=== PATIENT | female | born 1945 | race Caucasian/White ===

== ENCOUNTER → 2017-08-31 14:27 | Outpatient (CLI) | payer MEDICARE, SELFPAY | PROVIDERS: PCP Internal Medicine; Visit Provider Student in an Organized Health Care Education/Training Program | DX: L93.2 Other local lupus erythematosus (principal); N30.00 Acute cystitis without hematuria | CPT/HCPCS: 36415; 86335 ==

== ENCOUNTER → 2017-09-20 11:05 | Outpatient (CLI) | payer MEDICARE, SELFPAY ==
[2017-09-20 12:15] LABS: Hematocrit 34.8 % (36-46); Hemoglobin 11.9 g/dL (12.0-16.0)
[2017-09-20 13:49] LABS: Calcium 9.4 mg/dL (8.4-10.2); Estimated Glomerular Filt Rate 49.1 mL/min (>60); Glucose 222 mg/dL (80-110); HEMOLYSIS < 15 (0-50); Iron 69 ug/dL (37-170); Phosphorous 4.4 mg/dL (2.8-4.1); Potassium 4.6 mmol/L (3.4-5.1); Sodium 139 mmol/L (137-145)
[2017-09-20 14:02] LABS: Percent Iron Saturation 19 % (15-50); Total Iron Binding Capacity 363 ug/mL (265-497); Transferrin 297 mg/dL (206-381)
[2017-09-20 14:17] LABS: Ferritin 44.6 ng/mL (11.1-264)
[2017-09-20 18:15] LABS: Creatinine Urine Random 69.6 mg/dL
[2017-09-20 18:23] LABS: Protein (Total) Urine Random 437 mg/dL (0-12); Protein Creatinine Ratio Urine 6.27 GRAM/24H
[2017-09-22 13:43] LABS: Parathyroid Hormone Int 51 pg/mL (14-64)
== END ==
PROVIDERS: PCP Internal Medicine; Visit Provider Student in an Organized Health Care Education/Training Program
DX: N05.9 Unspecified nephritic syndrome with unspecified morphologic changes (principal); D50.0 Iron deficiency anemia secondary to blood loss (chronic); D64.9 Anemia, unspecified; E83.30 Disorder of phosphorus metabolism, unspecified; N25.81 Secondary hyperparathyroidism of renal origin; R80.9 Proteinuria, unspecified
CPT/HCPCS: 36415; 80048; 82570; 82728; 83540; 83550; 83970; 84100; 84156; 85014; 85018

== ENCOUNTER → 2017-10-26 13:46 | Outpatient (CLI) | payer MEDICARE, SELFPAY ==
[2017-10-26 14:16] LABS: Add Manual Diff / Slide Review NO; Eosinophils Percent Auto 1.1 % (2-4); Hematocrit 33.4 % (36-46); Hemoglobin 11.1 g/dL (12.0-16.0); Lymphocytes Percent Auto 16.8 % (25-40); Mean Corpuscular HGB Conc 33.2 % (30-36); Mean Corpuscular Hemoglobin 29.7 PG (26-34); Mean Corpuscular Volume 89.4 fL (80-100); Neutrophils Absolute Auto 5100 /uL (3000-5900); Neutrophils Percent Auto 76.1 % (50-75); Platelet Count 225 X10^3/uL (150-400); Red Blood Cell Count 3.74 X10^6/uL (4.0-5.2); Red Cell Distribution Width 13.5 % (11.6-14.8); White Blood Cell Count 6.7 X10^3/uL (4.5-11.0)
[2017-10-26 14:28] LABS: Alanine Aminotransferase 43 IU/L (9-52); Albumin 3.8 g/dL (3.5-5.0); Albumin Globulin Ratio 1.4 (1.0-2.8); Alkaline Phosphatase 57 U/L (38-126); Aspartate Aminotransferase 20 IU/L (14-36); BUN Creatinine Ratio 24.6 (6-22); Bilirubin Total 0.4 mg/dL (0.2-1.3); Blood Urea Nitrogen 32 mg/dL (7-17); Calcium 9.1 mg/dL (8.4-10.2); Carbon Dioxide 22 mmol/L (22-32); Chloride 104 mmol/L (98-107); Estimated Glomerular Filt Rate 40.5 mL/min (>60); Globulin 2.7 g/dL (1.7-4.1); Glucose 334 mg/dL (80-110); HEMOLYSIS < 15 (0-50); Potassium 4.9 mmol/L (3.4-5.1); Sodium 137 mmol/L (137-145); Total Protein 6.5 g/dL (6.3-8.2)
[2017-10-28 15:45] LABS: Cancer Antigen 27.29 22 U/mL (< 38)
== END ==
PROVIDERS: Family Provider Internal Medicine; PCP Internal Medicine; Visit Provider Nurse Practitioner Gerontology
DX: C50.912 Malignant neoplasm of unspecified site of left female breast (principal)
CPT/HCPCS: 36415; 80053; 85025; 86300

== ENCOUNTER → 2017-11-10 09:32 | Outpatient (CLI) | payer MEDICARE, SELFPAY ==
[2017-11-10 11:32] LABS: BUN Creatinine Ratio 28.5 (6-22); Blood Urea Nitrogen 37 mg/dL (7-17); Calcium 9.2 mg/dL (8.4-10.2); Carbon Dioxide 21 mmol/L (22-32); Chloride 104 mmol/L (98-107); Estimated Glomerular Filt Rate 40.5 mL/min (>60); Glucose 193 mg/dL (80-110); HEMOLYSIS < 15 (0-50); Potassium 4.2 mmol/L (3.4-5.1); Sodium 136 mmol/L (137-145)
[2017-11-10 12:32] LABS: Appearance Urine UA SL CLOUDY; Bilirubin Urine UA NEGATIVE (NEGATIVE); Color Urine UA YELLOW; Glucose Urine UA TRACE g/dL (Normal); Ketones Urine UA NEGATIVE (NEGATIVE); Leukocyte Esterase Urine UA 2+ (NEGATIVE); Nitrite Urine UA POSITIVE (Negative); Occult Blood Urine UA TRACE-LYSED (Negative); Protein Urine UA 3+ (Negative); Urobilinogen Urine UA 0.2 E.U./dL (0.2)
[2017-11-10 12:42] LABS: Bacteria Urine Many (>30); Culture Indicated Urine Specimen Cultured; RBC Urine 0-1/HPF (0-5/HPF); Squamous Epithelial Cell Urine 1-5 /HPF; WBC Urine >100/HPF (0-5/HPF)
[2017-11-10 20:51] LABS: Protein (Total) Urine Random 824 mg/dL (0-12)
[2017-11-10 20:52] LABS: Protein Creatinine Ratio Urine 6.53 GRAM/24H
== END ==
PROVIDERS: Family Provider Internal Medicine; PCP Internal Medicine; Visit Provider Student in an Organized Health Care Education/Training Program
DX: N00.9 Acute nephritic syndrome with unspecified morphologic changes (principal); N30.00 Acute cystitis without hematuria; R80.9 Proteinuria, unspecified
CPT/HCPCS: 36415; 80048; 81001; 82570; 84156; 87077; 87086; 87186

== ENCOUNTER → 2017-12-23 10:35 | Outpatient (CLI) | payer MEDICARE, SELFPAY ==
[2017-12-23 11:04] LABS: Hematocrit 32.7 % (36-46); Hemoglobin 11.1 g/dL (12.0-16.0); Mean Corpuscular HGB Conc 33.9 % (30-36); Mean Corpuscular Hemoglobin 29.9 PG (26-34); Mean Corpuscular Volume 88.2 fL (80-100); Platelet Count 230 X10^3/uL (150-400); White Blood Cell Count 6.2 X10^3/uL (4.5-11.0)
[2017-12-23 11:25] LABS: BUN Creatinine Ratio 26.7 (6-22); Blood Urea Nitrogen 32 mg/dL (7-17); Calcium 9.4 mg/dL (8.4-10.2); Carbon Dioxide 23 mmol/L (22-32); Chloride 105 mmol/L (98-107); Estimated Glomerular Filt Rate 44.4 mL/min (>60); Glucose 173 mg/dL (80-110); HEMOLYSIS < 15 (0-50); Sodium 140 mmol/L (137-145)
[2017-12-23 11:29] LABS: Creatinine Urine Random 46.5 mg/dL
[2017-12-23 11:34] LABS: Protein (Total) Urine Random 349 mg/dL (0-12)
== END ==
PROVIDERS: Family Provider Internal Medicine; PCP Internal Medicine; Visit Provider Student in an Organized Health Care Education/Training Program
DX: N05.9 Unspecified nephritic syndrome with unspecified morphologic changes (principal); D70.9 Neutropenia, unspecified; D63.1 Anemia in chronic kidney disease; R80.9 Proteinuria, unspecified
CPT/HCPCS: 36415; 80048; 82570; 84156; 85027

== ENCOUNTER → 2018-02-18 10:44 | Outpatient (CLI) | payer MEDICARE, SELFPAY ==
[2018-02-18 11:50] LABS: BUN Creatinine Ratio 30.8 (6-22); Blood Urea Nitrogen 40 mg/dL (7-17); Calcium 9.8 mg/dL (8.4-10.2); Carbon Dioxide 22 mmol/L (22-32); Chloride 106 mmol/L (98-107); Estimated Glomerular Filt Rate 40.5 mL/min (>60); Glucose 146 mg/dL (80-110); HEMOLYSIS < 15 (0-50); Potassium 4.8 mmol/L (3.4-5.1); Sodium 139 mmol/L (137-145)
[2018-02-18 15:27] LABS: Creatinine Urine Random 45.4 mg/dL
[2018-02-18 15:35] LABS: Protein (Total) Urine Random 365 mg/dL (0-12); Protein Creatinine Ratio Urine 8.03 GRAM/24H
[2018-02-22 15:02] LABS: Parathyroid Hormone Int 35 pg/mL (14-64)
== END ==
PROVIDERS: Family Provider Internal Medicine; PCP Internal Medicine; Visit Provider Student in an Organized Health Care Education/Training Program
DX: N05.9 Unspecified nephritic syndrome with unspecified morphologic changes (principal); N25.81 Secondary hyperparathyroidism of renal origin; R80.9 Proteinuria, unspecified
CPT/HCPCS: 36415; 80048; 82570; 83970; 84156

== ENCOUNTER → 2018-04-13 09:57 | Outpatient (CLI) | payer MEDICARE, SELFPAY ==
[2018-04-13 10:41] LABS: Hematocrit 34.4 % (36-46); Hemoglobin 11.5 g/dL (12.0-16.0)
[2018-04-13 10:51] LABS: HEMOLYSIS < 15 (0-50); Iron 66 ug/dL (37-170)
[2018-04-13 10:52] LABS: BUN Creatinine Ratio 35.8 (6-22); Blood Urea Nitrogen 43 mg/dL (7-17); Calcium 9.6 mg/dL (8.4-10.2); Carbon Dioxide 19 mmol/L (22-32); Chloride 110 mmol/L (98-107); Estimated Glomerular Filt Rate 44.4 mL/min (>60); Glucose 151 mg/dL (80-110); HEMOLYSIS < 15 (0-50); Potassium 4.6 mmol/L (3.4-5.1); Sodium 141 mmol/L (137-145)
[2018-04-13 11:02] LABS: Percent Iron Saturation 19 % (15-50); Total Iron Binding Capacity 350 ug/dL (265-497); Transferrin 302 mg/dL (206-381)
[2018-04-13 11:28] LABS: Ferritin 44.6 ng/mL (11.1-264)
[2018-04-13 15:59] LABS: Creatinine Urine Random 76.9 mg/dL
[2018-04-13 16:16] LABS: Protein (Total) Urine Random 451 mg/dL (0-12); Protein Creatinine Ratio Urine 5.86 GRAM/24H
== END ==
PROVIDERS: Family Provider Internal Medicine; PCP Internal Medicine; Visit Provider Student in an Organized Health Care Education/Training Program
DX: N05.9 Unspecified nephritic syndrome with unspecified morphologic changes (principal); D50.0 Iron deficiency anemia secondary to blood loss (chronic); D64.9 Anemia, unspecified; R80.9 Proteinuria, unspecified
CPT/HCPCS: 36415; 80048; 82570; 82728; 83540; 83550; 84156; 85014; 85018

== ENCOUNTER → 2018-04-30 11:31 | Outpatient (CLI) | payer MEDICARE, SELFPAY ==
--- NOTE | 2018-04-30 | DI.MG.S_ITS ---
BILATERAL DIGITAL SCREENING MAMMOGRAM 3D/2D WITH CAD POST LUMPECTOMY: 04/30/2018 CLINICAL: Routine screening. Personal history of left breast cancer. Family history of breast cancer. Comparison is made to exams dated: 04/27/2017 mammogram, 04/22/2016 mammogram, and 01/04/2015 mammogram - [facility]. There are scattered fibroglandular elements in both breasts. Current study was also evaluated with a Computer Aided Detection (CAD) system. There are benign post operative findings in the left breast. There also are benign calcifications in both breasts. No significant masses, calcifications, or other findings are seen in either breast. There has been no significant interval change. IMPRESSION: There is no mammographic evidence of malignancy. A 1 year screening mammogram is recommended. This exam was interpreted at Station ID: [id number]. NOTE: For mammograms, a report in lay terms will be sent to the patient. Approximately 15% of breast malignancies will not be visualized mammographically. In the management of a palpable breast mass, a negative mammogram must not discourage biopsy of a clinically suspicious lesion. Electronically Signed By: Marco sawyer/gigi:05/02/2018 11:27:22 copy to: CHANTE ASHLEY letter sent: Normal Exam ACR BI-RADS Category 2: Benign Finding(s) 3342F
== END ==
PROVIDERS: Family Provider Internal Medicine; PCP Internal Medicine; Visit Provider Internal Medicine
DX: Z12.31 Encounter for screening mammogram for malignant neoplasm of breast (principal); Z85.3 Personal history of malignant neoplasm of breast; Z80.3 Family history of malignant neoplasm of breast
CPT/HCPCS: 77063; 77067

== ENCOUNTER → 2018-05-05 14:26 | Outpatient (CLI) | payer OTHER, SELFPAY ==
[2018-05-06 14:32] LABS: Add Manual Diff / Slide Review NO; Eosinophils Percent Auto 2.6 % (2-4); Hematocrit 34.7 % (36-46); Hemoglobin 11.5 g/dL (12.0-16.0); Lymphocytes Percent Auto 18.5 % (25-40); Mean Corpuscular HGB Conc 33.2 % (30-36); Mean Corpuscular Hemoglobin 29.9 PG (26-34); Mean Corpuscular Volume 90.2 fL (80-100); Monocytes Percent Auto 8.1 % (3-14); Neutrophils Absolute Auto 4100 /uL (1500-7000); Neutrophils Percent Auto 69.8 % (50-75); Platelet Count 241 X10^3/uL (150-400); Red Blood Cell Count 3.85 X10^6/uL (4.0-5.2); White Blood Cell Count 5.8 X10^3/uL (4.5-11.0)
[2018-05-06 15:09] LABS: Alanine Aminotransferase 21 IU/L (9-52); Albumin 3.8 g/dL (3.5-5.0); Albumin Globulin Ratio 1.2 (1.0-2.8); Alkaline Phosphatase 88 U/L (38-126); Aspartate Aminotransferase 21 IU/L (14-36); Bilirubin Total 0.3 mg/dL (0.2-1.3); Blood Urea Nitrogen 42 mg/dL (7-17); Calcium 9.3 mg/dL (8.4-10.2); Carbon Dioxide 22 mmol/L (22-32); Chloride 102 mmol/L (98-107); Estimated Glomerular Filt Rate 37.2 mL/min (>60); Globulin 3.1 g/dL (1.7-4.1); Glucose 252 mg/dL (80-110); HEMOLYSIS < 15 (0-50); Potassium 4.6 mmol/L (3.4-5.1); Sodium 135 mmol/L (137-145); Total Protein 6.9 g/dL (6.3-8.2)
[2018-05-10 10:46] LABS: Cancer Antigen 27.29 28 U/mL (< 38)
== END ==
PROVIDERS: Family Provider Internal Medicine; PCP Internal Medicine; Visit Provider Nurse Practitioner Gerontology
DX: C50.912 Malignant neoplasm of unspecified site of left female breast (principal)
CPT/HCPCS: 36415; 80053; 85025; 86300

== ENCOUNTER → 2018-05-27 15:04 | Outpatient (CLI) | payer OTHER, SELFPAY ==
[2018-05-27 16:19] LABS: Hemoglobin A1C% w Est Avg Glu 9.5 % (4.0-6.0)
[2018-05-27 16:45] LABS: Add Manual Diff / Slide Review NO; Basophils Absolute Auto 100 /uL (0-100); Basophils Percent Auto 1.1 % (0-2); Eosinophils Absolute Auto 200 /uL (0-450); Eosinophils Percent Auto 2.9 % (2-4); Hematocrit 36.9 % (36-46); Hemoglobin 12.3 g/dL (12.0-16.0); Lymphocytes Absolute Auto 1900 /uL (1100-4500); Lymphocytes Percent Auto 22.2 % (25-40); Mean Corpuscular HGB Conc 33.4 % (30-36); Mean Corpuscular Hemoglobin 29.9 PG (26-34); Mean Corpuscular Volume 89.6 fL (80-100); Monocytes Absolute Auto 500 /uL (0-900); Monocytes Percent Auto 5.7 % (3-14); Neutrophils Absolute Auto 5800 /uL (1500-7000); Neutrophils Percent Auto 68.1 % (50-75); Platelet Count 228 X10^3/uL (150-400); Red Blood Cell Count 4.12 X10^6/uL (4.0-5.2); Red Cell Distribution Width 13.6 % (11.6-14.8); White Blood Cell Count 8.6 X10^3/uL (4.5-11.0)
[2018-05-27 17:00] LABS: Thyroid Stimulating Hormone 1.08 uIU/mL (0.47-4.68)
[2018-05-27 22:25] LABS: Alanine Aminotransferase 28 IU/L (9-52); Albumin Globulin Ratio 1.5 (1.0-2.8); Alkaline Phosphatase 88 U/L (38-126); Aspartate Aminotransferase 24 IU/L (14-36); BUN Creatinine Ratio 28.6 (6-22); Bilirubin Total 0.5 mg/dL (0.2-1.3); Blood Urea Nitrogen 40 mg/dL (7-17); Calcium 9.7 mg/dL (8.4-10.2); Carbon Dioxide 22 mmol/L (22-32); Chloride 103 mmol/L (98-107); Estimated Glomerular Filt Rate 37.2 mL/min (>60); Globulin 2.6 g/dL (1.7-4.1); Glucose 286 mg/dL (80-110); HEMOLYSIS < 15 (0-50); Potassium 5.3 mmol/L (3.4-5.1); Sodium 137 mmol/L (137-145); Total Protein 6.6 g/dL (6.3-8.2)
== END ==
PROVIDERS: Family Provider Internal Medicine; PCP Internal Medicine; Visit Provider Student in an Organized Health Care Education/Training Program
DX: E78.5 Hyperlipidemia, unspecified (principal); I10 Essential (primary) hypertension; N18.3 Chronic kidney disease, stage 3 (moderate); E11.29 Type 2 diabetes mellitus with other diabetic kidney complication; E03.9 Hypothyroidism, unspecified
CPT/HCPCS: 36415; 80053; 83036; 84443; 85025

== ENCOUNTER → 2018-07-08 11:34 | Outpatient (CLI) | payer OTHER, SELFPAY ==
[2018-07-08 12:36] LABS: Hematocrit 35.7 % (36-46); Hemoglobin 11.7 g/dL (12.0-16.0)
[2018-07-08 12:52] LABS: BUN Creatinine Ratio 30.7 (6-22); Blood Urea Nitrogen 46 mg/dL (7-17); Calcium 9.4 mg/dL (8.4-10.2); Carbon Dioxide 24 mmol/L (22-32); Chloride 102 mmol/L (98-107); Estimated Glomerular Filt Rate 34.3 mL/min (>60); Glucose 160 mg/dL (80-110); HEMOLYSIS < 15 (0-50); Potassium 4.5 mmol/L (3.4-5.1); Sodium 137 mmol/L (137-145)
[2018-07-08 15:51] LABS: Creatinine Urine Random 68.2 mg/dL
[2018-07-08 16:15] LABS: Protein (Total) Urine Random 445 mg/dL (0-12); Protein Creatinine Ratio Urine 6.52 GRAM/24H
[2018-07-12 13:54] LABS: Parathyroid Hormone Int 76 pg/mL (14-64)
== END ==
PROVIDERS: Family Provider Internal Medicine; PCP Internal Medicine; Visit Provider Student in an Organized Health Care Education/Training Program
DX: N05.9 Unspecified nephritic syndrome with unspecified morphologic changes (principal); D64.9 Anemia, unspecified; R80.9 Proteinuria, unspecified
CPT/HCPCS: 36415; 80048; 82570; 83970; 84156; 85014; 85018

== ENCOUNTER 2018-08-13 14:32 | Emergency (ER) | payer OTHER, SELFPAY ==
--- NOTE | 2018-08-13 14:31 | DI.CT.S_ITS ---
PROCEDURE: CT HEAD/BRAIN WO CON INDICATIONS: head injury TECHNIQUE: Noncontrast 4.5 mm thick angled axial sections acquired from the foramen magnum to the vertex, with coronal and sagittal reformats. For radiation dose reduction, the following was used: automated exposure control, adjustment of mA and/or kV according to patient size. COMPARISON: [facility], RG, MRI HEAD W/WO CONTRAST, 09/23/2004, 13:20. [facility], CT, CT ORBIT LT WO CON, 08/13/2018, 14:35. FINDINGS: Image quality: Excellent. CSF spaces: Basal cisterns are patent. No extra-axial fluid collections. The ventricles are symmetric in size and shape. Brain: No intracranial bleeds or masses. There is cerebral volume loss for age, with resultant ventricular and sulcal prominence. There are periventricular and deep white matter chronic small vessel ischemic changes. There is intracranial internal carotid artery atherosclerosis. Bilateral areas of basal ganglia old lacunar ischemia are noted. Skull and face: Calvarium and visualized facial bones appear intact, without suspicious lesions. Prominent left periorbital soft tissue hematoma. Sinuses: Visualized sinuses and mastoids are clear. IMPRESSION: 1. No acute intracranial process. 2. Moderate atrophy and chronic microvascular ischemic changes. 3. Left periorbital soft tissue hematoma. Dictated by: Diane Candelario M.D. on 08/13/2018 at 15:29 Approved by: Diane Candelario M.D. on 08/13/2018 at 15:32
--- NOTE | 2018-08-13 14:32 | DI.CT.S_ITS ---
PROCEDURE: CT ORBIT LT WO CON INDICATIONS: fall, head injury, swelling above orbit TECHNIQUE: Noncontrast 2.5 mm axial images acquired through the orbits, with coronal and sagittal reformats. For radiation dose reduction, the following was used: automated exposure control, adjustment of mA and/or kV according to patient size. COMPARISON: [facility], CT, CT HEAD/BRAIN WO CON, 08/13/2018, 14:35. FINDINGS: Image quality: Excellent. Orbits: Globes are symmetrical. No metallic foreign bodies. The optic nerves are normal in size. No retrobulbar masses or fat abnormalities. The extra-ocular muscles are normal and symmetrical in appearance. Lacrimal glands are normal in size. Optic chiasm is normal. There is a left periorbital soft tissue hematoma. Intracranial: Visualized portions of the cerebral hemispheres, brainstem, and spinal cord are normal. Bones and sinuses: Visualized calvarium and facial bones appear intact. Visualized sinuses and mastoids are clear. IMPRESSION: 1. Left periorbital soft tissue hematoma without underlying fracture. Dictated by: Diane Candelario M.D. on 08/13/2018 at 15:27 Approved by: Diane Candelario M.D. on 08/13/2018 at 15:29
[2018-08-13 14:38] VITALS: BP 210/73; PULSE 81; RESP 12; TEMP 36.3; O2SAT 100
--- NOTE | 2018-08-13 14:40 | DI.RAD.S_ITS ---
PROCEDURE: XR WRIST LT MIN 3V INDICATIONS: injury, pain TECHNIQUE: 4 views of the wrist were acquired. COMPARISON: None. FINDINGS: Bones: No fractures or dislocations. No suspicious bony lesions. Scaphoid view: No visualized fracture. Soft tissues: No suspicious soft tissue calcifications. IMPRESSION: No visualized acute fracture or dislocation. However, if clinical concern and/or pain persist, short interval imaging followup in 7-10 days is recommended, as occult injury cannot be definitively excluded. Dictated by: Diane Candelario M.D. on 08/13/2018 at 14:52 Approved by: Diane Candelario M.D. on 08/13/2018 at 14:52
--- NOTE | 2018-08-13 15:03 | ED_ITS ---
HPI - Head Injury General Chief complaint: Head Injury Stated complaint: fall, head trauma, no thinners Time Seen by Provider: 08/13/18 14:35 Source: patient and family Mode of arrival: ambulatory Limitations: no limitations History of Present Illness HPI Narrative: 73F with history of HTN and DM presents by EMS for evaluation of a trip and fall with head injury. She was walking and had a brief dizzy spell and tripped and fell forward, striking her head on the ground. She denies any ongoing symptoms. She takes no blood thinners. She denies loss of consciousness. She has had no nausea, vomiting or focal neurologic findings such as numbness, weakness or tingling. She has no laceration. She does have hematoma over her left eye but no change in her vision. MD Complaint: head injury Onset (ago): minute(s) Mechanism of Injury: fall Place: outdoors Loss of Consciousness: no Location of injury: frontal Severity: mild Quality: aching Radiation: none Other Injuries: none Context: on aspirin Related Data Home Medications Medication Instructions Recorded Confirmed CHOLECALCIFEROL (VITAMIN D3) 2,000 iu Q DAY #0 04/15/10 05/10/18 (Vitamin D3) [OMEGA 3 FATTY ACIDS] 2,000 mg PO BID #0 04/15/10 05/10/18 levothyroxine [Synthroid] 75 mcg PO QAM #0 tab 01/08/16 05/10/18 amlodipine 5 mg PO DAILY 11/05/17 05/10/18 aspirin 81 mg PO DAILY 11/05/17 05/10/18 atorvastatin 10 mg PO DAILY 11/05/17 05/10/18 atorvastatin 40 mg PO DAILY 11/05/17 05/10/18 ferrous sulfate 325 mg PO DAILY 11/05/17 05/10/18 folic acid 0.8 mg PO DAILY 11/05/17 05/10/18 glipizide 10 mg PO DAILY 11/05/17 05/10/18 metformin 1,000 mg PO BID 11/05/17 05/10/18 sertraline 50 mg PO DAILY 11/05/17 05/10/18 spironolactone 25 mg PO DAILY 11/05/17 05/10/18 Allergies Allergy/AdvReac Type Severity Reaction Status Date / Time adhesive tape [ADHESIVE TAPE] Allergy Severe RASH Verified 11/05/17 11:39 PAPER/SILK TAPE milk [MILK] Allergy Severe DIARRHEA Verified 11/05/17 11:39 Penicillins [PENICILLINS] Allergy Mild UNSURE, Verified 11/05/17 11:39 SHAKINESS, FEEL WEIRD EGGS AdvReac Severe DIARRHEA Uncoded 11/05/17 11:40 Review of Systems Constitutional Denies chills, Denies fever(s), Denies lethargy and Denies weakness Eyes Denies change in vision, Denies eye discharge, Denies irritation and Denies loss of vision ENT Ears, Nose, Mouth, and Throat: Denies change in voice, Denies neck pain and Denies sore throat Cardiovascular Denies chest pain, Denies irregular heart rhythm, Denies lightheadedness, Denies palpitations, Denies dyspnea, Denies dyspnea on exertion and Denies orthopnea Respiratory Denies cough, Denies dyspnea, Denies dyspnea on exertion and Denies wheezing Gastrointestinal Gastrointestinal: Denies abdominal pain, Denies change in bowel habits, Denies diarrhea, Denies nausea and Denies vomiting Genitourinary Denies hematuria, Denies flank pain, Denies urinary incontinence and Denies urinary urgency Musculoskeletal Denies neck pain Integumentary/Breasts Denies pruritus, Denies erythema, Denies rash, Reports skin swelling, Reports unusual bruising and Denies wounds Neurologic Denies confusion, Denies loss of vision and Denies weakness Psychiatric Denies anxiety, Denies confusion, Denies depression, Denies homicidal ideation and Denies suicidal ideation Endocrine Denies palpitations Hematologic/Lymphatic Denies easy bruising Allergic/Immunologic Denies wheezing PFSH Social History Smoking Status: Never smoker Social History Smoking Status: Never smoker Exam Narrative Exam Narrative: GENERAL: 73F appears stated age, very pleasant, alert and oriented. GCS 15 HEAD: Tender hematoma over L eye. No other obvious swelling. EYES: Pupils equal round and reactive. Extraocular motions intact. No scleral icterus. No injection or drainage. ENT: Nose without bleeding, purulent drainage or septal hematoma. Throat without erythema, tonsillar hypertrophy or exudate. Uvula midline. Airway patent. NECK: Trachea midline. No JVD or lymphadenopathy. Supple, nontender, no meningeal signs. CARDIOVASCULAR: Regular rate and rhythm without murmurs, gallops, or rubs. RESPIRATORY: Clear to auscultation. Breath sounds equal bilaterally. No wheezes, rales, or rhonchi. GASTROINTESTINAL: Abdomen soft, non-tender, nondistended. No hepato- splenomegaly, or palpable masses. No guarding. EXTREMITIES: No clubbing, cyanosis, or edema. No joint tenderness, effusion, or edema noted. BACK: Nontender without deformity or crepitance. No flank tenderness. NEURO: AOx3. SKIN: No rash or erythema. Initial Vital Signs Initial Vital Signs: Vital Signs Temperature 97.4 F L 08/13/18 14:38 Pulse Rate 81 08/13/18 14:38 Respiratory Rate 12 08/13/18 14:38 Blood Pressure 210/73 H 08/13/18 14:38 Pulse Oximetry 100 08/13/18 14:38 Course Orders Ordered: ED Orders 08/13/18 14:31 CT head/brain wo con Stat 08/13/18 14:32 CT orbit LT wo con Stat EKG-12 Lead Stat 08/13/18 14:40 XR wrist LT min 3V Stat 08/13/18 15:20 Basic Metabolic Panel Stat Complete Blood Count AUTO DIFF Stat Troponin I Stat Vital Signs - 8 hr 08/13/18 14:38 08/13/18 15:20 08/13/18 16:17 Temperature 97.4 F L Pulse Rate 81 76 Pulse Rate [Orthostatic Lying] 85 Pulse Rate [Orthostatic Sitting] 76 Pulse Rate [Orthostatic Standing] 84 Respiratory Rate 12 24 Blood Pressure 210/73 H Blood Pressure [Orthostatic Lying] 202/74 H Blood Pressure [Orthostatic Sitting] 188/78 H Blood Pressure [Orthostatic Standing] 186/67 H Blood Pressure [Right Arm] 159/104 H Pulse Oximetry 100 08/13/18 16:22 Temperature Pulse Rate 78 Pulse Rate [Orthostatic Lying] Pulse Rate [Orthostatic Sitting] Pulse Rate [Orthostatic Standing] Respiratory Rate 17 Blood Pressure 202/74 H Blood Pressure [Orthostatic Lying] Blood Pressure [Orthostatic Sitting] Blood Pressure [Orthostatic Standing] Blood Pressure [Right Arm] Pulse Oximetry 96 MDM - Head Injury Lab Data Result diagrams: 08/13/18 15:20 08/13/18 15:20 Lab Results 08/13/18 08/13/18 Range/Units 15:20 15:20 WBC 7.8 (4.5-11.0) X10^3/uL RBC 3.85 L (4.0-5.2) X10^6/uL Hgb 11.5 L (12.0-16.0) g/dL Hct 34.1 L (36-46) % MCV 88.7 (80-100) fL MCH 29.9 (26-34) PG MCHC 33.7 (30-36) % RDW 13.7 (11.6-14.8) % Plt Count 239 (150-400) X10^3/uL Neut % (Auto) 81.8 H (50-75) % Lymph % (Auto) 11.6 L (25-40) % [place] % (Auto) 4.2 (3-14) % Eos % (Auto) 1.4 L (2-4) % Baso % (Auto) 1.0 (0-2) % Neut # (Auto) 6400 (6340-0006) /uL Lymph # (Auto) 900 L (2049-9581) /uL [place] # (Auto) 300 (0-900) /uL Eos # (Auto) 100 (0-450) /uL Baso # (Auto) 100 (0-100) /uL Sodium 136 L (137-145) mmol/L Potassium 4.2 (3.4-5.1) mmol/L Chloride 105 (98-107) mmol/L Carbon Dioxide 19 L (22-32) mmol/L BUN 42 H (7-17) mg/dL Creatinine 1.40 H (0.52-1.04) mg/dL Estimated GFR 37.1 L (>60) mL/min BUN/Creatinine Ratio 30.0 H (6-22) Glucose 191 H (80-110) mg/dL Calcium 9.3 (8.4-10.2) mg/dL Troponin I < 0.012 (0.01-0.034) ng/mL Imaging Data CT scan - head: Radiologist's impression: [address] [address] [address] Scan Report Signed Patient: Heather Ribera LMR#: [id number] : 8Acct:[id number] Age/Sex: 73 / FDate of Service: 08/13/18 Loc: ED Accession Number: [id number] Procedure: CT head/brain wo con Ordering Provider: Josue Montemayor D.O. PROCEDURE: CT HEAD/BRAIN WO CON INDICATIONS: head injury TECHNIQUE: Noncontrast 4.5 mm thick angled axial sections acquired from the foramen magnum to the vertex, with coronal and sagittal reformats. For radiation dose reduction, the following was used: automated exposure control, adjustment of mA and/or kV according to patient size. COMPARISON: [facility], RG, MRI HEAD W/WO CONTRAST, 09/23/2004, 13:20. [facility], CT, CT ORBIT LT WO CON, 08/13/2018, 14:35. FINDINGS: Image quality: Excellent. CSF spaces: Basal cisterns are patent. No extra-axial fluid collections. The ventricles are symmetric in size and shape. Brain: No intracranial bleeds or masses. There is cerebral volume loss for age, with resultant ventricular and sulcal prominence. There are periventricular and deep white matter chronic small vessel ischemic changes. There is intracranial internal carotid artery atherosclerosis. Bilateral areas of basal ganglia old lacunar ischemia are noted. Skull and face: Calvarium and visualized facial bones appear intact, without suspicious lesions. Prominent left periorbital soft tissue hematoma. Sinuses: Visualized sinuses and mastoids are clear. IMPRESSION: 1. No acute intracranial process. 2. Moderate atrophy and chronic microvascular ischemic changes. 3. Left periorbital soft tissue hematoma. Dictated by: Diane Candelario M.D. on 08/13/2018 at 15:29 Approved by: Diane Candelario M.D. on 08/13/2018 at 15:32 Orbits : Radiologist's impression: [place] [address] CT Scan Report Signed Patient: Heather Ribera LMR#: [id number] : 8Acct:[id number] Age/Sex: 73 / FDate of Service: 08/13/18 Loc: ED Accession Number: [id number] Procedure: CT orbit LT wo con Ordering Provider: Josue Montemayor D.O. PROCEDURE: CT ORBIT LT WO CON INDICATIONS: fall, head injury, swelling above orbit TECHNIQUE: Noncontrast 2.5 mm axial images acquired through the orbits, with coronal and sagittal reformats. For radiation dose reduction, the following was used: automated exposure control, adjustment of mA and/or kV according to patient size. COMPARISON: [facility], CT, CT HEAD/BRAIN WO CON, 08/13/2018, 14:35. FINDINGS: Image quality: Excellent. Orbits: Globes are symmetrical. No metallic foreign bodies. The optic nerves are normal in size. No retrobulbar masses or fat abnormalities. The extra-ocular muscles are normal and symmetrical in appearance. Lacrimal glands are normal in size. Optic chiasm is normal. There is a left periorbital soft tissue hematoma. Intracranial: Visualized portions of the cerebral hemispheres, brainstem, and spinal cord are normal. Bones and sinuses: Visualized calvarium and facial bones appear intact. Visualized sinuses and mastoids are clear. IMPRESSION: 1. Left periorbital soft tissue hematoma without underlying fracture. Dictated by: Diane Candelario M.D. on 08/13/2018 at 15:27 Approved by: Diane Candelario M.D. on 08/13/2018 at 15:29 Wrist Xray: Radiologist's impression: [place] [address] XRay Report Signed Patient: Heather Ribera LMR#: [id number] : 8Acct:[id number] Age/Sex: 73 / FDate of Service: 08/13/18 Loc: ED Accession Number: [id number] Procedure: XR wrist LT min 3V Ordering Provider: Josue Montemayor D.O. PROCEDURE: XR WRIST LT MIN 3V INDICATIONS: injury, pain TECHNIQUE: 4 views of the wrist were acquired. COMPARISON: None. FINDINGS: Bones: No fractures or dislocations. No suspicious bony lesions. Scaphoid view: No visualized fracture. Soft tissues: No suspicious soft tissue calcifications. IMPRESSION: No visualized acute fracture or dislocation. However, if clinical concern and/or pain persist, short interval imaging followup in 7-10 days is recommended, as occult injury cannot be definitively excluded. Dictated by: Diane Candelario M.D. on 08/13/2018 at 14:52 Approved by: Diane Candelario M.D. on 08/13/2018 at 14:52 Discharge Plan Departure Patient Disposition: Home Clinical Impression: Contusion of face Qualifiers: Encounter type: initial encounter Qualified Code(s): S00.83XA - Contusion of other part of head, initial encounter Head injury Qualifiers: Encounter type: initial encounter Qualified Code(s): S09.90XA - Unspecified injury of head, initial encounter Discharge Date/Time: 08/13/18 16:38 Interventions: ED Discharge Assessment Last Done: 08/13/18 16:22 Instructions: DI for Closed Head Injury Activity Restrictions/Additional Instructions: *You have been diagnosed with [ fall with hematoma and head injury ] *What to do: *Take medications as directed *Follow up with your primary care provider in 2-3 days, call for an appointment. Let them know you were seen in the Emergency Department and that we ask that you be seen in follow up *Return to ER if you should have any new, worsening or concerning symptoms Prescriptions: No Action CHOLECALCIFEROL (VITAMIN D3) (Vitamin D3) 2,000 iu Q DAY Qty: 0 RF: 0 [OMEGA 3 FATTY ACIDS] tablet 2,000 mg PO BID Qty: 0 RF: 0 levothyroxine [Synthroid] 75 MCG tablet 75 mcg PO QAM Qty: 0 RF: 0 atorvastatin 40 mg Tablet 40 mg PO DAILY RF: 0 atorvastatin 10 mg Tablet 10 mg PO DAILY RF: 0 glipizide 10 mg Tablet Extended Release 24hr 10 mg PO DAILY RF: 0 spironolactone 25 mg Tablet 25 mg PO DAILY RF: 0 amlodipine 10 mg Tablet 5 mg PO DAILY RF: 0 metformin 1,000 mg Tablet 1,000 mg PO BID RF: 0 sertraline 25 mg Tablet 50 mg PO DAILY RF: 0 aspirin 81 mg Tablet,Delayed Release (Dr/Ec) 81 mg PO DAILY RF: 0 ferrous sulfate 325 mg (65 mg iron) Tablet 325 mg PO DAILY RF: 0 folic acid 800 mcg Tablet 0.8 mg PO DAILY RF: 0 Referrals: Zee Lobato ARNP [Primary Care Provider] -
[2018-08-13 15:20] VITALS: BP 159/104; PULSE 76; RESP 24
[2018-08-13 15:28] LABS: Add Manual Diff / Slide Review NO; Basophils Absolute Auto 100 /uL (0-100); Eosinophils Absolute Auto 100 /uL (0-450); Eosinophils Percent Auto 1.4 % (2-4); Hematocrit 34.1 % (36-46); Hemoglobin 11.5 g/dL (12.0-16.0); Lymphocytes Absolute Auto 900 /uL (1100-4500); Lymphocytes Percent Auto 11.6 % (25-40); Mean Corpuscular HGB Conc 33.7 % (30-36); Mean Corpuscular Hemoglobin 29.9 PG (26-34); Mean Corpuscular Volume 88.7 fL (80-100); Monocytes Absolute Auto 300 /uL (0-900); Monocytes Percent Auto 4.2 % (3-14); Neutrophils Absolute Auto 6400 /uL (1500-7000); Neutrophils Percent Auto 81.8 % (50-75); Platelet Count 239 X10^3/uL (150-400); Red Blood Cell Count 3.85 X10^6/uL (4.0-5.2); Red Cell Distribution Width 13.7 % (11.6-14.8); White Blood Cell Count 7.8 X10^3/uL (4.5-11.0)
[2018-08-13 15:42] LABS: Blood Urea Nitrogen 42 mg/dL (7-17); Calcium 9.3 mg/dL (8.4-10.2); Carbon Dioxide 19 mmol/L (22-32); Chloride 105 mmol/L (98-107); Estimated Glomerular Filt Rate 37.1 mL/min (>60); Glucose 191 mg/dL (80-110); HEMOLYSIS < 15 (0-50); Potassium 4.2 mmol/L (3.4-5.1); Sodium 136 mmol/L (137-145)
[2018-08-13 15:52] LABS: Troponin I < 0.012 ng/mL (0.01-0.034)
[2018-08-13 16:17] VITALS: BP 186/67; BP 188/78; BP 202/74; PULSE 76; PULSE 84; PULSE 85
[2018-08-13 16:22] VITALS: BP 202/74; PULSE 78; RESP 17; O2SAT 96
== END 2018-08-13 16:38 | disposition home or self-care (01) ==
PROVIDERS: Emergency Provider Emergency Medicine; PCP Nurse Practitioner Family
DX: S00.83XA Contusion of other part of head, initial encounter (principal); S09.90XA Unspecified injury of head, initial encounter; R42 Dizziness and giddiness; W19.XXXA Unspecified fall, initial encounter
CPT/HCPCS: 36591; 70450; 70480; 73110; 80048; 84484; 85025; 93005; 93010; 99283; 99285

== ENCOUNTER → 2018-08-31 12:50 | Outpatient (CLI) | payer OTHER, SELFPAY ==
[2018-08-31 13:42] LABS: BUN Creatinine Ratio 21.4 (6-22); Blood Urea Nitrogen 30 mg/dL (7-17); Calcium 9.3 mg/dL (8.4-10.2); Carbon Dioxide 25 mmol/L (22-32); Chloride 101 mmol/L (98-107); Estimated Glomerular Filt Rate 37.1 mL/min (>60); Glucose 168 mg/dL (80-110); HEMOLYSIS < 15 (0-50); Potassium 4.3 mmol/L (3.4-5.1); Sodium 138 mmol/L (137-145)
== END ==
PROVIDERS: PCP Nurse Practitioner Family; Visit Provider Student in an Organized Health Care Education/Training Program
DX: N05.9 Unspecified nephritic syndrome with unspecified morphologic changes (principal); R80.9 Proteinuria, unspecified
CPT/HCPCS: 36415; 80048

== ENCOUNTER → 2018-09-01 09:57 | Outpatient (CLI) | payer OTHER, SELFPAY ==
[2018-09-01 11:07] LABS: Creatinine Urine Random 31.1 mg/dL
[2018-09-01 11:16] LABS: Protein (Total) Urine Random 265 mg/dL (0-12); Protein Creatinine Ratio Urine 8.52 GRAM/24H
== END ==
PROVIDERS: PCP Nurse Practitioner Family; Visit Provider Student in an Organized Health Care Education/Training Program
DX: R80.9 Proteinuria, unspecified (principal); N05.9 Unspecified nephritic syndrome with unspecified morphologic changes
CPT/HCPCS: 82570; 84156

== ENCOUNTER → 2018-09-08 13:54 | Outpatient (CLI) | payer OTHER, SELFPAY ==
[2018-09-08 14:47] LABS: Alanine Aminotransferase 25 IU/L (9-52); Albumin 3.9 g/dL (3.5-5.0); Albumin Globulin Ratio 1.3 (1.0-2.8); Alkaline Phosphatase 68 U/L (38-126); Aspartate Aminotransferase 19 IU/L (14-36); BUN Creatinine Ratio 22.3 (6-22); Bilirubin Total 0.3 mg/dL (0.2-1.3); Blood Urea Nitrogen 29 mg/dL (7-17); Calcium 9.3 mg/dL (8.4-10.2); Carbon Dioxide 23 mmol/L (22-32); Chloride 105 mmol/L (98-107); Cholesterol 305 mg/dL (140-199); Estimated Glomerular Filt Rate 40.4 mL/min (>60); Glucose 171 mg/dL (80-110); HDL Cholesterol 50 mg/dL (40-60); HEMOLYSIS < 15 (0-50); LDL Cholesterol Calculated 198 mg/dL (<100); Potassium 4.4 mmol/L (3.4-5.1); Sodium 138 mmol/L (137-145); Total Protein 6.9 g/dL (6.3-8.2); Triglycerides 285 mg/dL (35-150)
[2018-09-08 14:48] LABS: Hemoglobin A1C% w Est Avg Glu 6.9 % (4.0-6.0)
== END ==
PROVIDERS: PCP Nurse Practitioner Family; Visit Provider Nurse Practitioner Family
DX: E11.29 Type 2 diabetes mellitus with other diabetic kidney complication (principal); I10 Essential (primary) hypertension; E78.5 Hyperlipidemia, unspecified; E03.9 Hypothyroidism, unspecified
CPT/HCPCS: 36415; 80053; 80061; 83036; 84443

== ENCOUNTER → 2018-09-30 11:16 | Outpatient (CLI) | payer OTHER, SELFPAY ==
[2018-09-30 13:13] LABS: BUN Creatinine Ratio 28.6 (6-22); Blood Urea Nitrogen 40 mg/dL (7-17); Calcium 9.2 mg/dL (8.4-10.2); Carbon Dioxide 24 mmol/L (22-32); Chloride 104 mmol/L (98-107); Estimated Glomerular Filt Rate 37.1 mL/min (>60); Glucose 292 mg/dL (80-110); HEMOLYSIS < 15 (0-50); Sodium 136 mmol/L (137-145)
[2018-09-30 17:23] LABS: Creatinine Urine Random 60.4 mg/dL
[2018-09-30 18:15] LABS: Protein Creatinine Ratio Urine 11.97 GRAM/24H
[2018-09-30 18:16] LABS: Protein (Total) Urine Random 723 mg/dL (0-12)
== END ==
PROVIDERS: PCP Nurse Practitioner Family; Visit Provider Student in an Organized Health Care Education/Training Program
DX: R80.9 Proteinuria, unspecified (principal); N18.3 Chronic kidney disease, stage 3 (moderate)
CPT/HCPCS: 36415; 80048; 82570; 84156

== ENCOUNTER → 2018-11-02 09:52 | Outpatient (CLI) | payer OTHER, SELFPAY ==
[2018-11-02 10:32] LABS: Hemoglobin A1C% w Est Avg Glu 7.9 % (4.0-6.0)
[2018-11-02 11:08] LABS: Cholesterol 166 mg/dL (140-199); HDL Cholesterol 45 mg/dL (40-60); LDL Cholesterol Calculated 89 mg/dL (<100); Triglycerides 160 mg/dL (35-150)
[2018-11-02 17:53] LABS: Alanine Aminotransferase 44 IU/L (9-52); Albumin 3.6 g/dL (3.5-5.0); Albumin Globulin Ratio 1.4 (1.0-2.8); Alkaline Phosphatase 66 U/L (38-126); Aspartate Aminotransferase 36 IU/L (14-36); BUN Creatinine Ratio 36.3 (6-22); Bilirubin Total 0.3 mg/dL (0.2-1.3); Blood Urea Nitrogen 58 mg/dL (7-17); Calcium 8.9 mg/dL (8.4-10.2); Carbon Dioxide 20 mmol/L (22-32); Chloride 109 mmol/L (98-107); Estimated Glomerular Filt Rate 31.8 mL/min (>60); Globulin 2.5 g/dL (1.7-4.1); Glucose 236 mg/dL (80-110); HEMOLYSIS < 15 (0-50); Potassium 4.5 mmol/L (3.4-5.1); Sodium 139 mmol/L (137-145); Total Protein 6.1 g/dL (6.3-8.2)
[2018-11-09 11:57] LABS: Magnesium, RBC 5.4 mg/dL (4.0-6.4)
== END ==
PROVIDERS: PCP Nurse Practitioner Family; Visit Provider Nurse Practitioner Family
DX: E11.29 Type 2 diabetes mellitus with other diabetic kidney complication (principal); E78.5 Hyperlipidemia, unspecified
CPT/HCPCS: 36415; 80053; 80061; 83036; 83735

== ENCOUNTER → 2018-12-22 09:53 | Outpatient (CLI) | payer OTHER, SELFPAY ==
[2018-12-22 11:12] LABS: Add Manual Diff / Slide Review NO; Basophils Absolute Auto 0 /uL (0-100); Basophils Percent Auto 0.8 % (0-2); Eosinophils Absolute Auto 200 /uL (0-450); Eosinophils Percent Auto 3.3 % (2-4); Hemoglobin 10.9 g/dL (12.0-16.0); Lymphocytes Absolute Auto 1500 /uL (1100-4500); Lymphocytes Percent Auto 27.4 % (25-40); Mean Corpuscular HGB Conc 34.1 % (30-36); Mean Corpuscular Hemoglobin 30.3 PG (26-34); Mean Corpuscular Volume 88.8 fL (80-100); Monocytes Absolute Auto 400 /uL (0-900); Monocytes Percent Auto 6.7 % (3-14); Neutrophils Absolute Auto 3300 /uL (1500-7000); Neutrophils Percent Auto 61.8 % (50-75); Platelet Count 224 X10^3/uL (150-400); Red Blood Cell Count 3.61 X10^6/uL (4.0-5.2); Red Cell Distribution Width 13.4 % (11.6-14.8); White Blood Cell Count 5.3 X10^3/uL (4.5-11.0)
[2018-12-22 11:35] LABS: Alanine Aminotransferase 46 IU/L (9-52); Albumin 3.9 g/dL (3.5-5.0); Albumin Globulin Ratio 1.3 (1.0-2.8); Alkaline Phosphatase 62 U/L (38-126); Aspartate Aminotransferase 43 IU/L (14-36); Bilirubin Total 0.3 mg/dL (0.2-1.3); Blood Urea Nitrogen 57 mg/dL (7-17); Carbon Dioxide 22 mmol/L (22-32); Chloride 103 mmol/L (98-107); Estimated Glomerular Filt Rate 34.2 mL/min (>60); Glucose 141 mg/dL (80-110); HEMOLYSIS < 15 (0-50); Potassium 4.1 mmol/L (3.4-5.1); Sodium 138 mmol/L (137-145); Total Protein 6.9 g/dL (6.3-8.2)
[2018-12-22 16:08] LABS: Creatinine Urine Random 60.4 mg/dL
[2018-12-22 16:16] LABS: Protein (Total) Urine Random 311 mg/dL (0-12); Protein Creatinine Ratio Urine 5.14 GRAM/24H
== END ==
PROVIDERS: Family Provider Nurse Practitioner Family; PCP Nurse Practitioner Family; Visit Provider Student in an Organized Health Care Education/Training Program
DX: N05.9 Unspecified nephritic syndrome with unspecified morphologic changes (principal); D64.9 Anemia, unspecified; N25.81 Secondary hyperparathyroidism of renal origin; R80.1 Persistent proteinuria, unspecified; C50.912 Malignant neoplasm of unspecified site of left female breast
CPT/HCPCS: 36415; 80053; 82570; 83970; 84156; 85025

== ENCOUNTER → 2019-02-17 11:11 | Outpatient (CLI) | payer OTHER, SELFPAY ==
[2019-02-17 12:27] LABS: BUN Creatinine Ratio 31.3 (6-22); Blood Urea Nitrogen 50 mg/dL (7-17); Calcium 9.3 mg/dL (8.4-10.2); Carbon Dioxide 18 mmol/L (22-32); Chloride 109 mmol/L (98-107); Estimated Glomerular Filt Rate 31.8 mL/min (>60); Glucose 131 mg/dL (80-110); HEMOLYSIS < 15 (0-50); Potassium 4.2 mmol/L (3.4-5.1); Sodium 139 mmol/L (137-145)
[2019-02-17 12:30] LABS: Hematocrit 33.5 % (36-46); Hemoglobin 11.3 g/dL (12.0-16.0)
[2019-02-17 12:39] LABS: HEMOLYSIS < 15 (0-50); Iron 64 ug/dL (37-170)
[2019-02-17 12:50] LABS: Percent Iron Saturation 18 % (15-50); Total Iron Binding Capacity 350 ug/dL (265-497); Transferrin 293 mg/dL (206-381)
[2019-02-17 13:03] LABS: Ferritin 78.2 ng/mL (11.1-264)
[2019-02-17 15:14] LABS: Creatinine Urine Random 66.4 mg/dL
[2019-02-17 15:20] LABS: Protein (Total) Urine Random 410 mg/dL (0-12); Protein Creatinine Ratio Urine 6.17 GRAM/24H
[2019-02-25 12:51] LABS: Parathyroid Hormone Int 79 pg/mL (14-64)
== END ==
PROVIDERS: Family Provider Nurse Practitioner Family; PCP Nurse Practitioner Family; Visit Provider Student in an Organized Health Care Education/Training Program
DX: N05.9 Unspecified nephritic syndrome with unspecified morphologic changes (principal); D50.0 Iron deficiency anemia secondary to blood loss (chronic); D64.9 Anemia, unspecified; N25.81 Secondary hyperparathyroidism of renal origin; R80.9 Proteinuria, unspecified
CPT/HCPCS: 36415; 80048; 82570; 82728; 83540; 83550; 83970; 84156; 85014; 85018

== ENCOUNTER → 2019-05-01 12:21 | Outpatient (CLI) | payer OTHER, SELFPAY ==
--- NOTE | 2019-05-01 | DI.MG.S_ITS ---
BILATERAL DIGITAL SCREENING MAMMOGRAM 3D/2D WITH CAD POST LUMPECTOMY: 05/01/2019 CLINICAL: Routine screening. Personal history of left breast cancer. Family history of breast cancer. Comparison is made to exams dated: 04/30/2018 mammogram, 04/27/2017 mammogram, and 04/22/2016 mammogram - [facility]. There are scattered fibroglandular elements in both breasts. Current study was also evaluated with a Computer Aided Detection (CAD) system. There are benign calcifications in both breasts. There also are benign post operative findings in the left breast. No significant masses, calcifications, or other findings are seen in either breast. There has been no significant interval change. IMPRESSION: There is no mammographic evidence of malignancy. A 1 year screening mammogram is recommended. This exam was interpreted at Station ID: [id number]. NOTE: For mammograms, a report in lay terms will be sent to the patient. Approximately 15% of breast malignancies will not be visualized mammographically. In the management of a palpable breast mass, a negative mammogram must not discourage biopsy of a clinically suspicious lesion. Electronically Signed By: Mathieu [email or web address]/[email or web address]:05/01/2019 18:15:00 copy to: CHANTE ASHLEY letter sent: Normal Exam ACR BI-RADS Category 2: Benign Finding(s) 3342F
== END ==
PROVIDERS: Family Provider Nurse Practitioner Family; PCP Nurse Practitioner Family; Visit Provider Family Medicine
DX: Z12.31 Encounter for screening mammogram for malignant neoplasm of breast (principal); Z85.3 Personal history of malignant neoplasm of breast; Z80.3 Family history of malignant neoplasm of breast
CPT/HCPCS: 77063; 77067

== ENCOUNTER → 2019-05-09 13:20 | Oncology outpatient (ONC) | payer MEDICARE, OTHER, SELFPAY ==
[2017-11-05 11:32] VITALS: BP 139/59; PULSE 70; RESP 17; TEMP 37.1; O2SAT 98
--- NOTE | 2017-11-05 12:11 | ONC.APRN.PN ---
Assessment and Plan (1) Breast cancer, left Current visit: No Status: Acute 11/05/17 12:17 Heather is a 72-year-old female with a diagnosis of stage II T2 N0 poorly differentiated triple negative breast cancer, left breast. Reassuringly on exam today she has no clinical signs or symptoms of disease recurrence. Additionally, CA 27-29 continues to trend down. CBC and CMP are largely unremarkable, patient was recently diagnosed with kidney disease %period% creatinine 1.30 GFR 40 BUN 32. She has seen Dr. Tejada will be seeing him again next week for kidney biopsy. Return to clinic in 6 months for provider visit CBC CMP CA 27-29. - Time Spent with Patient 35 minutes PN -Subjective Interval history: Heather is a 72-year-old female who is being seen in the clinic November 05, 2017. She carries a diagnosis of stage II T2 N0 poorly differentiated triple negative breast cancer, left breast. She underwent left partial mastectomy March 2015. One sentinel node was identified which was negative for disease. Patient also had radiation treatment. Patient presents today for routine 6 month clinical evaluation. The pt reports she saw Dr Tejada earlier this week and he informed her she had kidney disease This was a shock to the PATIENT. sHE HAS diabetes also anemia. She is going back to see Dr Tejada for a kidney biopsy. Otherwise no complaints. Patient denies any recent illnesses or infections. She does self breast exams she has not noticed any changes, no new lumps or bumps. Activity tolerance is unchanged patient admits ?I do not do much ice it in my house all day and read?. Appetite is stable, weight is unchanged. No new headaches. No new musculoskeletal pain. Past Medical History The patient's past medical history is significant for: 1. Left-sided stage II T2 N0 poorly differentiated triple-negative breast cancer originally identified from a core needle biopsy dated February 01, 2015. Ki-67 was noted to be 30 to 40%. The patient is status post partial mastectomy with sentinel node procedure in March of 2015, primary measuring 21 x 17 x 16 mm. [place] histological score of 3 with a mitotic index of 2. One sentinel lymph node identified and negative for disease. The patient's margins were clear on a re-excision dated April 10, 2015. TREATMENT PLAN: Adjuvant chemotherapy followed by definitive radiation therapy. No indication for adjuvant hormone therapy. The patient received adjuvant chemotherapy on 07/04/2015 through 10/31/2015.. Regimen specifically of cyclophosphamide 600 mg/m2 given on week 1, 4, 7, and 10 with concurrent paclitaxel at 80 mg/m2 weekly times 12. Treatment goals are curative. Patient's had one-week treatment delay secondary to cytopenia but no dose reductions. 2. Diabetes, non-insulin dependent. Baseline hemoglobin A1c on June 20, 2015, at 7.6 with a microalbumin, urine, from a 24-hour collection at 9.6 mg/dL. 3. Hypertension. 4. Hypercholesterolemia. 5. Anemia, multifactorial including anemia of chronic disease, and iron deficiency anemia. The latter identified suggested from blood work dated 07/16/2015. Percent saturation at 12,ferritin at 27. TSH normal at 4.05 B12 folic acid normal at 360 and 6.5 respectively. Colonoscopy evaluation ordered on 07/30/2015 6. Lichen planus. Predominant vaginal management clobetasol. Home Medications and Allergies Home Medications Medication Instructions Recorded Confirmed Type CHOLECALCIFEROL (VITAMIN D3) 2,000 iu Q DAY #0 04/15/10 11/05/17 History (Vitamin D3) [OMEGA 3 FATTY ACIDS] 2,000 mg PO BID #0 04/15/10 11/05/17 History levothyroxine [Synthroid] 75 mcg PO QAM #0 tab 01/08/16 11/05/17 History amlodipine 10 mg PO DAILY 11/05/17 11/05/17 History atorvastatin 10 mg PO DAILY 11/05/17 11/05/17 History atorvastatin 40 mg PO DAILY 11/05/17 11/05/17 History glipizide 10 mg PO DAILY 11/05/17 11/05/17 History metformin 1,000 mg PO BID 11/05/17 11/05/17 History sertraline 50 mg PO DAILY 11/05/17 11/05/17 History spironolactone 25 mg PO DAILY 11/05/17 11/05/17 History valsartan 40 mg PO QAM 11/05/17 11/05/17 History Allergies Allergy/AdvReac Type Severity Reaction Status Date / Time adhesive tape [ADHESIVE TAPE] Allergy Severe RASH Verified 11/05/17 11:39 PAPER/SILK TAPE milk [MILK] Allergy Severe DIARRHEA Verified 11/05/17 11:39 Penicillins [PENICILLINS] Allergy Mild UNSURE, Verified 11/05/17 11:39 SHAKINESS, FEEL WEIRD EGGS AdvReac Severe DIARRHEA Uncoded 11/05/17 11:40 Exam Vital signs: Last Vital Signs Temp 98.8 F 11/05/17 11:32 Pulse 70 11/05/17 11:32 Resp 17 11/05/17 11:32 BP 139/59 H 11/05/17 11:32 Pulse Ox 98 11/05/17 11:32 Narrative: well appearing - Constitutional positive no acute distress, positive average body habitus - Routine HEENT Exam Head: Present: normocephalic Eye: Present: conjunctivae pink. Absent: conjunctival icterus, scleral injection ENT: Present: mucous membranes moist, oropharynx clear - Routine Neck Exam Present: supple. Absent: lymphadenopathy - Routine Chest/Breast/Axilla Exam Chest wall exam standard: Absent: tenderness, mass Breast: Absent: tenderness, induration, mass Axillae: Absent: lymphadenopathy, mass, tenderness - Routine Respiratory Exam Present: Clear to auscultation bilaterally - Routine Cardiovascular Exam Present: RRR, S1, S2. Absent: JVD - Routine Abdominal Exam Present: normoactive bowel sounds. Absent: tenderness, distended, organomegaly - Routine Extremities Exam Absent: edema, calf tenderness - Routine Skin Exam Present: normal turgor. Absent: petechiae, rash - Routine Neurological Exam Present: alert, oriented X3
[2018-05-10 14:20] VITALS: BP 166/80; PULSE 68; RESP 18; TEMP 36.8; O2SAT 96
--- NOTE | 2018-05-10 15:45 | ONC.APRN.PN ---
PN -Subjective Interval history: Heather is a 72-year-old female who is being seen in the clinic May 10 2018. She carries a diagnosis of stage II T2 N0 poorly differentiated triple negative breast cancer, left breast. She underwent left partial mastectomy March 2015. One sentinel node was identified which was negative for disease. Patient also had radiation treatment. Patient presents today for routine scheduled 6 month clinical evaluation. During the interval she underwent routine annual screening bilat mammogram 04/29/2018 which was without evidence of malignancy. recommendation is to cont w annual screening. The pt reports she saw Dr Tejada earlier this week and he informed her that her kidney disease has worsened. She recently had a kidney biopsy, she is under the care of Dr Tejada. I asked the pt what Dr Tejada reviewed with her, what he said about the biopsy and did he say anything about her current medications? Pt reported I dont remember, my memory is so bad I dont remember much anymore. Otherwise no complaints. Patient denies any recent illnesses or infections. She does self breast exams she has not noticed any changes, no new lumps or bumps. Activity tolerance is unchanged patient admits ?I do not do much I sit in my house all day and read?. She does walk 2 blocks almost everyday to [employer] for a meal, the pt states she does not cook at all and she rarely keeps food in her home. Dhe denies shortness of breath, chest pain. No issues with bladder or bowels. Appetite is stable, weight is unchanged. No new headaches. No new musculoskeletal pain. Past Medical History The patient's past medical history is significant for: 1. Left-sided stage II T2 N0 poorly differentiated triple-negative breast cancer originally identified from a core needle biopsy dated February 01, 2015. Ki-67 was noted to be 30 to 40%. The patient is status post partial mastectomy with sentinel node procedure in March of 2015, primary measuring 21 x 17 x 16 mm. [place] histological score of 3 with a mitotic index of 2. One sentinel lymph node identified and negative for disease. The patient's margins were clear on a re-excision dated April 10, 2015. TREATMENT PLAN: Adjuvant chemotherapy followed by definitive radiation therapy. No indication for adjuvant hormone therapy. The patient received adjuvant chemotherapy on 07/04/2015 through 10/31/2015.. Regimen specifically of cyclophosphamide 600 mg/m2 given on week 1, 4, 7, and 10 with concurrent paclitaxel at 80 mg/m2 weekly times 12. Treatment goals are curative. Patient's had one-week treatment delay secondary to cytopenia but no dose reductions. 2. Diabetes, non-insulin dependent. Baseline hemoglobin A1c on June 20, 2015, at 7.6 with a microalbumin, urine, from a 24-hour collection at 9.6 mg/dL. 3. Hypertension. 4. Hypercholesterolemia. 5. Anemia, multifactorial including anemia of chronic disease, and iron deficiency anemia. The latter identified suggested from blood work dated 07/16/2015. Percent saturation at 12,ferritin at 27. TSH normal at 4.05 B12 folic acid normal at 360 and 6.5 respectively. Colonoscopy evaluation ordered on 07/30/2015 6. Lichen planus. Predominant vaginal management clobetasol. Home Medications and Allergies Home Medications Medication Instructions Recorded Confirmed Type CHOLECALCIFEROL (VITAMIN D3) 2,000 iu Q DAY #0 04/15/10 05/10/18 History (Vitamin D3) [OMEGA 3 FATTY ACIDS] 2,000 mg PO BID #0 04/15/10 05/10/18 History levothyroxine [Synthroid] 75 mcg PO QAM #0 tab 01/08/16 05/10/18 History amlodipine 5 mg PO DAILY 11/05/17 05/10/18 History aspirin 81 mg PO DAILY 11/05/17 05/10/18 History atorvastatin 10 mg PO DAILY 11/05/17 05/10/18 History atorvastatin 40 mg PO DAILY 11/05/17 05/10/18 History ferrous sulfate 325 mg PO DAILY 11/05/17 05/10/18 History folic acid 0.8 mg PO DAILY 11/05/17 05/10/18 History glipizide 10 mg PO DAILY 11/05/17 05/10/18 History metformin 1,000 mg PO BID 11/05/17 05/10/18 History sertraline 50 mg PO DAILY 11/05/17 05/10/18 History spironolactone 25 mg PO DAILY 11/05/17 05/10/18 History Allergies Allergy/AdvReac Type Severity Reaction Status Date / Time adhesive tape [ADHESIVE TAPE] Allergy Severe RASH Verified 11/05/17 11:39 PAPER/SILK TAPE milk [MILK] Allergy Severe DIARRHEA Verified 11/05/17 11:39 Penicillins [PENICILLINS] Allergy Mild UNSURE, Verified 11/05/17 11:39 SHAKINESS, FEEL WEIRD EGGS AdvReac Severe DIARRHEA Uncoded 11/05/17 11:40 Exam - Constitutional positive no acute distress - Routine HEENT Exam Eye: Present: conjunctivae pink. Absent: conjunctival icterus, scleral injection ENT: Present: mucous membranes moist, oropharynx clear - Routine Neck Exam Present: supple. Absent: lymphadenopathy - Routine Chest/Breast/Axilla Exam Chest wall exam standard: Absent: tenderness, mass Breast: Absent: tenderness, induration, mass, swelling Axillae: Absent: lymphadenopathy, mass, tenderness - Routine Respiratory Exam Present: Clear to auscultation bilaterally, decreased breath sounds. Absent: rales, rhonchi, wheezes - Routine Cardiovascular Exam Present: RRR, S1, S2. Absent: murmur, gallop, rubs, JVD - Routine Abdominal Exam Present: soft, normoactive bowel sounds. Absent: tenderness, distended, organomegaly - Routine Extremities Exam Absent: edema, calf tenderness - Routine Skin Exam Present: intact, normal turgor - Routine Neurological Exam Present: alert, hearing grossly intact, normal speech - Routine Psychiatric Exam Present: normal affect, cooperative Assessment and Plan (1) Breast cancer, left Current visit: No Status: Acute The patient is a 72-year-old female who carries a diagnosis of stage II poorly differentiated triple negative left breast cancer. Reassuringly on exam today she has no clinical signs or symptoms of disease recurrence. Additionally CBC CMP are largely unremarkable patient has known chronic kidney disease for which she is followed by pocket builder Dr Tejada. She also had recent renal biopsy. Annual bilateral screening mammogram April 30, 2018 was without evidence of malignancy. Recommendation is to continue with annual screenings. Return to clinic in 6 months time for provider visit CBC CMP CA 27-29. Continue with nephrology as per Dr. Tejada. I reviewed the patient's current medication list I do see she is still taking metformin also Advil was on her medication list. I asked patient if she was still in fact taking these she states she is not certain there have been so many changes lately. She admits to being confused she is seeing multiple providers at present also ?someone for my diabetes?. She does have financial limitations as well she states some prescriptions have been written she has not been able to fill. I have notified our REMOTE OPERATIONS PRODUCER who will reach out to geriatric social work professor/navigator at Dr Peng office to be sure pt understands instructions at time of office visits. (2) Chronic kidney disease (CKD), stage III (moderate) Current visit: Yes Status: Acute Under the care of nephrology Dr Tejada. Creat 1.3 GFR 43 today. Stable. (3) Diabetes mellitus Current visit: Yes Status: Acute Type II DM pt reports I see a diabetes minnie. States she has appt with him in [facility] tomorrow. Also states he has made some med changes she has not been able to afford the new prescriptions. I encouraged the pt to discuss this with the provider tomorrow. Noting her declining renal function it is very important she manage her blood sugars. - Time Spent with Patient 20 mins (3) Diabetes mellitus Qualifiers: Diabetes mellitus type: type 2 Diabetes mellitus complication status: with circulatory complication Diabetes mellitus complication detail: with peripheral angiopathy without gangrene
[2018-11-02 10:22] LABS: Add Manual Diff / Slide Review NO; Basophils Absolute Auto 100 /uL (0-100); Basophils Percent Auto 1.1 % (0-2); Eosinophils Absolute Auto 200 /uL (0-450); Eosinophils Percent Auto 3.6 % (2-4); Hemoglobin 10.4 g/dL (12.0-16.0); Lymphocytes Absolute Auto 1400 /uL (1100-4500); Lymphocytes Percent Auto 22.7 % (25-40); Mean Corpuscular HGB Conc 33.5 % (30-36); Mean Corpuscular Hemoglobin 30.1 PG (26-34); Mean Corpuscular Volume 89.9 fL (80-100); Monocytes Absolute Auto 400 /uL (0-900); Monocytes Percent Auto 6.7 % (3-14); Neutrophils Absolute Auto 4000 /uL (1500-7000); Neutrophils Percent Auto 65.9 % (50-75); Platelet Count 222 X10^3/uL (150-400); Red Blood Cell Count 3.45 X10^6/uL (4.0-5.2); Red Cell Distribution Width 13.8 % (11.6-14.8); White Blood Cell Count 6.1 X10^3/uL (4.5-11.0)
[2018-11-02 11:02] LABS: Alanine Aminotransferase 39 IU/L (9-52); Albumin 3.8 g/dL (3.5-5.0); Albumin Globulin Ratio 1.4 (1.0-2.8); Alkaline Phosphatase 64 U/L (38-126); Aspartate Aminotransferase 35 IU/L (14-36); BUN Creatinine Ratio 36.3 (6-22); Bilirubin Total 0.1 mg/dL (0.2-1.3); Blood Urea Nitrogen 58 mg/dL (7-17); Carbon Dioxide 22 mmol/L (22-32); Chloride 107 mmol/L (98-107); Estimated Glomerular Filt Rate 31.8 mL/min (>60); Globulin 2.8 g/dL (1.7-4.1); Glucose 240 mg/dL (80-110); HEMOLYSIS < 15 (0-50); Potassium 4.4 mmol/L (3.4-5.1); Sodium 139 mmol/L (137-145); Total Protein 6.6 g/dL (6.3-8.2)
[2018-11-08 11:30] VITALS: BP 157/64; PULSE 69; RESP 16; TEMP 36.7; O2SAT 98
--- NOTE | 2018-11-08 11:42 | ONC.PN ---
PN -Subjective Interval history: Diagnosis: Left-sided breast cancer, T2 N0, triple negative Previous treatment: 1. Lumpectomy and sentinel node biopsy followed by repeat excision in April 2015 2. Adjuvant chemotherapy with Adriamycin Cytoxan followed by Taxol weekly 3. Adjuvant radiation. Interval history: The patient is a 73-year-old woman who returns today for follow-up. She has a history of stage II triple negative breast cancer. She is nearly 3 years out from the end of her therapy. Today, she is feeling generally well. She has noted some fatigue. She has not been sleeping well due to concern about her granddaughter. She denies any new aches or pains though. She has not noticed any changes in the breast. No shortness of breath or cough. No GI complaints. Strength and energy level have been fair. She is otherwise without complaint today. She did have an episode in October where she collapsed. She was hospitalized in [place]. She is found to have a blood sugar that was out of control. She has not had any further episodes. Past Medical History The patient's past medical history is significant for: 1. Left-sided stage II T2 N0 poorly differentiated triple-negative breast cancer originally identified from a core needle biopsy dated February 01, 2015. 2. Diabetes, non-insulin dependent. Baseline hemoglobin A1c on June 20, 2015, at 7.6 with a microalbumin, urine, from a 24-hour collection at 9.6 mg/dL. 3. Hypertension. 4. Hypercholesterolemia. 5. Anemia, multifactorial including anemia of chronic disease, and iron deficiency anemia. The latter identified suggested from blood work dated 07/16/2015. Percent saturation at 12,ferritin at 27. TSH normal at 4.05 B12 folic acid normal at 360 and 6.5 respectively. Colonoscopy evaluation ordered on 07/30/2015 6. Lichen planus. Predominant vaginal management clobetasol. She also has chronic renal insufficiency. - Patient Self-Reported Symptoms SR eye issues: Vision changes Home Medications and Allergies Home Medications Medication Instructions Recorded Confirmed Type CHOLECALCIFEROL (VITAMIN D3) 50 mcg BID #0 04/15/10 11/08/18 History (Vitamin D3) [OMEGA 3 FATTY ACIDS] 2,000 mg PO BID #0 04/15/10 05/10/18 History levothyroxine [Synthroid] 75 mcg PO QAM #0 tab 01/08/16 05/10/18 History amlodipine 5 mg PO DAILY 11/05/17 05/10/18 History aspirin 81 mg PO DAILY 11/05/17 05/10/18 History sertraline 50 mg PO DAILY 11/05/17 05/10/18 History enalapril maleate 20 mg PO DAILY 11/08/18 11/08/18 History folic acid 0.4 mg PO DAILY 11/08/18 11/08/18 History furosemide 20 mg PO DAILY 11/08/18 11/08/18 History repaglinide 1 mg PO TID 11/08/18 11/08/18 History rosuvastatin 40 mg PO DAILY 11/08/18 11/08/18 History Allergies Allergy/AdvReac Type Severity Reaction Status Date / Time adhesive tape [ADHESIVE TAPE] Allergy Severe RASH Verified 11/05/17 11:39 PAPER/SILK TAPE milk [MILK] Allergy Severe DIARRHEA Verified 11/05/17 11:39 Penicillins [PENICILLINS] Allergy Mild UNSURE, Verified 11/05/17 11:39 SHAKINESS, FEEL WEIRD EGGS AdvReac Severe DIARRHEA Uncoded 11/05/17 11:40 Exam Vital signs: Vital Signs Temp Pulse Resp BP Pulse Ox 11/08/18 11:30 98.0 F 69 16 157/64 H 98 Intake and Output 11/07/18 11/08/18 11/08/18 23:59 07:59 15:59 Other: Weight 73.9 kg Patient Weight 11/08/18 23:59 Weight 73.9 kg - Constitutional positive no acute distress, positive average body habitus - Routine HEENT Exam Head: Present: normocephalic, atraumatic Eye: Present: EOMI, PERRL. Absent: conjunctival icterus, scleral injection ENT: Present: mucous membranes moist, oropharynx clear - Routine Neck Exam Present: supple. Absent: lymphadenopathy, thyromegaly - Routine Chest/Breast/Axilla Exam Comments: Breast exam shows a well-healed incision on the upper left breast. There is no nodularity or masses. No masses in the right breast. No axillary adenopathy on either side. - Routine Respiratory Exam Present: Clear to auscultation bilaterally. Absent: rales, wheezes - Routine Cardiovascular Exam Present: RRR, S1, S2. Absent: murmur - Routine Abdominal Exam Present: soft, normoactive bowel sounds. Absent: tenderness, organomegaly, mass - Routine Extremities Exam Absent: cyanosis, clubbing, edema - Routine Back/Spine Exam Back/Spine: Absent: vertebral tenderness - Routine Skin Exam Present: intact. Absent: petechiae, rash - Routine Neurological Exam Present: alert, oriented X3 - Routine Psychiatric Exam Present: normal affect, normal thought process Results - Labs Laboratory Last Values WBC 6.1 X10^3/uL (4.5-11.0) 11/02/18 09:57 RBC 3.45 X10^6/uL (4.0-5.2) L 11/02/18 09:57 Hgb 10.4 g/dL (12.0-16.0) L 11/02/18 09:57 Hct 31.0 % (36-46) L 11/02/18 09:57 MCV 89.9 fL (80-100) 11/02/18 09:57 MCH 30.1 PG (26-34) 11/02/18 09:57 MCHC 33.5 % (30-36) 11/02/18 09:57 RDW 13.8 % (11.6-14.8) 11/02/18 09:57 Plt Count 222 X10^3/uL (150-400) 11/02/18 09:57 Neut % (Auto) 65.9 % (50-75) 11/02/18 09:57 Lymph % (Auto) 22.7 % (25-40) L 11/02/18 09:57 [place] % (Auto) 6.7 % (3-14) 11/02/18 09:57 Eos % (Auto) 3.6 % (2-4) 11/02/18 09:57 Baso % (Auto) 1.1 % (0-2) 11/02/18 09:57 Neut # (Auto) 4000 /uL (9096-1345) 11/02/18 09:57 Lymph # (Auto) 1400 /uL (5559-9184) 11/02/18 09:57 [place] # (Auto) 400 /uL (0-900) 11/02/18 09:57 Eos # (Auto) 200 /uL (0-450) 11/02/18 09:57 Baso # (Auto) 100 /uL (0-100) 11/02/18 09:57 Sodium 139 mmol/L (137-145) 11/02/18 09:57 Potassium 4.4 mmol/L (3.4-5.1) 11/02/18 09:57 Chloride 107 mmol/L (98-107) 11/02/18 09:57 Carbon Dioxide 22 mmol/L (22-32) 11/02/18 09:57 BUN 58 mg/dL (7-17) H 11/02/18 09:57 Creatinine 1.60 mg/dL (0.52-1.04) H 11/02/18 09:57 Estimated GFR 31.8 mL/min (>60) L 11/02/18 09:57 BUN/Creatinine Ratio 36.3 (6-22) H 11/02/18 09:57 Glucose 240 mg/dL (80-110) H 11/02/18 09:57 Calcium 9.0 mg/dL (8.4-10.2) 11/02/18 09:57 Total Bilirubin 0.1 mg/dL (0.2-1.3) L 11/02/18 09:57 AST 35 IU/L (14-36) 11/02/18 09:57 ALT 39 IU/L (9-52) 11/02/18 09:57 Alkaline Phosphatase 64 U/L (38-126) 11/02/18 09:57 Total Protein 6.6 g/dL (6.3-8.2) 11/02/18 09:57 Albumin 3.8 g/dL (3.5-5.0) 11/02/18 09:57 Globulin 2.8 g/dL (1.7-4.1) 11/02/18 09:57 Albumin/Globulin Ratio 1.4 (1.0-2.8) 11/02/18 09:57 Assessment and Plan (1) Breast cancer, left Current visit: No Status: Acute 73-year-old woman with a history of triple negative breast cancer. She is nearly 3 years out from the end of her treatment. She has no evidence of recurrence and is doing well. She return to clinic in 6 months for follow-up. She will be due for a mammogram next August.
[2019-05-09 13:00] LABS: Add Manual Diff / Slide Review NO; Basophils Absolute Auto 100 /uL (0-100); Basophils Percent Auto 0.6 % (0-2); Eosinophils Absolute Auto 200 /uL (0-450); Eosinophils Percent Auto 2.3 % (2-4); Hematocrit 31.3 % (36-46); Hemoglobin 10.7 g/dL (12.0-16.0); Lymphocytes Absolute Auto 1100 /uL (1100-4500); Lymphocytes Percent Auto 13.2 % (25-40); Mean Corpuscular HGB Conc 34.2 % (30-36); Mean Corpuscular Hemoglobin 30.6 PG (26-34); Mean Corpuscular Volume 89.6 fL (80-100); Monocytes Absolute Auto 400 /uL (0-900); Neutrophils Absolute Auto 6800 /uL (1500-7000); Neutrophils Percent Auto 78.9 % (50-75); Platelet Count 206 X10^3/uL (150-400); Red Cell Distribution Width 13.6 % (11.6-14.8); White Blood Cell Count 8.7 X10^3/uL (4.5-11.0)
[2019-05-09 13:11] LABS: Alanine Aminotransferase 23 IU/L (<35); Albumin 4.3 g/dL (3.5-5.0); Albumin Globulin Ratio 1.6 (1.0-2.8); Alkaline Phosphatase 60 U/L (38-126); Aspartate Aminotransferase 24 IU/L (14-36); BUN Creatinine Ratio 32.3 (6-22); Bilirubin Total 0.3 mg/dL (0.2-1.3); Blood Urea Nitrogen 71 mg/dL (7-17); Calcium 9.7 mg/dL (8.4-10.2); Carbon Dioxide 19 mmol/L (22-32); Chloride 102 mmol/L (98-107); Globulin 2.7 g/dL (1.7-4.1); Glucose 250 mg/dL (80-110); HEMOLYSIS < 15 (0-50); Potassium 4.4 mmol/L (3.4-5.1); Sodium 136 mmol/L (137-145)
--- NOTE | 2019-05-09 13:29 | P.PNONC_ITS ---
PN -Subjective Interval history: ID/CC: 73 year old with left-sided breast cancer, T2 N0, triple negative Oncology History: 1. Lumpectomy and sentinel node biopsy followed by repeat excision in April 2015 2. Adjuvant chemotherapy with Adriamycin Cytoxan followed by Taxol weekly 3. Adjuvant radiation. Interval history: She underwent mammogram in April 2019. The screening mammogram showed no evidence of malignancy. A 1 year follow-up is recommended. Clinically, patient said that her energy level is on and off. She said she naps a lot in the afternoon. She reports good appetite. She has gained about 5 lb since her previous visit. She said she never has had any pain problems. She denies shortness of breath or chest pain. She denies nausea or vomiting. She denies any abdominal pain diarrhea or constipation. She denies any hematochezia. She has other medical problems most notably diabetes and chronic kidney disease. She has been followed by her primary care provider and program writer. - Patient Self-Reported Symptoms SR eye issues: Vision changes - Additional ROS All systems PM: reviewed and no additional remarkable complaints except as stated Home Medications and Allergies Home Medications Medication Instructions Recorded Confirmed Type CHOLECALCIFEROL (VITAMIN D3) 50 mcg BID #0 04/15/10 11/08/18 History (Vitamin D3) [OMEGA 3 FATTY ACIDS] 2,000 mg PO BID #0 04/15/10 05/10/18 History levothyroxine [Synthroid] 75 mcg PO QAM #0 tab 01/08/16 05/10/18 History amlodipine 10 mg PO DAILY 11/05/17 05/09/19 History aspirin 81 mg PO DAILY 11/05/17 05/10/18 History sertraline 50 mg PO DAILY 11/05/17 05/10/18 History enalapril maleate 20 mg PO BID 11/08/18 05/09/19 History folic acid 0.4 mg PO DAILY 11/08/18 11/08/18 History furosemide 20 mg PO DAILY 11/08/18 11/08/18 History rosuvastatin 40 mg PO DAILY 11/08/18 11/08/18 History calcitriol 0.25 mcg PO DAILY 05/09/19 05/09/19 History ferrous sulfate 65 mg PO DAILY 05/09/19 05/09/19 History Allergies Allergy/AdvReac Type Severity Reaction Status Date / Time adhesive tape [ADHESIVE TAPE] Allergy Severe RASH Verified 11/05/17 11:39 PAPER/SILK TAPE milk [MILK] Allergy Severe DIARRHEA Verified 11/05/17 11:39 Penicillins [PENICILLINS] Allergy Mild UNSURE, Verified 11/05/17 11:39 SHAKINESS, FEEL WEIRD EGGS AdvReac Severe DIARRHEA Uncoded 11/05/17 11:40 Exam Vital signs: Last Vital Signs Temp 97.1 F L 05/09/19 13:37 Pulse 67 05/09/19 13:37 Resp 16 05/09/19 13:37 BP 135/59 L 05/09/19 13:37 Pulse Ox 94 05/09/19 13:37 ECOG 1 Narrative: Gen: WDWN, NAD, obese, pleasant and cooperative. HEENT: NCAT, EOMI, PERRLA, anicteric sclera. Neck: Supple, No palpable thyromegaly or lymphadenopathy. Respiratory: CTAB, no wheezes audible. No JVD Cardiovascular: RRR, S1 and S2 normal, no M/G/R. Abdomen: Soft, NTND, BS normal, no palpable organomegaly Extremities: No LE pitting edema. Lymphatic: no palpable lymph nodes in the neck, axillae, or groins. Neurological: AOx3, CN II-XII grossly intact. No focal motor or sensory deficit. Psychiatric: Normal affect, normal insight, no depression, no anxiety. Breast Exams: Right breast: No nipple retraction, no skin changes, no palpable lumps, no palpable lymph nodes in the right axilla; left breast: No nipple retraction, skin surgical incision noted and they are well-healed. A scar was palpable underneath the surgical wound which patient claimed has not changed. No palpable lumps, no palpable lymph nodes in the left axilla. All physical examinations were chaperoned Results - Labs Laboratory Last Values WBC 8.7 X10^3/uL (4.5-11.0) 05/09/19 12:52 RBC 3.50 X10^6/uL (4.0-5.2) L 05/09/19 12:52 Hgb 10.7 g/dL (12.0-16.0) L 05/09/19 12:52 Hct 31.3 % (36-46) L 05/09/19 12:52 MCV 89.6 fL (80-100) 05/09/19 12:52 MCH 30.6 PG (26-34) 05/09/19 12:52 MCHC 34.2 % (30-36) 05/09/19 12:52 RDW 13.6 % (11.6-14.8) 05/09/19 12:52 Plt Count 206 X10^3/uL (150-400) 05/09/19 12:52 Neut % (Auto) 78.9 % (50-75) H 05/09/19 12:52 Lymph % (Auto) 13.2 % (25-40) L 05/09/19 12:52 [place] % (Auto) 5.0 % (3-14) 05/09/19 12:52 Eos % (Auto) 2.3 % (2-4) 05/09/19 12:52 Baso % (Auto) 0.6 % (0-2) 05/09/19 12:52 Neut # (Auto) 6800 /uL (8945-2685) 05/09/19 12:52 Lymph # (Auto) 1100 /uL (0904-1871) 05/09/19 12:52 [place] # (Auto) 400 /uL (0-900) 05/09/19 12:52 Eos # (Auto) 200 /uL (0-450) 05/09/19 12:52 Baso # (Auto) 100 /uL (0-100) 05/09/19 12:52 Sodium 136 mmol/L (137-145) L 05/09/19 12:52 Potassium 4.4 mmol/L (3.4-5.1) 05/09/19 12:52 Chloride 102 mmol/L (98-107) 05/09/19 12:52 Carbon Dioxide 19 mmol/L (22-32) L 05/09/19 12:52 BUN 71 mg/dL (7-17) H 05/09/19 12:52 Creatinine 2.20 mg/dL (0.52-1.04) H 05/09/19 12:52 Estimated GFR 22.0 mL/min (>60) L 05/09/19 12:52 BUN/Creatinine Ratio 32.3 (6-22) H 05/09/19 12:52 Glucose 250 mg/dL (80-110) H 05/09/19 12:52 Calcium 9.7 mg/dL (8.4-10.2) 05/09/19 12:52 Total Bilirubin 0.3 mg/dL (0.2-1.3) 05/09/19 12:52 AST 24 IU/L (14-36) 05/09/19 12:52 ALT 23 IU/L (<35) 05/09/19 12:52 Alkaline Phosphatase 60 U/L (38-126) 05/09/19 12:52 Total Protein 7.0 g/dL (6.3-8.2) 05/09/19 12:52 Albumin 4.3 g/dL (3.5-5.0) 05/09/19 12:52 Globulin 2.7 g/dL (1.7-4.1) 05/09/19 12:52 Albumin/Globulin Ratio 1.6 (1.0-2.8) 05/09/19 12:52 Assessment and Plan (1) Breast cancer, left Overview: 1. Left-sided breast cancer, T2 N0, triple negative status post lumpectomy and sentinel node biopsy followed by repeat excision in 04/2015 2. Adjuvant chemotherapy with Adriamycin Cytoxan followed by Taxol weekly 3. Adjuvant radiation. Assessment: I reviewed the mammogram results with the patient. No evidence of disease recurrence or metastasis. Clinically I don't think there's any worrisome signs or symptoms. I talked with her that as far as breast cancer is concerned, I will continue annual screening mammogram and clinic follow-up. Plan: RTC in one year, CBC, CMP, screening mammogram b/l.
[2019-05-09 13:37] VITALS: BP 135/59; PULSE 67; RESP 16; TEMP 36.2; O2SAT 94
--- NOTE | 2019-05-10 10:12 | ONC.SCHED ---
Left msg for patient to schedule
== END ==
PROVIDERS: Family Provider Nurse Practitioner Family; PCP Nurse Practitioner Family; Referring Provider Internal Medicine
DX: Z08 Encounter for follow-up examination after completed treatment for malignant neoplasm (principal); Z85.3 Personal history of malignant neoplasm of breast
CPT/HCPCS: 36415; 80053; 85025; 99214

== ENCOUNTER 2019-05-11 05:07 | Emergency (ER) | payer OTHER, SELFPAY ==
[2019-05-11 05:14] VITALS: BP 187/60; PULSE 82; RESP 20; TEMP 36.4; O2SAT 100
[2019-05-11 05:35] LABS: Add Manual Diff / Slide Review NO; Basophils Absolute Auto 100 /uL (0-100); Basophils Percent Auto 1.1 % (0-2); Eosinophils Absolute Auto 400 /uL (0-450); Eosinophils Percent Auto 3.9 % (2-4); Hematocrit 31.8 % (36-46); Hemoglobin 10.7 g/dL (12.0-16.0); Lymphocytes Absolute Auto 2900 /uL (1100-4500); Lymphocytes Percent Auto 31.5 % (25-40); Mean Corpuscular HGB Conc 33.6 % (30-36); Mean Corpuscular Hemoglobin 30.2 PG (26-34); Mean Corpuscular Volume 89.8 fL (80-100); Monocytes Absolute Auto 700 /uL (0-900); Monocytes Percent Auto 7.3 % (3-14); Neutrophils Absolute Auto 5200 /uL (1500-7000); Neutrophils Percent Auto 56.2 % (50-75); Platelet Count 235 X10^3/uL (150-400); Red Blood Cell Count 3.54 X10^6/uL (4.0-5.2); Red Cell Distribution Width 13.5 % (11.6-14.8); White Blood Cell Count 9.2 X10^3/uL (4.5-11.0)
[2019-05-11 05:41] LABS: Alanine Aminotransferase 24 IU/L (<35); Albumin 4.4 g/dL (3.5-5.0); Albumin Globulin Ratio 1.5 (1.0-2.8); Alkaline Phosphatase 64 U/L (38-126); Aspartate Aminotransferase 23 IU/L (14-36); Bilirubin Total 0.2 mg/dL (0.2-1.3); Blood Urea Nitrogen 76 mg/dL (7-17); Calcium 9.9 mg/dL (8.4-10.2); Carbon Dioxide 20 mmol/L (22-32); Chloride 101 mmol/L (98-107); Estimated Glomerular Filt Rate 24.6 mL/min (>60); Glucose 94 mg/dL (80-110); HEMOLYSIS < 15 (0-50); Lipase 449 U/L (23-300); Potassium 4.2 mmol/L (3.4-5.1); Sodium 134 mmol/L (137-145); Total Protein 7.4 g/dL (6.3-8.2)
--- NOTE | 2019-05-11 05:42 | ED.EXTPRO ---
HPI - Extremity Problem General Chief complaint: Extremity Problem,Nontraumatic Stated complaint: left arm numb for ten days/hand aches Time Seen by Provider: 05/11/19 05:10 Source: patient Mode of arrival: Ambulatory Limitations: no limitations History of Present Illness HPI Narrative: Patient is a 73-year-old female who's had approximately 10 days of left sided numbness and tingling. States that she woke up with the symptoms 10 days ago. She has periods during the day when the symptoms are worse than others. It includes the left side of her face which she states that her left arm and her left leg. No problems walking. No headache. No vision changes. Is an insulin-dependent diabetic. She does feel that her blood sugars have been more elevated than normal. Also has a history of hypertension. Also has a history of chronic kidney disease not on dialysis. Also has a history of breast cancer. Is in remission. Is not currently undergoing any chemotherapy. Came in this morning because she states that her left hand is hurting worse than what it has been. No history of atrial fibrillation. Not on anticoagulation. Related Data Home Medications Medication Instructions Recorded Confirmed CHOLECALCIFEROL (VITAMIN D3) 50 mcg BID #0 04/15/10 11/08/18 (Vitamin D3) [OMEGA 3 FATTY ACIDS] 2,000 mg PO BID #0 04/15/10 05/10/18 levothyroxine [Synthroid] 75 mcg PO QAM #0 tab 01/08/16 05/10/18 amlodipine 10 mg PO DAILY 11/05/17 05/09/19 aspirin 81 mg PO DAILY 11/05/17 05/10/18 sertraline 50 mg PO DAILY 11/05/17 05/10/18 enalapril maleate 20 mg PO BID 11/08/18 05/09/19 folic acid 0.4 mg PO DAILY 11/08/18 11/08/18 furosemide 20 mg PO DAILY 11/08/18 11/08/18 rosuvastatin 40 mg PO DAILY 11/08/18 11/08/18 calcitriol 0.25 mcg PO DAILY 05/09/19 05/09/19 ferrous sulfate 65 mg PO DAILY 05/09/19 05/09/19 Previous Rx's Medication Instructions Recorded hydrocodone-acetaminophen [[place]] 1 tab PO Q6H PRN #7 tab 05/11/19 prednisone 20 mg PO DAILY #3 tab 05/11/19 Allergies Allergy/AdvReac Type Severity Reaction Status Date / Time adhesive tape [ADHESIVE TAPE] Allergy Severe RASH Verified 11/05/17 11:39 PAPER/SILK TAPE milk [MILK] Allergy Severe DIARRHEA Verified 11/05/17 11:39 Penicillins [PENICILLINS] Allergy Mild UNSURE, Verified 11/05/17 11:39 SHAKINESS, FEEL WEIRD EGGS AdvReac Severe DIARRHEA Uncoded 11/05/17 11:40 Review of Systems Constitutional Constitutional: Denies fever(s), Denies frequent falls, Denies headache(s) and Denies weakness Eyes Eyes: Denies blurry vision, Denies change in vision and Denies diplopia ENT Ears, Nose, Mouth, and Throat: Denies vertigo, Denies dizziness, Denies headache(s) and Denies disequilibrium Cardiovascular Cardiovascular: Denies chest pain, Denies syncope, Denies rapid heart rate, Denies palpitations and Denies dyspnea Respiratory Respiratory: Denies cough and Denies dyspnea Gastrointestinal Gastrointestinal: Denies abdominal pain, Denies nausea and Denies vomiting Genitourinary Genitourinary: Denies dysuria Musculoskeletal Musculoskeletal: Denies abnormal gait, Denies myalgias, Denies arthralgias, Reports numbness and Reports tingling Integumentary/Breasts Skin/Breast: Denies lesions and Denies rash Neurologic Neurologic: Denies abnormal movements, Denies abnormal speech, Denies abnormal gait, Denies behavioral changes, Reports burning sensations, Denies confusion, Denies vertigo, Denies dizziness, Denies syncope, Denies frequent falls, Denies headache(s), Denies lack of coordination, Denies focal weakness, Reports numbness, Denies radicular pain, Denies restless legs, Reports tingling, Reports paresthesias, Denies disequilibrium and Denies weakness Psychiatric Psychiatric: Denies behavioral changes and Denies confusion Endocrine Endocrine: Denies palpitations Hematologic/Lymphatic Hematologic/Lymphatic: Denies easy bleeding and Denies easy bruising Allergic/Immunologic Allergic/Immunologic: Denies urticaria Patient History Medical History Breast cancer, left (Inactive) Chronic kidney disease (CKD), stage III (moderate) (Inactive) Diabetes mellitus (Inactive) Social History Smoking Status: Never smoker Smoking Status: Never smoker alcohol intake frequency: 0-2 drinks per day Substance Use Type: does not use Exam Initial Vital Signs Initial Vital Signs: Vital Signs Temperature 97.6 F 05/11/19 05:14 Pulse Rate 82 05/11/19 05:14 Respiratory Rate 20 05/11/19 05:14 Blood Pressure 187/60 H 05/11/19 05:14 Pulse Oximetry 100 05/11/19 05:14 Const General: cooperative, comfortable, well developed, well groomed and No acute distress Limitations: mental status not altered HENMT Head: normal to inspection and normocephalic Eyes Pupils: PERRL EOM: EOM intact bilaterally Resp Effort & Inspection: normal respiratory effort Auscultation: clear to auscultation bilaterally Cardio Rate: regular rate Rhythm: regular rhythm GI Inspection: non-distended Palpation: soft Skin Lesions: no lesions Rashes: no rashes Neuro General: alert, awake and oriented x3 Cognition: normal cognition Speech: speech normal Gait: normal gait Motor: muscle tone normal throughout Coordination: [id number] test normal Other: 5/5 strength bilateral upper lower extremities. Cranial nerve exam unremarkable except for subjective tingling to palpation the left side of her face. No tenderness to palpation of the TMJ or temporal artery. Patient also with subjective tingling to the left upper extremity from the mid upper forearm circumferentially to the hand. No upper arm deficits to light tenderness compared to the right side. Patient also with subjective tingling to the left lower extremity. Difficult to follow any specific nerve root distributions. Extrem General: normal to inspection, capillary refill normal and No edema Psych Appearance: grossly normal and well kempt Mental Status: mental status grossly normal Thought Process: normal Scores GCS Susy coma scale eye opening: Spontaneous Susy coma scale verbal response: Orientated [place] coma scale motor response: Obey commands [place] coma scale total score: 15 NIH Stroke Scale Level of Conciousness: Alert, keenly responsive Ask month/age: Answers both questions correctly. Open/close eyes, close hand: Performs both tasks correctly Best gaze horizontal: Normal Visual conroy: No visual loss Facial palsy: Normal symetrical movement Left arm drift: No drift for full 10 sec Right arm drift: No drift for full 10 sec Left leg drift: No drift for full 10 sec Right leg drift: No drift for full 10 sec Limb ataxia: Absent Sensory on face/arms/legs: Mild to moderate sensory loss, can tell touch Best language: No aphasia, normal Dysarthria: Normal Extinction or inattention: No abnormality Total NIH Stroke scale score: 1 Course Orders Ordered: ED Orders 05/11/19 05:13 EKG-12 Lead Stat 05/11/19 05:20 Complete Blood Count AUTO DIFF Stat Comprehensive Metabolic Panel Stat Lipase Stat 05/11/19 06:28 CT head/brain wo con Stat Discontinued Medications Tramadol HCl (Ultram) 50 mg PO NOW ONE Stop: 05/11/19 05:47 Last Admin: 05/11/19 05:50 Dose: 50 mg Documented by: PAULINE Vital Signs Vital signs: Vital Signs - 8 hr 05/11/19 05:14 05/11/19 06:00 Temperature 97.6 F Pulse Rate 82 72 Respiratory Rate 20 16 Blood Pressure 187/60 H Blood Pressure [Right Arm] 160/58 H Pulse Oximetry 100 98 MDM - Extremity (Nontraumatic) Lab Data Result diagrams: 05/11/19 05:20 05/11/19 05:20 Labs: Lab Results 05/11/19 05/11/19 Range/Units 05:20 05:20 WBC 9.2 (4.5-11.0) X10^3/uL RBC 3.54 L (4.0-5.2) X10^6/uL Hgb 10.7 L (12.0-16.0) g/dL Hct 31.8 L (36-46) % MCV 89.8 (80-100) fL MCH 30.2 (26-34) PG MCHC 33.6 (30-36) % RDW 13.5 (11.6-14.8) % Plt Count 235 (150-400) X10^3/uL Neut % (Auto) 56.2 D (50-75) % Lymph % (Auto) 31.5 (25-40) % [place] % (Auto) 7.3 (3-14) % Eos % (Auto) 3.9 (2-4) % Baso % (Auto) 1.1 (0-2) % Neut # (Auto) 5200 (1144-1914) /uL Lymph # (Auto) 2900 (0498-7124) /uL [place] # (Auto) 700 (0-900) /uL Eos # (Auto) 400 (0-450) /uL Baso # (Auto) 100 (0-100) /uL Sodium 134 L (137-145) mmol/L Potassium 4.2 (3.4-5.1) mmol/L Chloride 101 (98-107) mmol/L Carbon Dioxide 20 L (22-32) mmol/L BUN 76 H (7-17) mg/dL Creatinine 2.00 H (0.52-1.04) mg/dL Estimated GFR 24.6 L (>60) mL/min BUN/Creatinine Ratio 38.0 H (6-22) Glucose 94 D (80-110) mg/dL Calcium 9.9 (8.4-10.2) mg/dL Total Bilirubin 0.2 (0.2-1.3) mg/dL AST 23 (14-36) IU/L ALT 24 (<35) IU/L Alkaline Phosphatase 64 (38-126) U/L Total Protein 7.4 (6.3-8.2) g/dL Albumin 4.4 (3.5-5.0) g/dL Globulin 3.0 (1.7-4.1) g/dL Albumin/Globulin Ratio 1.5 (1.0-2.8) Lipase 449 H (23-300) U/L Imaging Data CT scan - head: Radiologist's Impression: No acute intracranial pathology ECG Data Attestation EKG: I personally reviewed and interpreted this ECG as follows: Prior ECG tracings: not available for review Interpretation: Sinus rhythm Ventricular rate is 71 Normal axis Normal QRS Normal QTC No ST T wave changes MDM Narrative Medical decision making narrative: Patient has had symptoms for [address] is unremarkable. EKG is unremarkable. Creatinine is at baseline. Symptoms not consistent with CVA. Not consistent with TIA. I do suspect that this is radiculopathy probably from her diabetes. Unfortunately she is unable to take anti-inflammatories given her kidney status. We did discuss use of Tylenol. Was sent home with a very short course of steroids. She was instructed that she needed to check her blood sugars at home because this could increase her blood sugars. Patient was given return precautions and follow-up instructions. She expressed understanding and agreement. Discharge Plan Departure Patient Disposition: Home Clinical Impression: Arm paresthesia, left Discharge Date/Time: 05/11/19 07:02 Instructions: DI for Peripheral Neuropathy Activity Restrictions/Additional Instructions: I recommend that today you contact your primary doctor for a follow-up. Take the medications as directed. Be sure to monitor your blood sugars at home and use the sliding scale as needed. The prednisone can cause your blood sugars to be more elevated than normal. Return to the emergency department for any new or worsening symptoms Prescriptions: New prednisone 20 mg tablet 20 mg PO DAILY Qty: 3 RF: 0 hydrocodone-acetaminophen [[place]] 5-325 mg tablet 1 tab PO Q6H PRN (Reason: pain) Qty: 7 RF: 0 No Action CHOLECALCIFEROL (VITAMIN D3) (Vitamin D3) 50 mcg BID Qty: 0 RF: 0 [OMEGA 3 FATTY ACIDS] tablet 2,000 mg PO BID Qty: 0 RF: 0 levothyroxine [Synthroid] 75 MCG tablet 75 mcg PO QAM Qty: 0 RF: 0 amlodipine 10 mg Tablet 10 mg PO DAILY RF: 0 sertraline 25 mg Tablet 50 mg PO DAILY RF: 0 aspirin 81 mg Tablet,Delayed Release (Dr/Ec) 81 mg PO DAILY RF: 0 enalapril maleate 20 mg Tablet 20 mg PO BID RF: 0 folic acid 400 mcg Tablet 0.4 mg PO DAILY RF: 0 furosemide 20 mg Tablet 20 mg PO DAILY RF: 0 rosuvastatin 40 mg Tablet 40 mg PO DAILY RF: 0 calcitriol 0.25 mcg Capsule 0.25 mcg PO DAILY RF: 0 ferrous sulfate 27 mg iron Tablet 65 mg PO DAILY RF: 0 Referrals: Viktoria Moore ARNP [Primary Care Provider] -
[2019-05-11] MEDS: TRAMADOL 50 MG TABLET PO (05:50)
[2019-05-11 06:00] VITALS: BP 160/58; PULSE 72; RESP 16; O2SAT 98
--- NOTE | 2019-05-11 06:21 | PC.NURSE ---
PT states left sided numbness and tingling for past 10 days and increasing left hand pain that developed today. States that she woke up with the symptoms 10 days ago. Pt denies RODRIGUEZ, vision or balance changes. Pt alert speaking in clear full sentences in room. Hx of DM, and Left breast CA.
--- NOTE | 2019-05-11 06:28 | DI.CT.S_ITS ---
PROCEDURE: CT HEAD/BRAIN WO CON INDICATIONS: Left-sided numbness TECHNIQUE: Noncontrast 4.5 mm thick angled axial sections acquired from the foramen magnum to the vertex, with coronal and sagittal reformats. For radiation dose reduction, the following was used: automated exposure control, adjustment of mA and/or kV according to patient size. COMPARISON: [facility], CT, CT HEAD WITHOUT CONTRAST, 10/06/2018, 16:43. [facility], CT, CT HEAD/BRAIN WO CON, 08/13/2018, 14:35. FINDINGS: Image quality: Excellent. CSF spaces: Basal cisterns are patent. No extra-axial fluid collections. The ventricles are symmetric in size and shape. Brain: No intracranial bleeds or masses. There is cerebral volume loss for age, with resultant ventricular and sulcal prominence. There are periventricular and deep white matter chronic small vessel ischemic changes. There is intracranial internal carotid artery atherosclerosis. Skull and face: Calvarium and visualized facial bones appear intact, without suspicious lesions. Sinuses: Visualized sinuses and mastoids are clear. IMPRESSION: 1. No acute intracranial abnormalities. 2. Cerebral volume loss and chronic microvascular ischemic changes. No significant discrepancy with the ship construction teacher radiology preliminary report. Dictated by: Loi Peters M.D. on 05/11/2019 at 7:17 Approved by: Loi Peters M.D. on 05/11/2019 at 7:22
== END 2019-05-11 07:02 | disposition home or self-care (01) ==
PROVIDERS: Emergency Provider Emergency Medicine; PCP Internal Medicine
DX: R20.2 Paresthesia of skin (principal); R10.9 Unspecified abdominal pain
CPT/HCPCS: 36415; 70450; 80053; 83690; 85025; 93005; 99284; 99285

== ENCOUNTER → 2019-05-22 14:46 | Outpatient (CLI) | payer OTHER, SELFPAY ==
--- NOTE | 2019-05-22 | DI.RAD.S_ITS ---
PROCEDURE: XR CERVICAL SPINE 2V OR 3V INDICATIONS: neuropathy of left arm, and left face and left leg TECHNIQUE: 3 view(s) of the cervical spine were acquired. COMPARISON: None. FINDINGS: Bones: No fractures or dislocations to the T1 level. The lateral masses of C1 appear intact on the odontoid view. No suspicious bony lesions. Soft tissues: No prevertebral soft tissue swelling. IMPRESSION: Mild degenerative disc disease along the cervical spine until the C5-6 level is reached where moderate such degeneration can be seen in that C6-C7 there is moderately severe degenerative disc disease. No definite spinal or foraminal stenosis, however. Dictated by: Kushal Brooks M.D. on 05/22/2019 at 16:12 Approved by: Kushal Brooks M.D. on 05/22/2019 at 16:13
== END ==
PROVIDERS: PCP Internal Medicine; Visit Provider Internal Medicine
DX: G56.92 Unspecified mononeuropathy of left upper limb (principal); G57.92 Unspecified mononeuropathy of left lower limb; G51.9 Disorder of facial nerve, unspecified; M50.322 Other cervical disc degeneration at C5-C6 level
CPT/HCPCS: 72040

== ENCOUNTER 2019-06-22 13:40 | Emergency (ER) | payer OTHER, SELFPAY ==
[2019-06-22 13:45] VITALS: BP 187/75; PULSE 61; RESP 15; TEMP 36.6; O2SAT 100; BMI 30.9
--- NOTE | 2019-06-22 16:24 | DI.CT.S_ITS ---
PROCEDURE: CT FACIAL BONES WO CON INDICATIONS: fall, facial injury TECHNIQUE: Noncontrast 2.5 mm thick axial images acquired from the mandible through the frontal sinuses, with coronal and sagittal reformatting. For radiation dose reduction, the following was used: automated exposure control, adjustment of mA and/or kV according to patient size. COMPARISON: [facility], CT, CT ORBIT LT WO CON, 08/13/2018, 14:35. [facility], CT, CT HEAD/BRAIN WO CON, 05/11/2019, 6:08. [facility], CT, CT HEAD/BRAIN WO CON, 08/13/2018, 14:35. FINDINGS: Image quality: Excellent. Bones and teeth: Orbital aguirre are intact. Sinus aguirre show no fracture or deformity. Nasal bones and septum are intact. Visualized portions of the mandible demonstrate no fractures or subluxation. Zygomatic arches are intact. Pterygoid plates are intact. Visualized portions of the skull base and auditory canals are intact. Sinuses: Paranasal sinuses are aerated, without fluid levels, mucosal thickening, or mucoceles. Mastoid air cells are aerated. Prominent bilateral kristin bullosa can be seen. There is minimal leftward nasal septal deviation. Soft tissues: There is a mild left forehead hematoma seen inferiorly in medially. No underlying fracture can be seen. No radiopaque foreign bodies are seen. Vascular: Visualized vascular structures appear normal in the absence of contrast. Bony vascular foramina and canals are intact. IMPRESSION: Left forehead hematoma seen inferiorly and medially. No associated fractures are seen. Prominent bilateral kristin bullosa and minimal leftward nasal septal deviation incidentally noted. Dictated by: Amadou Lowe M.D. on 06/22/2019 at 16:02 Approved by: Amadou Lowe M.D. on 06/22/2019 at 16:05
[2019-06-22 17:30] VITALS: BP 191/77; PULSE 71; RESP 18; O2SAT 99
[2019-06-22 17:44] VITALS: BP 201/81; PULSE 69; O2SAT 100
--- NOTE | 2019-06-22 18:14 | ED.HEATRA ---
HPI - Head Injury <Herminia Hobson, METALLURGICAL ENGINEERING TECHNICIAN-BC - Last Filed: 06/22/19 18:18> General Chief complaint: Head Injury Stated complaint: fall several days ago, hit face, black eyes Time Seen by Provider: 06/22/19 16:04 Source: patient Mode of arrival: Ambulatory Limitations: no limitations History of Present Illness HPI Narrative: The patient is a 73-year-old female nonsmoker not on blood thinners who presents with a chief complaint of a fall on Wednesday. She states she had her foot up on the toilet and slipped, landing with her face against the tub. She does not believe she lost consciousness, denies any neck or back pain. She only comes today because she went to get her labs drawn and the filling station laborer referred her to the emergency department given the bruising on her face. She denies any visual deficit, states throughout her vision is within normal limits. Denies any blurry vision double vision etcetera. Denies any lightheadedness, dizziness. Denies any nausea or vomiting. She states that she does not need a head CT. Related Data Home Medications Medication Instructions Recorded Confirmed CHOLECALCIFEROL (VITAMIN D3) 50 mcg BID #0 04/15/10 11/08/18 (Vitamin D3) [OMEGA 3 FATTY ACIDS] 2,000 mg PO BID #0 04/15/10 05/10/18 levothyroxine [Synthroid] 75 mcg PO QAM #0 tab 01/08/16 06/22/19 amlodipine 10 mg PO DAILY 11/05/17 06/22/19 aspirin 81 mg PO DAILY 11/05/17 05/10/18 sertraline 25 mg PO DAILY 11/05/17 06/22/19 enalapril maleate 20 mg PO BID 11/08/18 06/22/19 folic acid 0.4 mg PO DAILY 11/08/18 11/08/18 furosemide 20 mg PO BID 11/08/18 11/08/18 rosuvastatin 40 mg PO DAILY 11/08/18 06/22/19 calcitriol 0.25 mcg PO DAILY 05/09/19 06/22/19 ferrous sulfate 65 mg PO DAILY 05/09/19 05/09/19 insulin aspart U-100 [Novolog unit SUBCUT TID 06/22/19 Flexpen U-100 Insulin] insulin glargine [Lantus Solostar See Rx Instructions .ROUTE .COMPLEX 06/22/19 06/22/19 U-100 Insulin] metoprolol succinate 25 mg PO DAILY 06/22/19 06/22/19 Previous Rx's Medication Instructions Recorded hydrocodone-acetaminophen [Kinder] 1 tab PO Q6H PRN #7 tab 05/11/19 Allergies Allergy/AdvReac Type Severity Reaction Status Date / Time adhesive tape [ADHESIVE TAPE] Allergy Severe RASH Verified 06/22/19 13:45 PAPER/SILK TAPE milk [MILK] Allergy Severe DIARRHEA Verified 06/22/19 13:45 Penicillins [PENICILLINS] Allergy Mild UNSURE, Verified 06/22/19 13:45 SHAKINESS, FEEL WEIRD EGGS AdvReac Severe DIARRHEA Uncoded 11/05/17 11:40 Review of Systems <JUDI Perea - Last Filed: 06/22/19 18:18> Review of Systems Narrative: GENERAL: Denies chills, fatigue, malaise, fever, sweats. HEENT: See HPI RESPIRATORY: Denies dyspnea, cough, wheezing, hemoptysis, sputum. CARDIOVASCULAR: Denies chest pain, palpitations, orthopnea, edema, GASTROINTESTINAL: Denies nausea, vomiting, abdominal pain, diarrhea, constipation, melena. : Denies dysuria, frequency, incontinence, hematuria, urinary retention. MUSCULOSKELETAL: denies weakness, joint pain, or bony pain SKIN: See HPI NEUROLOGIC: Denies weakness, headache, numbness, change in speech, confusion, seizures, incoordination. PSYCHIATRIC: No concerning psychosocial issues. 12 point review of systems is negative except for those stated above Patient History <JUDI Perea - Last Filed: 06/22/19 18:18> Medical History Breast cancer, left (Inactive) Chronic kidney disease (CKD), stage III (moderate) (Inactive) Diabetes mellitus (Inactive) Social History Smoking Status: Never smoker Smoking Status: Never smoker alcohol intake frequency: holidays/special occasions only Substance Use Type: does not use Exam <JUDI Perea - Last Filed: 06/22/19 18:18> Narrative Exam Narrative: GENERAL: This is a well-nourished, well-developed patient, in no acute distress HEAD: Atraumatic. Normocephalic. No temporal or scalp tenderness. EYES: Pupils equal round and reactive. Extraocular motions intact. No scleral icterus. No injection or drainage. ENT: Nose without bleeding, purulent drainage or septal hematoma. Throat without erythema, tonsillar hypertrophy or exudate. Uvula midline. Airway patent. NECK: Trachea midline. No JVD or lymphadenopathy. Supple, nontender, no meningeal signs. CARDIOVASCULAR: Regular rate and rhythm without murmurs, gallops, or rubs. RESPIRATORY: Clear to auscultation. Breath sounds equal bilaterally. No wheezes, rales, or rhonchi. No cough. No increased respiratory effort. No accessory muscle use. GASTROINTESTINAL: Abdomen soft, non-tender, nondistended. No hepato-splenomegaly, or palpable masses. No guarding. EXTREMITIES: No clubbing, cyanosis, or edema. No joint tenderness, effusion, or edema noted. BACK: Nontender without deformity or crepitance. No flank tenderness. NEURO: AOx3. No pain to CT or L-spine palpation. SKIN: No rash or erythema. Bilateral periorbital ecchymosis. Initial Vital Signs Initial Vital Signs: Vital Signs Temperature 97.8 F 06/22/19 13:45 Pulse Rate 61 06/22/19 13:45 Respiratory Rate 15 06/22/19 13:45 Blood Pressure 187/75 H 06/22/19 13:45 Pulse Oximetry 100 06/22/19 13:45 <Josue Montemayor DO - Last Filed: 06/22/19 19:37> Initial Vital Signs Initial Vital Signs: Vital Signs Temperature 97.8 F 06/22/19 13:45 Pulse Rate 61 06/22/19 13:45 Respiratory Rate 15 06/22/19 13:45 Blood Pressure 187/75 H 06/22/19 13:45 Pulse Oximetry 100 06/22/19 13:45 Scores <CM PereaBC - Last Filed: 06/22/19 18:18> GCS Addis coma scale eye opening: Spontaneous Addis coma scale verbal response: Orientated Addis coma scale motor response: Obey commands Addis coma scale total score: 15 Nexus Score for C-Spine Focal Neurologic deficit present: No Midline spinal tenderness present: No Altered level of conciousness present: No Intoxication present: No Distracting Injury Present: No Nexus Criteria for C-spine: 0 Course <JUDI Perea - Last Filed: 06/22/19 18:18> Orders Ordered: ED Orders 06/22/19 16:24 CT facial bones wo con Stat Vital Signs Vital signs: Vital Signs - 8 hr 06/22/19 13:45 06/22/19 17:30 06/22/19 17:44 Temperature 97.8 F Pulse Rate 61 71 69 Respiratory Rate 15 18 Blood Pressure 187/75 H 201/81 H Blood Pressure [Right Arm] 191/77 H Pulse Oximetry 100 99 100 <Josue Montemayor DO - Last Filed: 06/22/19 19:37> Orders Ordered: ED Orders 06/22/19 16:24 CT facial bones wo con Stat Vital Signs Vital signs: Vital Signs - 8 hr 06/22/19 13:45 06/22/19 17:30 06/22/19 17:44 Temperature 97.8 F Pulse Rate 61 71 69 Respiratory Rate 15 18 Blood Pressure 187/75 H 201/81 H Blood Pressure [Right Arm] 191/77 H Pulse Oximetry 100 99 100 MDM - Head Injury <JUDI Perea - Last Filed: 06/22/19 18:18> Imaging Data Face CT: Radiologist's Impression: [address] [place] [address] CT Scan Report Signed Patient: Heather Ribera LMR#: [id number] : 8Acct:[id number] Age/Sex: 73 / FDate of Service: 06/22/19 Loc: ED Accession Number: [id number] Procedure: CT facial bones wo con Ordering Provider: Herminia Hobson PROCEDURE: CT FACIAL BONES WO CON INDICATIONS: fall, facial injury TECHNIQUE: Noncontrast 2.5 mm thick axial images acquired from the mandible through the frontal sinuses, with coronal and sagittal reformatting. For radiation dose reduction, the following was used: automated exposure control, adjustment of mA and/or kV according to patient size. COMPARISON: [facility], CT, CT ORBIT LT WO CON, 08/13/2018, 14:35. [facility], CT, CT HEAD/BRAIN WO CON, 05/11/2019, 6:08. [facility], CT, CT HEAD/BRAIN WO CON, 08/13/2018, 14:35. FINDINGS: Image quality: Excellent. Bones and teeth: Orbital aguirre are intact. Sinus aguirre show no fracture or deformity. Nasal bones and septum are intact. Visualized portions of the mandible demonstrate no fractures or subluxation. Zygomatic arches are intact. Pterygoid plates are intact. Visualized portions of the skull base and auditory canals are intact. Sinuses: Paranasal sinuses are aerated, without fluid levels, mucosal thickening, or mucoceles. Mastoid air cells are aerated. Prominent bilateral kristin bullosa can be seen. There is minimal leftward nasal septal deviation. Soft tissues: There is a mild left forehead hematoma seen inferiorly in medially. No underlying fracture can be seen. No radiopaque foreign bodies are seen. Vascular: Visualized vascular structures appear normal in the absence of contrast. Bony vascular foramina and canals are intact. IMPRESSION: Left forehead hematoma seen inferiorly and medially. No associated fractures are seen. Prominent bilateral kristin bullosa and minimal leftward nasal septal deviation incidentally noted. Dictated by: Amadou Lowe M.D. on 06/22/2019 at 16:02 Approved by: Amadou Lowe M.D. on 06/22/2019 at 16:05 [facility] Narrative Medical decision making narrative: The patient is a 73-year-old female who presents with a chief complaint of ground level falls 2 days ago in resulting bruising to her face. CT of the shows no acute findings. The patient does not need a neck imaging by nexus criteria. She declines a head CT. She is GCS 15, alert oriented and appropriate to make her own decisions. Discussed CT findings at length patient, encouraged [id number] conservative measures. Encouraged follow-up with primary care provider. Patient has no questions or concerns upon discharge and states understanding of return precautions as well as follow-up care. Discharge Plan Departure Patient Disposition: Home Clinical Impression: Periorbital ecchymosis Qualifiers: Encounter type: initial encounter Laterality: unspecified laterality Qualified Code(s): S00.10XA - Contusion of unspecified eyelid and periocular area, initial encounter Discharge Date/Time: 06/22/19 17:45 Instructions: DI for Eye Contusion Activity Restrictions/Additional Instructions: Your facial CT came back with no acute fractures Please use [id number] pain medications as needed and able. Please follow-up with primary care provider in the next few days. Please come back to emergency department for any acute concerns. Prescriptions: No Action CHOLECALCIFEROL (VITAMIN D3) (Vitamin D3) 50 mcg BID Qty: 0 RF: 0 [OMEGA 3 FATTY ACIDS] tablet 2,000 mg PO BID Qty: 0 RF: 0 levothyroxine [Synthroid] 75 MCG tablet 75 mcg PO QAM Qty: 0 RF: 0 amlodipine 10 mg Tablet 10 mg PO DAILY RF: 0 sertraline 25 mg Tablet 25 mg PO DAILY RF: 0 aspirin 81 mg Tablet,Delayed Release (Dr/Ec) 81 mg PO DAILY RF: 0 enalapril maleate 20 mg Tablet 20 mg PO BID RF: 0 folic acid 400 mcg Tablet 0.4 mg PO DAILY RF: 0 furosemide 20 mg Tablet 20 mg PO BID RF: 0 rosuvastatin 40 mg Tablet 40 mg PO DAILY RF: 0 calcitriol 0.25 mcg Capsule 0.25 mcg PO DAILY RF: 0 ferrous sulfate 27 mg iron Tablet 65 mg PO DAILY RF: 0 hydrocodone-acetaminophen [Kinder] 5-325 mg tablet 1 tab PO Q6H PRN (Reason: pain) Qty: 7 RF: 0 Lantus Solostar U-100 Insulin 100 unit/mL (3 mL) insulin pen See Rx Instructions .ROUTE .COMPLEX RF: 0 metoprolol succinate 25 mg tablet extended release 24 hr 25 mg PO DAILY RF: 0 insulin aspart U-100 [Novolog Flexpen U-100 Insulin] 100 unit/mL (3 mL) insulin pen SUBCUT TID RF: 0 Referrals: Vkitoria Moore ARNP [Primary Care Provider] -
== END 2019-06-22 17:45 | disposition home or self-care (01) ==
PROVIDERS: Emergency Provider Nurse Practitioner Family; PCP Internal Medicine
DX: S00.10XA Contusion of unspecified eyelid and periocular area, initial encounter (principal); W19.XXXA Unspecified fall, initial encounter
CPT/HCPCS: 36415; 70486; 80048; 99283; 99284

== ENCOUNTER → 2019-06-23 10:40 | Outpatient (CLI) | payer OTHER, SELFPAY ==
[2019-06-23 11:53] LABS: Creatinine Urine Random 48.8 mg/dL; Protein (Total) Urine Random 98 mg/dL (0-12)
[2019-06-23 12:12] LABS: Hematocrit 31.2 % (36-46); Hemoglobin 10.6 g/dL (12.0-16.0)
[2019-06-27 13:52] LABS: Parathyroid Hormone Int 78 pg/mL (14-64)
== END ==
PROVIDERS: PCP Internal Medicine; Referring Provider Student in an Organized Health Care Education/Training Program; Visit Provider Student in an Organized Health Care Education/Training Program
DX: R80.9 Proteinuria, unspecified (principal); N05.9 Unspecified nephritic syndrome with unspecified morphologic changes; D64.9 Anemia, unspecified; N25.81 Secondary hyperparathyroidism of renal origin
CPT/HCPCS: 36415; 82570; 83970; 84156; 85014; 85018

== ENCOUNTER → 2019-08-24 13:08 | Outpatient (CLI) | payer OTHER, SELFPAY ==
--- NOTE | 2019-08-24 | DI.MRI.S_ITS ---
PROCEDURE: MR CERVICAL SPINE WO CON INDICATIONS: neuropathy TECHNIQUE: Noncontrast sagittal T1 spin echo and T2 fast spin echo, sagittal STIR, foraminal oblique sagittal T2 fast spin echo, and axial gradient echo or T2 fast spin echo through the cervical spine. COMPARISON: [facility], CT, CT CERVICAL SPINE WITHOUT CONTRAST, 10/06/2018, 16:43. [facility], CR, XR CERVICAL SPINE 2V OR 3V, 05/22/2019, 14:59. FINDINGS: Image quality: Excellent. Alignment and Curvature: There is normal bony alignment. Bone Marrow: Marrow demonstrates normal overall signal. Spinal Cord: Visualized spinal cord has normal size and signal. No cerebellar tonsillar herniation. Paraspinous Soft Tissues: No paravertebral masses. Prevertebral soft tissues are normal in thickness. C2-C3: Preserved disc height. Mild disc desiccation. There is mild posterior disc bulge and uncovertebral hypertrophy. The central canal is patent. No foraminal stenosis. C3-C4: Preserved disc height. Mild disc desiccation. There is diffuse posterior disc bulge and uncovertebral hypertrophy. The central canal is mildly narrowed. No foraminal stenosis. C4-C5: Mild loss of disc height and disc desiccation. There is diffuse posterior disc bulge and uncovertebral hypertrophy. Mild bilateral facet arthropathy. The central canal is mildly narrowed. Moderate right and mild left foraminal stenosis. C5-C6: Mild loss of disc height and disc desiccation. There is diffuse posterior disc bulge and disc osteophyte complex. There is uncovertebral hypertrophy. Mild bilateral facet arthropathy. The central canal is mildly narrowed. Moderate right and mild left foraminal stenosis. C6-C7: Moderate loss of disc height and disc desiccation. There is diffuse posterior disc bulge and disc osteophyte complex. There is uncovertebral hypertrophy. Mild bilateral facet arthropathy. The central canal is mildly narrowed. Severe bilateral foraminal stenosis. C7-T1: Normal appearance. IMPRESSION: 1. Multilevel degenerative disc disease and facet arthropathy as described. 2. Mild central canal stenosis at C3-C4, C4-C5, C5-C6 and C6-C7. 3. Multilevel foraminal stenosis, severe at C6-C7 bilaterally, moderate to mild at other levels. Dictated by: Loi Peters M.D. on 08/24/2019 at 15:11 Approved by: Loi Peters M.D. on 08/24/2019 at 15:31
== END ==
PROVIDERS: PCP Internal Medicine; Referring Provider Internal Medicine; Visit Provider Internal Medicine
DX: G62.9 Polyneuropathy, unspecified (principal); M50.31 Other cervical disc degeneration, high cervical region; M47.812 Spondylosis without myelopathy or radiculopathy, cervical region; M48.02 Spinal stenosis, cervical region
CPT/HCPCS: 72141

== ENCOUNTER → 2019-10-18 10:24 | Outpatient (CLI) | payer OTHER, SELFPAY ==
[2019-10-18 12:12] LABS: Alanine Aminotransferase 17 IU/L (<35); Albumin 3.6 g/dL (3.5-5.0); Albumin Globulin Ratio 1.3 (1.0-2.8); Alkaline Phosphatase 63 U/L (38-126); Aspartate Aminotransferase 20 IU/L (14-36); BUN Creatinine Ratio 18.9 (6-22); Bilirubin Total 0.3 mg/dL (0.2-1.3); Blood Urea Nitrogen 30 mg/dL (7-17); Calcium 9.4 mg/dL (8.4-10.2); Carbon Dioxide 21 mmol/L (22-32); Chloride 112 mmol/L (98-107); Cholesterol 275 mg/dL (140-199); Estimated Glomerular Filt Rate 31.9 mL/min (>60); Globulin 2.8 g/dL (1.7-4.1); Glucose 106 mg/dL (80-110); HDL Cholesterol 40 mg/dL (40-60); HEMOLYSIS < 15 (0-50); LDL Cholesterol Calculated 181 mg/dL (<100); Potassium 4.1 mmol/L (3.4-5.1); Sodium 140 mmol/L (137-145); Total Protein 6.4 g/dL (6.3-8.2); Triglycerides 270 mg/dL (35-150); VLDL Cholesterol Calculated 54 mg/dL (2-30)
[2019-10-18 12:17] LABS: Hemoglobin A1C% w Est Avg Glu 7.5 % (4.0-6.0)
[2019-10-18 12:39] LABS: Thyroid Stimulating Hormone 0.29 uIU/mL (0.47-4.68)
[2019-10-18 12:55] LABS: Creatinine Urine Random 89.7 mg/dL
[2019-10-18 13:05] LABS: Protein (Total) Urine Random 476 mg/dL (0-12)
== END ==
PROVIDERS: PCP Internal Medicine; Referring Provider Internal Medicine; Visit Provider Internal Medicine
DX: I10 Essential (primary) hypertension (principal); E78.49 Other hyperlipidemia; E11.9 Type 2 diabetes mellitus without complications; E03.9 Hypothyroidism, unspecified
CPT/HCPCS: 36415; 80053; 80061; 82570; 83036; 84156; 84443

== ENCOUNTER → 2019-10-24 09:21 | Outpatient (CLI) | payer OTHER, SELFPAY ==
--- NOTE | 2019-10-24 | DI.RAD.S_ITS ---
PROCEDURE: XR SHOULDER LT MIN 2V INDICATIONS: Left shoulder pain, fall in 06/2019 TECHNIQUE: 3 views of the shoulder were acquired. COMPARISON: None. FINDINGS: Bones: No fractures or dislocations. No suspicious bony lesions. Visualized ribs appear intact. Severe AC joint degeneration. Glenohumeral spurring and sclerosis also are noted. Soft tissues: No suspicious soft tissue calcifications. IMPRESSION: Degenerative changes as above. No fracture identified. If the patient's pain or other symptoms persist, consider further evaluation with MRI Dictated by: Patrick Larose M.D. on 10/24/2019 at 10:36 Approved by: Patrick Larose M.D. on 10/24/2019 at 10:37
== END ==
PROVIDERS: PCP Internal Medicine; Referring Provider Internal Medicine; Visit Provider Internal Medicine
DX: M25.512 Pain in left shoulder (principal); M19.012 Primary osteoarthritis, left shoulder
CPT/HCPCS: 73030

== ENCOUNTER → 2019-10-25 12:54 | Outpatient (CLI) | payer OTHER, SELFPAY ==
[2019-10-25 14:52] LABS: Hematocrit 30.5 % (36-46); Hemoglobin 10.5 g/dL (12.0-16.0)
[2019-10-25 15:39] LABS: Blood Urea Nitrogen 44 mg/dL (7-17); Calcium 9.1 mg/dL (8.4-10.2); Carbon Dioxide 18 mmol/L (22-32); Chloride 110 mmol/L (98-107); Estimated Glomerular Filt Rate 27.1 mL/min (>60); Glucose 155 mg/dL (80-110); HEMOLYSIS < 15 (0-50); Potassium 4.6 mmol/L (3.4-5.1); Sodium 137 mmol/L (137-145)
[2019-10-25 15:56] LABS: Creatinine Urine Random 79.2 mg/dL
[2019-10-25 16:04] LABS: Protein (Total) Urine Random 393 mg/dL (0-12); Protein Creatinine Ratio Urine 4.96 GRAM/24H
[2019-10-26 07:14] LABS: Parathyroid Hormone Int 46 pg/mL (15-65)
== END ==
PROVIDERS: PCP Internal Medicine; Referring Provider Student in an Organized Health Care Education/Training Program; Visit Provider Student in an Organized Health Care Education/Training Program
DX: R80.9 Proteinuria, unspecified (principal); N05.9 Unspecified nephritic syndrome with unspecified morphologic changes; D64.9 Anemia, unspecified; N25.81 Secondary hyperparathyroidism of renal origin
CPT/HCPCS: 36415; 80048; 82570; 83970; 84156; 85014; 85018

== ENCOUNTER → 2019-11-13 13:18 | Outpatient (CLI) | payer OTHER, SELFPAY ==
--- NOTE | 2019-11-13 | DI.MRI.S_ITS ---
PROCEDURE: MR HEAD/BRAIN WO CON INDICATIONS: Polyneuropathy, unspecified TECHNIQUE: Non-contrast axial T1 spin echo, axial T2 fast spin echo, sagittal and axial FLAIR, coronal T2 fast spin echo, axial gradient echo, axial diffusion and ADC through the brain. COMPARISON: [facility], , MRI HEAD W/WO CONTRAST, 09/23/2004, 13:20. FINDINGS: Image quality: Excellent. CSF spaces: Ventricles appear symmetric in size and shape. Basal cisterns are patent. No extra-axial fluid collections. Brain: No intracranial bleeds or mass effects. There is cerebral volume loss for age. There are periventricular and deep white matter chronic small vessel ischemic changes. Brainstem appears normal. Diffusion-weighted images show no acute ischemic insults. There is moderate microvascular atherosclerotic change in the deep white matter in each hemisphere, best seen on FLAIR imaging technique, and there are small foci of presumed old lacunar infarctions measuring less than 1 cm within the deep white matter, versus prominent perivascular spaces. No chronic ischemic insults. Normal intravascular flow voids are present. Skull and face: Calvarial bone marrow is normal in signal. Orbits are normal. Sinuses: Sinuses and mastoids are clear. IMPRESSION: The appearance is equivalent to that expected from CT scanning 05/11/19 and chronic microvascular atherosclerotic change has appreciably increased from the comparison MRI from August of 2004. Dictated by: Kushal Brooks M.D. on 11/13/2019 at 15:52 Approved by: Kushal Brooks M.D. on 11/13/2019 at 15:56
== END ==
PROVIDERS: PCP Internal Medicine; Referring Provider Internal Medicine; Visit Provider Internal Medicine
DX: G62.9 Polyneuropathy, unspecified (principal)
CPT/HCPCS: 70551

== ENCOUNTER → 2020-02-23 10:07 | Outpatient (CLI) | payer OTHER, SELFPAY ==
[2020-02-23 22:32] LABS: COVID19 Sendout Not Detected (Not Detect)
== END ==
PROVIDERS: PCP Internal Medicine; Visit Provider Physician Assistant
DX: Z11.59 Encounter for screening for other viral diseases (principal)
CPT/HCPCS: 87635

== ENCOUNTER 2020-02-26 10:37 | Inpatient (IN) | payer OTHER, SELFPAY ==
[2020-02-19 12:59] VITALS: BMI 31.8
[2020-02-26] VITALS (27 sets, daily range): BP systolic 174–242; BP diastolic 62–107; PULSE 77–106; RESP 14–25; TEMP 35.4–36.4; O2SAT 93–99; BMI 31.8
--- NOTE | 2020-02-26 | DI.RAD.S_ITS ---
PROCEDURE: XR CERVICAL SPINE 2V OR 3V INDICATIONS: ACDF C4-5, C5-6, C6-7 TECHNIQUE: 3 view(s) of the cervical spine were acquired. COMPARISON: [facility], , XR CERVICAL SPINE 2V OR 3V, 05/22/2019, 14:59. FINDINGS: Intraoperative fluoroscopic images of cervical spine shows anterior fusion at C4 through C7 levels with anterior fusion hardware and intervertebral spacer placement. Straightening of normal cervical lordosis is seen. IMPRESSION: Fluoro guidance was provided intraoperatively for anterior fusion of cervical spine at C4 through C7 levels. Dictated by: Vlad Avalos M.D. on 02/26/2020 at 15:54 Approved by: Vlad Avalos M.D. on 02/26/2020 at 16:03
[2020-02-26 11:24] LABS: Hematocrit 35.6 % (36-46); Hemoglobin 11.6 g/dL (12.0-16.0)
[2020-02-26] MEDS: LACTATED RINGERS 1,000 ML 42 ML IV ×2 (11:24→15:32)
[2020-02-26] MEDS: ACETAMINOPHEN 325 MG TABLET 975 MG PO (11:25)
[2020-02-26 11:40] LABS: BUN Creatinine Ratio 22.8 (6-22); Blood Urea Nitrogen 45 mg/dL (7-17); Estimated Glomerular Filt Rate 24.9 mL/min (>60)
--- NOTE | 2020-02-26 12:22 | PM.PREOP ---
Pre-operative Note COVID-19 COVID-19 status: Negative Result date/Date tested (Pos, Neg/Pending): 02/24/20 Interval Note History & Physical reviewed/Exam performed by Physician: Yes Changes to H&P: No
--- NOTE | 2020-02-26 13:05 | SUR.PREOP ---
Ambulated to BR, steady when up.
[2020-02-26] MEDS: CLINDAMYCIN 600 MG/50 ML PIGGYBACK 50 MG IV (13:06)
--- NOTE | 2020-02-26 13:50 | SUR.OPER ---
Supine, head on gel donut. Arms padded with gel pads, tucked at sides, towel roll under shoulders. Safety belt at thigh. Legs uncrossed.
--- NOTE | 2020-02-26 15:53 | P.OP_ITS ---
Operative Date/Time/Diagnoses Date of procedure: 02/26/20 Time of procedure: 12:53 Pre-op diagnosis: 1. C4-5, C5-6, C6-7 spinal stenosis 2. C4-5, C5-6, C6-7 spondylosis with radiculopathy Post-op diagnosis: same Procedure & Clinicians Procedure: 1. C4-5 C5-6 C6-7 anterior cervical diskectomy and fusion 2. C4-5 C5-6 C6-7 anterior interbody cage placement 3. C4-5 C5-6 C6-7 anterior instrumentation with plate and screw placement in C4-C5-C6 and C7 vertebrae 4. Utilization of microsurgical technique and operating microscope Same procedure as scheduled: Yes Indications: Patient has been having chronic neck pain and worsening cervical radiculopathy. Patient failed multiple conservative management with worsening pain weakness and numbness in her upper extremity. Patient has been having difficulty performing activity of daily living. After discussing risks benefits of treatment options, patient elected proceed with surgery. Surgeon: Abhishek Ngo Recorder Helper Gravity Prospecting: Chio Hernandez'Brien Click Yes if Unassisted: No Anesthesia Type: General Operative Notes Closure Type: primary Specimen(s): none sent Prosthetic devices, grafts, tissues, transplants, or devices: Globus extend Plate, PEEK cages Applied: catheter Estimated Blood Loss (mL): 50 Blood products transfused: none Procedure in detail: Patient was seen in the preoperative area. Risks and benefits of the surgery was discussed with the patient. Operative consent was obtained and placed in the chart. Patient was then taken to the operative room. Prophylactic antibiotic was given less than 0.5 hr prior to skin incision. General anesthesia was administered. Patient was placed into a supine position on her radiolucent table. Bilateral shoulders were taped down to allow proper C- arm imaging. Anterior cervical area was prepped and draped in a sterile fashion. Time-out was performed at this time. Using lateral C-arm imaging, the level between C4 and C7 was identified and marked on patient's neck. A oblique incision from midline towards medial border of sternocleidomastoid muscle was made. The platysma muscle was incised in line with skin incision. Metzenbaum scissor was used to develop the plane between the medial border of sternocleidomastoid d and the strap muscles medially. The carotid sheath and its contents were identified and protected behind the hand- held retractor during the entire case. The plane between the carotid sheath and strap muscles was developed with Metzenbaum scissors. Dissection was made down to the level of the anterior cervical fascia. Longus colli muscle was incised on the anterior aspect of vertebral bodies bilaterally from C4-C7. Spinal needle was placed into the C4-5 disc space and confirmed with lateral C-arm imaging. Using microsurgical technique and operative microscope, anterior cervical di skectomy was performed at C4-5 C5-6 and C6-7 level. This was done by removing the disc material, removing the anterior and posterior osteophytes posterior longitudinal ligaments along with performing bilateral foraminotomies at all 3 levels. Patient was found to have severe central and foraminal stenosis at all 3 levels. Patient's stenosis was fully decompressed after decompression was completed. After the diskectomy was completed, 3 anterior interbody cages were obtained. The cages were packed with globus via cell bone grafting material. One cage each along with the bone grafting material was then packed into the interbody spaces from C4-C7 with one cage into each interbody level. After the cages were placed, the anterior cervical plate was stabilized to the C4-C7 vertebrae using 2 screws at each each level. Total 8 screws were placed. After confirming placement of the hardware with AP and lateral C-arm imaging, the screws were locked into the plate using the locking mechanism and torque limiting screwdriver. After the hardware was placed and confirmed with AP and lateral C-arm imaging, the wound was irrigated with sterile normal saline. The platysma muscle and the subcutaneous tissue was closed with 2-0 Vicryl. The skin was closed with 4-0 Monocryl and Steri-Strips. Patient tolerated the procedure well. Patient was transferred recovery room in stable condition. There were no complications. Complications: none Post-operative Condition: stable Disposition: PACU Plan for aftercare: Admit to inpatient hospital
--- NOTE | 2020-02-26 16:10 | P.EN_ITS ---
Event Note Event Note: I was called by anesthesia for consultation of this patient for hypertension. She follows with [facility] in [place] whom typically follow their own patients in the hospital. I contacted the clinic whom stated they would happily consult for hypertension.
[2020-02-26] MEDS: fentaNYL 100 MCG/2 ML INJ IV ×3 (16:43→16:54)
[2020-02-26] MEDS: OXYCODONE IR 5 MG TABLET PO ×2 (16:55→19:19)
[2020-02-26] MEDS: METOPROLOL TARTRATE 5 MG/5 ML INJ IV ×3 (17:13→17:23)
[2020-02-26] MEDS: HYDRALAZINE 20 MG/ML VIAL 5 MG IV (17:29)
--- NOTE | 2020-02-26 17:32 | PM.PN.1 ---
Subjective Subjective Date Patient Seen: 02/26/20 Time Patient Seen: 17:33 Exam Vital Signs (past 8 hours): - 02/26/20 11:31 02/26/20 12:01 02/26/20 16:09 Temperature 97.2 F L Pulse Rate 90 80 77 Respiratory Rate 17 16 18 Blood Pressure 210/88 H 220/93 H 174/64 H Pulse Oximetry 99 98 98 02/26/20 16:13 02/26/20 16:18 02/26/20 16:20 Temperature 97.5 F L Pulse Rate 78 79 79 Respiratory Rate 14 22 20 Blood Pressure 198/62 H 198/63 H 202/65 H Pulse Oximetry 97 98 97 02/26/20 16:22 02/26/20 16:26 02/26/20 16:31 Temperature Pulse Rate 80 83 87 Respiratory Rate 17 15 18 Blood Pressure 208/63 H 206/68 H 202/66 H Pulse Oximetry 97 97 97 02/26/20 16:37 02/26/20 16:44 02/26/20 16:46 Temperature Pulse Rate 87 88 89 Respiratory Rate 18 15 22 Blood Pressure 204/68 H 205/69 H 213/73 H Pulse Oximetry 97 97 97 02/26/20 16:51 02/26/20 17:05 02/26/20 17:06 Temperature Pulse Rate 90 92 H 91 H Respiratory Rate 25 H 22 24 Blood Pressure 219/78 H 236/87 H 218/79 H Pulse Oximetry 98 96 96 02/26/20 17:23 02/26/20 17:29 Temperature Pulse Rate 84 80 Respiratory Rate 24 Blood Pressure 213/77 H 226/71 H Pulse Oximetry 98 Oxygen Delivery Method Nasal Cannula Oxygen Flow Rate 3 Objective Labs Result Diagrams: 02/26/20 11:12 02/26/20 11:12 Labs: Laboratory Results - last 24 hr 02/26/20 02/26/20 02/26/20 11:12 11:12 11:12 Hgb 11.6 L Hct 35.6 L BUN 45 H Creatinine 1.97 H Estimated GFR 24.9 L BUN/Creatinine Ratio 22.8 H Blood Type AB Positive Antibody Screen Negative Assessment & Plan Assessment & Plan narrative: Patient with history of elevated bp. has stopped meds which have been effective in past. will restart and see in am.
--- NOTE | 2020-02-26 17:37 | SUR.PHASEI ---
Hospitalist aware of BP, consulting now, pt to go up fro further BP management on the floor
--- NOTE | 2020-02-26 17:59 | SUR.PHASEI ---
Pt to room with RN, bedside report to Floor RN
[2020-02-26] MEDS: ENALAPRIL 20 MG TABLET PO (18:26)
[2020-02-26] MEDS: SODIUM CHLORIDE 0.9% 1,000 ML 100 ML IV (18:27)
[2020-02-26] MEDS: INSULIN ASPART 100 UNIT/ML INSULN PEN SUBCUT ×2 (19:17→22:39)
[2020-02-26] MEDS: hydrOXYzine pamoate 25 MG CAPSULE PO (19:18)
--- NOTE | 2020-02-26 20:03 | PC.NURSE ---
Admit note: Heather brought from PACU to room 218 via hospital bed. Patient is awake, dozing at times, oriented x 3 and to situation, appears very grawgy. Whispers answers, c/o sore throat. When ice chip given, she did cough when swallowing. When I asked if she is having difficulty swallowing, she said no, that mouth was dry. 2nd ice chip given with same result. I then gave Enalapril now dose with small bite of applesauce & she did not cough or show difficulty swallowing. I explained teaching about post-op cervical surgeries, patient aware she can have cepacol lozenge prn. After 2 hours in room, now more awake, able to swallow ice chips with no cough. Ate few bites of pudding and applesauce. Neck with surgical gauze drsg covered by tegaderm, both CDI. Wearing soft collar for neck support. Reports pain across back of neck & shoulders 10/10, medicated with oxycodone & vistaril. Wearing bilateral foot SCD's, pulses present. UE's cool, warm blankets given, ice pack placed at back of neck/shoulders. Fall precautions in place. Reports fell in May and hit head, reports left arm pain and left hand numbness since her fall. Dr Moore here earlier to consult patient's hypertension, gave order to start BP med now and continue daily. Enalapril given. BP 196/85. I called him back to clarify whether or not he wanted to start the Amlodipine now or in AM, as the order shows in [facility] to start in AM. He said to start med now.
[2020-02-26] MEDS: AMLODIPINE 5 MG TABLET 10 MG PO (20:59)
[2020-02-26] MEDS: CLINDAMYCIN 900 MG/50 ML PIGGYBACK 50 MG IV (21:00)
[2020-02-26] MEDS: DOCUSATE 100 MG CAPSULE PO (21:00)
[2020-02-26] MEDS: HYDROMORPHONE 0.5 MG INJ 0.2 MG IV (21:20)
[2020-02-26] MEDS: INSULIN ASPART 100 UNIT/ML INSULN PEN 6 UNIT SUBCUT (22:40)
[2020-02-27] VITALS (16 sets, daily range): BP systolic 136–209; BP diastolic 61–97; PULSE 61–112; RESP 16–18; TEMP 36.4–37; O2SAT 93–97
[2020-02-27] MEDS: METOPROLOL IR 50 MG TABLET PO ×3 (02:41→23:47)
[2020-02-27] MEDS: hydrOXYzine pamoate 25 MG CAPSULE PO (02:41)
[2020-02-27] MEDS: OXYCODONE IR 5 MG TABLET PO ×3 (02:48→23:47)
[2020-02-27] MEDS: CLINDAMYCIN 900 MG/50 ML PIGGYBACK 50 MG IV (05:17)
[2020-02-27] MEDS: SODIUM CHLORIDE 0.9% 1,000 ML 100 ML IV (05:19)
[2020-02-27] MEDS: LEVOTHYROXINE 50 MCG TABLET PO (05:26)
--- NOTE | 2020-02-27 05:53 | PC.NURSE ---
Pt is A and O x 4. BP slightly improved with 50 mg lospressor po 196/94, HRR at 101. Pt is asymptomatic, resting in upright position, wearing cervical collar and c/o chronic L arm pain 6-11/09. Swallowing is painful and she does better with applesauce versus thin liquids. SCDs on, voiding qs clear, yellow. Denies RODRIGUEZ and palpitations. BPs on R UE 2/2 L sides mastectomy. Afebrile. Dressing c/d/i.
--- NOTE | 2020-02-27 07:08 | PC.NURSE ---
Dr. Landers aware of patient's BP's throughout noc shift.
--- NOTE | 2020-02-27 07:35 | PM.PN.1 ---
Subjective Subjective Date Patient Seen: 02/27/20 Time Patient Seen: 07:35 Interval history: Patient had a night significant for uncontrolled hypertension. Prior to her surgery, she was not taking her blood pressure medications and was uncontrolled at time of presentation. She is normally on amlodipine 10 mg and enalapril 20 mg daily. Overnight she had additional metoprolol 50 mg p.o. x1 for systolic pressure greater than 200. This morning, she is still 205/92 with heart rate of 101. Pain is 6/10. She is status post spinal fusion surgery, postoperative day 2. Otherwise, she is tolerating diet with no nausea or vomiting. Working with PT/OT. Exam Vital Signs (past 8 hours): - 02/26/20 23:50 02/27/20 00:46 02/27/20 03:56 Temperature 97.5 F L 97.6 F Pulse Rate 106 H 112 H 101 H Respiratory Rate 18 18 Blood Pressure 218/107 H 196/94 H 205/92 H Pulse Oximetry 96 96 Oxygen Delivery Method Room Air Oxygen Flow Rate 0 Narrative Exam Narrative: GENERAL: Alert and oriented, appearing stated age and in no acute distress. HEENT: Head normocephalic/atraumatic, neck collar in place. Pupils equal, round, and reactive to light and accomodation. Extraocular muscles intact. Tympanic membranes clear. Nasal mucosa moist, septum midline. Oral mucosa moist, no lesions. Neck soft and supple, no lymphadenopathy. LUNGS: Clear to ausculation bilaterally, no wheezes, rhonchi or rales. CV: Normal S1 and S2 with regular rate and rhythm, no audible murmurs, rubs or gallops. ABD: Non tender, non-distended, no organomegaly. Positive bowel sounds. EXTREMITIES: No clubbing, cyanosis, or edema. NEURO: Cranial nerves II through XII grossly intact, no focal deficits. PSYCH: Alert and oriented x 3. SKIN: No concerning lesions. Objective Labs Result Diagrams: 02/26/20 11:12 02/26/20 11:12 Labs: Laboratory Results - last 24 hr 02/26/20 02/26/20 02/26/20 11:12 11:12 11:12 Hgb 11.6 L Hct 35.6 L BUN 45 H Creatinine 1.97 H Estimated GFR 24.9 L BUN/Creatinine Ratio 22.8 H Blood Type AB Positive Antibody Screen Negative Assessment & Plan Assessment & Plan narrative: 1. Hypertension, uncontrolled Plan: Will continue amlodipine 10 mg PO qd (max) and increase enalapril to 20 mg PO BID. Will also start HCTZ 50 mg PO qd and monitor closely. 2. Spinal stenosis, statust post C4-7 ACDF, POD #2. Plan: Per Dr. Nog 3. DM II, chronic Plan: Continue home insulin. 4. Hypothyroidism Plan; Continue home levothyroxine. 4. Hyperlipidemia Plan: Will restart rosuvastatin upon discharge home. 5. Depression Plan: Will restart sertraline 25 mg daily. 6. Obesity, BMI 31.9 -Risk for adverse outcomes including poor healing, uncontrolled diabetes, longer hospital stay, etc. Plan: Nutriton counseling. DVT prophylaxis: SCDs Code: Full COVID: Negative Quality VTE Deep Vein Thrombosis/Pulmonary Embolism Present on Admission: No
--- NOTE | 2020-02-27 07:44 | PM.PN.1 ---
Subjective Subjective Date Patient Seen: 02/27/20 Time Patient Seen: 07:44 Interval history: Patient is POD#1 s/p C4-5, C5-6, C6-[address] Ngo. Some swallowing difficulty due to sore throat overnight, but is tolerating apple sauce. No shortness of breath or difficulty breathing. Some issues with pain control overnight that has been improving. BP has been elevated overnight, patient's PCP was consulted and is managing this. She has not mobilized out of bed yet. Dutta catheter in place. No complaints. Exam Vital Signs (past 8 hours): - 02/26/20 23:50 02/27/20 00:46 02/27/20 03:56 Temperature 97.5 F L 97.6 F Pulse Rate 106 H 112 H 101 H Respiratory Rate 18 18 Blood Pressure 218/107 H 196/94 H 205/92 H Pulse Oximetry 96 96 Oxygen Delivery Method Room Air Oxygen Flow Rate 0 Narrative Exam Narrative: 74 year old female resting in bed. Alert and oriented in no acute distress. Patient wearing soft collar. Dressing is CDI. 4/5 B/L UE. Calves soft, nontender. Objective Labs Result Diagrams: 02/26/20 11:12 02/26/20 11:12 Labs: Laboratory Results - last 24 hr 02/26/20 02/26/20 02/26/20 11:12 11:12 11:12 Hgb 11.6 L Hct 35.6 L BUN 45 H Creatinine 1.97 H Estimated GFR 24.9 L BUN/Creatinine Ratio 22.8 H Blood Type AB Positive Antibody Screen Negative Assessment & Plan Assessment & Plan narrative: POD#1 s/p ACDF. Will continue present pain control, Cepacol lozenges added for sore throat. Encouraged patient to continue soft foods. Mobilize today with PT. SCDs for DVT prophylaxis. Dutta catheter to remain in place today. BP elevated overnight and into the AM, Dr. Landers from her PCP office aware, we appreciate there management of this. Quality VTE Deep Vein Thrombosis/Pulmonary Embolism Present on Admission: No
[2020-02-27] MEDS: DOCUSATE 100 MG CAPSULE PO ×2 (08:03→20:43)
[2020-02-27] MEDS: BENZOCAINE/MENTHOL 1 LOZ PKT 1 EACH PO ×2 (08:04→17:46)
[2020-02-27] MEDS: AMLODIPINE 5 MG TABLET 10 MG PO (08:04)
[2020-02-27] MEDS: INSULIN ASPART 100 UNIT/ML INSULN PEN SUBCUT ×4 (08:32→22:04)
[2020-02-27] MEDS: hydroCHLOROthiazide 25 MG TABLET 50 MG PO (08:43)
[2020-02-27] MEDS: ENALAPRIL 20 MG TABLET PO ×2 (09:10→20:43)
--- NOTE | 2020-02-27 09:19 | PC.NURSE ---
Addendum entered by Michelle Loco R.N. 02/27/20 16:08: Fax sent to Ortho regarding request of involvement due to persistent HTN as requested by Dr. Saldivar. Addendum entered by Michelle Loco R.N. 02/27/20 15:56: 1545: Updated Dr. Shyla saldivar regarding BP post Metoprolol. BP at 1545 203/78 Dr. Saldivar aware. New order obtained, Hytrin 2 mg PO x 1 dose. Additionally notified regarding unchanged clinical status, fatigued, slowed movements and speech, pallor to face and mucous membranes. Patient currently sitting in chair, verbalizes needs, answers questions. Flat affect noted. Poor PO intake, declined lunch. Taking sips of water and small spoonfuls of applesauce and soft foods. Holding Lantus until improved PO intake. Addendum entered by Michelle Loco R.N. 02/27/20 09:57: BP 163/86, HR 81 Original Note: day shift note: Patient awake, alert, and pleasantly cooperative. Received on RA, sats 96-98%. C/O discomfort to throat, described as mild soreness. Soft collar in place, dressing to anterior neck , CDI. Prefers to take pills whole with apple sauce, states it is easier to swallow. MC Gandhi at bedside this am, new order obtained for Cephacol Lozenge. Continue hypertensive, updated Dr. Day regarding BP 102/89, no C/O chest pain, SOB, headache, visual disturbance, or dizziness. New orders obtained. Skin pale, warm, and dry. BUE weakness and numbness, 3+ hand instrument processing tech to LUE and numbness extending from upper arm into fingers. 3+ hand instrument processing tech to RUE, numbness extending from forearm to hand. Dutta Cath in place, draining clear yellow urine. Encouraging fluid intake, IS use, SCDs continuously in place. Calls appropriately for staff assist.
--- NOTE | 2020-02-27 10:31 | PT.IPTN ---
Current Diagnoses Other spondylosis with radiculopathy, cervical region (02/26/20) Spinal stenosis, cervical region (02/26/20) Surgery Performed Operation Date: 02/26/20 12:15 Actual Procedures p C4-5,C5-6,C6-7 ACDF w/anterior instrumentation - Abhishek Ngo MD Physical Therapy Treatment Note M3 PT-IP Subjective Start: 02/27/20 12:38 Freq: NEEDED Status: Active Protocol: Document 02/27/20 10:31 AB (Rec: 02/27/20 12:42 AB [id number]) Subjective Physical Therapy Visit Type Notes attempted PT eval. obtained PLOF and home set up. BP checked prior to mobility and taken twice: first reading 201 /83 and 2nd reading 201/82. informed nurse and stated that Dr. Juarez will be seeing the pt to manage her BP. PT on hold at this time.
--- NOTE | 2020-02-27 11:27 | OT.IPNOTE ---
Per nursing still having high BP, therefore hold from OT eval this morning and check on the pt later in PM.
--- NOTE | 2020-02-27 13:42 | OT.IPNOTE ---
BP still high at 200/84. Able to get pt's prior history, set-up and with nursing aid able to assist to help scoot up in bed higher for proper positioning for eating. No charge.
--- NOTE | 2020-02-27 13:58 | PT.IIE ---
Current Diagnoses Other spondylosis with radiculopathy, cervical region (02/26/20) Spinal stenosis, cervical region (02/26/20) Surgery Performed Operation Date: 02/26/20 12:15 Actual Procedures p C4-5,C5-6,C6-7 ACDF w/anterior instrumentation - Abhishek Ngo MD Surgical History (Last Updated 02/19/20 @ 13:20 by Livier So RN) History of hysterectomy (Acute) History of partial mastectomy of left breast (Acute) Hx of cholecystectomy (Acute) Hx of eye surgery (Acute) Hx of lumbosacral spine surgery (Acute) Medical History (Last Reviewed 06/22/19 @ 18:16 by Herminia Hobson [facility]) Breast cancer, left (Inactive) Chronic kidney disease (CKD), stage III (moderate) (Inactive) Diabetes mellitus (Inactive) Physical Therapy Inpatient Evaluation/Re-Eval M1 PT/OT-IP Prior Functional Status Start: 02/27/20 12:38 Freq: NEEDED Status: Active Protocol: Document 02/27/20 13:58 AB (Rec: 02/27/20 15:24 AB [email or web address]) Medical Review Prior Functional Status Medical History Reviewed Yes Communication able to make needs known Mobility and Gait pt stated that she is independent with all mobilities and ambulation without AD Social History Household Members none Living Arrangements Apartment/Condo Number of Floors (Floors) One Floor Number of Stairs To Enter/Railing? no steps to enter Home Environment Standard Height Toilet,Tub/ Shower Home Equipment Straight Cane,Shower Seat with Backrest,Grab Bars Near Toilet,Grab Bars In Shower Additional Social History Comment pt stated that her sister maybe able to assist her but not stay with her pt stated that she has an adjustable bed M2 PT-IP Current Condition Start: 02/27/20 12:38 Freq: NEEDED Status: Active Protocol: Document 02/27/20 13:58 AB (Rec: 02/27/20 15:24 AB [email or web address]) Physical Therapy Current Condition Current Condition Evaluation Date 02/27/20 Treatment Diagnosis s/p C4-5,5-6, 6-7 ACDF; difficulty in walking Onset Date 02/26/20 Precautions Cervical Spine Precautions Soft Collar for Comfort,No Heavy Lifting,Log Roll M3 PT-IP Subjective Start: 02/27/20 12:38 Freq: NEEDED Status: Active Protocol: Document 02/27/20 13:58 AB (Rec: 02/27/20 15:24 AB [email or web address]) Subjective Physical Therapy Visit Type Type Initial Evaluation Visit Start Time 13:58 Visit Stop Time 14:45 Total Visit Minutes 47 Number of SUPERVISOR [employer]ANT Visits 0 Physical Therapy Visit Comments Patient Comments pt is agreeable to do PT; stated that she feels like she is falling apart Therapy Pain Assessment Pain When Pain Assessed At Rest Pain Present Pain Present Pain Reported Location Neck Intensity 3 Scale Used Numeric (0 - 10) Pain Management Techniques Modification of Treatment,Re- positioning,Timing of Activity with Medications M4 PT-IP Mobility and Gait Start: 02/27/20 12:38 Freq: NEEDED Status: Active Protocol: Document 02/27/20 13:58 AB (Rec: 02/27/20 15:24 AB [email or web address]) PT-Bed Mobility Assessment Rolling Type of Rolling Log Rolling Level of Assist Maximal Assistance,2 Person Assistance Supine to Sit Supine to Sit Maximum Assistance,2 Person Assistance,Head of Bed Elevated,Bedrails Scooting Scooting to Edge of Bed Maximum Assistance PT-Transfer Assessment Sit to and From Stand Sit to and from Stand Maximum Assistance,2 Person Assistance,Use of Upper Extremities Equipment Transfer Assistive Device Gait Belt,Front Wheeled Walker Orthotic/Prosthetic Devices or Brace: No Transfers Transfer Destination Chair Transfer Technique Stand Step Pivot Transfer Ability Level of Assist Maximum Assistance,2 Person Assistance,Use of Upper Extremities Comments Mobility Comments pt had high BP this morning. Nurse stated that pt had a new med for BP and was given a few minutes ago. BP monitored . BP supine in bed with HOB elevated 188/79. educated pt on cervical precautions and log roll bed mobility. completed supine to sit with HOB elevated and pt used bed rail to assist. pt required max A x 2 and max cues. pt was able to sit on EOB min A. pt requires increase time to respond to questions and seems spacey. BP sitting on EOB: 189/83. pt completed sit to stand max A x 2 and max cues and completed step transfer to chair using FWW max A x 2 and max cues. positioned pt on chair. call light and table placed within reach. BP after transfers: 181/77. informed nurse. Gait Assessment Comments Gait Comments able to take steps during transfers. PT-Balance Assessment Sitting Balance and Reactions Static Sitting Balance Ability Good Dynamic Sitting Balance Ability Good Standing Balance and Reactions Static Standing Balance Ability Poor Dynamic Standing Balance Ability Poor Device Used FWW M5 PT-IP Objective Assessments Start: 02/27/20 12:38 Freq: NEEDED Status: Active Protocol: Document 02/27/20 13:58 AB (Rec: 02/27/20 15:24 AB [email or web address]) Orientation Orientation/Cognition Level of Alertness Alert Orientation Name,Situation Safety Awareness Decreased Safety Awareness Gross Range of Motion Lower Extremity ROM Assessment Within Functional Limits Strength Lower Extremity Strength Assessment Bilaterally Impaired Comments Strength Comments RLE 3-/5 LLE 3+/5 Sensation Assessment Sensation Gross Sensation Right UE Impaired,Left UE Impaired Sensation Description Numbness,Tingling Comments Sensation Comments stated numbness and tingling is worse on LUE Muscle Tone Muscle Tone WNL Yes M6 PT-IP Treatment Start: 02/27/20 12:38 Freq: NEEDED Status: Active Protocol: Document 02/27/20 13:58 AB (Rec: 02/27/20 15:24 AB [email or web address]) Physical Therapy Treatment Education Education Provided Precautions,Weight Bearing Status,Post-Op Packet,Safety M7 PT-IP Assessment and Plan Start: 02/27/20 12:38 Freq: NEEDED Status: Active Protocol: Document 02/27/20 13:58 AB (Rec: 02/27/20 15:24 AB [email or web address]) PT Summary Assessment and Plan Potential Rehabilitation Potential Fair Status of Condition at Evaluation Evolving Summary Impairments Pain,ROM,Strength,Balance, Coordination,Sensation,Tone, Cognition,Bed Mobility, Transfers,Gait,Activity Tolerance Assessment Summary pt requiring max A x 2 with all mobilities and has decrease activity tolerance. BP continues to be elevated but better than this morning. pt lives alone and at this time will require 24/7 assist. Pt will need SNF rehab to improve strength and mobility independence. Goals Bed Mobility Goal Minimal Assistance Transfer Goal Minimal Assistance,Front Wheeled Walker Gait Goal Minimal Assistance,Front Wheel Walker Gait Distance 50 Other Goals improve bed mobility, transfers to SBA improve ambulation using FWW CGA Days to Meet Goals 10 Frequency of Treatment Frequency Of Treatment Twice a Day Treatment Plan Physical Therapy Treatment Plan Bed Mobility Training,Transfer Training,Gait Training, Therapeutic Exercise,Balance Retraining,Post Op Education, Discharge Planning,Hot or Cold Pack,Neuromuscular Re-ed, Coordination Retraining,Manual Therapy Recommendations To Nursing Amount of Assist Needed 2 Person Assist Discharge Recommendations PT Discharge Recommendations SNF Rehab Equipment Needed for Home Before FWW Discharge Transportation Needs at Discharge Wheelchair/Cabulance
--- NOTE | 2020-02-27 14:16 | CM.DANOTE ---
Addendum entered by Nicole Poe LPN 02/27/20 14:34: Met with pt as she was completing PT for the first time with assist of PT Shea and FARM MANAGEMENT SUPERVISOR. Introduced self and role. Also discussed case with MILTON Martinez who has been caring for pt today. Pt confirms that her plan after d/c had been for her sister Pippa to help her out but not to stay with her. PT Shea is telling pt today that she may need a snf level stay if she stays at the level of care that she is at this moment. (2 person assist) Pt said she very much hoped that this would not be needed. Dr. Saldivar has been here today and adusting pt's blood pressure medication. This has now normalized to point where pt can work with therapy. Expect OT will try again tomorrow. Payer: [employer] Medicare [employer]age Admission status: INPT: confirmed by UR MILTON Guthrie. Do have a fact finding call out to [facility] (only snf in [place]) to see if they accept [employer] Med Adv and are network with same. ? of duenas placement which resulted in uretheral tear as per information provided by RN Coordinator during Team Rounds. Duenas remains in place. MILTON Martinez reports that this event occurred during the duenas placement in the OR prior to surgical procedure. Pt herself noted surprise that this was still in place. DCP team to follow closely for appropriate d/c plan. ? home with Pippa's prn assist vs snf...?HH Original Note: Discharge Planning/Care Management DCP: assessment: case received, EMR reviewed. Discussed in Team Rounds. Pt is a 74 year old female who admitted yesterday for a scheduled spinal/cervical: Surgeon: Dr. Ngo. PCP: Shabnam Landers/[facility]. [facility] physicians are now consulting for pt's medical issues, specifically her elevated BP which has prevented pt from working yet with PT/OT. P: check in with pt and for further discussion. CM Discharge Assessment Start: 02/27/20 14:12 Freq: Status: Active Protocol: Document 02/27/20 14:12 ITV (Rec: 02/27/20 14:16 ITV [id number]) Discharge Planning Assessment Advance Directives? Yes Advance Directives on File Yes History Provided By Patient Prior Living Arrangements Apartment/Condo Household Members none Review Status In Process Pre-Anesthesia Assessment Start: 02/19/20 12:59 Freq: Status: Active Protocol: Document 02/19/20 12:59 CAB (Rec: 02/19/20 13:45 CAB [id number]) Pre-Anesthesia Assessment PAC Comment Pt appears to be depressed ( she denies), states only has sister for support. She continues her insulin and levothyroxine but stopped all other medications r/t symptoms of diarrhea. She has not followed up with PCP to discuss or evaluate. Strongly encouraged pt to follow up with PCP Patient Information Reviewed Via Phone Assessment Assessment Completed With Patient Comment Labs/EKG done per pt, not available, COVID screen @ 02/23/20 Primary Care Provider Viktoria Moore Seen Specialist in Last 12 Months Yes Specialist Seen Orthopedist Primary Language Swedish Chain Sales Representative Required No Height 161.29 cm Weight 83.007 kg Body Mass Index (BMI) 31.8 Hearing Ability Normal Visual Assist Glasses Dentition Type Teeth, Natural Present Barriers to Learning Memory,Visual Hx Anesthesia Reactions No Hx Family Anesthesia Reaction No Hx Malignant Hyperthermia No Hx Blood Transfusions Yes: Approx 4-5 years ago r/t anemia Hx Blood Transfusion Reaction No Anesthesia Review Requested No alcohol intake former Alcohol Intake Frequency Other: Quit 40 years ago Smoking Status Never smoker Substance Use Type does not use Pain Present Pain Reported Musculoskeletal Symptoms Limited Range of Motion,Neck Pain,Radiating Pain into Limb History of Falling (Recent or History of Yes ) Patient is completely paralyzed or No completely immobile Mental Status Oriented to own ability Is patient on oxygen? No Does patient have PAYAN/SOB No Hx Sleep Apnea No Currently Taking a Beta Mike No Can You Climb a Flight of Stairs Without Yes SOB Hx Chest Pain No Hx SOB No Hx Syncope or Dizziness No Anti-Coagulant Therapy No Has a Tow Driver No Cardiac Testing No Hx Pacemaker/ICD No Pacemaker Rep Required? No Cardiac Clearance Received Not Applicable Diet Type At Home Regular dysphagia No Urinary Catheter Present No Hx Urinary Self Catheterization No Diabetes Yes: Pt checks blood sugar twice a day HgbA1C 7.5 Date 10/18/19 Patient No Lactating No Hx Drug Resistant Organism No Presence of External or Internal Medical No Devices Have you had any close contact with No someone diagnosed with COVID-19? Marital Status Lives With none Prior Living Arrangements Apartment/Condo Support System Sibling(s) Does the Patient Have Assistance After Yes: Sister will assist w/care Surgery , but will not being spending the night Patient Discharge Plan Description Return Home Comment Pt advised 1-2 day length of stay per surgeon Feels Safe in Current Environment Yes Been Physically Hurt or Threatened By a No Person in Current Environment Do you have thoughts of harming yourself None or others? Are you currently considering suicide? No Do you have a plan to hurt yourself or No Plan others? Do You Have Any Spiritual Beliefs That No May Affect Your HC Choices? Do You Have Any Cultural Practices That No May Affect Your HC Choices? Who Can We Speak to About Patient's Care Family, friends Identifying Code for Release of Patient Declines to issue Information Health Care Proxy/Next of Kin Pippa () Health Care Proxy Emergency Contact Name Pippa () Emergency Contact Advance Directives? Yes Advance Directives on File Yes Power of Development Lead No PAC Instructions Diabetes instructions,Durable medical equipment,Medications to take/avoid,Nasal antibiotic ,No ETOH/petroleum product on skin DOS,NPO,Pre-surgical wash ,Sturdy shoes/comfortable clothes,Do not bring valuables and remove jewelry
[2020-02-27] MEDS: TERAZOSIN 1 MG CAPSULE 2 MG PO (16:06)
[2020-02-27] MEDS: SERTRALINE 50 MG TABLET 25 MG PO (20:42)
[2020-02-27] MEDS: SENNOSIDES 8.6 MG TABLET 17.2 MG PO (20:44)
[2020-02-27] MEDS: HYDROMORPHONE 0.5 MG INJ 0.2 MG IV (21:09)
[2020-02-27] MEDS: TERAZOSIN 1 MG CAPSULE 3 MG PO (22:05)
[2020-02-28] VITALS (8 sets, daily range): BP systolic 130–177; BP diastolic 53–88; PULSE 61–110; RESP 13–18; TEMP 36.1–37.3; O2SAT 91–95
--- NOTE | 2020-02-28 05:32 | P.PN_ITS ---
Subjective Subjective Date Patient Seen: 02/28/20 Time Patient Seen: 05:33 Interval history: Uneventful night. Blood pressures are now in better control after adding 3 mg of Hytrin prior to bed. Continues to report that pain is in control with medications, /. Was able to sleep last night. Appetite is okay but she is having trouble swallowing secondary to pain. Denies nausea or vomiting. Unable to participate in physical therapy yesterday secondary to her blood pressure, hopeful for that interaction today. Nursing concerned that patient is depressed. She does live alone and is socially isolated. Exam Vital Signs (past 8 hours): - 02/27/20 22:15 02/27/20 23:54 02/28/20 05:20 Temperature 98.6 F 97.2 F L Pulse Rate 75 73 65 Respiratory Rate 16 16 Blood Pressure 144/83 H 153/63 H 130/53 L Pulse Oximetry 93 91 Oxygen Delivery Method Room Air Oxygen Flow Rate 0 Narrative Exam Narrative: GENERAL: Alert and oriented, appearing stated age and in no acute distress. HEENT: Head normocephalic/atraumatic, neck collar in place. Pupils equal, round, and reactive to light and accomodation. Extraocular muscles intact. Tympanic membranes clear. Nasal mucosa moist, septum midline. Oral mucosa moist, no lesions. Neck soft and supple, no lymphadenopathy. LUNGS: Clear to ausculation bilaterally, no wheezes, rhonchi or rales. CV: Normal S1 and S2 with regular rate and rhythm, no audible murmurs, rubs or gallops. ABD: Non tender, non-distended, no organomegaly. Positive bowel sounds. EXTREMITIES: No clubbing, cyanosis, or edema. NEURO: Cranial nerves II through XII grossly intact, no focal deficits. PSYCH: Alert and oriented x 3. SKIN: No concerning lesions. Objective Labs Result Diagrams: 02/28/20 05:10 02/28/20 05:10 Assessment & Plan Assessment & Plan narrative: 1. Hypertension, now controlled Plan: Will continue amlodipine 10 mg PO qd, enalapril 20 mg PO BID, HCTZ 50 mg PO qd, and hytrin 3 mg PO qhs. 2. Spinal stenosis, statust post C4-7 ACDF, POD #2. Plan: Per Dr. Ngo. 3. Odynphagia, possibly secondary to intubation, risk for aspiration Plan: Swallow evaluation. 4. DM II, chronic Plan: Continue home insulin. 5. Hypothyroidism Plan; Continue home levothyroxine. 6. Hyperlipidemia Plan: Will restart rosuvastatin upon discharge home. 7. Depression Plan: Will restart sertraline 25 mg daily. [employer] consult. 8. Obesity, BMI 31.9 -Risk for adverse outcomes including poor healing, uncontrolled diabetes, longer hospital stay, etc. Plan: [place] counseling. DVT prophylaxis: SCDs Code: Full COVID: Negative Quality VTE Deep Vein Thrombosis/Pulmonary Embolism Present on Admission: No
[2020-02-28 05:46] LABS: Add Manual Diff / Slide Review NO; Basophils Absolute Auto 100 /uL (0-100); Basophils Percent Auto 0.9 % (0-2); Eosinophils Absolute Auto 0 /uL (0-450); Hematocrit 30.1 % (36-46); Hemoglobin 9.8 g/dL (12.0-16.0); Lymphocytes Absolute Auto 700 /uL (1100-4500); Lymphocytes Percent Auto 7.9 % (25-40); Mean Corpuscular HGB Conc 32.5 % (30-36); Mean Corpuscular Hemoglobin 28.8 PG (26-34); Mean Corpuscular Volume 88.7 fL (80-100); Monocytes Absolute Auto 700 /uL (0-900); Monocytes Percent Auto 6.9 % (3-14); Neutrophils Absolute Auto 7900 /uL (1500-7000); Neutrophils Percent Auto 84.3 % (50-75); Platelet Count 173 X10^3/uL (150-400); Red Blood Cell Count 3.39 X10^6/uL (4.0-5.2); Red Cell Distribution Width 14.9 % (11.6-14.8); White Blood Cell Count 9.4 X10^3/uL (4.5-11.0)
[2020-02-28 05:50] LABS: Alanine Aminotransferase 20 IU/L (<35); Albumin Globulin Ratio 1.1 (1.0-2.8); Alkaline Phosphatase 62 U/L (38-126); Aspartate Aminotransferase 23 IU/L (14-36); BUN Creatinine Ratio 16.7 (6-22); Bilirubin Total 0.4 mg/dL (0.2-1.3); Blood Urea Nitrogen 39 mg/dL (7-17); Carbon Dioxide 21 mmol/L (22-32); Chloride 110 mmol/L (98-107); Estimated Glomerular Filt Rate 20.5 mL/min (>60); Globulin 2.8 g/dL (1.7-4.1); Glucose 217 mg/dL (80-110); HEMOLYSIS < 15 (0-50); Potassium 4.4 mmol/L (3.4-5.1); Sodium 136 mmol/L (137-145); Total Protein 5.8 g/dL (6.3-8.2)
[2020-02-28] MEDS: LEVOTHYROXINE 50 MCG TABLET PO (05:51)
--- NOTE | 2020-02-28 06:14 | PC.NURSE ---
Patient is pale in appearance and flat affect, when asked questions is falling asleep while I am waiting for answers. Patient was not able to verbalize to me how she could take medications and was having a hard time taking sips of water. Patient was unable to take synthroid this am. No pain meds given since 2346. VSS.
--- NOTE | 2020-02-28 07:52 | P.PN_ITS ---
Subjective Subjective Date Patient Seen: 02/28/20 Time Patient Seen: 07:52 Interval history: Patient denies pain. No fever chills. No nausea vomiting. She states she is tired. Otherwise without complaints. Exam Vital Signs (past 8 hours): - 02/27/20 23:54 02/28/20 05:20 02/28/20 07:30 Temperature 98.6 F 97.2 F L 99.2 F Pulse Rate 73 65 65 Respiratory Rate 16 16 13 Blood Pressure 153/63 H 130/53 L 137/54 L Pulse Oximetry 93 91 93 Oxygen Delivery Method Room Air Oxygen Flow Rate 0 Narrative Exam Narrative: 74-year-old female resting comfortably in bed in no apparent distress. Soft collar in place. Dressing is intact, clean and dry. Motor functions intact distal bilateral upper extremities. Sensation grossly intact to light touch bilateral upper extremities Objective Labs Result Diagrams: 02/28/20 05:10 02/28/20 05:10 Labs: Laboratory Results - last 24 hr 02/28/20 02/28/20 05:10 05:10 WBC 9.4 RBC 3.39 L Hgb 9.8 L Hct 30.1 L MCV 88.7 MCH 28.8 MCHC 32.5 RDW 14.9 H Plt Count 173 Neut % (Auto) 84.3 H Lymph % (Auto) 7.9 L [place] % (Auto) 6.9 Eos % (Auto) 0.0 L Baso % (Auto) 0.9 Neut # (Auto) 7900 H Lymph # (Auto) 700 L [place] # (Auto) 700 Eos # (Auto) 0 Baso # (Auto) 100 Sodium 136 L Potassium 4.4 Chloride 110 H Carbon Dioxide 21 L BUN 39 H Creatinine 2.33 H Estimated GFR 20.5 L BUN/Creatinine Ratio 16.7 Glucose 217 H Calcium 8.0 L Total Bilirubin 0.4 AST 23 ALT 20 Alkaline Phosphatase 62 Total Protein 5.8 L Albumin 3.0 L Globulin 2.8 Albumin/Globulin Ratio 1.1 Assessment & Plan Post-op Postoperative Procedures: Procedures Operation Date: 02/26/20 12:15 Actual Procedures Side Surgeon p C4-5,C5-6,C6-7 ACDF w/anterior instrumentation Abhishek Ngo MD postop day 2. Patient progressing as expected after cervical fusion. Patient seen by Medicine blood pressure improved after adding hytrin. Patient does live alone. Currently 2 person assist. Continue rehab with physical therapy. Possible discharge tomorrow with home health services versus [facility] fac ility. Quality VTE Deep Vein Thrombosis/Pulmonary Embolism Present on Admission: No
--- NOTE | 2020-02-28 08:57 | CM.DPC ---
Addendum entered by Chapis Woody R.N. 02/28/20 14:21: Shelley at [facility] called and stated that she received authorization from [employer]. Plan on quill picking machine operator tomorrow between 12:00-1300, but will depend upon how patient is doing with her swallowing issues. Shelley stated that authorization is good for 24-48 hours. Let her know that this telephonic case manager would call her in the am, approximately [phone], to give her updated. PASSR completed, patient does have chronic history of depression, is on Sertraline. Addendum entered by Chapis Woody R.N. 02/28/20 13:14: Patient may be seeing Speech Therapy, she has been having swallowing issues. Shelley at [facility] called back and is requesting more clinical information to send to [employer]. Sent over progress note from today, operative report, P.T. notes, med list, as well as today's nursing note. Shelley will use this information to submit authorization today. Addendum entered by Chapis Woody R.N. 02/28/20 10:46: Shelley at [facility] has confirmed acceptance for patient. She stated, there should be no problem getting insurance authorization by tomorrow. Stated that they would plan on picking up patient at approximately 1400 tomorrow with [employer] transport. Will ensure that orthopedics is aware upon discharge for tomorrow. Original Note: DCP Cont: [facility] does not accept [employer], but [facility] does, and authorization can take betwee 24 to 48 hours. Faxed face sheet, operative report, P.T. notes, as well as H&P to [facility]. Left Shelley in admissions at [facility] a note regarding referral. Moises Otero had seen patient today, and indicated probable discharge tomorrow to either retirement, or home with home health. P: DCP to continue to follow. Will consult with P.T. and will attempt to see patient today regarding discharge planning. Will also follow up with Shelley at [facility]. Chapis Woody RN/Film Inspector
[2020-02-28] MEDS: INSULIN ASPART 100 UNIT/ML INSULN PEN SUBCUT ×3 (09:09→20:38)
[2020-02-28] MEDS: INSULIN ASPART 100 UNIT/ML INSULN PEN 6 UNIT SUBCUT ×2 (09:11→12:53)
[2020-02-28] MEDS: hydroCHLOROthiazide 25 MG TABLET 50 MG PO (09:14)
[2020-02-28] MEDS: AMLODIPINE 5 MG TABLET 10 MG PO (09:14)
[2020-02-28] MEDS: ENALAPRIL 20 MG TABLET PO (09:14)
[2020-02-28] MEDS: DOCUSATE 100 MG CAPSULE PO (09:14)
[2020-02-28] MEDS: SODIUM CHLORIDE 0.9% FLUSH 10 ML IV (09:15)
[2020-02-28] MEDS: INSULIN GLARGINE 100 UNIT/ML 3ML PEN 18 UNIT SUBCUT (09:16)
[2020-02-28] MEDS: METOPROLOL IR 50 MG TABLET PO (09:24)
--- NOTE | 2020-02-28 11:31 | PT.IPTN ---
Current Diagnoses Other spondylosis with radiculopathy, cervical region (02/26/20) Spinal stenosis, cervical region (02/26/20) Surgery Performed Operation Date: 02/26/20 12:15 Actual Procedures p C4-5,C5-6,C6-7 ACDF w/anterior instrumentation - Abhishek Ngo MD Physical Therapy Treatment Note M2 PT-IP Current Condition Start: 02/27/20 12:38 Freq: NEEDED Status: Active Protocol: Document 02/27/20 13:58 AB (Rec: 02/27/20 15:24 AB [email or web address]) Physical Therapy Current Condition Current Condition Evaluation Date 02/27/20 Treatment Diagnosis s/p C4-5,5-6, 6-7 ACDF; difficulty in walking Onset Date 02/26/20 Precautions Cervical Spine Precautions Soft Collar for Comfort,No Heavy Lifting,Log Roll M3 PT-IP Subjective Start: 02/27/20 12:38 Freq: NEEDED Status: Active Protocol: Document 02/28/20 11:01 SP (Rec: 02/28/20 14:32 SP [id number]) Subjective Physical Therapy Visit Type Type Treatment Note Visit Start Time 11:01 Visit Stop Time 11:31 Total Visit Minutes 30 Notes DOOR MACHINE OPERATOR assisted with transfer and bed mobility during tx. Number of COST ESTIMATING CLERK Visits 1 Physical Therapy Visit Comments Patient Comments Pt is agreeable to working with therapy. Therapy Pain Assessment Pain When Pain Assessed During Mobility Pain Present Pain Present Pain Reported Location Neck Scale Used Unable to provide neck pain scale rating Description With Movement Pain Behaviors Facial Grimacing,Guarding, Wincing Pain Management Techniques Modification of Treatment,Re- positioning,Timing of Activity with Medications M4 PT-IP Mobility and Gait Start: 02/27/20 12:38 Freq: NEEDED Status: Active Protocol: Document 02/28/20 11:01 SP (Rec: 02/28/20 14:32 SP [id number]) PT-Bed Mobility Assessment Rolling Type of Rolling Log Rolling,Roll to Right Level of Assist Maximal Assistance,2 Person Assistance Sit to Supine Sit to Supine Maximum Assistance,2 Person Assistance,Bedrails PT-Transfer Assessment Sit to and From Stand Sit to and from Stand Maximum Assistance,2 Person Assistance,Use of Upper Extremities Equipment Transfer Assistive Device Gait Belt,Front Wheeled Walker Orthotic/Prosthetic Devices or Brace: No Transfers Transfer Destination Bed Transfer Technique Stand Step Pivot Transfer Ability Level of Assist Moderate Assistance,2 Person Assistance,Use of Upper Extremities Comments Mobility Comments Pt was sitting up in chair eating breakfast with nursing when arrived to coordinate therapy time this morning, nursing commented patient was having difficulty with swallowing and noted visual difficulty my self. Discussed with Speech therapist and care mgt concerns of nurse and agreed myself during tx of possibly requiring a swallow assessment for safety. Pt was seated up in chair when arrived, responded feeling very lethargic but wanting to lay down. Pt required Min A x1 to scoot to edge of chair, Max A of 2 person Sit<> stand from chair with BUE WB on chair arms durign 2nd attempt, unsuccessful with 1 person. SPT using FWW Mod A of 2 person with occasional support for FWW repositioning and cuign for backing up then reaching back with Mod A x2 for slow descent to sit in EOB . Sit>L sidelying>log roll to supine Max A of 2 person with support required for upper body and LE support. Pt was seated up right in bed, DOOR MACHINE OPERATOR provided her tooth brush/paste to perform then had to step out. COST ESTIMATING CLERK assisted with small amt water to swish requiring hand over hand due to decrease R hand resident in diagnostic radiology strength/ slight shakiness, pt hard cough on water briefly to clear then swished and assisted with peanut basin to spit into and provided tissue to clean off mouth. Pt had call light in L hand, bed armed, slight recline and discussed waiting to take a drink when DOOR MACHINE OPERATOR returns for decreased risk for choking with agreement. Pt has appropriate answers to questions but delayed responses. Will continue to assess progress. Recommending continued actut physicial therapy then SNF to improve strength and functional mobility at this time. Gait Assessment Comments Gait Comments able to take steps during transfer R chair to bed. PT-Balance Assessment Sitting Balance and Reactions Static Sitting Balance Ability Good Dynamic Sitting Balance Ability Fair Standing Balance and Reactions Static Standing Balance Ability Poor Dynamic Standing Balance Ability Poor Device Used fww M5 PT-IP Objective Assessments Start: 02/27/20 12:38 Freq: NEEDED Status: Active Protocol: Document 02/27/20 13:58 AB (Rec: 02/27/20 15:24 AB [email or web address]) Orientation Orientation/Cognition Level of Alertness Alert Orientation Name,Situation Safety Awareness Decreased Safety Awareness Gross Range of Motion Lower Extremity ROM Assessment Within Functional Limits Strength Lower Extremity Strength Assessment Bilaterally Impaired Comments Strength Comments RLE 3-/5 LLE 3+/5 Sensation Assessment Sensation Gross Sensation Right UE Impaired,Left UE Impaired Sensation Description Numbness,Tingling Comments Sensation Comments stated numbness and tingling is worse on LUE Muscle Tone Muscle Tone WNL Yes M6 PT-IP Treatment Start: 02/27/20 12:38 Freq: NEEDED Status: Active Protocol: Document 02/27/20 13:58 AB (Rec: 02/27/20 15:24 AB [email or web address]) Physical Therapy Treatment Education Education Provided Precautions,Weight Bearing Status,Post-Op Packet,Safety M7 PT-IP Assessment and Plan Start: 02/27/20 12:38 Freq: NEEDED Status: Active Protocol: Document 02/28/20 11:01 SP (Rec: 02/28/20 14:32 SP [id number]) PT Summary Assessment and Plan Potential Rehabilitation Potential Fair Status of Condition at Evaluation Evolving Summary Impairments Pain,ROM,Strength,Balance, Coordination,Sensation,Tone, Cognition,Bed Mobility, Transfers,Gait,Activity Tolerance Assessment Summary pt requiring max A x 2 during sit to stand, Mod A x2 SPT using FWW, Max A x2 sitting> supine, decrease activity tolerance. BP is better during tx 111/ 59. pt lives alone and at this time will require 24/7 assist. Pt will need SNF rehab to improve strength and mobility independence. Goals Bed Mobility Goal Minimal Assistance Transfer Goal Minimal Assistance,Front Wheeled Walker Gait Goal Minimal Assistance,Front Wheel Walker Gait Distance 50 Other Goals improve bed mobility, transfers to SBA improve ambulation using FWW CGA Days to Meet Goals 10 Frequency of Treatment Frequency Of Treatment Twice a Day Treatment Plan Physical Therapy Treatment Plan Bed Mobility Training,Transfer Training,Gait Training, Therapeutic Exercise,Balance Retraining,Post Op Education, Discharge Planning,Hot or Cold Pack,Neuromuscular Re-ed, Coordination Retraining,Manual Therapy Recommendations To Nursing Amount of Assist Needed 2 Person Assist Discharge Recommendations PT Discharge Recommendations SNF Rehab Equipment Needed for Home Before FWW Discharge Transportation Needs at Discharge Wheelchair/Cabulance
--- NOTE | 2020-02-28 11:45 | PC.NURSE ---
Addendum entered by Meghan Green R.N. 02/28/20 14:46: Patient is NPO per swallow eval. Patient did not pass. Dr. Saldivar was telephoned at 1430, awaiting a call back from her office. Original Note: Patient has no complaints of pain. Patient is having a hard time swallowing pills and water. Patient is choking on small sips of water and may need a swallow eval. Patient has been very weak and pale and hasn't been eating because she is having a tough time bringing food to her mouth. Patient hypotensive 137/54.
--- NOTE | 2020-02-28 15:53 | DIET.PN ---
Dietary Progress Note Checked c nursing and pt not appropriate for nutrition consult today, will attempt tomorrow.
--- NOTE | 2020-02-28 16:04 | OT.IP.EVAL ---
Current Diagnoses Other spondylosis with radiculopathy, cervical region (02/26/20) Spinal stenosis, cervical region (02/26/20) Surgery Performed Operation Date: 02/26/20 12:15 Actual Procedures p C4-5,C5-6,C6-7 ACDF w/anterior instrumentation - Abhishek Ngo MD Past Medical History (Last Reviewed 06/22/19 @ 18:16 by TYREE PereaP-) Breast cancer, left (Inactive) Chronic kidney disease (CKD), stage III (moderate) (Inactive) Diabetes mellitus (Inactive) Surgical History (Last Updated 02/19/20 @ 13:20 by Livier So RN) History of hysterectomy (Acute) History of partial mastectomy of left breast (Acute) Hx of cholecystectomy (Acute) Hx of eye surgery (Acute) Hx of lumbosacral spine surgery (Acute) Occupational Therapy Inpatient Evaluation/Re-Eval M1 PT/OT-IP Prior Functional Status Start: 02/27/20 12:38 Freq: NEEDED Status: Active Protocol: Document 02/28/20 16:13 CGR (Rec: 02/28/20 16:38 CGR [email or web address]) Medical Review Prior Functional Status Medical History Reviewed Yes Communication able to make needs known Mobility and Gait pt stated that she is independent with all mobilities and ambulation without AD Activities of Daily Living and IADL's Pt states she has difficulty getting in and out of the bathtub and would like a tub transfer bench. Otherwise, pt was performing all ADLs without assist. Social History Household Members none Living Arrangements Apartment/Condo Number of Floors (Floors) One Floor Number of Stairs To Enter/Railing? No steps to enter her ground floor apt. 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 Pt lives in [facility] low income housing in [place]. Pt has an adjustable bed. M2 OT-IP Current Condition Start: 02/28/20 16:12 Freq: Status: Active Protocol: Document 02/28/20 16:13 CGR (Rec: 02/28/20 16:38 CGR [email or web address]) Occupational Therapy Current Condition Current Condition Evaluation Date 02/28/20 Treatment Diagnosis C4-7 ACDF Diagnosis Onset Date 02/26/20 Post Operative Precautions Cervical Spine Precautions Soft Collar for Comfort,Soft Collar at all Times,No Heavy Lifting,Log Roll M3 OT- IP Subjective and Pain Start: 02/28/20 16:12 Freq: Status: Active Protocol: Document 02/28/20 16:13 CGR (Rec: 02/28/20 16:38 CGR [email or web address]) OT- Subjective Occupational Therapy Visit Type Type Initial Evaluation Visit Start Time 15:18 Visit Stop Time 16:04 Total Visit Minutes 46 OT Pain Assessment Pain When Pain Assessed During Mobility Pain Present Pain Present Pain Reported Location Neck Intensity 5 Scale Used Numeric (0 - 10) Management Techniques Modification of Treatment,Re- positioning M4 OT- IP ADL's Start: 02/28/20 16:12 Freq: Status: Active Protocol: Document 02/28/20 16:13 CGR (Rec: 02/28/20 16:38 CGR [email or web address]) OT [id number] Comments OT Self-Feeding Comments Pt is currently NPO OT ADL-Grooming General Evaluation Grooming Ability Standby Assistance Areas Needing Assistance Face Washing OT ADL-Oral Care General Eval Oral Care Ability Minimal Assistance Areas of Assistance Brushing Teeth,Retrieving/Set- Up of Items Comments Oral Care Comments Standing at sink. Pt was able to manage tooth paste and brush with extra time and poor coordination but was unable to get cup to mouth for washing out mouth. OT ADL-Dressing General Eval Upper Body Dressing Ability Total Assistance Lower Body Dressing Ability Total Assistance Areas Needing Assistance Socks OT ADL-Toileting General Evaluation Toileting Ability Total Assistance Comments OT Toileting Comments Pt with henrique OT ADL-Bathing Comments OT Bathing Comments Not peformed in this session. M5 OT- IP IADL's Start: 02/28/20 16:12 Freq: Status: Active Protocol: Document 02/28/20 16:13 CGR (Rec: 02/28/20 16:38 CGR [email or web address]) OT-Instrumental Activities of Daily Living Deficits IADL Deficits Identified Deficits Home Safety Awareness Awareness of Need for Assistance at Home Decreased Awareness Ability to Problem Solve Emergency Unable to Problem Solve Situations Medication Management Medication Management Comments Concerns for medication management at this time Money Management Money Management Comments Concerns for money management at this time. Meal Preparation Meal Preparation Comments Concerns for ability to provide meals. 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 Driving Driving Concerns Identified Regarding Safety M6 OT- IP Functional Cognition Start: 02/28/20 16:12 Freq: Status: Active Protocol: Document 02/28/20 16:13 CGR (Rec: 02/28/20 16:38 CGR [email or web address]) Cognitive Factors Limiting Selfcare Function Cognitive Ability Level of Alertness Alert,Confusional State Patient Orientation Name,Place,Situation Attention Span Ability Capable of Focused Attention, Capable of Sustained Attention Ability to Follow Commands Able to Follow One Step Commands with Increased Time, Able to Follow One Step Commands with Repetition Cognitive Tests SLUMS Pt scored an 11/30 on the SLUMS. Pt missed the day of the week and the year but knew what state we are in. Pt was unable to answer any of the money questions, stated 8 animals in 1 minute, and was unable to recall any of the 5 objects named towards the start of the assessment. Pt had difficulty giving numbers backwards and scored no points for her clock. Pt was able to pravin the triangle and state that the square was the largest. Pt missed only 1 of the 4 listening comprehension questions. A score of 11/30 indicates that she is well within the dementia category for this assessment. Cognitive Comments Cognitive Assessment Comments Pt would benefit from a rescreening in a few days as she appears very fatigued likely from medication. OT- Vision and Hearing OT- Hearing Assessment OT- Hearing Assessment WFL OT- Vision Assessment Visual Acuity Glasses All The Time Visual Attentiveness WFL Occular Pursuits WFL Visual Convergence WFL M7 OT- IP Mobility and Balance Start: 02/28/20 16:12 Freq: Status: Active Protocol: Document 02/28/20 16:13 CGR (Rec: 02/28/20 16:38 CGR [email or web address]) OT- Bed Mobility Assessment Rolling Type of Rolling Log Rolling,Roll to Left Level of Assistance Maximum Assistance Supine to Sit Supine to Sit Assist Moderate Assistance Scooting Scooting to Edge of Bed Contact Guard Assistance OT-Transfer Assessment Sit to and From Stand Sit to and from Stand Moderate Assistance Transfers Transfer Ability Minimal Assistance,Moderate Assistance Technique Transfer Destination Bed,Chair Transfer Technique Stand Step Pivot Devices Transfer Assistive Devices Gait Belt,Front Wheeled Walker Comments Mobility Comments Mobility from the bed to the sink for ADLs and then return to chair at edge of bed. Pt needed VC to maintain an upright posture during ADLs. OT- Gait Assessment Gait Gait Assistance Required: Minimum Assistance,Moderate Assistance Assistive Devices Assistive Device Gait Belt,Front Wheeled Walker OT- Balance Assessment Sitting Balance and Reactions Static Sitting Balance Ability Good Dynamic Sitting Balance Ability Fair M8 OT- IP Objective Assessments Start: 02/28/20 16:12 Freq: Status: Active Protocol: Document 02/28/20 16:13 CGR (Rec: 02/28/20 16:38 CGR [email or web address]) OT Gross Range of Motion Upper Extremity Range of Motion Assessment Within Functional Limits OT Strength Comments Strength Comments not assessed except hands (4/5 ) d/t pain and recent cervical sx. OT- Coordination Assessment Upper Extremity Finger to Nose Test Bilateral UE Impaired Finger Tapping Test Bilateral UE Impaired Comments Coordination Comments Pt with poor coordination throughout session with brushing teeth, writing, and testing. Pt was able to complete clock on SLUMS with shakey but readable numbers. OT-Muscle Tone Assessment Muscle Tone WNL Yes OT Sensation Assessment Edema Edema Absent M9 OT- IP Assessment and Plan Start: 02/28/20 16:12 Freq: Status: Active Protocol: Document 02/28/20 16:13 CGR (Rec: 02/28/20 16:38 CGR [email or web address]) OT Summary Assessment and Plan Potential Rehabilitation Potential Good Analytic Complexity at Evaluation High Summary OT Impairments Pain,Strength,Balance, Coordination,Sensation, Functional Cognition, Functional Mobility,Self- Feeding,Grooming,Dressing, Toileting,Bathing,Toilet Transfers,Shower Transfers, Activity Tolerance Progress Towards Goals Slow Progress due to Activity Tolerance,Slow Progress due to Cognition Assessment Summary Pt presents as a high complexity evaluation with significant impairments preventing her from being safely IND at this time. Pt will benefit from SNF upon discharge and continued OT services while hospitalized given impairments. Goals Grooming Goal Independent Dressing Goal Independent Toileting Goal Independent Bathing Goal Independent Toilet Transfer Goal Independent Shower Transfer Goal Independent Days to Meet Goals 20 Frequency of Treatment Frequency Of Treatment Once a Day Treatment Plan OT Treatment Plan ADL Training,Functional Cognition Training,Functional Mobility,Patient/Family Education,Discharge Planning Other Treatment Recommendations and Next Retest SLUMS in a few days. Treatment Focus ADLs standing and general activity tolerance. Discharge Recommendations OT Discharge Recommendations SNF Rehab Home Equipment Needs tub transfer bench. Transportation Needs at Discharge Wheelchair/Cabulance
--- NOTE | 2020-02-28 16:43 | PT.IPTN ---
Current Diagnoses Other spondylosis with radiculopathy, cervical region (02/26/20) Spinal stenosis, cervical region (02/26/20) Surgery Performed Operation Date: 02/26/20 12:15 Actual Procedures p C4-5,C5-6,C6-7 ACDF w/anterior instrumentation - Abhishek Ngo MD Physical Therapy Treatment Note M2 PT-IP Current Condition Start: 02/27/20 12:38 Freq: NEEDED Status: Active Protocol: Document 02/27/20 13:58 AB (Rec: 02/27/20 15:24 AB [email or web address]) Physical Therapy Current Condition Current Condition Evaluation Date 02/27/20 Treatment Diagnosis s/p C4-5,5-6, 6-7 ACDF; difficulty in walking Onset Date 02/26/20 Precautions Cervical Spine Precautions Soft Collar for Comfort,No Heavy Lifting,Log Roll M3 PT-IP Subjective Start: 02/27/20 12:38 Freq: NEEDED Status: Active Protocol: Document 02/28/20 16:17 SP (Rec: 02/28/20 17:23 SP [email or web address]) Subjective Physical Therapy Visit Type Type Treatment Note Visit Start Time 16:17 Visit Stop Time 16:43 Total Visit Minutes 26 Number of TELECOM MANAGER Visits 2 Physical Therapy Visit Comments Patient Comments Pt agreeable to working with therapy. Therapy Pain Assessment Pain Present Pain Present Denied Pain M4 PT-IP Mobility and Gait Start: 02/27/20 12:38 Freq: NEEDED Status: Active Protocol: Document 02/28/20 16:17 SP (Rec: 02/28/20 17:23 SP [email or web address]) PT-Transfer Assessment Sit to and From Stand Sit to and from Stand Minimal Assistance,1 Person Assistance,Use of Upper Extremities Equipment Transfer Assistive Device Gait Belt,Front Wheeled Walker Orthotic/Prosthetic Devices or Brace: No Transfers Transfer Destination Chair Transfer Technique Pt ambulated using fWW Transfer Ability Level of Assist Contact Guard Assistance, Minimal Assistance,Use of Upper Extremities Comments Mobility Comments Pt was reclined sitting in chair when arrived, soft collar donned as was during am tx for stabilization support. Pt required lowering chair leg rest assist. Scoot to EOchair SBA usign BUE on chair arms self, sit<> stand CG- Min (15 %) A x1 with mod cuing for proper hand placement to push from chair arms then transition to fWW. Pt was able to walk around room approx 30 ft with min cuing for body closer to fWW to allow improved upright posture, required 3 stopped rest brief standing breaks during that 30 ft distance due to decreased strengthe and activity tolerance. Pt returned to chair, Max cuing for body and fWW repositioning while backing up to chair and reaching back, cGA slow descent into chair. Assisted elevating chair leg rests, patient had call light and all needs in reach before left. Pt showed improvement in her speech and only occasional word finding this afternoon. Gait Assessment Gait Gait Assistance Required: Contact Guard Assist,Minimum Assistance,1 Person Assist Distance (Feet) 30 Able to Maintain Weight Bearing Status Yes During Gait Assistive Devices Assistive Device Gait Belt,Front Wheeled Walker Orthotic/Prosthetic Devices or Brace: No Gait Deviations General Gait Pattern Antalgic,Decreased Stride Length,Decreased Feet Clearance,Narrow Based Gait Factors Limiting Gait Function Factors Limiting Gait Function Decreased Activity Tolerance, Decreased Strength,Limited Range of Motion,Pain,Poor Balance,Poor Safety Awareness Comments Gait Comments See mobility comments for details. PT-Balance Assessment Sitting Balance and Reactions Static Sitting Balance Ability Good Dynamic Sitting Balance Ability Fair Standing Balance and Reactions Static Standing Balance Ability Good Dynamic Standing Balance Ability Fair Device Used fww M5 PT-IP Objective Assessments Start: 02/27/20 12:38 Freq: NEEDED Status: Active Protocol: Document 02/27/20 13:58 AB (Rec: 02/27/20 15:24 AB [email or web address]) Orientation Orientation/Cognition Level of Alertness Alert Orientation Name,Situation Safety Awareness Decreased Safety Awareness Gross Range of Motion Lower Extremity ROM Assessment Within Functional Limits Strength Lower Extremity Strength Assessment Bilaterally Impaired Comments Strength Comments RLE 3-/5 LLE 3+/5 Sensation Assessment Sensation Gross Sensation Right UE Impaired,Left UE Impaired Sensation Description Numbness,Tingling Comments Sensation Comments stated numbness and tingling is worse on LUE Muscle Tone Muscle Tone WNL Yes M6 PT-IP Treatment Start: 02/27/20 12:38 Freq: NEEDED Status: Active Protocol: Document 02/28/20 16:17 SP (Rec: 02/28/20 17:23 SP [email or web address]) Physical Therapy Treatment Education Education Provided Precautions,Weight Bearing Status,Safety M7 PT-IP Assessment and Plan Start: 02/27/20 12:38 Freq: NEEDED Status: Active Protocol: Document 02/28/20 16:17 SP (Rec: 02/28/20 17:23 SP [email or web address]) PT Summary Assessment and Plan Potential Rehabilitation Potential Fair Status of Condition at Evaluation Evolving Summary Impairments Pain,ROM,Strength,Balance, Coordination,Sensation,Tone, Cognition,Bed Mobility, Transfers,Gait,Activity Tolerance Assessment Summary Pt improved in functional mobility this afternoon CG- Min A sit <> stand w/cuing hand placement, ambulated around room using FWW CGA cuing for body closer to FWW. Pt lives alone and at this time will require / assist. Pt will need SNF rehab to improve strength and mobility independence. Goals Bed Mobility Goal Minimal Assistance Transfer Goal Minimal Assistance,Front Wheeled Walker Gait Goal Minimal Assistance,Front Wheel Walker Gait Distance 50 Other Goals improve bed mobility, transfers to SBA improve ambulation using FWW CGA Days to Meet Goals 10 Frequency of Treatment Frequency Of Treatment Twice a Day Treatment Plan Physical Therapy Treatment Plan Bed Mobility Training,Transfer Training,Gait Training, Therapeutic Exercise,Balance Retraining,Post Op Education, Discharge Planning,Hot or Cold Pack,Neuromuscular Re-ed, Coordination Retraining,Manual Therapy Recommendations To Nursing Amount of Assist Needed 1 Person Assist Discharge Recommendations PT Discharge Recommendations SNF Rehab Equipment Needed for Home Before Might be able to borrow nephew Discharge 's fWW upon DC. Transportation Needs at Discharge Wheelchair/Cabulance
--- NOTE | 2020-02-28 17:26 | ST.IPIE ---
Visit Care Team Role Provider Type MIESHA Michelle Primary Care Provider Advanced Inspector Soldering Specialty: Family Practice Address: [address] [place] [address], [facility], [place], [address] Email: [email or web address] DO Other Providers Physician Specialty: Internal Medicine Address: [address] [place] [address], [place], [address] Email: [email or web address] Abhishek Ngo MD Admit Provider Physician Attending Provider Referring Provider Specialty: Orthopedic Surgery Address: [address] [place] [address], [id number] Email: [email or web address] Current Diagnoses Other spondylosis with radiculopathy, cervical region (02/26/20) Spinal stenosis, cervical region (02/26/20) Past Medical History (Last Reviewed 06/22/19 @ 18:16 by Herminia Hobson [facility]) Breast cancer, left (Inactive Medical) Chronic kidney disease (CKD), stage III (moderate) (Inactive Medical) Diabetes mellitus (Inactive Medical) ST IP Initial Evaluation Report CONSERVATION EDUCATOR Clinical Swallow Evaluation Start: 02/28/20 17:03 Freq: Status: Active Protocol: Document 02/28/20 17:03 DEREK (Rec: 02/28/20 17:26 DEREK [email or web address]) Clinical Swallow Evaluation Session Time Visit Start Time 12:55 Visit Stop Time 13:25 Total Visit Minutes [address] Teresa Saldivar Reason for Referral Coughing with liquids Setting Assessment Location Acute Care Visit Type Note Type Initial evaluation Next Note Type Next Note Type Treatment Note Patient Information Identification Type Name,ID Card History The pt is a 74-yr-old female, ACDF post-op day 2. Nsg and PT observed the pt with significant difficulty managing water orally and initiating swallow and coughing with swallow. Verbal orders were received by Nsg from Dr. Saldivar for swallow evaluation. Subjective Observations The pt was reclined in bed awake but seemingly somnolent throughout the evaluation. She confirmed it was difficult to swallow and reported associated pain, 2-3 on scale of 10. She did not recall any swallow difficulties prior to surgery and stated, It's better today than it was yesterday. Reported by Patient Pain Intensity 3 Pain Scale Used Numeric (0 - 10) Location Other Other Symptoms Difficulty swallowing liquids, Difficulty swallowing solids, Pain on swallowing Comment Pain in throat with swallow Current Diet Regular,Thin liquids Baseline Feeding Method Independent in self-feeding Objective Assessment Mental Status Alert,Responsive,Cooperative, Lethargic Oral Integrity WFL Dentition Within normal limits Lip Function Mild impairment Observation of Lips at Rest Symmetrical Pucker Reduced range of motion, Reduced strength Lip Retraction Within normal limits Alternating Pucker/Lip Retraction Incoordination Tongue Function Moderate impairment Observations of Tongue at Rest Within normal limits Tongue Protrusion Within normal limits Tongue Lateralization Reduced strength Jaw Function Within normal limits Observations of Jaw at Rest Within normal limits Jaw Opening Within normal limits Jaw Closing Within normal limits Jaw Lateralization Within normal limits Hard/Soft Palate Function Within normal limits Observations of Hard/Soft Palate Within normal limits Nasality Within normal limits Phonation Within normal limits Respiratory Sufficiency Within normal limits Comment The pt had difficulty coordinating alternating smile -pucker, possible difficulty following directions, requiring repetition of instructions with repeated demonstration. The pt appeared to be falling asleep but awakened verbally and was redirected to task. When asked if she was sleepy, she stated , I'm always sleepy. Food and Liquid Trials Position During Assessment Upright (90 degrees) Liquids Trialed Ice chips,[place] Oral Impairment Severely impaired Oral Phase Comments Difficulty initiating swallow volitionally and natural trigger was significantly delayed or absent. The pt held liquid in mouth and exhibited lingual and laryngeal pumping in attempt to initiate swallow, which did eventually occur. Verbal prompt was required x2 for swallow of melted ice chip. Pharyngeal Impairment Severely impaired Pharyngeal Phase Comments Significant effort required for pharyngeal swallow with change of vocal resonance after, indicating presence of residue in throat which lasted >5 minutes and did not clear with subsequent dry swallows. This occurred with both tsp of NTL and single small ice chip . Fatigue/Endurance Moderate fatigue Comment Trials were discontinued for pt safety. Discussed findings with Nsg and the pt and recommend the pt be NPO over night with re-assessment tomorrow. Both Nsg and pt were in agreement with recommendation. Findings Swallowing Function Oropharyngeal phase dysphagia Severity of Swallow Impairment Moderately-severely impaired Contributing Factors to Swallow Reduced alertness or attention Impairment ,Difficulty following directions,Reduced oral strength/coordination/ sensation,Impaired oral- pharyngeal transport,Delayed swallow initiation,Excessive pharyngeal residue Prognosis Fair Based on Duration of symptoms/severity Comment Dysphagia symptoms may be d/t post-op pharyngeal and laryngeal swelling. Will follow pt with reassessment and education. Impact on Safety and Functioning Risk for aspiration Recommendations Instrumental Assessment No Swallowing Treatment Yes Frequency During hospital stay Recommended Solids Nothing by Mouth Recommended Liquids Nothing by Mouth Medication Recommendations Not Recommended by Mouth Discharge Recommendations custodial facility Education Patient/Caregiver Education Described results of evaluation,Patient expressed understanding of evaluation, Patient expressed agreement with goals & treatment plans Goals Short-term Goals 1. The pt will participate in ongoing assessment of swallow function to determine least restrictive diet and guide POC . Long-term Goals 1. The pt will demonstrate swallow safety sufficient to resume oral intake.
[2020-02-28] MEDS: DEXTROSE 5%-0.45NS W/KCL 20MEQ 1,000 ML 100 MEQ IV (18:27)
--- NOTE | 2020-02-28 22:35 | PC.NURSE ---
Addendum entered by Michael Mehta R.N. 02/28/20 22:37: PATIENT IS MUCH MORE AWAKE THIS SHIFT UP TO CHAIR AND BACK TO BED WITH x1 MIN ASSIST AND WALKER, DENIES PAIN, DRSG TO NECK CDI. URINE OUTPUT HAS INCREASED 425MLS FOR THE SHIFT Original Note: LATE NOTE APPROX 1820 DR NERI UPDATED ON PATIENT ,IV FLUIDS ORDERED WILL RE-EVAL IN AM.
[2020-02-29] VITALS (11 sets, daily range): BP systolic 155–178; BP diastolic 59–88; PULSE 72–106; RESP 15–18; TEMP 36.2–37.1; O2SAT 94–97
--- NOTE | 2020-02-29 02:34 | PC.NURSE ---
Addendum entered by Mary Ann Moralez R.N. 02/29/20 05:52: 0545 Catheter d'cd; tolerated well. Instructed in sx/prevention of UTI. Original Note: Patient seen and assessed at 2328. Is alert and oriented. Breath sounds CTA with RA sat of 92%. HRR but tachy at 110 bpm. BP also elevated at 177/88. BT hypoactive and patient denies flatus; no BM recorded since 02/24. Indwelling catheter is patent; urine is pale yellow. Is able to move herself in bed. Gait not assessed at this time but reportedly is able to be up with walker and 1 assist. Dressing to anterior neck is CDI; wearing soft collar for comfort and denies pain. States she has chronic numbness in all extremities and is weak in bilateral UE. Wearing bilateral SCD's. Fall risk score is high and bed alarm is activated. Currently NPO due to swallowing difficulties.
[2020-02-29] MEDS: DEXTROSE 5%-0.45NS W/KCL 20MEQ 1,000 ML 100 MEQ IV ×2 (04:37→16:32)
[2020-02-29] MEDS: INSULIN ASPART 100 UNIT/ML INSULN PEN SUBCUT ×3 (06:11→18:03)
--- NOTE | 2020-02-29 06:26 | PM.PN.1 ---
Subjective Subjective Date Patient Seen: 02/29/20 Time Patient Seen: 06:26 Interval history: Patient is having pain with swallowing. ST consulted yesterday and she failed her swallow evaluation, now NPO. She therefore did not have her evening hytrin so her blood pressure is elevated. Plan is for her to continue working with speech therapy today and hopefully advance her diet. This issue is post-operative. Otherwise, reports that her pain is well controlled. Working with PT/OT, needs SNF upon discharge. Exam Vital Signs (past 8 hours): - 02/28/20 23:15 02/29/20 04:44 Temperature 97.6 F 98.8 F Pulse Rate 110 H 106 H Respiratory Rate 18 18 Blood Pressure 177/88 H 173/64 H Pulse Oximetry 92 94 Oxygen Delivery Method Room Air Oxygen Flow Rate 0 Narrative Exam Narrative: GENERAL: Alert and oriented, appearing stated age and in no acute distress. HEENT: Head normocephalic/atraumatic, neck collar in place. Pupils equal, round, and reactive to light and accomodation. Extraocular muscles intact. Tympanic membranes clear. Nasal mucosa moist, septum midline. Oral mucosa moist, no lesions. Neck soft and supple, no lymphadenopathy. LUNGS: Clear to ausculation bilaterally, no wheezes, rhonchi or rales. CV: Normal S1 and S2 with regular rate and rhythm, no audible murmurs, rubs or gallops. ABD: Non tender, non-distended, no organomegaly. Positive bowel sounds. EXTREMITIES: No clubbing, cyanosis, or edema. NEURO: Cranial nerves II through XII grossly intact, no focal deficits. PSYCH: Alert and oriented x 3. SKIN: No concerning lesions. Objective Labs Result Diagrams: 02/28/20 05:10 02/28/20 05:10 Assessment & Plan Assessment & Plan narrative: 1. Hypertension, controlled yesterday with two elevations early this morning as patient did not receive her pm meds Plan: Will continue amlodipine 10 mg PO qd, enalapril 20 mg PO BID, HCTZ 50 mg PO qd, and hytrin 3 mg PO qhs when patient able to take PO. In the meantime, will treat now with labetalol 20 mg IV x 1 and lasix later today if needed. Follow up with her nephrologitst, Dr. Tejada, as outpatient. 2. Spinal stenosis, statust post C4-7 ACDF, POD #2. Plan: Per Dr. Ngo. 3. Odynphagia, possibly secondary to intubation versus surgical complication, risk for aspiration -Failed 02/29/20 swallow evaluation Plan: NPO, will ADAT per ST. Will await orthopedic's assessment of this post-operative problem in relation to her spinal surgery. 4. DM II, chronic Plan: Continue home insulin. 5. Diabetic Nephropthy, biopsy proven, with acute on chronic stage IV kidney failure -Baseline Cr 1.7, during this admission 1.97 --> 2.33, GFR 20.5 PLAN: Continue IVF, will avoid nephrotoxic agents. 6. Hypothyroidism Plan; Continue home levothyroxine on hold now. 7. Hyperlipidemia Plan: Will restart rosuvastatin upon discharge home. 8. Depression Plan: Sertraline 25 mg daily, on hold now. Software Configuration Engineer consult. 9. Obesity, BMI 31.9 -Risk for adverse outcomes including poor healing, uncontrolled diabetes, longer hospital stay, etc. Plan: [place] counseling. 10. Anemia of chronic disease Plan: Treating underling conditions. DVT prophylaxis: SCDs Code: Full COVID: Negative Disposition: Will need SNF upon discharge. As patient is unable to pass her swallow evaluation, will need additional 1-2 days in the hospital prior to discharge. Quality VTE Deep Vein Thrombosis/Pulmonary Embolism Present on Admission: No
[2020-02-29] MEDS: LABETALOL 20 MG/4 ML SYRINGE IV ×3 (07:28→22:42)
--- NOTE | 2020-02-29 08:12 | PT.IPTN ---
Addendum entered and electronically signed by Shanti Diaz PTA 02/29/20 12:06: Chair alarm armed in sitting before left, Dr Saldivar in room. Original Note: Current Diagnoses Other spondylosis with radiculopathy, cervical region (02/26/20) Spinal stenosis, cervical region (02/26/20) Surgery Performed Operation Date: 02/26/20 12:15 Actual Procedures p C4-5,C5-6,C6-7 ACDF w/anterior instrumentation - Abhishek Ngo MD Physical Therapy Treatment Note M2 PT-IP Current Condition Start: 02/27/20 12:38 Freq: NEEDED Status: Active Protocol: Document 02/27/20 13:58 AB (Rec: 02/27/20 15:24 AB [id number]) Physical Therapy Current Condition Current Condition Evaluation Date 02/27/20 Treatment Diagnosis s/p C4-5,5-6, 6-7 ACDF; difficulty in walking Onset Date 02/26/20 Precautions Cervical Spine Precautions Soft Collar for Comfort,No Heavy Lifting,Log Roll M3 PT-IP Subjective Start: 02/27/20 12:38 Freq: NEEDED Status: Active Protocol: Document 02/29/20 07:34 SP (Rec: 02/29/20 12:05 SP [id number]) Subjective Physical Therapy Visit Type Type Treatment Note Visit Start Time 07:34 Visit Stop Time 08:12 Total Visit Minutes 38 Notes Nursing in room when arrived providing IV meds, Dr Saldivar in room when left. Number of CYBER CRIME INVESTIGATOR Visits 3 Physical Therapy Visit Comments Patient Comments Pt agreeable to working with therapy this early am. Therapy Pain Assessment Pain Present Pain Present Denied Pain M4 PT-IP Mobility and Gait Start: 02/27/20 12:38 Freq: NEEDED Status: Active Protocol: Document 02/29/20 07:34 SP (Rec: 02/29/20 12:05 SP [id number]) PT-Bed Mobility Assessment Rolling Type of Rolling Log Rolling,Roll to Left Level of Assist Minimal Assistance Supine to Sit Supine to Sit Minimal Assistance,1 Person Assistance,Head of Bed Elevated,Bedrails Scooting Scooting to Edge of Bed Contact Guard Assistance PT-Transfer Assessment Sit to and From Stand Sit to and from Stand Contact Guard Assistance,1 Person Assistance,Use of Upper Extremities Equipment Transfer Assistive Device Gait Belt,Front Wheeled Walker Orthotic/Prosthetic Devices or Brace: No Transfers Transfer Destination Chair Transfer Technique Pt ambulated using FWW Transfer Ability Level of Assist Contact Guard Assistance,1 Person Assistance,Use of Upper Extremities Comments Mobility Comments Pt improved in functional mobility this am CG- Min A log roll and L sidelying to sit using bed rail and 20 deg elevation w/cuing hand placement, scoot to EOB CGA with use of hand rail on R and WB UE on bed wt shift LE, sit <> stand CGA, ambulated to the bathroom approx 10 ft using FWW CGA cuing for body closer to FWW and full pivot use of grab bar for slow descent, SBA sitting on toilet , use of music used to assist with difficulty urinating with good results of almost full bladder release, did not align well into hat (notied nursing deposit). Sit >stand from toilet CGA using grab bar and FWW, ambulated to sink approx 15 ft, max cuing for motor planning position of FWW, she demonstrated contact for balance support on sink to wash/ dry hands. Pt walked back to chair, Max cuing for FWW and body positioning during pivot and backing up to chair aligned up then reaching back with at least 1 UE for safe slow descent. Pt was upright pillows posteriorly, call light and all needs in reach. Pt used swab stick sitting in cup of 1 /4 water to moisturize mouth intially tapped off excess water for her performed swab in mouth well, but 2nd performed by patient without tapping off excess water, patient coughed alot to express water. Educated to patient that needs to be sure excess water tapped off before placing in mouth for safety. Kept out of reach for safety and discussed with Dr Baker when entered room of progress and activities performed during tx. Again reported to nurse same information. Speech will follow up again today. Pt is improving with mobilitiy and needing decreased physicial assist but decreased cognitive safety motor planning during tx making unsafe for her to return home alone at this time, high risk for falls. Recommending SNF rehab to improve strength and safe mobility independence. Gait Assessment Gait Gait Assistance Required: Contact Guard Assist,1 Person Assist Distance (Feet) 20 Able to Maintain Weight Bearing Status Yes During Gait Assistive Devices Assistive Device Gait Belt,Front Wheeled Walker Orthotic/Prosthetic Devices or Brace: No Gait Deviations General Gait Pattern Antalgic,Decreased Stride Length,Decreased Feet Clearance,Flexed Trunk,Narrow Based Gait Factors Limiting Gait Function Factors Limiting Gait Function Decreased Activity Tolerance, Decreased Strength,Difficulty Following Directions,Limited Range of Motion,Poor Balance, Poor Safety Awareness Comments Gait Comments See mobility comments PT-Balance Assessment Sitting Balance and Reactions Static Sitting Balance Ability Good Dynamic Sitting Balance Ability Fair Standing Balance and Reactions Static Standing Balance Ability Good Dynamic Standing Balance Ability Fair Device Used fww M5 PT-IP Objective Assessments Start: 02/27/20 12:38 Freq: NEEDED Status: Active Protocol: Document 02/27/20 13:58 AB (Rec: 02/27/20 15:24 AB [email or web address]) Orientation Orientation/Cognition Level of Alertness Alert Orientation Name,Situation Safety Awareness Decreased Safety Awareness Gross Range of Motion Lower Extremity ROM Assessment Within Functional Limits Strength Lower Extremity Strength Assessment Bilaterally Impaired Comments Strength Comments RLE 3-/5 LLE 3+/5 Sensation Assessment Sensation Gross Sensation Right UE Impaired,Left UE Impaired Sensation Description Numbness,Tingling Comments Sensation Comments stated numbness and tingling is worse on LUE Muscle Tone Muscle Tone WNL Yes M6 PT-IP Treatment Start: 02/27/20 12:38 Freq: NEEDED Status: Active Protocol: Document 02/29/20 07:34 SP (Rec: 02/29/20 12:05 SP [id number]) Physical Therapy Treatment Education Education Provided Precautions,Weight Bearing Status,Safety M7 PT-IP Assessment and Plan Start: 02/27/20 12:38 Freq: NEEDED Status: Active Protocol: Document 02/29/20 07:34 SP (Rec: 02/29/20 12:05 SP [id number]) PT Summary Assessment and Plan Potential Rehabilitation Potential Fair Status of Condition at Evaluation Evolving Summary Impairments Pain,ROM,Strength,Balance, Coordination,Sensation,Tone, Cognition,Bed Mobility, Transfers,Gait,Activity Tolerance Assessment Summary Pt requires CG- min bedmob, CGA transfers and gait with Mod- max cuing for safety techniques and motor planning pivots safely before sitting. Unsafe to swab water resting in cup noted during tx, ok if tap off excess water but patient didn't comprehend this and had instance of heavy coughing. Recommending SNF rehab to improve strength and safe mobility independence. Vital taken: /63 HR 84, seated 150/68, 128/58 post activity. CYBER CRIME INVESTIGATOR managed IV pole during tx. Goals Bed Mobility Goal Minimal Assistance Transfer Goal Minimal Assistance,Front Wheeled Walker Gait Goal Minimal Assistance,Front Wheel Walker Gait Distance 50 Other Goals improve bed mobility, transfers to SBA improve ambulation using FWW CGA Days to Meet Goals 10 Frequency of Treatment Frequency Of Treatment Twice a Day Treatment Plan Physical Therapy Treatment Plan Bed Mobility Training,Transfer Training,Gait Training, Therapeutic Exercise,Balance Retraining,Post Op Education, Discharge Planning,Hot or Cold Pack,Neuromuscular Re-ed, Coordination Retraining,Manual Therapy Other Recommendations and Next Treatment transfers, Bed mob, gait Focus Recommendations To Nursing Amount of Assist Needed 1 Person Assist Discharge Recommendations PT Discharge Recommendations SNF Rehab Equipment Needed for Home Before Might be able to borrow nephew Discharge 's fWW upon DC. Transportation Needs at Discharge Wheelchair/Cabulance
--- NOTE | 2020-02-29 09:20 | ST.IPDYTX ---
SUPERVISOR [employer] Dysphagia Treatment [employer]OR [employer] Dysphagia Treatment Start: 02/28/20 17:03 Freq: Status: Active Protocol: Document 02/29/20 10:03 TLC (Rec: 02/29/20 10:28 TLC [id number]) Dysphagia Treatment Session Time Visit Start Time 08:40 Visit Stop Time 09:20 Total Visit Minutes 40 Visit Type Note Type Re-Evaluation Next Note Type Next Note Type Re-Evaluation Patient Information Identification Type Name Subjective Observations Patient sitting upright in chair in room. Agreeable to re -evaluation of swallowing. Reports memory impairments stating she does not recall swallow evaluation yesterday. Treatment Liquids Trialed Ice chips,Thin,[place] Solids Trialed Puree Administration Type Tea Spoon,Cup Single Sip,Self- Feeding Treatment Activities Completed oral motor exam and trials of liquids and solids to assess patient's swallow ability. Provided verbal education to patient regarding treatment options. Assessment Assessment of Improvement Patient continues to present with moderate-severe post- operative dysphagia. In the oral phase, she exhibited delayed swallow initiation with all trials and oral holding of bolus for up to one minute on one occasion eventually spitting it out in a cup. Pharyngeally, patient had immediate cough or throat clear with all trials. Effortful swallow was attempted but patient reported no improvement. Other strategies attempted include reducing bolus size, altering temperature of the bolus and thickening liquids, all of which were unsuccessful at consistently reducing coughing . Patient reported ease of swallowing with thicker liquids; however, symptoms did not improve. Patient was educated on MBS, but declined due to dislike of barium. We discussed risk for aspiration which patient verbalized understanding of. Additionally , patient is at risk for dehydration/malnutrition if dysphagia does not improve . Recommend re-assess this afternoon . Discussed recommendations with MC Dutta who will confer with Dr. Ngo. Diet Recommendations Liquids Order Nothing by Mouth Diet Order NPO Comments Crushed in apple sauce if needed Treatment Plan Placement Recommendation after Discharge [facility] Appropriate for Continued Therapy Yes Therapy Recommendations Re-assess this afternoon
--- NOTE | 2020-02-29 09:38 | DI.CT.S_ITS ---
PROCEDURE: CT CERVICAL SPINE WO CON INDICATIONS: swallowing difficulty post ACDF a few days ago TECHNIQUE: Noncontrast 3 mm thick sections acquired from the skull base to the T4 level. Sagittal and coronal reformats were then constructed. For radiation dose reduction, the following was used: automated exposure control, adjustment of mA and/or kV according to patient size. COMPARISON: [facility], MR, MR CERVICAL SPINE WO CON, 08/24/2019, 13:56. [facility], CR, XR CERVICAL SPINE 2V OR 3V, 02/26/2020, 13:42. FINDINGS: Image quality: Excellent. Bones: No fractures or dislocations. Visualized superior ribs are intact. Anterior fixation hardware is seen C4 through C7. The fusion plate is well seated. The screws are unremarkable. Disc spacers are seen throughout the fused region. Soft tissues: The prevertebral soft tissues demonstrate generalized edema and there are several bubbles of soft tissue gas seen. There is mild thickening of the prevertebral soft tissues, which is regarded to be within normal postoperative limits. IMPRESSION: Postoperative changes are seen, with associated prevertebral soft tissue swelling, with generalized edema and soft tissue gas. No drainable abscess collection can be seen. If the patient's symptoms do not resolve clinically, please consider a short-term follow up study with IV contrast. Dictated by: Amadou Lowe M.D. on 02/29/2020 at 9:28 Approved by: Amadou Lowe M.D. on 02/29/2020 at 9:32
[2020-02-29] MEDS: INSULIN ASPART 100 UNIT/ML INSULN PEN 6 UNIT SUBCUT ×3 (10:04→17:40)
[2020-02-29] MEDS: INSULIN GLARGINE 100 UNIT/ML 3ML PEN 18 UNIT SUBCUT (10:30)
--- NOTE | 2020-02-29 10:31 | OT.IP.TRT ---
Current Diagnoses Other spondylosis with radiculopathy, cervical region (02/26/20) Spinal stenosis, cervical region (02/26/20) Surgery Performed Operation Date: 02/26/20 12:15 Actual Procedures p C4-5,C5-6,C6-7 ACDF w/anterior instrumentation - Abhishek Ngo MD Occupational Therapy Treatment Note M2 OT-IP Current Condition Start: 02/28/20 16:12 Freq: Status: Active Protocol: Document 02/28/20 16:13 CGR (Rec: 02/28/20 16:38 CGR [email or web address]) Occupational Therapy Current Condition Current Condition Evaluation Date 02/28/20 Treatment Diagnosis C4-7 ACDF Diagnosis Onset Date 02/26/20 Post Operative Precautions Cervical Spine Precautions Soft Collar for Comfort,Soft Collar at all Times,No Heavy Lifting,Log Roll M3 OT- IP Subjective and Pain Start: 02/28/20 16:12 Freq: Status: Active Protocol: Document 02/29/20 10:36 CCC (Rec: 02/29/20 10:46 CCC [email or web address]) OT- Subjective Occupational Therapy Visit Type Type Treatment Note Visit Start Time 09:58 Visit Stop Time 10:21 Total Visit Minutes 23 Notes Pt seen for split treatment and had to go down to get a scan. [phone] and [id number]. Occupational Therapy Visit Comments Patient Comments Pt states feels a lot clearer today and wanting to redo the SLUMS. Patient/Caregiver Goals To be able to eat. OT Pain Assessment Pain When Pain Assessed At Rest Pain Present Pain Present Pain Reported Location Neck Intensity 5 Scale Used Numeric (0 - 10) M4 OT- IP ADL's Start: 02/28/20 16:12 Freq: Status: Active Protocol: Document 02/28/20 16:13 CGR (Rec: 02/28/20 16:38 CGR [email or web address]) OT [id number] Comments OT Self-Feeding Comments Pt is currently NPO OT ADL-Grooming General Evaluation Grooming Ability Standby Assistance Areas Needing Assistance Face Washing OT ADL-Oral Care General Eval Oral Care Ability Minimal Assistance Areas of Assistance Brushing Teeth,Retrieving/Set- Up of Items Comments Oral Care Comments Standing at sink. Pt was able to manage tooth paste and brush with extra time and poor coordination but was unable to get cup to mouth for washing out mouth. OT ADL-Dressing General Eval Upper Body Dressing Ability Total Assistance Lower Body Dressing Ability Total Assistance Areas Needing Assistance Socks OT ADL-Toileting General Evaluation Toileting Ability Total Assistance Comments OT Toileting Comments Pt with duenas OT ADL-Bathing Comments OT Bathing Comments Not performed in this session felt too tired to try. M5 OT- IP IADL's Start: 02/28/20 16:12 Freq: Status: Active Protocol: Document 02/28/20 16:13 CGR (Rec: 02/28/20 16:38 CGR [email or web address]) OT-Instrumental Activities of Daily Living Deficits IADL Deficits Identified Deficits Home Safety Awareness Awareness of Need for Assistance at Home Decreased Awareness Ability to Problem Solve Emergency Unable to Problem Solve Situations Medication Management Medication Management Comments Concerns for medication management at this time Money Management Money Management Comments Concerns for money management at this time. Meal Preparation Meal Preparation Comments Concerns for ability to provide meals. Healthcare Translator Healthcare Translator Comments Pt would be unable to perform basic gas desulfurizer at this time. Driving Driving Concerns Identified Regarding Safety M6 OT- IP Functional Cognition Start: 02/28/20 16:12 Freq: Status: Active Protocol: Document 02/29/20 10:36 [facility] (Rec: 02/29/20 10:46 [facility] [id number]) Cognitive Factors Limiting Selfcare Function Cognitive Ability Level of Alertness Alert Patient Orientation Name,Date,Year,Day of Week, Place,Situation Attention Span Ability Capable of Focused Attention, Capable of Sustained Attention Ability to Follow Commands Able to Follow One Step Commands Memory Description Short Term Impaired Cognitive Tests SLUMS Pt re-tested and pt scored 20/ 30 much improved from yesterday, pt still having deficits with her short term memory. NO able to recall any of the 5 words after passed. NOt able to draw the hours hands correctly after time given, able to name 13 animals in 1 minute, and able to answer 3/4 questions right after paragraph read. Cognitive Comments Cognitive Assessment Comments Pt admits at times at home has decreased STM, but still does not feel that she is at baseline. M7 OT- IP Mobility and Balance Start: 02/28/20 16:12 Freq: Status: Active Protocol: Document 02/29/20 10:36 CCC (Rec: 02/29/20 10:46 [facility] [email or web address]) OT-Transfer Assessment Sit to and From Stand Sit to and from Stand Contact Guard Assistance Transfers Transfer Ability Contact Guard Assistance Technique Transfer Destination Chair,Wheelchair Transfer Technique Stand Step Pivot Devices Transfer Assistive Devices Gait Belt,Front Wheeled Walker Comments Mobility Comments Much improved from sit to stand CGA from hi recliner, will needing more assist from lower surfaces. CGA with FWW and vc for safety as pt tends to lean to the right while use of FWW. OT- Balance Assessment Sitting Balance and Reactions Static Sitting Balance Ability Good Dynamic Sitting Balance Ability Fair Standing Balance and Reactions Static Standing Balance Ability Fair M8 OT- IP Objective Assessments Start: 02/28/20 16:12 Freq: Status: Active Protocol: M9 OT- IP Assessment and Plan Start: 02/28/20 16:12 Freq: Status: Active Protocol: Document 02/29/20 10:36 [facility] (Rec: 02/29/20 10:46 [facility] [id number]) OT Summary Assessment and Plan Potential Rehabilitation Potential Good Analytic Complexity at Evaluation High Summary OT Impairments Pain,Strength,Balance, Coordination,Sensation, Functional Cognition, Functional Mobility,Self- Feeding,Grooming,Dressing, Toileting,Bathing,Toilet Transfers,Shower Transfers, Activity Tolerance Progress Towards Goals Slow Progress due to Medical Issues,Slow Progress due to Activity Tolerance,Slow Progress due to Cognition Assessment Summary Pt still having difficulty with swallowing needs but improving with overall mobility needs. Pt too tired to try to shower at this time, therefore to attempt tomorrow. Goals Days to Meet Goals 15 Frequency of Treatment Frequency Of Treatment Once a Day Treatment Plan OT Treatment Plan ADL Training,Functional Cognition Training,Functional Mobility,Patient/Family Education,Discharge Planning Other Treatment Recommendations and Next SHower Treatment Focus Discharge Recommendations OT Discharge Recommendations SNF Rehab Home Equipment Needs tub transfer bench. Transportation Needs at Discharge Wheelchair/Cabulance
[2020-02-29] MEDS: DEXAMETHASONE 10 MG/ML VIAL IV ×2 (10:33→20:54)
--- NOTE | 2020-02-29 10:55 | PM.PN.1 ---
Subjective Subjective Date Patient Seen: 02/29/20 Interval history: Patient is POD# 3 s/p C4-C7 ACDF with Dr. Ngo. She has been experiencing swallowing difficulty over the last 2 days. Initially postoperatively she was tolerating thick liquids and clears but this worsened yesterday. Swallow eval was ordered and patient was made NPO. Second eval pending for today. She notes some pain with swallowing but has difficulty initiating and has been choking. No notable vocal changes or difficulty breathing/shortness of breath. Otherwise pain has been well controlled. Her PCP has been following as well and BP has improved with addition of terazosin 3mg QHS. No complaints. Exam Vital Signs (past 8 hours): - 02/29/20 04:44 02/29/20 07:28 02/29/20 07:59 Temperature 98.8 F 97.3 F L Pulse Rate 106 H 83 83 Respiratory Rate 18 15 Blood Pressure 173/64 H 178/87 H 178/87 H Pulse Oximetry 94 94 02/29/20 10:02 02/29/20 10:09 Temperature Pulse Rate 75 75 Respiratory Rate Blood Pressure 171/64 H 174/64 H Pulse Oximetry Oxygen Delivery Method Room Air Oxygen Flow Rate 0 Narrative Exam Narrative: 74 year old female resting in bed. Alert and oriented. Patient able to answer questions. No vocal changes. Dressing in place is CDI. No noticeable swelling or palpable fluid collection. 5/5 BL UE. Sensation intact. Objective Labs Result Diagrams: 02/28/20 05:10 02/28/20 05:10 Assessment & Plan Assessment & Plan narrative: Patient continues to have swallowing difficulty. Discussed with Dr. Ngo who is recommending 2 doses of IV steroid to minimize swelling as well as cervical spine CT w/o contrast to further evaluate. Appreciate PCP following as well for BP management. Patient has poor family support and plan is for her to discharge to [facility] once she is medically stable and tolerating a diet. Quality VTE Deep Vein Thrombosis/Pulmonary Embolism Present on Admission: No
--- NOTE | 2020-02-29 11:12 | PC.NURSE ---
Addendum entered by Meghan Green R.N. 02/29/20 14:26: Patient re-evaluated by [facility]UMMER this afternoon, patient did not pass swallow eval. Patient is still NPO Addendum entered by Meghan Green R.N. 02/29/20 11:53: Dr. Saldivar telephoned back and gave an order for 40mg IV lasix now. I let Dr. Saldivar know that patient had been feeling whoosy today. Original Note: Patient BP still continues to be elevated. Telephoned Dr. Saldivar and waiting for call back. Labetolol given at 0730, patient contiunes to have BP 170's. Patient was up w/ pt, and has been up in the chair today. Patient has more color in her cheeks today and is more responsive and alert. Patient continues to have weakness in her left hand. Patient continues to be NPO based on swallow evaluation.
--- NOTE | 2020-02-29 12:39 | CM.DPC ---
DCP Cont: Met with patient today. She is alert today. Discussed group home, and she knows that it is necessary to go for a while, since she does not have anyone at home to assist her. She indicated her sister will be in [place], and has a cousin in the area that she does not want to deal with. She is aware that [employer] [employer] is the plan. P: DCP to continue to follow. Patient may be able to go to [facility] tomorrow if she is stable. Will need to update Shelley at [facility] tomorrow. Will send her more clinicals from today. Chapis Woody RN/[employer]
[2020-02-29] MEDS: FUROSEMIDE 40 MG/4 ML VIAL IV (12:42)
--- NOTE | 2020-02-29 14:00 | PT.IPTN ---
Current Diagnoses Other spondylosis with radiculopathy, cervical region (02/26/20) Spinal stenosis, cervical region (02/26/20) Surgery Performed Operation Date: 02/26/20 12:15 Actual Procedures p C4-5,C5-6,C6-7 ACDF w/anterior instrumentation - Abhishek Ngo MD Physical Therapy Treatment Note M2 PT-IP Current Condition Start: 02/27/20 12:38 Freq: NEEDED Status: Active Protocol: Document 02/27/20 13:58 AB (Rec: 02/27/20 15:24 AB [id number]) Physical Therapy Current Condition Current Condition Evaluation Date 02/27/20 Treatment Diagnosis s/p C4-5,5-6, 6-7 ACDF; difficulty in walking Onset Date 02/26/20 Precautions Cervical Spine Precautions Soft Collar for Comfort,No Heavy Lifting,Log Roll M3 PT-IP Subjective Start: 02/27/20 12:38 Freq: NEEDED Status: Active Protocol: Document 02/29/20 13:39 KS (Rec: 02/29/20 14:41 KS [id number]) Subjective Physical Therapy Visit Type Type Treatment Note Visit Start Time 13:39 Visit Stop Time 14:00 Total Visit Minutes 21 Physical Therapy Visit Comments Patient Comments Pt agreeable to work w/ therapy. M4 PT-IP Mobility and Gait Start: 02/27/20 12:38 Freq: NEEDED Status: Active Protocol: Document 02/29/20 13:39 KS (Rec: 02/29/20 14:41 KS [id number]) PT-Bed Mobility Assessment Scooting Scooting to Edge of Bed Contact Guard Assistance PT-Transfer Assessment Sit to and From Stand Sit to and from Stand Contact Guard Assistance,1 Person Assistance,Use of Upper Extremities Equipment Transfer Assistive Device Gait Belt,Front Wheeled Walker Orthotic/Prosthetic Devices or Brace: No Transfers Transfer Destination Chair,Bedside Commode Transfer Technique Pt ambulated using FWW Transfer Ability Level of Assist Contact Guard Assistance,1 Person Assistance,Use of Upper Extremities Comments Mobility Comments Pt in chair upon arrival from therapy and needed cues to recall precautions. CGA for scooting to EOC qand CGA for sit<>stand w/ cues for hand placement. Pt then ambulated ~ 15 feet in room around bed w/ FWW and CGA and then to requested to use toilet. CGA and grab bars for sit<>Stand from toilet. Pt then ambulated to chair, CGA and cues for hand placement and slow descent for stand<>sit. Pt reported fatigue after ambulating. Pt left in chair w/ all needs in reach. Gait Assessment Gait Gait Assistance Required: Contact Guard Assist,1 Person Assist Distance (Feet) 25 Able to Maintain Weight Bearing Status Yes During Gait Assistive Devices Assistive Device Gait Belt,Front Wheeled Walker Orthotic/Prosthetic Devices or Brace: No Gait Deviations General Gait Pattern Antalgic,Decreased Stride Length,Decreased Feet Clearance,Flexed Trunk,Narrow Based Gait Factors Limiting Gait Function Factors Limiting Gait Function Decreased Activity Tolerance, Decreased Strength,Difficulty Following Directions,Limited Range of Motion,Poor Balance, Poor Safety Awareness Comments Gait Comments See mobility comments PT-Balance Assessment Sitting Balance and Reactions Static Sitting Balance Ability Good Dynamic Sitting Balance Ability Fair Standing Balance and Reactions Static Standing Balance Ability Good Dynamic Standing Balance Ability Fair Device Used fww M5 PT-IP Objective Assessments Start: 02/27/20 12:38 Freq: NEEDED Status: Active Protocol: Document 02/27/20 13:58 AB (Rec: 02/27/20 15:24 AB [id number]) Orientation Orientation/Cognition Level of Alertness Alert Orientation Name,Situation Safety Awareness Decreased Safety Awareness Gross Range of Motion Lower Extremity ROM Assessment Within Functional Limits Strength Lower Extremity Strength Assessment Bilaterally Impaired Comments Strength Comments RLE 3-/5 LLE 3+/5 Sensation Assessment Sensation Gross Sensation Right UE Impaired,Left UE Impaired Sensation Description Numbness,Tingling Comments Sensation Comments stated numbness and tingling is worse on LUE Muscle Tone Muscle Tone WNL Yes M6 PT-IP Treatment Start: 02/27/20 12:38 Freq: NEEDED Status: Active Protocol: Document 02/29/20 13:39 KS (Rec: 02/29/20 14:41 KS [id number]) Physical Therapy Treatment Education Education Provided Precautions,Weight Bearing Status,Safety M7 PT-IP Assessment and Plan Start: 02/27/20 12:38 Freq: NEEDED Status: Active Protocol: Document 02/29/20 13:39 KS (Rec: 02/29/20 14:41 KS [id number]) PT Summary Assessment and Plan Potential Rehabilitation Potential Fair Status of Condition at Evaluation Evolving Summary Impairments Pain,ROM,Strength,Balance, Coordination,Sensation,Tone, Cognition,Bed Mobility, Transfers,Gait,Activity Tolerance Assessment Summary Pt CGA for scooting, CGA and cues for sit<>stand and ambulation w/ FWW. Pt has poor safety awareness and needs cues for FWW management, sequencing, and hand placement . Pt tolerated ~25 ft ambulation w/ FWW around room CGA, but was limited in distance by reported fatigue. Pt will benefit from SNF to improve tolerance for activity and functional independence. Goals Bed Mobility Goal Minimal Assistance Transfer Goal Minimal Assistance,Front Wheeled Walker Gait Goal Minimal Assistance,Front Wheel Walker Gait Distance 50 Other Goals improve bed mobility, transfers to SBA improve ambulation using FWW CGA Days to Meet Goals 10 Frequency of Treatment Frequency Of Treatment Twice a Day Treatment Plan Physical Therapy Treatment Plan Bed Mobility Training,Transfer Training,Gait Training, Therapeutic Exercise,Balance Retraining,Post Op Education, Discharge Planning,Hot or Cold Pack,Neuromuscular Re-ed, Coordination Retraining,Manual Therapy Other Recommendations and Next Treatment transfers, Bed mob, gait Focus Recommendations To Nursing Amount of Assist Needed 1 Person Assist Discharge Recommendations PT Discharge Recommendations SNF Rehab Equipment Needed for Home Before Might be able to borrow nephew Discharge 's fWW upon DC. Transportation Needs at Discharge Wheelchair/Cabulance
--- NOTE | 2020-02-29 14:29 | ST.IPDYTX ---
CYBER OPS PLANNER Dysphagia Treatment CYBER OPS PLANNER Dysphagia Treatment Start: 02/28/20 17:03 Freq: Status: Active Protocol: Document 02/29/20 14:22 TLC (Rec: 02/29/20 14:29 TLC [id number]) Dysphagia Treatment Session Time Visit Start Time 14:00 Visit Stop Time 14:20 Total Visit Minutes 20 Visit Type Note Type Re-Evaluation Next Note Type Next Note Type Re-Evaluation Patient Information Subjective Observations Patient sitting upright in chair in room. Agreeable to re -evaluation of swallowing. Per nursing, patient is being administered IV steroids to reduce inflammation. Treatment Liquids Trialed Ice chips,Thin Solids Trialed Puree Administration Type Tea Spoon,Cup Single Sip,Self- Feeding Treatment Activities Administered food/liquid trials for re-evaluation of swallowing. Provided verbal education to patient regarding swelling and its effect on swallowing. Assessment Assessment of Improvement No observable improvement in patient's post-operative dysphagia. Signs of aspiration (immediate cough or throat clear) with most trials of liquids and purees. Occasional expectoration of trials. Patient reports food/liquid is not going down. No advanced textures administered for patient safety. Recommend continue NPO. If needed, PO meds can be administered crushed in apple sauce (small bites, double swallow) Discussed results of evaluation with MILTON Christianson who will update Dr. Saldivar. Diet Recommendations Liquids Order Nothing by Mouth Diet Order NPO Comments Crushed in apple sauce if needed Treatment Plan Placement Recommendation after Discharge [facility] Facility Appropriate for Continued Therapy Yes Therapy Recommendations Re-assess tomorrow
--- NOTE | 2020-02-29 15:39 | PC.NURSE ---
NEW ORDER FOR 20MG IV LABETALOL BID FROM
--- NOTE | 2020-02-29 16:45 | DIET.PN ---
Dietary Progress Note Assessment: 74y F inpatient 3 days post spinal stenosis and spondylosis with radiculopathy. Post surgery, pt has had trouble swallowing and is NPO. PMHx of T2DM with insulin and high blood pressure. Referred to RD for obesity and T2DM. Pt reports that no matter what she eats she stays the same weight and has been around 180# for a very long time. Says the weight she prefers is 130-140#. Pt reports her usual A1c is around 7. Pt is aware of her kidney function and it is being monitored by her electromechanisms design drafter. Pts insurance covers CKD education, encouraged pt to request referral for outpatient with RD. Pt says she likes to eat soups and stews. Typically likes beans but says she was not eating them as much recently. Pt says she might have had some slight irritation with her throat before the surgery and was avoiding some foods that aggravated it. HT: 161.29cm WT:83kg UBW: 83kg BMI: 31.9 Labs: eGFR on admit: 24.9L A1c: 7.5 T H TC: 275 H MNA:14 Holger: 20 Nutrition Diagnosis: Insufficient fiber intake r/t poor food choices and food and nutrition related knowledge deficit aeb high TC, BMI 31.9, and pt reports liking beans and not eating them. Interventions: 1. Increase soluble fiber in diet in order to support wt loss. Incorporate 1/2 cup beans and berries more frequently as good high fiber choices. Pt reports liking beans. Reinforced education with handout showing recommended amount of fiber in a day and high fiber choices. Diet Order: NPO
--- NOTE | 2020-02-29 21:18 | PC.NURSE ---
NEW PIV STARTED IN L FA, NO OTHER OPTIONS AT THIS TIME, RIGHT HAD IV INFILTRATED, REMOVED RIGHT ARM ELEVATED ON PILLOWS WITH WARM BLANKET AROUND. PATIENT SHERYL.VERY WELL
[2020-02-29] MEDS: HYDRALAZINE 20 MG/ML VIAL IV (23:15)
[2020-03-01] VITALS (9 sets, daily range): BP systolic 127–198; BP diastolic 54–80; PULSE 69–99; RESP 15–18; TEMP 35.9–36.4; O2SAT 96–98
[2020-03-01] MEDS: INSULIN ASPART 100 UNIT/ML INSULN PEN SUBCUT ×4 (00:54→20:49)
[2020-03-01] MEDS: HYDROMORPHONE 0.5 MG INJ 0.2 MG IV (00:58)
--- NOTE | 2020-03-01 05:55 | PM.PN.1 ---
Subjective Subjective Date Patient Seen: 03/01/20 Time Patient Seen: 05:55 Interval history: Uneventful night. Patient continues to report that her pain is well controlled. Failed her 2nd swallow evaluation yesterday but passed it today. Orthopedics administered steroids to hopefully reduce swelling and ordered CT spine. Continues to work with PT/OT. She remains very weak. Denies chest pain or shortness of breath. No nausea or vomiting. Exam Vital Signs (past 8 hours): - 02/29/20 23:35 02/29/20 23:45 03/01/20 01:09 Temperature 97.1 F L Pulse Rate 90 90 90 Respiratory Rate 18 Blood Pressure 155/78 H 155/78 H 155/78 H Pulse Oximetry 97 03/01/20 04:21 Temperature 97.6 F Pulse Rate 99 H Respiratory Rate 18 Blood Pressure 192/77 H Pulse Oximetry 96 Oxygen Delivery Method Room Air Oxygen Flow Rate 0 Narrative Exam Narrative: GENERAL: Alert and oriented, appearing stated age and in no acute distress. HEENT: Head normocephalic/atraumatic, neck collar now removed, dressing c/d/i/. Pupils equal, round, and reactive to light and accomodation. Extraocular muscles intact. Tympanic membranes clear. Nasal mucosa moist, septum midline. Oral mucosa moist, no lesions. Neck soft and supple, no lymphadenopathy. LUNGS: Clear to ausculation bilaterally, no wheezes, rhonchi or rales. CV: Normal S1 and S2 with regular rate and rhythm, no audible murmurs, rubs or gallops. ABD: Non tender, non-distended, no organomegaly. Positive bowel sounds. EXTREMITIES: No clubbing, cyanosis, or edema. NEURO: Cranial nerves II through XII grossly intact, no focal deficits. PSYCH: Alert and oriented x 3. SKIN: No concerning lesions. Objective Labs Result Diagrams: 03/01/20 05:35 03/01/20 05:35 Assessment & Plan Assessment & Plan narrative: 1. Hypertension, uncontrolled yesterday as patient made switch from PO to IV due to failed swallow evaluation x 2 with NPO status. Plan: Will transition back to her oral medications: amlodipine 10 mg PO qd, enalapril 20 mg PO BID, HCTZ 50 mg PO qd, and hytrin 3 mg PO qhs. 2. Spinal stenosis, statust post C4-7 ACDF, POD #4. Plan: Per Dr. Ngo. 3. Odynphagia and dysphagia, possibly secondary to intubation versus surgical complication, risk for aspiration -Failed 02/29/20 and 03/01/20 swallow evaluations, passed swallow evaluation this morning. -Dr. Ngo has started steroids to reduce swelling and ordered spinal CT: IMPRESSION: Postoperative changes are seen, with associated prevertebral soft tissue swelling, with generalized edema and soft tissue gas. No drainable abscess collection can be seen. If the patient's symptoms do not resolve clinically, please consider a short-term follow up study with IV contrast. Plan: ADAT per ST. Dr. Ngo managing exploration of post-surgical complications that could be contributing to patient's odynophagia and dysphagia. 4. DM II, chronic Plan: Continue home insulin per sliding scale. Nutrition to consult. 5. 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 6. Hypothyroidism -TSH 0.173 today Plan: Have decreased home levothyroxine to 25 mcg PO qam. 7. Hyperlipidemia Plan: Will restart rosuvastatin upon discharge home. 8. Depression Plan: Sertraline 25 mg daily. Business Intelligence Analyst consult. 9. Obesity, BMI 31.9 -Risk for adverse outcomes including poor healing, uncontrolled diabetes, longer hospital stay, etc. Plan: Nutriton counseling. 10. Anemia of chronic disease Plan: Treating underling conditions. DVT prophylaxis: SCDs Code: Full COVID: Negative Disposition: Will need SNF upon discharge. Quality VTE Deep Vein Thrombosis/Pulmonary Embolism Present on Admission: No
[2020-03-01 05:59] LABS: Add Manual Diff / Slide Review NO; Basophils Absolute Auto 0 /uL (0-100); Basophils Percent Auto 0.5 % (0-2); Eosinophils Absolute Auto 0 /uL (0-450); Hematocrit 30.3 % (36-46); Hemoglobin 9.8 g/dL (12.0-16.0); Lymphocytes Absolute Auto 500 /uL (1100-4500); Lymphocytes Percent Auto 9.2 % (25-40); Mean Corpuscular HGB Conc 32.4 % (30-36); Mean Corpuscular Hemoglobin 28.9 PG (26-34); Mean Corpuscular Volume 88.9 fL (80-100); Monocytes Absolute Auto 100 /uL (0-900); Monocytes Percent Auto 1.9 % (3-14); Neutrophils Absolute Auto 4800 /uL (1500-7000); Neutrophils Percent Auto 88.4 % (50-75); Platelet Count 189 X10^3/uL (150-400); Red Cell Distribution Width 14.6 % (11.6-14.8); White Blood Cell Count 5.5 X10^3/uL (4.5-11.0)
[2020-03-01 06:08] LABS: BUN Creatinine Ratio 26.1 (6-22); Blood Urea Nitrogen 53 mg/dL (7-17); Calcium 8.4 mg/dL (8.4-10.2); Carbon Dioxide 21 mmol/L (22-32); Chloride 107 mmol/L (98-107); Estimated Glomerular Filt Rate 24.1 mL/min (>60); Glucose 371 mg/dL (80-110); HEMOLYSIS < 15 (0-50); Potassium 4.6 mmol/L (3.4-5.1); Sodium 135 mmol/L (137-145)
[2020-03-01 06:15] LABS: NT-proBNP (BNP-Adult 18+) 1680 pg/mL (<125)
[2020-03-01] MEDS: DEXTROSE 5%-0.45NS W/KCL 20MEQ 1,000 ML 100 MEQ IV ×2 (06:29→19:15)
[2020-03-01 06:37] LABS: Thyroid Stimulating Hormone 0.173 uIU/mL (0.47-4.68)
[2020-03-01] MEDS: LABETALOL 20 MG/4 ML SYRINGE 40 MG IV ×2 (07:01→10:29)
[2020-03-01] MEDS: INSULIN ASPART 100 UNIT/ML INSULN PEN 6 UNIT SUBCUT ×3 (08:49→16:49)
[2020-03-01] MEDS: hydroCHLOROthiazide 25 MG TABLET 50 MG PO (08:49)
[2020-03-01] MEDS: DOCUSATE 100 MG CAPSULE PO ×2 (08:49→20:49)
[2020-03-01] MEDS: METOPROLOL IR 50 MG TABLET PO ×2 (08:49→20:49)
[2020-03-01] MEDS: AMLODIPINE 5 MG TABLET 10 MG PO (08:50)
[2020-03-01] MEDS: ENALAPRIL 20 MG TABLET PO ×2 (08:51→20:53)
[2020-03-01] MEDS: INSULIN GLARGINE 100 UNIT/ML 3ML PEN 18 UNIT SUBCUT (08:52)
--- NOTE | 2020-03-01 09:50 | P.PN_ITS ---
Subjective Subjective Date Patient Seen: 03/01/20 Time Patient Seen: 09:50 Interval history: Patient is POD#4 s/p ACDF. She reports she is feeling better today. Pain has been well controlled. She passed swallow study today and diet was advanced. No complaints. Exam Vital Signs (past 8 hours): - 03/01/20 04:21 03/01/20 07:01 03/01/20 08:30 Temperature 97.6 F 97.6 F Pulse Rate 99 H 90 90 Respiratory Rate 18 15 Blood Pressure 192/77 H 173/74 H 173/74 H Pulse Oximetry 96 98 Oxygen Delivery Method Room Air Oxygen Flow Rate 0 Narrative Exam Narrative: 74 year old female resting in chair. Alert and oriented in no acute distress. Dressing in place is CDI. 5/5 BL UE. Calves soft, nontender. Objective Labs Result Diagrams: 03/01/20 11:50 03/01/20 11:50 Labs: Laboratory Results - last 24 hr 03/01/20 03/01/20 03/01/20 05:35 05:35 05:35 WBC 5.5 RBC 3.40 L Hgb 9.8 L Hct 30.3 L MCV 88.9 MCH 28.9 MCHC 32.4 RDW 14.6 Plt Count 189 Neut % (Auto) 88.4 H Lymph % (Auto) 9.2 L Seneca % (Auto) 1.9 L Eos % (Auto) 0.0 L Baso % (Auto) 0.5 Neut # (Auto) 4800 Lymph # (Auto) 500 L Seneca # (Auto) 100 Eos # (Auto) 0 Baso # (Auto) 0 Sodium 135 L Potassium 4.6 Chloride 107 Carbon Dioxide 21 L BUN 53 H Creatinine 2.03 H Estimated GFR 24.1 L BUN/Creatinine Ratio 26.1 H Glucose 371 H D Calcium 8.4 NT-Pro-B Natriuret Pep 1680 H TSH 0.173 L Assessment & Plan Assessment & Plan narrative: Patient is POD#4 s/p C4-[address] cspine yesterday showed generalized edema without any fluid collection as well as stable hardware. No indication for return to the OR at this time. She received 20mg Decadron yesterday. Discussed with Dr. Ngo who was recommending Medrol dose pack once she is tolerating oral intake/upon discharge. Will transition to Prednisone 40mg BID in anticipation of this. BP and blood glucose have been elevated, likely due to combination of steroid and disruption in PO medications due to patient being NPO. Appreciate her PCP team's management of this. Diet was advanced today, patient has tolerated applesauce and ground pills. Patient is being transitioned to a midline today. Plan is for discharge to SNF once deemed medically stable, appreciate medicine teams input for this. Patient has been accepted at [facility] hopeful for discharge tomorrow. Quality VTE Deep Vein Thrombosis/Pulmonary Embolism Present on Admission: No
[2020-03-01] MEDS: HYDRALAZINE 20 MG/ML VIAL IV (10:30)
--- NOTE | 2020-03-01 11:37 | PT-IP ANOTE ---
Per RN, hold PT this AM d/t pt fainted this AM. Will check in PM.
--- NOTE | 2020-03-01 11:59 | PC.NURSE ---
Assess- Patient is Alert but forgetful at times. BP this am 198/100s. Oral medication given after Speech therapist Mellissa into evaluate patients swallow. She is able to now swallow apple sauce and peaches. Althea, DI up to put in a midline to patients l.upper arm and flushing hard, positional. Patient given her lebatolol iv and iv hydralizine as bp not down much, this was 169/90s. Patient tolerated iv blood pressures medications. She was doing her bills sitting up in chair and then said she had to use the bathroom. This RN said that she would be in right away, and she got up by herself and pulled out her iv. This RN went to check on patient and she was slumped back on the toilet, barely awake. It is possible that she had a vagal response on the toilet from trying to have a bowel movement. She did have a small hard stool in the toilet that was the size of a marble. Patient was alert, pale in the face, and blood pressure 127/54,69 after this incident. Her pulse before did go down into the 40s. EKG obtained, this was NSR per RT. Called and she ordered cbc, cmp, mag, and phos.. Midline being placed now and the blood will be drawn. Patient wanted to get up to try and use the bathroom again, and this RN told her no at this time, if she needs to use the bed del cid then we can try that.
[2020-03-01 12:25] LABS: Add Manual Diff / Slide Review NO; Basophils Absolute Auto 200 /uL (0-100); Basophils Percent Auto 1.8 % (0-2); Eosinophils Absolute Auto 0 /uL (0-450); Hemoglobin 10.4 g/dL (12.0-16.0); Lymphocytes Absolute Auto 700 /uL (1100-4500); Lymphocytes Percent Auto 8.5 % (25-40); Mean Corpuscular HGB Conc 32.3 % (30-36); Mean Corpuscular Hemoglobin 28.7 PG (26-34); Mean Corpuscular Volume 88.6 fL (80-100); Monocytes Absolute Auto 500 /uL (0-900); Monocytes Percent Auto 5.7 % (3-14); Neutrophils Absolute Auto 7000 /uL (1500-7000); Platelet Count 243 X10^3/uL (150-400); Red Blood Cell Count 3.62 X10^6/uL (4.0-5.2); Red Cell Distribution Width 14.6 % (11.6-14.8); White Blood Cell Count 8.3 X10^3/uL (4.5-11.0)
[2020-03-01 12:44] LABS: Alanine Aminotransferase 24 IU/L (<35); Albumin 3.4 g/dL (3.5-5.0); Albumin Globulin Ratio 1.1 (1.0-2.8); Alkaline Phosphatase 73 U/L (38-126); Aspartate Aminotransferase 29 IU/L (14-36); BUN Creatinine Ratio 27.1 (6-22); Bilirubin Total 0.4 mg/dL (0.2-1.3); Blood Urea Nitrogen 57 mg/dL (7-17); Calcium 8.8 mg/dL (8.4-10.2); Carbon Dioxide 20 mmol/L (22-32); Chloride 108 mmol/L (98-107); Estimated Glomerular Filt Rate 23.2 mL/min (>60); Globulin 3.2 g/dL (1.7-4.1); Glucose 208 mg/dL (80-110); HEMOLYSIS < 15 (0-50); Magnesium 2.2 mg/dL (1.6-2.3); Phosphorous 4.4 mg/dL (2.8-4.1); Potassium 4.7 mmol/L (3.4-5.1); Sodium 135 mmol/L (137-145); Total Protein 6.6 g/dL (6.3-8.2)
--- NOTE | 2020-03-01 13:26 | ST.IPCSEOM ---
Visit Care Team Role Provider Type MIESHA Michelle Primary Care Provider Advanced Laboratory Geneticist Specialty: Family Practice Address: [address] [place] [address], [facility], [place], [address] Email: [email or web address] Bridger Ledesma DO Other Providers Physician Specialty: Internal Medicine Address: [address] [place] [address], [id number] Email: [email or web address] Ngo MD Admit Provider Physician Attending Provider Referring Provider Specialty: Orthopedic Surgery Address: [address] [place] [address], [id number] Email: [email or web address] Current Diagnoses Other spondylosis with radiculopathy, cervical region (02/26/20) Spinal stenosis, cervical region (02/26/20) Past Medical History (Last Reviewed 06/22/19 @ 18:16 by Herminia Hobson [facility]) Breast cancer, left (Inactive Medical) Chronic kidney disease (CKD), stage III (moderate) (Inactive Medical) Diabetes mellitus (Inactive Medical) Speech-Language Pathology Swallow Evaluation SIMULATION ANALYST Clinical Swallow Evaluation Start: 02/28/20 17:03 Freq: Status: Active Protocol: Document 03/01/20 13:01 LNK (Rec: 03/01/20 13:26 LNK [id number]) Clinical Swallow Evaluation Session Time Visit Start Time 08:45 Visit Stop Time 09:30 Total Visit Minutes [address] Teresa Saldivar Reason for Referral Coughing with liquids Setting Assessment Location Acute Care Visit Type Note Type Re-evaluation Next Note Type Next Note Type Treatment Note Patient Information Identification Type Name,ID Card History The pt is a 74-yr-old female, ACDF post-op day 4. Nsg and PT observed the pt with significant difficulty managing water orally and initiating swallow and coughing with swallow. Pt has been NPO x 2 days due to pain and difficulty swallowing. Re -assessment o determine safe PO tolerance. Subjective Observations Patient sitting upright in chair in room. Agreeable to re -evaluation of swallowing. Per nursing, patient is being administered steroids to reduce inflammation. Reported by Patient Pain Intensity 1 Pain Scale Used Numeric (0 - 10) Location Other Other Symptoms Difficulty swallowing liquids, Difficulty swallowing solids, Pain on swallowing Comment Pain in throat with swallow Current Diet Nothing by mouth Baseline Feeding Method Independent in self-feeding Objective Assessment Mental Status Alert,Responsive,Cooperative Oral Integrity WFL Dentition Within normal limits Lip Function Within normal limits Observation of Lips at Rest Symmetrical Pucker Within normal limits Lip Retraction Within normal limits Tongue Function Within normal limits Observations of Tongue at Rest Within normal limits Tongue Protrusion Within normal limits Tongue Lateralization Within normal limits Jaw Function Within normal limits Observations of Jaw at Rest Within normal limits Jaw Opening Within normal limits Jaw Closing Within normal limits Jaw Lateralization Within normal limits Hard/Soft Palate Function Within normal limits Observations of Hard/Soft Palate Within normal limits Nasality Within normal limits Phonation Within normal limits Respiratory Sufficiency Within normal limits Food and Liquid Trials Position During Assessment Upright (90 degrees) Liquids Trialed Ice chips,Thin Solids Trialed Puree,Dysphagia Mechanical Oral Impairment Within functional limits Oral Phase Comments Able to initiate swallow volitionally and natural trigger was improved to WFL; Pharyngeal Impairment Mildly impaired Pharyngeal Phase Comments Pt was able to swallow Fatigue/Endurance Moderate fatigue Strategies Attempted Supraglottic swallow Response/Comments Pt was able to swallow and tolerate ice chips. Thin liquids elicited an audible swallow indicating poor airway seal. Altura thick liquids were tolerated with pt stating that NTL were better. Pt safely tolerated applesauce and diced peaches without difficulty. No further trials were attempted. Findings Swallowing Function Pharyngeal phase dysphgia Severity of Swallow Impairment Mildly-moderately impaired Contributing Factors to Swallow Impaired velopharyngeal Impairment closure/coordination,Excessive pharyngeal residue Comments Pt's pharyngeal cavity may continue to be swollen Prognosis Good Based on Duration of symptoms/severity Comment Dysphagia symptoms may be d/t post-op pharyngeal and laryngeal swelling. Pt was provided with education re: supraglotic swallow and how swelling impacts swallowing. Impact on Safety and Functioning Risk for aspiration Recommendations Instrumental Assessment No Swallowing Treatment Yes Frequency 1-2x/day during hospital stay Recommended Solids Dysphagia Mechanical Recommended Liquids Altura Other Recommendations medications in a carrier Medication Recommendations Whole in Carrier,Crushed in Carrier Discharge Recommendations care home facility Education Patient/Caregiver Education Described results of evaluation,Patient expressed understanding of evaluation, Patient expressed agreement with goals & treatment plans Goals Short-term Goals 1. The pt will participate in ongoing assessment of swallow function to determine least restrictive diet and guide POC . Long-term Goals 1. The pt will demonstrate swallow safety sufficient to resume oral intake.
[2020-03-01] MEDS: predniSONE 20 MG TABLET 40 MG PO ×2 (13:35→20:49)
--- NOTE | 2020-03-01 13:39 | ST.IPDYTX ---
Visit Care Team Role Provider Type MIESHA Michelle Primary Care Provider Advanced Neurodiagnostic Technologist Specialty: Family Practice Address: [address] [place] [address], [facility] [place], [address] Email: [email or web address] Ledesma DO Other Providers Physician Specialty: Internal Medicine Address: [address] [place] [address], [address] Email: [email or web address] Teresa Saldivar MD Other Providers Physician Specialty: Family Practice Address: [address] [place] [address], [place], [address] Email: [email or web address] Abhishek Ngo MD Admit Provider Physician Attending Provider Referring Provider Specialty: Orthopedic Surgery Address: [address] [place] [address], [address] Email: [email or web address] INDUSTRIAL Dysphagia Treatment BACTERIOLOGIST INDUSTRIAL Dysphagia Treatment Start: 02/28/20 17:03 Freq: Status: Active Protocol: Document 03/01/20 13:30 LNK (Rec: 03/01/20 13:38 LNK [email or web address]) Dysphagia Treatment Session Time Visit Start Time 11:30 Visit Stop Time 12:15 Total Visit Minutes 45 Visit Type Note Type Treatment Note Next Note Type Next Note Type Re-Evaluation Patient Information Subjective Observations Patient sitting upright in bed in room. Agreeable to re- evaluation of swallowing. Per nursing, patient is being administered steroids to reduce inflammation. Treatment Treatment Activities Pt was tired, so no PO trials. Provided education for Supraglottic swallow for pt to use when eating. also described the anatomy and physiology of the pharynx. Earlier she had remarked that she thought she felt the bolus hit a bump when swallowing. Explained that may be the swelling and/or her epiglottis . Discussed aspiration precautions and posted them above bed. Placed Supraglottic swallow instructions on pt's TV. Assessment Assessment of Improvement Improvement in pt's vocal quality and her ability to swallow. Diet Recommendations Recommendations Upgrade Diet Order Liquids Order Nelson Diet Order Dysphagia Mechanical Comments Crushed in apple sauce if needed Aspiration Precautions Recommended Precautions Upright at 90 Degrees, Alternate Liquids/Solids, Frequent Rest Periods,Small Bites/Sips,Supraglottic Swallow,Liquids from Cup Treatment Plan Placement Recommendation after Discharge Intermediate Facility,Home with Home Health Appropriate for Continued Therapy Yes Therapy Recommendations Re-assess tomorrow
--- NOTE | 2020-03-01 13:41 | PM.PN.1 ---
Exam Vital Signs (past 8 hours): - 03/01/20 07:01 03/01/20 08:30 03/01/20 10:00 Temperature 97.6 F Pulse Rate 90 95 H 73 Respiratory Rate 15 Blood Pressure 173/74 H 198/80 H 168/72 H Pulse Oximetry 98 03/01/20 11:50 03/01/20 11:51 Temperature Pulse Rate 69 69 Respiratory Rate Blood Pressure 127/54 L 127/54 L Pulse Oximetry Oxygen Delivery Method Room Air Oxygen Flow Rate 0 Objective Labs Result Diagrams: 03/01/20 11:50 03/01/20 11:50 Labs: Laboratory Results - last 24 hr 03/01/20 03/01/20 03/01/20 05:35 05:35 05:35 WBC 5.5 RBC 3.40 L Hgb 9.8 L Hct 30.3 L MCV 88.9 MCH 28.9 MCHC 32.4 RDW 14.6 Plt Count 189 Neut % (Auto) 88.4 H Lymph % (Auto) 9.2 L [place] % (Auto) 1.9 L Eos % (Auto) 0.0 L Baso % (Auto) 0.5 Neut # (Auto) 4800 Lymph # (Auto) 500 L [place] # (Auto) 100 Eos # (Auto) 0 Baso # (Auto) 0 Sodium 135 L Potassium 4.6 Chloride 107 Carbon Dioxide 21 L BUN 53 H Creatinine 2.03 H Estimated GFR 24.1 L BUN/Creatinine Ratio 26.1 H Glucose 371 H D Calcium 8.4 Phosphorus Magnesium Total Bilirubin AST ALT Alkaline Phosphatase NT-Pro-B Natriuret Pep 1680 H Total Protein Albumin Globulin Albumin/Globulin Ratio TSH 0.173 L 03/01/20 03/01/20 03/01/20 11:50 11:50 11:50 WBC 8.3 D RBC 3.62 L Hgb 10.4 L Hct 32.0 L MCV 88.6 MCH 28.7 MCHC 32.3 RDW 14.6 Plt Count 243 Neut % (Auto) 84.0 H Lymph % (Auto) 8.5 L [place] % (Auto) 5.7 Eos % (Auto) 0.0 L Baso % (Auto) 1.8 Neut # (Auto) 7000 Lymph # (Auto) 700 L [place] # (Auto) 500 Eos # (Auto) 0 Baso # (Auto) 200 H Sodium 135 L Potassium 4.7 Chloride 108 H Carbon Dioxide 20 L BUN 57 H Creatinine 2.10 H Estimated GFR 23.2 L BUN/Creatinine Ratio 27.1 H Glucose 208 H D Calcium 8.8 Phosphorus 4.4 H Magnesium 2.2 Total Bilirubin 0.4 AST 29 ALT 24 Alkaline Phosphatase 73 NT-Pro-B Natriuret Pep Total Protein 6.6 Albumin 3.4 L Globulin 3.2 Albumin/Globulin Ratio 1.1 TSH Assessment & Plan Assessment & Plan narrative: Patient is POD#4 s/p C4-7 ACDF. Patient developed dysphagia post surgery. Today patient is able to eat without choking and tolerated fruit cup and other foods well. IV steroids was given for the last two days and patient responded well. On exam, her incision/dressing is clean and dry w/o discharge on dressing. Her neck is supple w/o significant swelling or signs of hematoma. Her CT c-spine showed normal post op findings w/o hematoma in the surgical area or any hardware complications. Patient can be transferred to SNF once okayed by medicine team. Patient is okay to be discharged to SNF from orthopedic standpoint. Quality VTE Deep Vein Thrombosis/Pulmonary Embolism Present on Admission: No
--- NOTE | 2020-03-01 14:21 | PT.IPTN ---
Current Diagnoses Other spondylosis with radiculopathy, cervical region (02/26/20) Spinal stenosis, cervical region (02/26/20) Surgery Performed Operation Date: 02/26/20 12:15 Actual Procedures p C4-5,C5-6,C6-7 ACDF w/anterior instrumentation - Abhishek Ngo MD Physical Therapy Treatment Note M2 PT-IP Current Condition Start: 02/27/20 12:38 Freq: NEEDED Status: Active Protocol: Document 02/27/20 13:58 AB (Rec: 02/27/20 15:24 AB [email or web address]) Physical Therapy Current Condition Current Condition Evaluation Date 02/27/20 Treatment Diagnosis s/p C4-5,5-6, 6-7 ACDF; difficulty in walking Onset Date 02/26/20 Precautions Cervical Spine Precautions Soft Collar for Comfort,No Heavy Lifting,Log Roll M3 PT-IP Subjective Start: 02/27/20 12:38 Freq: NEEDED Status: Active Protocol: Document 03/01/20 13:58 KS (Rec: 03/01/20 14:37 KS [id number]) Subjective Physical Therapy Visit Type Type Treatment Note Visit Start Time 13:58 Visit Stop Time 14:21 Total Visit Minutes 23 Notes HOME SALES SERVICE PROFESSIONAL present during treatment. Number of HELMET HAT BRIM CUTTER Visits 5 Physical Therapy Visit Comments Patient Comments Pt agreeable to work w/ therapy. M4 PT-IP Mobility and Gait Start: 02/27/20 12:38 Freq: NEEDED Status: Active Protocol: Document 03/01/20 13:58 KS (Rec: 03/01/20 14:37 KS [id number]) PT-Bed Mobility Assessment Rolling Type of Rolling Log Rolling,Roll to Left Level of Assist Contact Guard Assistance Supine to Sit Supine to Sit Minimal Assistance,1 Person Assistance,Head of Bed Elevated,Bedrails Scooting Scooting to Edge of Bed Contact Guard Assistance PT-Transfer Assessment Sit to and From Stand Sit to and from Stand Contact Guard Assistance, Minimal Assistance,1 Person Assistance,Use of Upper Extremities Equipment Transfer Assistive Device Gait Belt,Front Wheeled Walker Orthotic/Prosthetic Devices or Brace: No Transfers Transfer Destination Chair,Bedside Commode Transfer Technique Stand Step Pivot Transfer Ability Level of Assist Contact Guard Assistance, Minimal Assistance,1 Person Assistance,Use of Upper Extremities Comments Mobility Comments Pt in chair upon arrival from therapy and requesting to use BSC. Pt CGA for logroll to L w / HOB elevated and scooting to EOB. CGA to Min A and cues for sit<>Stand w/ FWW and for stand step pivot to BSC. Pt became shaky while sitting on BSC, BP:171/91. Pt CGA to Min A and cues for hand placement for stand step pivot back to bed. Pt expressed fatigue after transfers. Min A for sit <>Sidelying and logroll back into bed. Instructed pt and pt performed 1x10 bilateral ankle pumps, quad sets, and glute sets to promote blood flow and BLE strengthening. Pt left in bed w/ all needs in reach. Gait Assessment Gait Gait Assistance Required: Contact Guard Assist Distance (Feet) 2 Able to Maintain Weight Bearing Status Yes During Gait Assistive Devices Assistive Device Gait Belt,Front Wheeled Walker Orthotic/Prosthetic Devices or Brace: No Gait Deviations General Gait Pattern Antalgic,Decreased Stride Length,Decreased Feet Clearance,Flexed Trunk,Narrow Based Gait Factors Limiting Gait Function Factors Limiting Gait Function Decreased Activity Tolerance, Decreased Strength,Difficulty Following Directions,Limited Range of Motion,Poor Balance, Poor Safety Awareness Comments Gait Comments See mobility comments. Stand step pivot only. PT-Balance Assessment Sitting Balance and Reactions Static Sitting Balance Ability Good Dynamic Sitting Balance Ability Fair Standing Balance and Reactions Static Standing Balance Ability Fair Dynamic Standing Balance Ability Fair Device Used fww M5 PT-IP Objective Assessments Start: 02/27/20 12:38 Freq: NEEDED Status: Active Protocol: Document 02/27/20 13:58 AB (Rec: 02/27/20 15:24 AB [email or web address]) Orientation Orientation/Cognition Level of Alertness Alert Orientation Name,Situation Safety Awareness Decreased Safety Awareness Gross Range of Motion Lower Extremity ROM Assessment Within Functional Limits Strength Lower Extremity Strength Assessment Bilaterally Impaired Comments Strength Comments RLE 3-/5 LLE 3+/5 Sensation Assessment Sensation Gross Sensation Right UE Impaired,Left UE Impaired Sensation Description Numbness,Tingling Comments Sensation Comments stated numbness and tingling is worse on LUE Muscle Tone Muscle Tone WNL Yes M6 PT-IP Treatment Start: 02/27/20 12:38 Freq: NEEDED Status: Active Protocol: Document 03/01/20 13:58 KS (Rec: 03/01/20 14:37 KS [id number]) Physical Therapy Treatment Exercises Exercises Ankle Pumps,Gluteal Sets,Quad Sets Education Education Provided Precautions,Weight Bearing Status,Safety M7 PT-IP Assessment and Plan Start: 02/27/20 12:38 Freq: NEEDED Status: Active Protocol: Document 03/01/20 13:58 KS (Rec: 03/01/20 14:37 KS [id number]) PT Summary Assessment and Plan Potential Rehabilitation Potential Fair Status of Condition at Evaluation Evolving Summary Impairments Pain,ROM,Strength,Balance, Coordination,Sensation,Tone, Cognition,Bed Mobility, Transfers,Gait,Activity Tolerance Assessment Summary Pt has low tolerance for activity today following possible vagal response this AM. Pt only able to tolerate transfer to and from bed to BSC. Pt expressed shakiness and weakness while sitting on BSC, BP:171/91. Pt expressed fatigue following transfers ( CGA to Min A) but was able to tolerate LE strengthening exercises. PT will require SNF to improve strength, tolerance for activity, and functional mobility. Goals Bed Mobility Goal Minimal Assistance Transfer Goal Minimal Assistance,Front Wheeled Walker Gait Goal Minimal Assistance,Front Wheel Walker Gait Distance 50 Other Goals improve bed mobility, transfers to SBA improve ambulation using FWW CGA Days to Meet Goals 10 Frequency of Treatment Frequency Of Treatment Twice a Day Treatment Plan Physical Therapy Treatment Plan Bed Mobility Training,Transfer Training,Gait Training, Therapeutic Exercise,Balance Retraining,Post Op Education, Discharge Planning,Hot or Cold Pack,Neuromuscular Re-ed, Coordination Retraining,Manual Therapy Other Recommendations and Next Treatment transfers, Bed mob, gait Focus Recommendations To Nursing Amount of Assist Needed 1 Person Assist Discharge Recommendations Equipment Needed for Home Before Might be able to borrow nephew Discharge 's fWW upon DC. Transportation Needs at Discharge Wheelchair/Cabulance
--- NOTE | 2020-03-01 15:00 | CM.DPC ---
DCP: continued: case received and EMR for last few days reviewed. Pt has continued to have difficulties in her recovery from spinal cervical surgery. OT and PT were able to work with pt. She has been followed very closely by FILM OR VIDEOTAPE EDITOR for the swallow concerns. Plan has been identified as Phyllis KAUR under [employer] Adv authorization when pt is stable for same. PASRR was completed by Valentina Nation/will be reviewed prior to d/c as per protocol. Phyllis Leigh/Shelley called today for an update: She is aware that this afternoon Dr. Ngo did say pt is now stable for d/c from orthopedic standpoint and defers now to PCP to make decision as to when d/c to snf if appropriate. PCP: Dr. Saldivar was here and is continuing to follow pt medically. MILTON Marie reports pt has a Rapid Response event this afternoon while attempting to have bowel movement on toilet. Shelley/[facility] confirms that [facility] has given initial authorization and she will check to see it this will be in place for the weekend. She requests clinical documentation be faxed and this is done now. Shelley remains contact for this weekend. P: will be following as POC unfolds. Hope to talk with Dr. Saldivar or rounding partner tomorrow as well as rounding orthopedic team. An updated COVID-19 negative test will be needed before pt discharges.
--- NOTE | 2020-03-01 15:14 | DIET.PN ---
Dietary Progress Note Consult for tube feeding recs no longer needed. Pt diet advance to Dysphagia.
--- NOTE | 2020-03-01 16:09 | OT.IP.TRT ---
Current Diagnoses Other spondylosis with radiculopathy, cervical region (02/26/20) Spinal stenosis, cervical region (02/26/20) Surgery Performed Operation Date: 02/26/20 12:15 Actual Procedures p C4-5,C5-6,C6-7 ACDF w/anterior instrumentation - Abhishek Ngo MD Occupational Therapy Treatment Note M2 OT-IP Current Condition Start: 02/28/20 16:12 Freq: Status: Active Protocol: Document 02/28/20 16:13 CGR (Rec: 02/28/20 16:38 CGR [email or web address]) Occupational Therapy Current Condition Current Condition Evaluation Date 02/28/20 Treatment Diagnosis C4-7 ACDF Diagnosis Onset Date 02/26/20 Post Operative Precautions Cervical Spine Precautions Soft Collar for Comfort,Soft Collar at all Times,No Heavy Lifting,Log Roll M3 OT- IP Subjective and Pain Start: 02/28/20 16:12 Freq: Status: Active Protocol: Document 03/01/20 16:08 CGR (Rec: 03/01/20 16:09 CGR [email or web address]) OT- Subjective Occupational Therapy Visit Type Type Administrative Note Notes Attempted to see pt for OT services. Per nursing, pt had a syncope episode today with nursing and requesting that OT hold at this time. Will hold and continue to follow.
[2020-03-01] MEDS: SERTRALINE 50 MG TABLET 25 MG PO (20:49)
[2020-03-01] MEDS: SENNOSIDES 8.6 MG TABLET 17.2 MG PO (20:49)
[2020-03-01] MEDS: TERAZOSIN 1 MG CAPSULE 3 MG PO (20:52)
[2020-03-02] VITALS (8 sets, daily range): BP systolic 131–160; BP diastolic 45–81; PULSE 54–68; RESP 16–20; TEMP 35.9–36.9; O2SAT 95–100
[2020-03-02] MEDS: INSULIN ASPART 100 UNIT/ML 10ML VIAL 10 UNIT SUBCUT (01:48)
--- NOTE | 2020-03-02 01:51 | PC.NURSE ---
0000 BG = 373. Call to answering service, return call from Dr. Alice Moore who ordered, w/read back, 10 units Insulin Aspart and to change pt to [facility] BG checks. Will continue to monitor.
[2020-03-02] MEDS: DEXTROSE 5%-0.45NS W/KCL 20MEQ 1,000 ML 100 MEQ IV (05:01)
[2020-03-02] MEDS: LEVOTHYROXINE 50 MCG TABLET 25 MCG PO (05:04)
[2020-03-02 05:19] LABS: Add Manual Diff / Slide Review NO; Basophils Absolute Auto 0 /uL (0-100); Basophils Percent Auto 0.3 % (0-2); Eosinophils Absolute Auto 0 /uL (0-450); Hematocrit 28.4 % (36-46); Hemoglobin 9.1 g/dL (12.0-16.0); Lymphocytes Absolute Auto 700 /uL (1100-4500); Lymphocytes Percent Auto 10.1 % (25-40); Mean Corpuscular HGB Conc 32.2 % (30-36); Mean Corpuscular Hemoglobin 28.9 PG (26-34); Mean Corpuscular Volume 89.6 fL (80-100); Monocytes Absolute Auto 200 /uL (0-900); Monocytes Percent Auto 3.5 % (3-14); Neutrophils Absolute Auto 5900 /uL (1500-7000); Neutrophils Percent Auto 86.1 % (50-75); Platelet Count 191 X10^3/uL (150-400); Red Blood Cell Count 3.16 X10^6/uL (4.0-5.2); Red Cell Distribution Width 14.2 % (11.6-14.8); White Blood Cell Count 6.9 X10^3/uL (4.5-11.0)
[2020-03-02 05:29] LABS: BUN Creatinine Ratio 29.9 (6-22); Blood Urea Nitrogen 69 mg/dL (7-17); Calcium 8.1 mg/dL (8.4-10.2); Carbon Dioxide 18 mmol/L (22-32); Chloride 109 mmol/L (98-107); Estimated Glomerular Filt Rate 20.7 mL/min (>60); Glucose 325 mg/dL (80-110); HEMOLYSIS < 15 (0-50); Potassium 4.9 mmol/L (3.4-5.1); Sodium 133 mmol/L (137-145)
[2020-03-02 05:36] LABS: NT-proBNP (BNP-Adult 18+) 4650 pg/mL (<125)
--- NOTE | 2020-03-02 09:03 | PM.PN.1 ---
Subjective Subjective Date Patient Seen: 03/02/20 Time Patient Seen: 09:03 Interval history: Patient seen and evaluated this morning. She says she is doing okay but she has a mass. Still having hard time swallowing blood sugars are out of alignment. Reviewed laboratory testing. Hemoglobin hematocrit lower BNP is elevated blood sugars are quite high. Blood pressure is well controlled. She is not having significant amount of pain. She is up walking to the bathroom. Speech is working with her on her swallow evaluation. Reviewed recent laboratory test notes and progress notes from her surgical procedure. Exam Vital Signs (past 8 hours): - 03/02/20 04:55 Temperature 97.3 F L Pulse Rate 66 Respiratory Rate 20 Blood Pressure 131/61 Pulse Oximetry 95 Oxygen Delivery Method Room Air Oxygen Flow Rate 0 Narrative Exam Narrative: Gen.: Alert good historian HEENT: Pupils equal round reactive or mucosa is moist high Cardio: S1-S2 regular rate and rhythm no murmurs appreciated. Respiratory: Lungs are clear to auscultation no wheezes or crackles normal respiratory effort. Abdomen: Soft nontender no rebound or guarding no liver spleen enlargement no appreciable hernias Extremities: Full range of motion no appreciable weakness no cyanosis patient has some lower extremity edema. Neurologic: Grossly intact. Objective Labs Result Diagrams: 03/02/20 04:55 03/02/20 04:55 Labs: Laboratory Results - last 24 hr 03/01/20 03/01/20 03/01/20 11:50 11:50 11:50 WBC 8.3 D RBC 3.62 L Hgb 10.4 L Hct 32.0 L MCV 88.6 MCH 28.7 MCHC 32.3 RDW 14.6 Plt Count 243 Neut % (Auto) 84.0 H Lymph % (Auto) 8.5 L [place] % (Auto) 5.7 Eos % (Auto) 0.0 L Baso % (Auto) 1.8 Neut # (Auto) 7000 Lymph # (Auto) 700 L [place] # (Auto) 500 Eos # (Auto) 0 Baso # (Auto) 200 H Sodium 135 L Potassium 4.7 Chloride 108 H Carbon Dioxide 20 L BUN 57 H Creatinine 2.10 H Estimated GFR 23.2 L BUN/Creatinine Ratio 27.1 H Glucose 208 H D Calcium 8.8 Phosphorus 4.4 H Magnesium 2.2 Total Bilirubin 0.4 AST 29 ALT 24 Alkaline Phosphatase 73 NT-Pro-B Natriuret Pep Total Protein 6.6 Albumin 3.4 L Globulin 3.2 Albumin/Globulin Ratio 1.1 03/02/20 03/02/20 04:55 04:55 WBC 6.9 RBC 3.16 L Hgb 9.1 L Hct 28.4 L MCV 89.6 MCH 28.9 MCHC 32.2 RDW 14.2 Plt Count 191 Neut % (Auto) 86.1 H Lymph % (Auto) 10.1 L [place] % (Auto) 3.5 Eos % (Auto) 0.0 L Baso % (Auto) 0.3 Neut # (Auto) 5900 Lymph # (Auto) 700 L [place] # (Auto) 200 Eos # (Auto) 0 Baso # (Auto) 0 Sodium 133 L Potassium 4.9 Chloride 109 H Carbon Dioxide 18 L BUN 69 H Creatinine 2.31 H Estimated GFR 20.7 L BUN/Creatinine Ratio 29.9 H Glucose 325 H D Calcium 8.1 L Phosphorus Magnesium Total Bilirubin AST ALT Alkaline Phosphatase NT-Pro-B Natriuret Pep 4650 H Total Protein Albumin Globulin Albumin/Globulin Ratio Assessment & Plan Assessment & Plan narrative: Fluid overload. Patient has signs and symptoms consistent with extra fluid. Her BUN and creatinine have been up. Hemoglobin hematocrit down weight is up. Fluid status is also up. Patient's blood pressure is now well controlled. Were going to go ahead and stop her IV fluids at this point as she seems to be eating a little bit better. I am going to put her on IV Lasix 3 doses today. With some potassium which I think will help. I am hoping this will help improve her kidney function. Will monitor closely her electrolytes and provide potassium replacement her BNP is also elevated over the last few days that also may be due to her ongoing kidney injury., Acute kidney injury on top of chronic renal failure. Patient's BUN and creatinine has continued to climb. I think most likely it is due to patient's being fluid overloaded. I think will proceed with some diuresis and hopefully this will help improve with her kidney function stop her IV fluids. And monitor closely her electrolytes. Patient's needs stabilized from a medical standpoint before transfer to halfway facility. Hypertension. Patient's blood pressure is better controlled. Will stop a couple of her blood pressure medication as we are introducing Lasix due to her fluid overload. Spinal stenosis status post spinal surgery. Complicated by dysphagia and odynophagia. Patient was given steroids and working with speech and swallow. This is improved. Were going to go ahead and stop her steroids today as it is totally caused significant elevation of her blood sugars I think they have also impacted her focus concentration memory as well. This can be a day or 2 before she is stable to be able to be transferred. Hypothyroidism. Continue with current thyroid medication Depression continue with sertraline 25 mg a day Quality VTE Deep Vein Thrombosis/Pulmonary Embolism Present on Admission: No
[2020-03-02] MEDS: INSULIN ASPART 100 UNIT/ML INSULN PEN 6 UNIT SUBCUT ×2 (09:24→12:43)
[2020-03-02] MEDS: INSULIN ASPART 100 UNIT/ML INSULN PEN SUBCUT ×4 (09:25→20:56)
[2020-03-02] MEDS: METOPROLOL IR 50 MG TABLET PO (09:29)
[2020-03-02] MEDS: ACETAMINOPHEN 325 MG TABLET 650 MG PO (09:29)
[2020-03-02] MEDS: AMLODIPINE 5 MG TABLET 10 MG PO (09:29)
[2020-03-02] MEDS: hydroCHLOROthiazide 25 MG TABLET 50 MG PO (09:29)
[2020-03-02] MEDS: DOCUSATE 100 MG CAPSULE PO ×2 (09:29→20:58)
[2020-03-02] MEDS: INSULIN GLARGINE 100 UNIT/ML 3ML PEN 18 UNIT SUBCUT (09:30)
[2020-03-02] MEDS: FUROSEMIDE 40 MG/4 ML VIAL IV ×2 (09:30→17:31)
[2020-03-02] MEDS: ENALAPRIL 20 MG TABLET PO ×2 (09:31→20:55)
[2020-03-02] MEDS: SODIUM CHLORIDE 0.9% FLUSH 10 ML IV ×2 (09:31→20:56)
--- NOTE | 2020-03-02 10:06 | ST.IPDYTX ---
Visit Care Team Role Provider Type MIESHA Michelle Primary Care Provider Advanced Employment Law Attorney Specialty: Family Practice Address: [address] [place] [address], [place], [address] Email: [email or web address] Ledesma DO Other Providers Physician Specialty: Internal Medicine Address: [address] [place] [address], [address] Email: [email or web address] Teresa Saldivar MD Other Providers Physician Specialty: Family Practice Address: [address] [place] [address], [place], [address] Email: [email or web address] Ngo MD Admit Provider Physician Attending Provider Referring Provider Specialty: Orthopedic Surgery Address: [address] [place] [address], [address] Email: [email or web address] CUPROUS CHLORIDE HELPER Dysphagia Treatment CUPROUS CHLORIDE HELPER Dysphagia Treatment Start: 02/28/20 17:03 Freq: Status: Active Protocol: Document 03/02/20 09:54 MG (Rec: 03/02/20 10:05 MG [email or web address]) Dysphagia Treatment Session Time Visit Start Time 09:00 Visit Stop Time 09:45 Total Visit Minutes 1 Setting Assessment Location Acute Care Visit Type Note Type Treatment Note Next Note Type Next Note Type Treatment Note Patient Information Identification Type Name,ID Wristband Subjective Observations Pt was sitting upright in bed. Pt had not had breakfast yet. Pt requested to use the restroom prior to eating breakfast. Pt reported she was feeling cranky and grumpy this morning. Treatment Liquids Trialed Pegram Solids Trialed Puree,Dysphagia Mechanical Administration Type Controlled Cup Sip Oral Strategies Upright at 90 degrees, Controlled Bite/Sip Size, Alternate Liquids/Solids Pharyngeal Strategies Sitting Upright (90 deg), Supraglottic Swallow,Small Bites and Sips Treatment Activities Pt was irritable and appeared a bit confused when speaking ( e.g., repeating past conversations already discussed). Pt required multiple prompts to try and eat breakfast. When eating dysphagia mechanical and puree foods, pt showed no overt s/ sx of aspiration. When drinking nectar thick liquids, pt showed no overt s/sx of aspiration. Voiced appeared strong, but had some moments of weakness and reduced volume , most likely due to overuse. Per nurse, pt could not tolerate whole pills in carrier. When observed crushed in carrier, she tolerated well and could manage taking pills. Assessment Patient Response to Treatment Fair Rehab Potential Fair Assessment of Improvement Improvement in pt's vocal quality and her ability to swallow. Diet Recommendations Recommendations Continue Current Diet Liquids Order Pegram Diet Order Dysphagia Mechanical Medication Recommendations Crushed in Carrier Additional Dietary Needs Single Sips,No Straws, Encourage to Self-Feed Aspiration Precautions Recommended Precautions Upright at 90 Degrees, Alternate Liquids/Solids,Small Bites/Sips,Supraglottic Swallow,Liquids from Cup Treatment Plan Placement Recommendation after Discharge [facility] Facility Appropriate for Continued Therapy Yes Therapy Recommendations Continue to re-assess tolerance of diet.
--- NOTE | 2020-03-02 10:42 | PM.PN.1 ---
Subjective Subjective Date Patient Seen: 03/02/20 Time Patient Seen: 10:42 Interval history: Patient is POD#5 s/p C4-[address] Ngo. Pain continues to be well controlled. Swallowing continuing to improve. Patient is frustrated due to the length of her hospitalization and is feeling irritable. Exam Vital Signs (past 8 hours): - 03/02/20 04:55 03/02/20 08:54 03/02/20 10:28 Temperature 97.3 F L 98.2 F Pulse Rate 66 61 68 Respiratory Rate 20 16 18 Blood Pressure 131/61 141/45 H Pulse Oximetry 95 97 98 Oxygen Delivery Method Room Air Oxygen Flow Rate 0 Narrative Exam Narrative: 74 year old female resting in bed, alert and oriented in no acute distress. Dressing in place is CDI. Neurovascularly intact in BL UE. Cartography Supervisor strength is equal. Objective Labs Result Diagrams: 03/02/20 04:55 03/02/20 04:55 Labs: Laboratory Results - last 24 hr 03/01/20 03/01/20 03/01/20 11:50 11:50 11:50 WBC 8.3 D RBC 3.62 L Hgb 10.4 L Hct 32.0 L MCV 88.6 MCH 28.7 MCHC 32.3 RDW 14.6 Plt Count 243 Neut % (Auto) 84.0 H Lymph % (Auto) 8.5 L [place] % (Auto) 5.7 Eos % (Auto) 0.0 L Baso % (Auto) 1.8 Neut # (Auto) 7000 Lymph # (Auto) 700 L [place] # (Auto) 500 Eos # (Auto) 0 Baso # (Auto) 200 H Sodium 135 L Potassium 4.7 Chloride 108 H Carbon Dioxide 20 L BUN 57 H Creatinine 2.10 H Estimated GFR 23.2 L BUN/Creatinine Ratio 27.1 H Glucose 208 H D Calcium 8.8 Phosphorus 4.4 H Magnesium 2.2 Total Bilirubin 0.4 AST 29 ALT 24 Alkaline Phosphatase 73 NT-Pro-B Natriuret Pep Total Protein 6.6 Albumin 3.4 L Globulin 3.2 Albumin/Globulin Ratio 1.1 03/02/20 03/02/20 04:55 04:55 WBC 6.9 RBC 3.16 L Hgb 9.1 L Hct 28.4 L MCV 89.6 MCH 28.9 MCHC 32.2 RDW 14.2 Plt Count 191 Neut % (Auto) 86.1 H Lymph % (Auto) 10.1 L [place] % (Auto) 3.5 Eos % (Auto) 0.0 L Baso % (Auto) 0.3 Neut # (Auto) 5900 Lymph # (Auto) 700 L [place] # (Auto) 200 Eos # (Auto) 0 Baso # (Auto) 0 Sodium 133 L Potassium 4.9 Chloride 109 H Carbon Dioxide 18 L BUN 69 H Creatinine 2.31 H Estimated GFR 20.7 L BUN/Creatinine Ratio 29.9 H Glucose 325 H D Calcium 8.1 L Phosphorus Magnesium Total Bilirubin AST ALT Alkaline Phosphatase NT-Pro-B Natriuret Pep 4650 H Total Protein Albumin Globulin Albumin/Globulin Ratio Assessment & Plan Assessment & Plan narrative: Patient with postoperative dysphagia that improved after administration of steroids x2 days. Steroids discontinued by medicine due to continued disruption in her blood glucose. ROBBIE with history of renal failure, being managed by medicine team. They anticipate 1-2 additional days inpatient. Discharge to SNF once medically stable. Quality VTE Deep Vein Thrombosis/Pulmonary Embolism Present on Admission: No
--- NOTE | 2020-03-02 11:00 | OT.IP.TRT ---
Current Diagnoses Other spondylosis with radiculopathy, cervical region (02/26/20) Spinal stenosis, cervical region (02/26/20) Surgery Performed Operation Date: 02/26/20 12:15 Actual Procedures p C4-5,C5-6,C6-7 ACDF w/anterior instrumentation - Abhishek Ngo MD Occupational Therapy Treatment Note M2 OT-IP Current Condition Start: 02/28/20 16:12 Freq: Status: Active Protocol: Document 02/28/20 16:13 CGR (Rec: 02/28/20 16:38 CGR [email or web address]) Occupational Therapy Current Condition Current Condition Evaluation Date 02/28/20 Treatment Diagnosis C4-7 ACDF Diagnosis Onset Date 02/26/20 Post Operative Precautions Cervical Spine Precautions Soft Collar for Comfort,Soft Collar at all Times,No Heavy Lifting,Log Roll M3 OT- IP Subjective and Pain Start: 02/28/20 16:12 Freq: Status: Active Protocol: Document 03/02/20 13:25 CGR (Rec: 03/02/20 13:37 CGR [email or web address]) OT- Subjective Occupational Therapy Visit Type Type Progress Note Visit Start Time 10:37 Visit Stop Time 11:00 Total Visit Minutes 23 Notes co-treat with P.T. Occupational Therapy Visit Comments Patient Comments I am glad I am able to do more today. OT Pain Assessment Pain When Pain Assessed During Mobility Pain Present Pain Present Pain Reported Location Neck Scale Used did not rate Management Techniques Distraction,Modification of Treatment,Re-positioning M4 OT- IP ADL's Start: 02/28/20 16:12 Freq: Status: Active Protocol: Document 03/02/20 13:25 CGR (Rec: 03/02/20 13:37 CGR [email or web address]) OT [id number] Comments OT Self-Feeding Comments Not meal time OT ADL-Grooming General Evaluation Grooming Ability Standby Assistance Areas Needing Assistance Combing/Brushing Hair Comments OT Grooming Comments standing at sink OT ADL-Oral Care Comments Oral Care Comments not performed OT ADL-Dressing General Eval Upper Body Dressing Ability Standby Assistance Lower Body Dressing Ability Moderate Assistance Areas Needing Assistance Retrieving/Set-up of Clothing, Socks Comments OT Dressing Comments hospital gown and socks. Pt was able to dry LLE and don sock to LLE but needed assist for drying and doffing sock to RLE. OT ADL-Toileting Comments OT Toileting Comments not performed OT ADL-Bathing Bathing Type Bathing Type Shower General Evaluation Bathing Ability Standby Assistance Areas Needing Assistance Retrieving/Setting Up Items, Wash/Dry Lower Extremities Comments OT Bathing Comments Pt found standing in shower when OT/PT entered the room. Pt needed assist with drying off RLE and set up of items. M5 OT- IP IADL's Start: 02/28/20 16:12 Freq: Status: Active Protocol: Document 02/28/20 16:13 CGR (Rec: 02/28/20 16:38 CGR [email or web address]) OT-Instrumental Activities of Daily Living Deficits IADL Deficits Identified Deficits Home Safety Awareness Awareness of Need for Assistance at Home Decreased Awareness Ability to Problem Solve Emergency Unable to Problem Solve Situations Medication Management Medication Management Comments Concerns for medication management at this time Money Management Money Management Comments Concerns for money management at this time. Meal Preparation Meal Preparation Comments Concerns for ability to provide meals. 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 Driving Driving Concerns Identified Regarding Safety M6 OT- IP Functional Cognition Start: 02/28/20 16:12 Freq: Status: Active Protocol: Document 02/29/20 10:36 CCC (Rec: 02/29/20 10:46 CCC [email or web address]) Cognitive Factors Limiting Selfcare Function Cognitive Ability Level of Alertness Alert Patient Orientation Name,Date,Year,Day of Week, Place,Situation Attention Span Ability Capable of Focused Attention, Capable of Sustained Attention Ability to Follow Commands Able to Follow One Step Commands Memory Description Short Term Impaired Cognitive Tests SLUMS Pt re-tested and pt scored 20/ 30 much improved from yesterday, pt still having deficits with her short term memory. NO able to recall any of the 5 words after passed. NOt able to draw the hours hands correctly after time given, able to name 13 animals in 1 minute, and able to answer 3/4 questions right after paragraph read. Cognitive Comments Cognitive Assessment Comments Pt admits at times at home has decreased STM, but stil does not feel that she is at baseline. M7 OT- IP Mobility and Balance Start: 02/28/20 16:12 Freq: Status: Active Protocol: Document 03/02/20 13:25 CGR (Rec: 03/02/20 13:37 CGR [email or web address]) OT- Bed Mobility Assessment Sit to Supine Sit to Supine Assist Contact Guard Assistance Scooting Scooting to Edge of Bed Contact Guard Assistance OT-Transfer Assessment Sit to and From Stand Sit to and from Stand Contact Guard Assistance Transfers Transfer Ability Contact Guard Assistance Technique Transfer Destination Bed,Chair,Shower Stall Transfer Technique Stand Step Pivot Devices Transfer Assistive Devices Gait Belt,Front Wheeled Walker Comments Mobility Comments Pt found in shower stall showering when OT entered. Pt then ambulated into room and stood at sink for brushing hair before ambulating out into castro. See P.T. note for distance. Pt needed to sit in chair and was rolled back to her room d/t feeling woozy. BP 133/60 upon supine in bed at end of session. OT- Gait Assessment Comments Gait Ability Comments See P.T. note OT- Balance Assessment Sitting Balance and Reactions Static Sitting Balance Ability Good Dynamic Sitting Balance Ability Fair M8 OT- IP Objective Assessments Start: 02/28/20 16:12 Freq: Status: Active Protocol: Document 02/28/20 16:13 CGR (Rec: 02/28/20 16:38 CGR [email or web address]) OT Gross Range of Motion Upper Extremity Range of Motion Assessment Within Functional Limits OT Strength Comments Strength Comments not assessed except hands (4/5 ) d/t pain and recent cervical sx. OT- Coordination Assessment Upper Extremity Finger to Nose Test Bilateral UE Impaired Finger Tapping Test Bilateral UE Impaired Comments Coordination Comments Pt with poor coordination throughout session with brushing teeth, writing, and testing. Pt was able to complete clock on SLUMS with shakey but readable numbers. OT-Muscle Tone Assessment Muscle Tone WNL Yes OT Sensation Assessment Edema Edema Absent M9 OT- IP Assessment and Plan Start: 02/28/20 16:12 Freq: Status: Active Protocol: Document 03/02/20 13:25 CGR (Rec: 03/02/20 13:37 CGR [email or web address]) OT Summary Assessment and Plan Potential Rehabilitation Potential Good Analytic Complexity at Evaluation High Summary OT Impairments Pain,Strength,Balance, Coordination,Sensation, Functional Cognition, Functional Mobility,Self- Feeding,Grooming,Dressing, Toileting,Bathing,Toilet Transfers,Shower Transfers, Activity Tolerance Progress Towards Goals Slow Progress due to Medical Issues,Slow Progress due to Activity Tolerance,Slow Progress due to Cognition Assessment Summary Pt tolerated session well but with poor endurance. Pt states wooziness with ambulating in the castro. Pt returned to bed at end of session. Noted, pt can don sock to LLE but needs help with RLE Goals Self-Feeding Goal Independent Grooming Goal Independent Dressing Goal Independent Toileting Goal Independent Bathing Goal Independent Toilet Transfer Goal Independent Shower Transfer Goal Independent Days to Meet Goals 15 Frequency of Treatment Frequency Of Treatment Once a Day Treatment Plan OT Treatment Plan ADL Training,Functional Cognition Training,Functional Mobility,Patient/Family Education,Discharge Planning Other Treatment Recommendations and Next SHower Treatment Focus Discharge Recommendations OT Discharge Recommendations SNF Rehab Home Equipment Needs tub transfer bench. Transportation Needs at Discharge Wheelchair/Cabulance
--- NOTE | 2020-03-02 11:01 | PT.IPTN ---
Current Diagnoses Other spondylosis with radiculopathy, cervical region (02/26/20) Spinal stenosis, cervical region (02/26/20) Surgery Performed Operation Date: 02/26/20 12:15 Actual Procedures p C4-5,C5-6,C6-7 ACDF w/anterior instrumentation - Abhishek Ngo MD Physical Therapy Treatment Note M2 PT-IP Current Condition Start: 02/27/20 12:38 Freq: NEEDED Status: Active Protocol: Document 02/27/20 13:58 AB (Rec: 02/27/20 15:24 AB [email or web address]) Physical Therapy Current Condition Current Condition Evaluation Date 02/27/20 Treatment Diagnosis s/p C4-5,5-6, 6-7 ACDF; difficulty in walking Onset Date 02/26/20 Precautions Cervical Spine Precautions Soft Collar for Comfort,No Heavy Lifting,Log Roll M3 PT-IP Subjective Start: 02/27/20 12:38 Freq: NEEDED Status: Active Protocol: Document 03/02/20 10:38 KS (Rec: 03/02/20 12:56 KS [id number]) Subjective Physical Therapy Visit Type Type Treatment Note Visit Start Time 10:38 Visit Stop Time 11:01 Total Visit Minutes 23 Notes Co-treat w/ OT Number of RELIABILITY TECHNOLOGIST Visits 6 Physical Therapy Visit Comments Patient Comments Pt agreeable to work w/ therapy. M4 PT-IP Mobility and Gait Start: 02/27/20 12:38 Freq: NEEDED Status: Active Protocol: Document 03/02/20 10:38 KS (Rec: 03/02/20 12:56 KS [id number]) PT-Bed Mobility Assessment Rolling Type of Rolling Log Rolling Level of Assist Contact Guard Assistance Sit to Supine Sit to Supine Contact Guard Assistance,1 Person Assistance,Bedrails Scooting Scooting to Edge of Bed Contact Guard Assistance PT-Transfer Assessment Sit to and From Stand Sit to and from Stand Contact Guard Assistance,1 Person Assistance,Use of Upper Extremities Equipment Transfer Assistive Device Gait Belt,Front Wheeled Walker Orthotic/Prosthetic Devices or Brace: No Transfers Transfer Destination Bed,Chair,Bedside Commode Transfer Technique pt ambulated w/ FWW Transfer Ability Level of Assist Contact Guard Assistance,1 Person Assistance,Use of Upper Extremities Comments Mobility Comments Pt in shower upon arrival from PT and OT. Pt stand<>sit on shower chair CGA for drying off. Pt then sit<>stand w/ FWW and ambulated to sink to brush hair and was able to maintain standing balance for 3 min. She then ambulated ~60 [address] in hallway w/ FWW CGA w/ chair follow. Pt requested to sit after ~60 ft ambulation and was rolled back to room d/ t fatigue. Pt sit<>stand and stand step pivot to bed from chair CGA. Pt then sit<> sideyling and logroll CGA into bed and left in bed w/ all needs in reach. Gait Assessment Gait Gait Assistance Required: Contact Guard Assist,1 Person Assist Distance (Feet) 60 Able to Maintain Weight Bearing Status Yes During Gait Assistive Devices Assistive Device Gait Belt,Front Wheeled Walker Orthotic/Prosthetic Devices or Brace: No Gait Deviations General Gait Pattern Antalgic,Decreased Stride Length,Decreased Feet Clearance,Flexed Trunk,Narrow Based Gait Factors Limiting Gait Function Factors Limiting Gait Function Decreased Activity Tolerance, Decreased Strength,Difficulty Following Directions,Limited Range of Motion,Poor Balance, Poor Safety Awareness Comments Gait Comments Pt ambulated ~60 ft w/ FWW CGA . Pt reported fatigue after 60 ft ambulation and was transported back to room in chair. PT-Balance Assessment Sitting Balance and Reactions Static Sitting Balance Ability Good Dynamic Sitting Balance Ability Fair Standing Balance and Reactions Static Standing Balance Ability Fair Dynamic Standing Balance Ability Fair Device Used fww M5 PT-IP Objective Assessments Start: 02/27/20 12:38 Freq: NEEDED Status: Active Protocol: Document 02/27/20 13:58 AB (Rec: 02/27/20 15:24 AB [email or web address]) Orientation Orientation/Cognition Level of Alertness Alert Orientation Name,Situation Safety Awareness Decreased Safety Awareness Gross Range of Motion Lower Extremity ROM Assessment Within Functional Limits Strength Lower Extremity Strength Assessment Bilaterally Impaired Comments Strength Comments RLE 3-/5 LLE 3+/5 Sensation Assessment Sensation Gross Sensation Right UE Impaired,Left UE Impaired Sensation Description Numbness,Tingling Comments Sensation Comments stated numbness and tingling is worse on LUE Muscle Tone Muscle Tone WNL Yes M6 PT-IP Treatment Start: 02/27/20 12:38 Freq: NEEDED Status: Active Protocol: Document 03/02/20 10:38 KS (Rec: 03/02/20 12:56 KS [id number]) Physical Therapy Treatment Education Education Provided Precautions,Weight Bearing Status,Safety M7 PT-IP Assessment and Plan Start: 02/27/20 12:38 Freq: NEEDED Status: Active Protocol: Document 03/02/20 10:38 KS (Rec: 03/02/20 12:56 KS [id number]) PT Summary Assessment and Plan Potential Rehabilitation Potential Fair Status of Condition at Evaluation Evolving Summary Impairments Pain,ROM,Strength,Balance, Coordination,Sensation,Tone, Cognition,Bed Mobility, Transfers,Gait,Activity Tolerance Assessment Summary Pt showed improvement w/ mobility this treatment, CGA for transfers, logroll, and ambulation. Pt ambulated ~60 ft w/ FWW in hallway CGA but became very fatigued and needed chair transport back to chair. Pt remains limited by weakness and low tolerance for activity and will benefit from SNF to improve strength and functional mobility. Goals Bed Mobility Goal Minimal Assistance Transfer Goal Minimal Assistance,Front Wheeled Walker Gait Goal Minimal Assistance,Front Wheel Walker Gait Distance 50 Other Goals improve bed mobility, transfers to SBA improve ambulation using FWW CGA Days to Meet Goals 10 Frequency of Treatment Frequency Of Treatment Twice a Day Treatment Plan Physical Therapy Treatment Plan Bed Mobility Training,Transfer Training,Gait Training, Therapeutic Exercise,Balance Retraining,Post Op Education, Discharge Planning,Hot or Cold Pack,Neuromuscular Re-ed, Coordination Retraining,Manual Therapy Other Recommendations and Next Treatment transfers, Bed mob, gait Focus Recommendations To Nursing Amount of Assist Needed 1 Person Assist Discharge Recommendations PT Discharge Recommendations SNF Rehab Equipment Needed for Home Before Might be able to borrow nephew Discharge 's fWW upon DC. Transportation Needs at Discharge Wheelchair/Cabulance
--- NOTE | 2020-03-02 11:15 | PC.NURSE ---
Addendum entered by Cynthia Parnell R.N. 03/02/20 15:16: Per trust advisor patients heart rate has dipped down into the 40s and has been in the 50s-60s. Phoned and he states that if her heart rate sustains in the 40s then call him and she can be put in the icu. She is stable at this point, was up with pt. BP 150s/55, and she had a bowel movement. Her metoprolol has been d/cd. Original Note: Patient telling everybody that she is agitated and she was rude to my PACKAGING LINE OPERATOR. She tapped PACKAGING LINE OPERATOR on the hand when she was appropriately trying to help her walk. Set boundary's with patient and explained to her that just because she is agitated, it is not appropriate to take her aggression out on staff. She was easily encouraged with this and has been nice to staff since. Patient does have a lot going on with her today. Her BNP is in the 4000s, and her blood sugar this am 301. aware of this and has d/c her iv fluids, and d/cd her oral prednisone. He thinks that she is agitated from being on steroids for the last few days and that this is also increasing to her blood sugars. Patient is a diabetic, She had her lantus and a total of 15u of novolog insulin. Patient allowed game farm supervisor to give her a shower, and patient was much more pleasant. She then ambulated in the halls with PT and did become light headed. She sat back down in the chair and they put her back to bed. Her blood pressure was wnl. Patient is doing better with swallowing, her po medications need to be crushed in pudding or apple sauce. She states that they taste terrible, but is able to get them down this way. She denies pain or discomfort, numbess or tingling down her extremities. Dressing to anterior neck is cdi. also states that patient is in fluid overload, her lung sounds are clear, she does have 2+edema to her legs and feet. 40mg of iv lasix given to patient.
--- NOTE | 2020-03-02 12:12 | CM.DPC ---
DCP: continued: Met with pt after EMR review. Dr. Tavarez is following for medicine service this weekend and did see pt this morning. He anticipates pt will need a day or 2 more in the hospital before being stable for d/c to [facility]. [facility] was here, confirms pt is stable from ortho standpoint and that they are deferring to medical service to say when pt is ready to leave hospital. Pt reports that she has been feeling wild and out of control and that this is not who I am. She reports she did get some rest and I am finally starting to feel calmer. Discussed steroid use and how this can affect mood and behavior. Pt does report she had a very successful treatment with PT today, walking out in the halls and I feel exhausted now but much better. Pt expresses her distress that she is eating so differently than her usual and there is little in the nectar thick foods that she likes. Diesel Inspector has been following. Have left a message with attorney law clerk team now to see if anyone available this weekend to work more with pt on her dietary concerns. CEREAL MAKER is continuing to work with pt. These notes plus the updated notes from Dr. Tavarez and [facility] are faxedf now to [facility] as they will need to keep the snf authorization process going with [employer]. Vm is left for [facility] admissions liaison re no d/c for today. Likely tomorrow or Wednesday. Will need COVID test prior to d/c. Pt states again todaay that she remains agreeable to the d/c to [facility] plan when stable for same.
--- NOTE | 2020-03-02 15:09 | PT.IPTN ---
Current Diagnoses Other spondylosis with radiculopathy, cervical region (02/26/20) Spinal stenosis, cervical region (02/26/20) Surgery Performed Operation Date: 02/26/20 12:15 Actual Procedures p C4-5,C5-6,C6-7 ACDF w/anterior instrumentation - Abhishek Ngo MD Physical Therapy Treatment Note M2 PT-IP Current Condition Start: 02/27/20 12:38 Freq: NEEDED Status: Active Protocol: Document 02/27/20 13:58 AB (Rec: 02/27/20 15:24 AB [id number]) Physical Therapy Current Condition Current Condition Evaluation Date 02/27/20 Treatment Diagnosis s/p C4-5,5-6, 6-7 ACDF; difficulty in walking Onset Date 02/26/20 Precautions Cervical Spine Precautions Soft Collar for Comfort,No Heavy Lifting,Log Roll M3 PT-IP Subjective Start: 02/27/20 12:38 Freq: NEEDED Status: Active Protocol: Document 03/02/20 14:39 KS (Rec: 03/02/20 15:51 KS [id number]) Subjective Physical Therapy Visit Type Type Treatment Note Visit Start Time 14:39 Visit Stop Time 15:09 Total Visit Minutes 30 Number of WELDING FOREMAN Visits 7 Physical Therapy Visit Comments Patient Comments Pt agreeable to work w/ therapy. M4 PT-IP Mobility and Gait Start: 02/27/20 12:38 Freq: NEEDED Status: Active Protocol: Document 03/02/20 14:39 KS (Rec: 03/02/20 15:51 KS [id number]) PT-Bed Mobility Assessment Rolling Type of Rolling Log Rolling Level of Assist Contact Guard Assistance Supine to Sit Supine to Sit Minimal Assistance,1 Person Assistance,Head of Bed Elevated,Bedrails Sit to Supine Sit to Supine Contact Guard Assistance,1 Person Assistance,Bedrails Scooting Scooting to Edge of Bed Contact Guard Assistance PT-Transfer Assessment Sit to and From Stand Sit to and from Stand Contact Guard Assistance,1 Person Assistance,Use of Upper Extremities Equipment Transfer Assistive Device Gait Belt,Front Wheeled Walker Orthotic/Prosthetic Devices or Brace: No Transfers Transfer Destination Bed,Toilet Transfer Technique pt ambulated w/ FWW Transfer Ability Level of Assist Contact Guard Assistance,1 Person Assistance,Use of Upper Extremities Comments Mobility Comments Pt in bed upon arrival from therapy. CGA for logroll and sidelying<>sit w/ use of bed rails. CGA for scooting to EOB and sit<>stand w/ FWW. Pt then ambulated to toilet, able to maintain seated balance on toilet while having bowel movement (RN notified). Pt then ambulated addtional 30 ft around room w/ FWW and reported slight fatigue and lightheadedness upon return to bed. Min A for sit<>sidelying for LE guidance into bed. BP: 150/55. Pt left in bed w/ all needs in reach. RN notified of bowel movement, dizziness, and BP. Gait Assessment Gait Gait Assistance Required: Contact Guard Assist,1 Person Assist Distance (Feet) 40 Able to Maintain Weight Bearing Status Yes During Gait Assistive Devices Assistive Device Gait Belt,Front Wheeled Walker Orthotic/Prosthetic Devices or Brace: No Gait Deviations General Gait Pattern Antalgic,Decreased Stride Length,Decreased Feet Clearance,Flexed Trunk,Narrow Based Gait Factors Limiting Gait Function Factors Limiting Gait Function Decreased Activity Tolerance, Decreased Strength,Difficulty Following Directions,Limited Range of Motion,Poor Balance, Poor Safety Awareness Comments Gait Comments Please refer to mobility section for details. PT-Balance Assessment Sitting Balance and Reactions Static Sitting Balance Ability Good Dynamic Sitting Balance Ability Fair Standing Balance and Reactions Static Standing Balance Ability Fair Dynamic Standing Balance Ability Fair Device Used fww M5 PT-IP Objective Assessments Start: 02/27/20 12:38 Freq: NEEDED Status: Active Protocol: Document 02/27/20 13:58 AB (Rec: 02/27/20 15:24 AB [email or web address]) Orientation Orientation/Cognition Level of Alertness Alert Orientation Name,Situation Safety Awareness Decreased Safety Awareness Gross Range of Motion Lower Extremity ROM Assessment Within Functional Limits Strength Lower Extremity Strength Assessment Bilaterally Impaired Comments Strength Comments RLE 3-/5 LLE 3+/5 Sensation Assessment Sensation Gross Sensation Right UE Impaired,Left UE Impaired Sensation Description Numbness,Tingling Comments Sensation Comments stated numbness and tingling is worse on LUE Muscle Tone Muscle Tone WNL Yes M6 PT-IP Treatment Start: 02/27/20 12:38 Freq: NEEDED Status: Active Protocol: Document 03/02/20 14:39 KS (Rec: 03/02/20 15:51 KS [id number]) Physical Therapy Treatment Exercises Exercises Ankle Pumps,Gluteal Sets,Quad Sets Education Education Provided Precautions,Weight Bearing Status,Safety Other Treatments Other Treatment Performed Reveiwed LE strengthening exercises, which pt states she has been completing in bed but is tired afterwards. M7 PT-IP Assessment and Plan Start: 02/27/20 12:38 Freq: NEEDED Status: Active Protocol: Document 03/02/20 14:39 KS (Rec: 03/02/20 15:51 KS [id number]) PT Summary Assessment and Plan Potential Rehabilitation Potential Fair Status of Condition at Evaluation Evolving Summary Impairments Pain,ROM,Strength,Balance, Coordination,Sensation,Tone, Cognition,Bed Mobility, Transfers,Gait,Activity Tolerance Assessment Summary Pt CGA to Min A for bed mobility, CGA for sit<>stand and ambulation. Pt remains limited by low tolerance for activity and weakness only tolerating ~40 ft ambulation w / FWW this afternoon prior to reporting fatigue and slight dizziness. Pt will benefit from SNF to improve tolerance for activity and functional independence. Goals Bed Mobility Goal Minimal Assistance Transfer Goal Minimal Assistance,Front Wheeled Walker Gait Goal Minimal Assistance,Front Wheel Walker Gait Distance 50 Other Goals improve bed mobility, transfers to SBA improve ambulation using FWW CGA Days to Meet Goals 10 Frequency of Treatment Frequency Of Treatment Twice a Day Treatment Plan Physical Therapy Treatment Plan Bed Mobility Training,Transfer Training,Gait Training, Therapeutic Exercise,Balance Retraining,Post Op Education, Discharge Planning,Hot or Cold Pack,Neuromuscular Re-ed, Coordination Retraining,Manual Therapy Other Recommendations and Next Treatment transfers, Bed mob, gait Focus Recommendations To Nursing Amount of Assist Needed 1 Person Assist Discharge Recommendations PT Discharge Recommendations SNF Rehab Equipment Needed for Home Before Might be able to borrow nephew Discharge 's fWW upon DC. Transportation Needs at Discharge Wheelchair/Cabulance
[2020-03-02] MEDS: POTASSIUM CHLORIDE 20 MEQ/15 ML UDC PO (17:31)
[2020-03-02] MEDS: SERTRALINE 50 MG TABLET 25 MG PO (20:56)
[2020-03-02] MEDS: SENNOSIDES 8.6 MG TABLET 17.2 MG PO (20:56)
--- NOTE | 2020-03-02 21:49 | PC.NURSE ---
Patient has made multiple attempts to convince staff to let her have plain water and that it won't kill me. Educated patient on swallow recommendations and the need for nectar thick liquids. She reports that her swallow is better but no one will change it. Patient believes the meals she's being given are bad for her diabetes including the juice used to give her the liquid potassium. Today's blood sugars have been 301, 201, 86, and 213. Patient acknowledge teaching about safe swallowing but is continues to be unhappy about her diet and restrictions.
[2020-03-03] VITALS (7 sets, daily range): BP systolic 118–168; BP diastolic 57–74; PULSE 62–82; RESP 16–20; TEMP 36.1–36.6; O2SAT 98–100
[2020-03-03 05:24] LABS: Add Manual Diff / Slide Review NO; Basophils Absolute Auto 0 /uL (0-100); Basophils Percent Auto 0.4 % (0-2); Eosinophils Absolute Auto 0 /uL (0-450); Hematocrit 30.8 % (36-46); Hemoglobin 10.1 g/dL (12.0-16.0); Lymphocytes Absolute Auto 1200 /uL (1100-4500); Mean Corpuscular HGB Conc 32.7 % (30-36); Mean Corpuscular Hemoglobin 28.8 PG (26-34); Mean Corpuscular Volume 88.3 fL (80-100); Monocytes Absolute Auto 500 /uL (0-900); Monocytes Percent Auto 6.5 % (3-14); Neutrophils Absolute Auto 6000 /uL (1500-7000); Neutrophils Percent Auto 77.1 % (50-75); Platelet Count 243 X10^3/uL (150-400); Red Cell Distribution Width 14.6 % (11.6-14.8); White Blood Cell Count 7.8 X10^3/uL (4.5-11.0)
[2020-03-03 05:32] LABS: BUN Creatinine Ratio 33.2 (6-22); Blood Urea Nitrogen 83 mg/dL (7-17); Carbon Dioxide 19 mmol/L (22-32); Chloride 109 mmol/L (98-107); Estimated Glomerular Filt Rate 18.9 mL/min (>60); Glucose 204 mg/dL (80-110); HEMOLYSIS < 15 (0-50); Potassium 4.6 mmol/L (3.4-5.1); Sodium 134 mmol/L (137-145)
[2020-03-03 05:41] LABS: NT-proBNP (BNP-Adult 18+) 4080 pg/mL (<125)
[2020-03-03] MEDS: LEVOTHYROXINE 50 MCG TABLET 25 MCG PO (06:11)
--- NOTE | 2020-03-03 07:59 | PM.PN.1 ---
Subjective Subjective Date Patient Seen: 03/03/20 Time Patient Seen: 07:59 Interval history: Patient states she is feeling much better today. Not a lot of problems she says has able to walk. Able to have liquids. And her blood sugars are better. She contributes all this to helping her feel better. We also stopped her steroids which I think will causing lots of problems with her mental status. She think she is going to go straight home from here I do not think that is a good idea. Vital signs have been pretty stable. Had a very low heart rate yesterday but that is probably due to her beta-quincy. Blood pressure is a little bit elevated. Kidney function is worsening. Exam Vital Signs (past 8 hours): - 03/03/20 05:18 Temperature 96.9 F L Pulse Rate 82 Respiratory Rate 20 Blood Pressure 159/60 H Pulse Oximetry 100 Oxygen Delivery Method Room Air Oxygen Flow Rate 0 Narrative Exam Narrative: Gen.: Alert less agitated and shaky today. HEENT: Pupils equal round and reactive or mucosa is moist surgical scar on the neck is covered. No drainage or discharge Cardio: S1-S2 regular rate and rhythm no murmurs appreciated. Respiratory: Lungs are clear to auscultation no wheezes or crackles normal respiratory effort. Abdomen: Soft nontender no rebound or guarding no liver spleen enlargement no appreciable hernias Extremities: Some lower extremity edema Neurologic: Grossly intact. Objective Labs Result Diagrams: 03/03/20 04:50 03/03/20 04:50 Labs: Laboratory Results - last 24 hr 03/03/20 03/03/20 03/03/20 04:50 04:50 04:50 WBC 7.8 RBC 3.50 L Hgb 10.1 L Hct 30.8 L MCV 88.3 MCH 28.8 MCHC 32.7 RDW 14.6 Plt Count 243 Neut % (Auto) 77.1 H Lymph % (Auto) 16.0 L [place] % (Auto) 6.5 Eos % (Auto) 0.0 L Baso % (Auto) 0.4 Neut # (Auto) 6000 Lymph # (Auto) 1200 [place] # (Auto) 500 Eos # (Auto) 0 Baso # (Auto) 0 Sodium 134 L Potassium 4.6 Chloride 109 H Carbon Dioxide 19 L BUN 83 H Creatinine 2.50 H Estimated GFR 18.9 L BUN/Creatinine Ratio 33.2 H Glucose 204 H D Calcium 8.0 L NT-Pro-B Natriuret Pep 4080 H Assessment & Plan Assessment & Plan narrative: Spinal stenosis status post C4-C7 ACDF been cleared surgically to go home. Dysphagia odynophagia improving. Discontinue with swallow study evaluation and hopefully we can advance her diet Acute kidney injury with chronic renal failure. Major problem today. Her kidney function is still worsening. Combination of surgery medication and unstable Mcintosh of kidneys. She has a still lots of fluid on her. Weight is up. We decreased her IV fluids. Had 2 doses of Lasix yesterday. BUN and creatinine is still climbing which is concerning. Will continue to monitor kidney function electrolytes avoid nephrotoxic agents. Hopefully the kidney will turn a corner and improve. Fluid overload. Patient with significant weight gain. Lots of IV fluids. In's more significantly than out. Provide another 2 doses of IV Lasix today. Continue with potassium replacement as needed and monitor closely electrolytes. Insulin-dependent diabetes. Patient's blood sugars are much improved down from the 300s now to 200s. She is feeling happy year for about this could continue with the insulin sliding scale coverage as well as her regular insulin. Hopefully within advanced her diet to improve her intake Hypertension. Blood pressures as high. Will continue to monitor blood pressure and make adjustments to her blood pressure medication to help improve her blood pressure control. Hyperlipidemia Depression continue with sertraline Anemia. Improved with diuresis yesterday. Disposition plan continue with blood sugar improvement control advancing diet. Couple more doses of Lasix today monitoring electrolytes ambulate. And closely monitor her kidney function as it still worsening. Quality VTE Deep Vein Thrombosis/Pulmonary Embolism Present on Admission: No
[2020-03-03] MEDS: INSULIN ASPART 100 UNIT/ML INSULN PEN 6 UNIT SUBCUT ×3 (08:32→17:00)
[2020-03-03] MEDS: INSULIN ASPART 100 UNIT/ML INSULN PEN SUBCUT ×4 (08:32→21:06)
[2020-03-03] MEDS: INSULIN GLARGINE 100 UNIT/ML 3ML PEN 18 UNIT SUBCUT (08:32)
[2020-03-03] MEDS: POTASSIUM CHLORIDE 20 MEQ/15 ML UDC PO ×2 (08:35→17:01)
[2020-03-03] MEDS: ENALAPRIL 20 MG TABLET PO (08:36)
[2020-03-03] MEDS: AMLODIPINE 5 MG TABLET 10 MG PO (08:36)
[2020-03-03] MEDS: hydroCHLOROthiazide 25 MG TABLET 50 MG PO (08:36)
[2020-03-03] MEDS: FUROSEMIDE 40 MG/4 ML VIAL IV (08:36)
[2020-03-03] MEDS: SODIUM CHLORIDE 0.9% FLUSH 10 ML IV ×2 (08:37→21:04)
[2020-03-03] MEDS: DOCUSATE 100 MG CAPSULE PO (08:37)
[2020-03-03] MEDS: ACETAMINOPHEN 325 MG TABLET 650 MG PO (08:37)
--- NOTE | 2020-03-03 10:03 | ST.IPDYTX ---
Visit Care Team Role Provider Type MIESHA Michelle Primary Care Provider Advanced Bag Cutter Specialty: Family Practice Address: [address] [place] [address], [place], [address] Email: [email or web address] Bridger Ledesma DO Other Providers Physician Specialty: Internal Medicine Address: [address] [place] [address], [address] Email: [email or web address] Teresa Saldivar MD Other Providers Physician Specialty: Family Practice Address: [address] [place] [address], [place], [address] Email: [email or web address] Abhishek Ngo MD Admit Provider Physician Attending Provider Referring Provider Specialty: Orthopedic Surgery Address: [address] [place] [address], [address] Email: [email or web address] BUYER LIAISON Dysphagia Treatment BUYER LIAISON Dysphagia Treatment Start: 02/28/20 17:03 Freq: Status: Active Protocol: Document 03/03/20 09:51 MG (Rec: 03/03/20 10:03 MG [id number]) Dysphagia Treatment Session Time Visit Start Time 09:00 Visit Stop Time 09:45 Total Visit Minutes 45 Setting Assessment Location Acute Care Visit Type Note Type Treatment Note Next Note Type Next Note Type Treatment Note Patient Information Identification Type Name,ID Wristband Subjective Observations Pt was found sitting upright in chair next to bedside eating breakfast. Pt was agreeable to speech entering the room. Pt's voice appeared stronger today compared to yesterday and she appeared in a better mood. Treatment Liquids Trialed Ice chips,Thin,Elmo Solids Trialed Puree,Dysphagia Mechanical, Dysphagia Advanced,Mechanical Soft Administration Type Tea Spoon,Cup Single Sip, Controlled Cup Sip,Cup Consecutive Sips,Straw,Self- Feeding Oral Strategies Upright at 90 degrees,Double Swallow,Controlled Bite/Sip Size,Alternate Liquids/Solids Pharyngeal Strategies Sitting Upright (90 deg), Double Swallow,Supraglottic Swallow,Small Bites and Sips, Alternate Liquids/Solids Treatment Activities Pt appears very aware of her swallowing and was very mindful with eating and drinking. Pt reported throughout sessoin that she was not experiencing pain in her throat. At times, she reported feeling something there, but when clearing her throat and taking a sip of thin liquid, she reported the feeling resolved. Pt did not demonstrate overt s/sx of aspiration on trials of thin liquid involving teaspoon, small sip, normal sip, and consecutive cup sip. On trial of single sip from straw, pt demonstrated delayed cough and throat clear. On trials of solid food at mechanical soft texture, pt noted some food getting stuck in her cheeks. Pt independently used a lingual sweep and a liquid rinse to clear mouth successfully. Pt intermittently used safe swallow strategies and reported that she had been using them at other meal times . Assessment Patient Response to Treatment Good Rehab Potential Good Diet Recommendations Recommendations Upgrade Diet Order Liquids Order Thin Diet Order Mechanical Soft Medication Recommendations As Tolerated Comments Carrier may still be appropriate to use. Additional Dietary Needs No Straws,Reminders to Use Strategies Aspiration Precautions Recommended Precautions Upright at 90 Degrees, Alternate Liquids/Solids,Small Bites/Sips,Double Swallow, Supraglottic Swallow,Liquids from Cup Treatment Plan Placement Recommendation after Discharge Shelter Facility Appropriate for Continued Therapy Yes Therapy Recommendations ST to follow up new diet tolerance and if further modifications need to be made. Dysphagia Goals Pt will tolerate least restrictive diet without showing overt s/sx of aspiration.
--- NOTE | 2020-03-03 10:09 | PM.PN.1 ---
Exam Vital Signs (past 8 hours): - 03/03/20 05:18 03/03/20 07:40 Temperature 96.9 F L 96.9 F L Pulse Rate 82 68 Respiratory Rate 20 16 Blood Pressure 159/60 H 160/69 H Pulse Oximetry 100 99 Oxygen Delivery Method Room Air Oxygen Flow Rate 0 Objective Labs Result Diagrams: 03/03/20 04:50 03/03/20 04:50 Labs: Laboratory Results - last 24 hr 03/03/20 03/03/20 03/03/20 04:50 04:50 04:50 WBC 7.8 RBC 3.50 L Hgb 10.1 L Hct 30.8 L MCV 88.3 MCH 28.8 MCHC 32.7 RDW 14.6 Plt Count 243 Neut % (Auto) 77.1 H Lymph % (Auto) 16.0 L [place] % (Auto) 6.5 Eos % (Auto) 0.0 L Baso % (Auto) 0.4 Neut # (Auto) 6000 Lymph # (Auto) 1200 [place] # (Auto) 500 Eos # (Auto) 0 Baso # (Auto) 0 Sodium 134 L Potassium 4.6 Chloride 109 H Carbon Dioxide 19 L BUN 83 H Creatinine 2.50 H Estimated GFR 18.9 L BUN/Creatinine Ratio 33.2 H Glucose 204 H D Calcium 8.0 L NT-Pro-B Natriuret Pep 4080 H Assessment & Plan Assessment & Plan narrative: POD#6 s/p ACDF C4-7. Patient has much improved ability to swallow and is being upgraded again today to take in more solid food. Patient has renal issue actively being addressed by medicine team. Patient is recommended to stay here until her lab value improves. Patient has significant medical issue due to poor follow up and some degree of non-compliance. On exam, patient's dressing is clean dry intact. She is neuro intact on exam. She has normal voice and is eating semi-solid food tolerating without issues. If she is cleared by medicine to discharge tomorrow, she can be discharge tomorrow. Quality VTE Deep Vein Thrombosis/Pulmonary Embolism Present on Admission: No
--- NOTE | 2020-03-03 12:04 | PC.NURSE ---
Assess-0900- Patient is in much better spirits this morning. She has been upgraded on her diet and is swallowing her medication whole. Up with 1 person assist and walker. BS 219 and 306. Insulin given x2. She is napping now on her l.side. Dressing to anterior neck is cdi. Patient states that she is agitated, (which she sais every day). She has been totally pleasant and cooperative with all staff. into see patient and has discharged patient from ortho stand point. into see patient and wrote orders for lasix 40mg, which has been given. BNP down some but still in the 4000 range. Patients kidney function is poor at this time. GFR is 18.9, BUN 83 and Creatinine 2.50. Patient has been voiding and has had a medium and small bowel movement both of soft consistency.
--- NOTE | 2020-03-03 12:18 | PT-IP ANOTE ---
Pt refused stating she was too fatigued and stated her blood sugars are very high and feels they need to be under control. Will check back with pt this afternoon.
--- NOTE | 2020-03-03 15:47 | PT.IPTN ---
Current Diagnoses Other spondylosis with radiculopathy, cervical region (02/26/20) Spinal stenosis, cervical region (02/26/20) Surgery Performed Operation Date: 02/26/20 12:15 Actual Procedures p C4-5,C5-6,C6-7 ACDF w/anterior instrumentation - Abhishek Ngo MD Physical Therapy Treatment Note M2 PT-IP Current Condition Start: 02/27/20 12:38 Freq: NEEDED Status: Active Protocol: Document 02/27/20 13:58 AB (Rec: 02/27/20 15:24 AB [id number]) Physical Therapy Current Condition Current Condition Evaluation Date 02/27/20 Treatment Diagnosis s/p C4-5,5-6, 6-7 ACDF; difficulty in walking Onset Date 02/26/20 Precautions Cervical Spine Precautions Soft Collar for Comfort,No Heavy Lifting,Log Roll M3 PT-IP Subjective Start: 02/27/20 12:38 Freq: NEEDED Status: Active Protocol: Document 03/03/20 15:29 CLB (Rec: 03/03/20 17:44 CLB [id number]) Subjective Physical Therapy Visit Type Type Treatment Note Visit Start Time 15:29 Visit Stop Time 15:47 Total Visit Minutes 18 Number of QA AUTOMATION DEVELOPER Visits 8 Physical Therapy Visit Comments Patient Comments Pt agreeable to work w/ therapy. Therapy Pain Assessment Pain When Pain Assessed During Mobility Pain Present Pain Present Denied Pain M4 PT-IP Mobility and Gait Start: 02/27/20 12:38 Freq: NEEDED Status: Active Protocol: Document 03/03/20 15:29 CLB (Rec: 03/03/20 17:44 CLB [id number]) PT-Transfer Assessment Sit to and From Stand Sit to and from Stand Contact Guard Assistance,1 Person Assistance,Use of Upper Extremities Equipment Transfer Assistive Device Gait Belt,Front Wheeled Walker Orthotic/Prosthetic Devices or Brace: No Transfers Transfer Destination Chair Transfer Technique pt ambulated w/ FWW Transfer Ability Level of Assist Standby Assistance,Contact Guard Assistance,1 Person Assistance,Use of Upper Extremities Comments Mobility Comments Pt standing in room with RN upon arrival. Pt stood SBA with nursing. Pt then ambulated to chair and sat down. Pt GB donned and pt stood CGA w/o AD, pt ambulated w/o AD CGA ~40ft. Pt then ambulated in castro ~100ft with SBA. Pt returned to room sitting in chair SBA. Pt left in chair with all needs within reach. Gait Assessment Gait Gait Assistance Required: Standby Assistance,Contact Guard Assist,1 Person Assist Distance (Feet) 140 Able to Maintain Weight Bearing Status Yes During Gait Assistive Devices Assistive Device None,Gait Belt,Front Wheeled Walker Orthotic/Prosthetic Devices or Brace: No Gait Deviations General Gait Pattern Antalgic,Decreased Stride Length,Decreased Feet Clearance,Flexed Trunk,Narrow Based Gait Factors Limiting Gait Function Factors Limiting Gait Function Decreased Activity Tolerance, Decreased Strength,Difficulty Following Directions,Limited Range of Motion,Poor Balance, Poor Safety Awareness Comments Gait Comments Pt ambulated CGA w/o AD ~40ft, pt with unsteady gait reaching out for foot of bed and counter. Pt ambulated ~ 100ft w/FWW/SBA with improved dynamic stability. PT-Balance Assessment Sitting Balance and Reactions Static Sitting Balance Ability Good Dynamic Sitting Balance Ability Fair Standing Balance and Reactions Static Standing Balance Ability Fair Dynamic Standing Balance Ability Fair Device Used fww M5 PT-IP Objective Assessments Start: 02/27/20 12:38 Freq: NEEDED Status: Active Protocol: Document 02/27/20 13:58 AB (Rec: 02/27/20 15:24 AB [email or web address]) Orientation Orientation/Cognition Level of Alertness Alert Orientation Name,Situation Safety Awareness Decreased Safety Awareness Gross Range of Motion Lower Extremity ROM Assessment Within Functional Limits Strength Lower Extremity Strength Assessment Bilaterally Impaired Comments Strength Comments RLE 3-/5 LLE 3+/5 Sensation Assessment Sensation Gross Sensation Right UE Impaired,Left UE Impaired Sensation Description Numbness,Tingling Comments Sensation Comments stated numbness and tingling is worse on LUE Muscle Tone Muscle Tone WNL Yes M6 PT-IP Treatment Start: 02/27/20 12:38 Freq: NEEDED Status: Active Protocol: Document 03/03/20 15:29 CLB (Rec: 03/03/20 17:44 CLB [id number]) Physical Therapy Treatment Education Education Provided Precautions,Weight Bearing Status,Safety Other Treatments Other Treatment Performed Balance: NBS EO, tandem EO, M7 PT-IP Assessment and Plan Start: 02/27/20 12:38 Freq: NEEDED Status: Active Protocol: Document 03/03/20 15:29 CLB (Rec: 03/03/20 17:44 CLB [id number]) PT Summary Assessment and Plan Potential Rehabilitation Potential Fair Status of Condition at Evaluation Evolving Summary Impairments Pain,ROM,Strength,Balance, Coordination,Sensation,Tone, Cognition,Bed Mobility, Transfers,Gait,Activity Tolerance Assessment Summary Pt improving ambulation, Pt is CGA for gait without AD with unsteady gait, pt is SBA for gait with FWW. Pt is SBA-CGA for sit-stand. SNF rehab recommended for continued strengthening for increased activity and functional mobility vs Home with assist. Goals Bed Mobility Goal Minimal Assistance Transfer Goal Minimal Assistance,Front Wheeled Walker Gait Goal Minimal Assistance,Front Wheel Walker Gait Distance 50 Other Goals improve bed mobility, transfers to SBA improve ambulation using FWW CGA Days to Meet Goals 10 Frequency of Treatment Frequency Of Treatment Twice a Day Treatment Plan Physical Therapy Treatment Plan Bed Mobility Training,Transfer Training,Gait Training, Therapeutic Exercise,Balance Retraining,Post Op Education, Discharge Planning,Hot or Cold Pack,Neuromuscular Re-ed, Coordination Retraining,Manual Therapy Other Recommendations and Next Treatment transfers, Bed mob, gait Focus Recommendations To Nursing Amount of Assist Needed 1 Person Assist Discharge Recommendations PT Discharge Recommendations Home with 23/11 Assist,SNF Rehab Equipment Needed for Home Before Might be able to borrow nephew Discharge 's fWW upon DC. Transportation Needs at Discharge Wheelchair/Cabulance
[2020-03-03] MEDS: SERTRALINE 50 MG TABLET 25 MG PO (21:04)
[2020-03-04 03:35] VITALS: BP 128/88; PULSE 75; RESP 18; TEMP 36.5; O2SAT 100
[2020-03-04 05:32] LABS: Add Manual Diff / Slide Review NO; Basophils Absolute Auto 0 /uL (0-100); Basophils Percent Auto 0.3 % (0-2); Eosinophils Absolute Auto 0 /uL (0-450); Eosinophils Percent Auto 0.2 % (2-4); Hematocrit 33.1 % (36-46); Hemoglobin 10.8 g/dL (12.0-16.0); Lymphocytes Absolute Auto 1100 /uL (1100-4500); Lymphocytes Percent Auto 14.6 % (25-40); Mean Corpuscular HGB Conc 32.8 % (30-36); Mean Corpuscular Hemoglobin 28.7 PG (26-34); Mean Corpuscular Volume 87.5 fL (80-100); Monocytes Absolute Auto 500 /uL (0-900); Monocytes Percent Auto 6.8 % (3-14); Neutrophils Absolute Auto 6000 /uL (1500-7000); Neutrophils Percent Auto 78.1 % (50-75); Platelet Count 239 X10^3/uL (150-400); Red Blood Cell Count 3.78 X10^6/uL (4.0-5.2); Red Cell Distribution Width 14.3 % (11.6-14.8); White Blood Cell Count 7.7 X10^3/uL (4.5-11.0)
[2020-03-04 05:43] LABS: BUN Creatinine Ratio 35.2 (6-22); Blood Urea Nitrogen 81 mg/dL (7-17); Carbon Dioxide 21 mmol/L (22-32); Chloride 108 mmol/L (98-107); Estimated Glomerular Filt Rate 20.8 mL/min (>60); Glucose 207 mg/dL (80-110); HEMOLYSIS < 15 (0-50); Sodium 134 mmol/L (137-145)
[2020-03-04] MEDS: LEVOTHYROXINE 50 MCG TABLET 25 MCG PO (05:59)
--- NOTE | 2020-03-04 06:55 | P.PN_ITS ---
Subjective Subjective Date Patient Seen: 03/04/20 Time Patient Seen: 06:55 Interval history: Resuming care from on-call medicine team over the weekend. Patient reports that she was frustrated over the weekend due to her prolonged stay in the hospital. She was noted to be irritable and did not feel like herself. Her steroids were stopped as her blood sugars were uncontrolled and it was thought that they may be contributing to her mood changes. She also underw ent a Lasix diruses due to IVF fluid overload during her NPO status. BNP is still pending this am. Creatinine is still up. This morning, she is feeling better. Swallowing is much improved, on soft solids, choked on sandwich yesterday. Denies nausea vomiting. She is ambulating around the hallways with physical therapy. Exam Vital Signs (past 8 hours): - 03/03/20 23:55 03/04/20 03:35 Temperature 97.4 F L 97.7 F Pulse Rate 69 75 Respiratory Rate 16 18 Blood Pressure 162/64 H 128/88 Pulse Oximetry 98 100 Oxygen Delivery Method Room Air Oxygen Flow Rate 0 Narrative Exam Narrative: GENERAL: Alert and oriented, appearing stated age and in no acute distress. HEENT: Head normocephalic/atraumatic, neck collar removed, dressing c/d/i/. Pupils equal, round, and reactive to light and accomodation. Extraocular muscles intact. Tympanic membranes clear. Nasal mucosa moist, septum midline. Oral mucosa moist, no lesions. Neck soft and supple, no lymphadenopathy. LUNGS: Clear to ausculation bilaterally, no wheezes, rhonchi or rales. CV: Normal S1 and S2 with regular rate and rhythm, no audible murmurs, rubs or gallops. ABD: Non tender, non-distended, no organomegaly. Positive bowel sounds. EXTREMITIES: No clubbing, cyanosis, or edema. NEURO: Cranial nerves II through XII grossly intact, no focal deficits. PSYCH: Alert and oriented x 3. SKIN: No concerning lesions. Objective Labs Result Diagrams: 03/04/20 05:08 03/04/20 05:08 Labs: Laboratory Results - last 24 hr 03/04/20 03/04/20 05:08 05:08 WBC 7.7 RBC 3.78 L Hgb 10.8 L Hct 33.1 L MCV 87.5 MCH 28.7 MCHC 32.8 RDW 14.3 Plt Count 239 Neut % (Auto) 78.1 H Lymph % (Auto) 14.6 L Osborne % (Auto) 6.8 Eos % (Auto) 0.2 L Baso % (Auto) 0.3 Neut # (Auto) 6000 Lymph # (Auto) 1100 Osborne # (Auto) 500 Eos # (Auto) 0 Baso # (Auto) 0 Sodium 134 L Potassium 5.0 Chloride 108 H Carbon Dioxide 21 L BUN 81 H Creatinine 2.30 H Estimated GFR 20.8 L BUN/Creatinine Ratio 35.2 H Glucose 207 H Calcium 8.0 L Assessment & Plan Assessment & Plan narrative: 1. Hypertension, improved control but only on amlodipine 10 mg p.o. q.day and metoprolol ER 25 mg p.o. q.day. currently as she underwent a Lasix diuresis over the weekend. Lasix now discontinued. Patient was formally on enalapril 20 mg p.o. b.i.d., hydrochlorothiazide 50 mg p.o. q.day and Hytrin 3 mg p.o. q.h.s.. Plan: Will watch blood pressures closely today now that patient is off Lasix diuresis. Will update BMP this morning. May need additional agents prior to transfer to SNF. 2. Spinal stenosis, statust post C4-7 ACDF, POD #8 Plan: Patient has been surgically cleared for discharge, awaiting medical clearance. 3. Odynphagia and dysphagia, possibly secondary to intubation versus surgical complication, risk for aspiration -Failed 02/29/20 and 03/01/20 swallow evaluations, passed swallow on 03/01/2028, has been advancing diet since then.. -Dr. Ngo started steroids to reduce swelling and ordered spinal CT: IMPRESSION: Postoperative changes are seen, with associated prevertebral soft t issue swelling, with generalized edema and soft tissue gas. No drainable abscess collection can be seen. If the patient's symptoms do not resolve clinically, please consider a short- term follow up study with IV contrast. -Steroids discontinued over the weekend secondary to spikes in blood sugar. Plan: Continue to ADAT per ST. 4. DM II, chronic, -Blood sugar with improved control status post discontinuation of steroids Plan: Continue home insulin per sliding scale. Nutrition consulting. 5. Diabetic Nephropthy, biopsy proven, with acute on chronic stage IV kidney failure -Baseline Cr 1.7, during this admission 1.97 --> 2.33, GFR 20.5 --> 2.03 --> 2.30, GFR 20.8 -rising creatinine possibly due to fluid overall during NPO status. Patient has undergone diuresis over the weekend. PLAN: Will continue to follow BNP, administer more Lasix as needed, and avoid nephrotoxic agents. 6. Hypothyroidism -TSH 0.173 during admission Plan: Have decreased home levothyroxine to 25 mcg PO qam. 7. Hyperlipidemia Plan: Will restart rosuvastatin upon discharge home. 8. Depression Plan: Sertraline 25 mg daily. 9. Obesity, BMI 31.9 -Risk for adverse outcomes including poor healing, uncontrolled diabetes, longer hospital stay, etc. Plan: [place] counseling. 10. Anemia of chronic disease Plan: Treating underling conditions. DVT prophylaxis: SCDs Code: Full COVID: Negative Disposition: Will need SNF upon discharge, hopeful for discharge tomorrow if St/PT goes well today and blood pressures are controlled. Quality VTE Deep Vein Thrombosis/Pulmonary Embolism Present on Admission: No
[2020-03-04 08:00] VITALS: BP 154/68; PULSE 78; RESP 16; TEMP 36.8; O2SAT 99
[2020-03-04 08:25] LABS: NT-proBNP (BNP-Adult 18+) 1700 pg/mL (<125)
--- NOTE | 2020-03-04 08:30 | CM.DPC ---
Addendum entered by Chapis Woody R.N. 03/04/20 10:37: Spoke to patient today. Have a call out to Dr. Saldivar, regarding update, and possible ordering COVID for her to go to [facility]. Patient stated, I really want to go home versus prison. Asked her if she has support at home. Indicated, she has a sister that can help her. Asked her if this mental health case manager can contact her, patient stated, she doesn't know yet. Also, indicated that she has neighbors. Encouraged her to call sister today before making decision. Keeping referral at [facility]. Shelley called back and stated that she will send [employer] clinicals, and can anticipate taking her tomorrow. Will follow up with patient later today to see if she has contacted sister, and await call back from Dr. Saldivar Original Note: DCP Cont: Noted today's progress note from Dr. Saldivar stating anticipating discharge tomorrow, for her blood pressure is still elevated. Left two messages with Shelley at [facility]. Faxed over today's progress note, P.T. notes from yesterday and 03/02. P: DCP to continue to follow. Plan is for [facility], awaiting call back from Shelley at [facility]. Chapis Woody RN/Master At Arms
[2020-03-04] MEDS: AMLODIPINE 5 MG TABLET 10 MG PO (08:42)
[2020-03-04] MEDS: METOPROLOL ER 25 MG TABLET PO (08:42)
[2020-03-04] MEDS: SODIUM CHLORIDE 0.9% FLUSH 10 ML IV ×2 (08:43→21:18)
[2020-03-04] MEDS: INSULIN GLARGINE 100 UNIT/ML 3ML PEN 18 UNIT SUBCUT (08:43)
[2020-03-04] MEDS: INSULIN ASPART 100 UNIT/ML INSULN PEN 6 UNIT SUBCUT ×2 (08:43→13:34)
[2020-03-04] MEDS: INSULIN ASPART 100 UNIT/ML INSULN PEN SUBCUT ×3 (08:44→18:06)
--- NOTE | 2020-03-04 09:10 | OT.IP.TRT ---
Current Diagnoses Other spondylosis with radiculopathy, cervical region (02/26/20) Spinal stenosis, cervical region (02/26/20) Surgery Performed Operation Date: 02/26/20 12:15 Actual Procedures p C4-5,C5-6,C6-7 ACDF w/anterior instrumentation - Abhishek Ngo MD Occupational Therapy Treatment Note M2 OT-IP Current Condition Start: 02/28/20 16:12 Freq: Status: Active Protocol: Document 02/28/20 16:13 CGR (Rec: 02/28/20 16:38 CGR [id number]) Occupational Therapy Current Condition Current Condition Evaluation Date 02/28/20 Treatment Diagnosis C4-7 ACDF Diagnosis Onset Date 02/26/20 Post Operative Precautions Cervical Spine Precautions Soft Collar for Comfort,Soft Collar at all Times,No Heavy Lifting,Log Roll M3 OT- IP Subjective and Pain Start: 02/28/20 16:12 Freq: Status: Active Protocol: Document 03/04/20 09:23 [facility] (Rec: 03/04/20 09:36 [facility] [id number]) OT- Subjective Occupational Therapy Visit Type Type Treatment Note Visit Start Time 08:27 Visit Stop Time 09:10 Total Visit Minutes 43 Occupational Therapy Visit Comments Patient Comments Pt agreed to get up for OT to use the bathroom. Patient/Caregiver Goals Pt now wanting to go home verus go to skilled rehab. OT Pain Assessment Pain When Pain Assessed At Rest Pain Present Pain Present Denied Pain M4 OT- IP ADL's Start: 02/28/20 16:12 Freq: Status: Active Protocol: Document 03/04/20 09:23 [facility] (Rec: 03/04/20 09:36 [facility] [id number]) OT [id number] Comments OT Self-Feeding Comments Pt able to have her pills in a carrier. OT ADL-Grooming General Evaluation Grooming Ability Standby Assistance Comments OT Grooming Comments standing at sink, vc to keep the FWW in front of her OT ADL-Oral Care General Eval Oral Care Ability Independent OT ADL-Dressing General Eval Lower Body Dressing Ability Standby Assistance,Moderate Assistance Areas Needing Assistance Retrieving/Set-up of Clothing, Socks Comments OT Dressing Comments Educated pt on use of director of midwifery/staff midwife and socks aid to help nilsa and doff her socks and brief. Pt will benefit from LB dressing equipment to use at home as pt has difficulty more with right LE to dress. OT ADL-Toileting General Evaluation Toileting Ability Independent OT ADL-Bathing Comments OT Bathing Comments Not performed. Pt states looking ot get a tub bench for home and to have someone there when showering . M5 OT- IP IADL's Start: 02/28/20 16:12 Freq: Status: Active Protocol: Document 02/28/20 16:13 CGR (Rec: 02/28/20 16:38 CGR [id number]) OT-Instrumental Activities of Daily Living Deficits IADL Deficits Identified Deficits Home Safety Awareness Awareness of Need for Assistance at Home Decreased Awareness Ability to Problem Solve Emergency Unable to Problem Solve Situations Medication Management Medication Management Comments Concerns for medication management at this time Money Management Money Management Comments Concerns for money management at this time. Meal Preparation Meal Preparation Comments Concerns for ability to provide meals. 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 Driving Driving Concerns Identified Regarding Safety M6 OT- IP Functional Cognition Start: 02/28/20 16:12 Freq: Status: Active Protocol: Document 03/04/20 09:23 [facility] (Rec: 03/04/20 09:36 [facility] [id number]) Cognitive Factors Limiting Selfcare Function Cognitive Ability Level of Alertness Alert Patient Orientation Name,Date,Year,Day of Week, Place,Situation Attention Span Ability Capable of Focused Attention, Capable of Sustained Attention Ability to Follow Commands Able to Follow One Step Commands Executive Function Ability Unable to Remember Details Cognitive Comments Cognitive Assessment Comments Pt able to answer all home safety situations with 100% accuracy. Pt states would carry her cell phone in case of emergencies. Pt scored 300 seconds on [place] making Part b which implies severe impairments for speed of processing, task switching, visual attention, mental flexibility, and executive thinking. Pt states her apartment is too small to have someone stay with her but her neighbors next doors would be able to assist as needed. Pt needing vc to keep the FWW in front of her during grooming needs. M7 OT- IP Mobility and Balance Start: 02/28/20 16:12 Freq: Status: Active Protocol: Document 03/04/20 09:23 [facility] (Rec: 03/04/20 09:36 [facility] [id number]) OT-Transfer Assessment Sit to and From Stand Sit to and from Stand Standby Assistance Transfers Transfer Ability Standby Assistance Technique Transfer Destination Bed,Chair,Toilet Devices Transfer Assistive Devices Gait Belt,Front Wheeled Walker Comments Mobility Comments Trial of 4WW and pt is more steady with use of fWW. Emphasized to pt if going home will need assist for IADl needs as would be a fall risk if trying to walk with FWW and carry items at the same time. Strongly suggested home health if going home to help further assessment safety in the environment such as getting her mail or doing her laundry. OT- Gait Assessment Comments Gait Ability Comments SBA with FWW. OT- Balance Assessment Sitting Balance and Reactions Static Sitting Balance Ability Normal Dynamic Sitting Balance Ability Good Standing Balance and Reactions Static Standing Balance Ability Fair Protocol: Document 03/04/20 09:23 [facility] (Rec: 03/04/20 09:36 [facility] [id number]) OT Summary Assessment and Plan Potential Rehabilitation Potential Good Analytic Complexity at Evaluation High Summary OT Impairments Pain,Functional Cognition, Functional Mobility,Dressing, Bathing,Toilet Transfers, Shower Transfers,Activity Tolerance Progress Towards Goals Progressing Toward Goals Assessment Summary Pt much improved with mobility needs and wanting to go home now. Pt have supportive neighbors and sister close by to assist however no one to stay with her as her apartment is too small. Pending medical needs home with assist and home health versus short skilled rehab stay. If going home pt will benefit from tub bench, HHSP, FWW, and LB dressing equipment. Goals Grooming Goal Independent Dressing Goal Independent Toileting Goal Independent Bathing Goal Independent Toilet Transfer Goal Independent Shower Transfer Goal Independent Days to Meet Goals 5 Frequency of Treatment Frequency Of Treatment Once a Day Treatment Plan OT Treatment Plan ADL Training,Functional Cognition Training,Functional Mobility,Patient/Family Education,Discharge Planning Discharge Recommendations OT Discharge Recommendations Home with Assistance,Home Health,SNF Rehab Home Equipment Needs Tub bench, FWW, HHSP, LB dressing equipment Transportation Needs at Discharge Private Vehicle
--- NOTE | 2020-03-04 11:20 | PT.IIE ---
Current Diagnoses Other spondylosis with radiculopathy, cervical region (02/26/20) Spinal stenosis, cervical region (02/26/20) Surgery Performed Operation Date: 02/26/20 12:15 Actual Procedures p C4-5,C5-6,C6-7 ACDF w/anterior instrumentation - Abhishek Ngo MD Surgical History (Last Updated 02/19/20 @ 13:20 by Livier So RN) History of hysterectomy (Acute) History of partial mastectomy of left breast (Acute) Hx of cholecystectomy (Acute) Hx of eye surgery (Acute) Hx of lumbosacral spine surgery (Acute) Medical History (Last Reviewed 06/22/19 @ 18:16 by Herminia Hobson [facility]) Breast cancer, left (Inactive) Chronic kidney disease (CKD), stage III (moderate) (Inactive) Diabetes mellitus (Inactive) Physical Therapy Inpatient Re-Evaluation M1 PT/OT-IP Prior Functional Status Start: 02/27/20 12:38 Freq: NEEDED Status: Active Protocol: Document 02/28/20 16:13 CGR (Rec: 02/28/20 16:38 CGR [id number]) Medical Review Prior Functional Status Medical History Reviewed Yes Communication able to make needs known Mobility and Gait pt stated that she is independent with all mobilities and ambulation without AD Activities of Daily Living and IADL's Pt states she has difficulty getting in and out of the bathtub and would like a tub transfer bench. Otherwise, pt was performing all ADLs without assist. Social History Household Members none Living Arrangements Apartment/Condo Number of Floors (Floors) One Floor Number of Stairs To Enter/Railing? No steps to enter her ground floor apt. 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 Pt lives in [facility] low income housing in [place]. Pt has an adjustable bed. M2 PT-IP Current Condition Start: 02/27/20 12:38 Freq: NEEDED Status: Active Protocol: Document 03/04/20 10:27 [place] (Rec: 03/04/20 11:13 [place] [id number]) Physical Therapy Current Condition Current Condition Evaluation Date 03/04/20 Treatment Diagnosis C4-7 ACDF; Difficulty with walking Onset Date 02/26/20 Precautions Cervical Spine Precautions Soft Collar for Comfort,No Heavy Lifting,Log Roll M3 PT-IP Subjective Start: 02/27/20 12:38 Freq: NEEDED Status: Active Protocol: Document 03/04/20 10:27 [place] (Rec: 03/04/20 11:13 DE [id number]) Subjective Physical Therapy Visit Type Type Treatment Note Visit Start Time 09:56 Visit Stop Time 10:20 Total Visit Minutes 24 Notes SPT [place] snow pt under direct supervison of PT Shari. Number of INFANTRY OFFICER Visits 0 Physical Therapy Visit Comments Patient Comments Pt agreeable to work w/ therapy. M4 PT-IP Mobility and Gait Start: 02/27/20 12:38 Freq: NEEDED Status: Active Protocol: Document 03/04/20 10:27 [place] (Rec: 03/04/20 11:13 DE [id number]) PT-Transfer Assessment Sit to and From Stand Sit to and from Stand Standby Assistance,Use of Upper Extremities Equipment Transfer Assistive Device Gait Belt,Front Wheeled Walker Orthotic/Prosthetic Devices or Brace: No Transfers Transfer Destination Chair Transfer Ability Level of Assist Standby Assistance,Contact Guard Assistance,1 Person Assistance,Use of Upper Extremities Comments Mobility Comments Pt was sitting in the chair as PT and SPT arrived. Pt participated in U/LE assessment. Pt then completed sit to stand with SBA, FWW, and use of BUE on armrests. No pain or discomfort noted. Pt then amb ~200 ft total out in the hallway and back to the room. Pt amb ~120 ft with SBA and FWW, demonstrating step- through pattern with flexed trunk and decreased stride length. Pt amb ~80 ft with CGA and without AD. No LOB noted during amb. Pt demonstrated mild labored breathing throughout amb but did not need any rest breaks. Pt also had a tendency to drift to the R when she was walking with FWW but did not drift without FWW. Pt went back to sitting in the chair. Call light placed within reach. Gait Assessment Gait Gait Assistance Required: Standby Assistance,Contact Guard Assist Distance (Feet) 200 Able to Maintain Weight Bearing Status Yes During Gait Assistive Devices Assistive Device None,Gait Belt,Front Wheeled Walker Orthotic/Prosthetic Devices or Brace: No Gait Deviations General Gait Pattern Antalgic,Decreased Stride Length,Decreased Feet Clearance,Flexed Trunk,Narrow Based Gait Factors Limiting Gait Function Factors Limiting Gait Function Decreased Activity Tolerance, Decreased Strength,Difficulty Following Directions,Limited Range of Motion,Poor Balance, Poor Safety Awareness Comments Gait Comments See mobility comments. PT-Balance Assessment Sitting Balance and Reactions Static Sitting Balance Ability Good Dynamic Sitting Balance Ability Fair Standing Balance and Reactions Static Standing Balance Ability Fair Dynamic Standing Balance Ability Fair Device Used fww M5 PT-IP Objective Assessments Start: 02/27/20 12:38 Freq: NEEDED Status: Active Protocol: Document 03/04/20 10:27 [place] (Rec: 03/04/20 11:13 DE [id number]) Orientation Orientation/Cognition Level of Alertness Alert Orientation Name,Age,Birthday,Month,Date, Year,Day of Week,Place, Situation Language Function Ability No Deficits Noted Safety Awareness Understands Safety Issues Memory Description No Deficits Noted Gross Range of Motion Upper Extremity ROM Assessment Within Functional Limits Lower Extremity ROM Assessment Within Functional Limits Strength Upper Extremity Strength Assessment Within Functional Limits Lower Extremity Strength Assessment Bilaterally Impaired Hip 4-/5 Coordination Assessment Gross Coordination Gross Coordination WNL Sensation Assessment Sensation Gross Sensation Left UE Impaired,Left LE Impaired Light Touch Intact Sensation Description Numbness,Tingling M6 PT-IP Treatment Start: 02/27/20 12:38 Freq: NEEDED Status: Active Protocol: Document 03/04/20 10:27 [place] (Rec: 03/04/20 11:13 DE [id number]) Physical Therapy Treatment Education Education Provided Precautions,Weight Bearing Status,Safety M7 PT-IP Assessment and Plan Start: 02/27/20 12:38 Freq: NEEDED Status: Active Protocol: Document 03/04/20 10:27 DE (Rec: 03/04/20 11:13 DE [id number]) PT Summary Assessment and Plan Potential Rehabilitation Potential Fair Status of Condition at Evaluation Evolving Summary Impairments Pain,ROM,Strength,Balance, Coordination,Sensation,Tone, Cognition,Bed Mobility, Transfers,Gait,Activity Tolerance Assessment Summary Re-assessment was warranted since she has surpassed her goals but not at her baseline. Pt continues to improve her amb. Pt amb ~120 ft with FWW and SBA and ~80 ft with CGA and no AD. Pt did not demonstrate any LOB. However, she had mild labored breathing during amb. Depending on level of assist that pt can plan for, PT recommends home with assist and HH vs SNF. Pt will benefit from continued rehab to improve her strength and activity tolerance. Goals Bed Mobility Goal Independent Transfer Goal Independent Gait Goal Independent Gait Distance 100 Days to Meet Goals 5 Frequency of Treatment Frequency Of Treatment Twice a Day Treatment Plan Physical Therapy Treatment Plan Bed Mobility Training,Transfer Training,Gait Training, Therapeutic Exercise,Balance Retraining,Post Op Education, Discharge Planning,Hot or Cold Pack,Neuromuscular Re-ed, Coordination Retraining,Manual Therapy Other Recommendations and Next Treatment transfers, Bed mob, gait Focus Recommendations To Nursing Amount of Assist Needed 1 Person Assist Discharge Recommendations PT Discharge Recommendations Home with Assistance,Home Health Equipment Needed for Home Before Might be able to borrow nephew Discharge 's fWW upon DC. Transportation Needs at Discharge Private Vehicle Treatment was provided by [place] Shaikh, JEWELL and supervised by Shari Crow, WOO. I personally reviewed this note and agree with its contents.
[2020-03-04 11:30] VITALS: BP 140/52; PULSE 76; RESP 15; TEMP 36.6; O2SAT 98
--- NOTE | 2020-03-04 12:01 | CM.DPC ---
DCP Cont: Spoke to Dr. Saldivar, and inquired upon plan of discharge. She indicated that patient is not yet medically ready, secondary to BP issues, and some medication changes that are indicated. BUN increased as well. Dr. Saldivar is in agreement that patient will need senior living, for she is socially isolated at home, and lives alone. She will need prolonged P.T, as well as speech therapy to continue to work with her. P: DCP to continue to follow. Plan is for [facility], possibly tomorrow. Will follow up with Shelley at [facility] tomorrow. Chapis Woody RN/Optician Apprentice Dispensing
--- NOTE | 2020-03-04 13:09 | ST.IPDYTX ---
Visit Care Team Role Provider Type MIESHA Michelle Primary Care Provider Advanced Panelboard Tank Pumper Specialty: Family Practice Address: [address] [place] [address], [facility] [place], [address] Email: [email or web address] Bridger Ledesma DO Other Providers Physician Specialty: Internal Medicine Address: [address] [place] [address], [address] Email: [email or web address] Teresa Saldivar MD Other Providers Physician Specialty: Family Practice Address: [address] [place] [address], [place], [address] Email: [email or web address] Abhishek Ngo MD Admit Provider Physician Attending Provider Referring Provider Specialty: Orthopedic Surgery Address: [address] [place] [address], [address] Email: [email or web address] SOUND ENGINEERING TECHNICIAN Dysphagia Treatment SOUND ENGINEERING TECHNICIAN Dysphagia Treatment Start: 02/28/20 17:03 Freq: Status: Active Protocol: Document 03/04/20 13:03 SYED (Rec: 03/04/20 13:08 SYED [id number]) Dysphagia Treatment Session Time Visit Start Time 11:10 Visit Stop Time 11:30 Total Visit Minutes 20 Setting Assessment Location Acute Care Visit Type Note Type Treatment Note Patient Information Identification Type Name,ID Wristband Subjective Observations Pt was found sitting upright in chair next to bedside eating breakfast. Pt was agreeable to speech entering the room. Pt's voice appeared stronger today compared to yesterday and she appeared in a better modd. Treatment Liquids Trialed Ice chips,Thin Solids Trialed Mechanical Soft Administration Type Tea Spoon,Cup Single Sip, Controlled Cup Sip,Cup Consecutive Sips,Straw,Self- Feeding Oral Strategies Upright at 90 degrees,Double Swallow,Controlled Bite/Sip Size,Alternate Liquids/Solids Pharyngeal Strategies Sitting Upright (90 deg), Double Swallow,Supraglottic Swallow,Small Bites and Sips, Alternate Liquids/Solids Treatment Activities Pt is aware of her swallowing and is very mindful with eating and drinking. Pt reported that she was not experiencing pain in her throat when swallowing. Pt did not demonstrate overt s/sx of aspiration with current diet. Pt independently used a lingual sweep and a liquid rinse to clear mouth. Assessment Patient Response to Treatment Good Rehab Potential Good Assessment of Improvement Improvement in pt's vocal quality and her ability to swallow. Diet Recommendations Recommendations Continue Current Diet Liquids Order Thin Diet Order Mechanical Soft Medication Recommendations As Tolerated Comments Carrier may still be appropriate to use. Additional Dietary Needs No Straws,Reminders to Use Strategies Aspiration Precautions Recommended Precautions Upright at 90 Degrees, Alternate Liquids/Solids,Small Bites/Sips,Double Swallow, Supraglottic Swallow,Liquids from Cup Treatment Plan Placement Recommendation after Discharge Assisted Facility Appropriate for Continued Therapy No Therapy Recommendations Discharge Dysphagia Goals Pt will tolerate least restrictive diet without showing overt s/sx of aspiration.
--- NOTE | 2020-03-04 13:47 | P.PN_ITS ---
Subjective Subjective Date Patient Seen: 03/04/20 Time Patient Seen: 13:47 Interval history: Patient's pain is mild. Denies fever chills. No nausea vomiting. No shortness of breath or chest pain. Patient had rice cereal this morning. Swallowing has certainly improved. Exam Vital Signs (past 8 hours): - 03/04/20 08:00 Temperature 98.3 F Pulse Rate 78 Respiratory Rate 16 Blood Pressure 154/68 H Pulse Oximetry 99 Oxygen Delivery Method Room Air Oxygen Flow Rate 0 Narrative Exam Narrative: 74-year-old female walking from the restroom back to bedside chair. Patient no apparent distress. The neck dressing is clean, dry and intact. Motor functions intact bilateral upper extremities. Sensation grossly intact to light touch bilateral upper extremities. Good capillary refill. Objective Labs Result Diagrams: 03/04/20 05:08 03/04/20 05:08 Labs: Laboratory Results - last 24 hr 03/04/20 03/04/20 03/04/20 05:08 05:08 05:08 WBC 7.7 RBC 3.78 L Hgb 10.8 L Hct 33.1 L MCV 87.5 MCH 28.7 MCHC 32.8 RDW 14.3 Plt Count 239 Neut % (Auto) 78.1 H Lymph % (Auto) 14.6 L [place] % (Auto) 6.8 Eos % (Auto) 0.2 L Baso % (Auto) 0.3 Neut # (Auto) 6000 Lymph # (Auto) 1100 [place] # (Auto) 500 Eos # (Auto) 0 Baso # (Auto) 0 Sodium 134 L Potassium 5.0 Chloride 108 H Carbon Dioxide 21 L BUN 81 H Creatinine 2.30 H Estimated GFR 20.8 L BUN/Creatinine Ratio 35.2 H Glucose 207 H Calcium 8.0 L NT-Pro-B Natriuret Pep 1700 H Assessment & Plan Post-op Postoperative Procedures: Procedures Operation Date: 02/26/20 12:15 Actual Procedures Side Surgeon p C4-5,C5-6,C6-7 ACDF w/anterior instrumentation Abhishek Ngo MD Postop day 7 status post ACDF C4 through C7. Spoke with speech therapy and patient significantly improved. Progressing diet as tolerated. Primary care provider saw patient this morning her note from today is reviewed. Patient's blood pressure is being monitored closely. Discharge home versus residential facility when stable per primary. Quality VTE Deep Vein Thrombosis/Pulmonary Embolism Present on Admission: No
--- NOTE | 2020-03-04 14:02 | PT.IPTN ---
Current Diagnoses Other spondylosis with radiculopathy, cervical region (02/26/20) Spinal stenosis, cervical region (02/26/20) Surgery Performed Operation Date: 02/26/20 12:15 Actual Procedures p C4-5,C5-6,C6-7 ACDF w/anterior instrumentation - Abhishek Ngo MD Physical Therapy Treatment Note M2 PT-IP Current Condition Start: 02/27/20 12:38 Freq: NEEDED Status: Active Protocol: Document 03/04/20 10:27 DE (Rec: 03/04/20 11:13 DE [id number]) Physical Therapy Current Condition Current Condition Evaluation Date 03/04/20 Treatment Diagnosis C4-7 ACDF; Difficulty with walking Onset Date 02/26/20 Precautions Cervical Spine Precautions Soft Collar for Comfort,No Heavy Lifting,Log Roll M3 PT-IP Subjective Start: 02/27/20 12:38 Freq: NEEDED Status: Active Protocol: Document 03/04/20 13:40 SP (Rec: 03/04/20 16:11 SP [id number]) Subjective Physical Therapy Visit Type Type Treatment Note Visit Start Time 13:40 Visit Stop Time 14:02 Total Visit Minutes 22 Notes Moises Otero PA-C was in room when arrived finishing up his assessment with report of patient walking around room when he arrived. Number of SOLID FIBER PASTER OPERATOR Visits 1 Physical Therapy Visit Comments Patient Comments Pt agreeable to workign with therapy. Therapy Pain Assessment Pain Present Pain Present Denied Pain M4 PT-IP Mobility and Gait Start: 02/27/20 12:38 Freq: NEEDED Status: Active Protocol: Document 03/04/20 13:40 SP (Rec: 03/04/20 16:11 SP [id number]) PT-Transfer Assessment Sit to and From Stand Sit to and from Stand Standby Assistance,Use of Upper Extremities Equipment Transfer Assistive Device Gait Belt,Front Wheeled Walker Orthotic/Prosthetic Devices or Brace: No Transfers Transfer Destination Chair Transfer Technique pt ambulated w/ FWW Transfer Ability Level of Assist Standby Assistance,Contact Guard Assistance,1 Person Assistance,Use of Upper Extremities Comments Mobility Comments Pt seated in chair when arrived with MERE, see Notes. SBA sit<> stand from chair, ambulated further distance into hallway 80 ft using FWW, cued upright posture to decreased flex posture. Reassessment of ambulation with no AD, pt tends to lean to R, no LOB, cued for self corrections. Pt required approx 6 brief stop stand rest breaks no AD during distance with little SOB. Pt required use of bathroom when returned, able to compelte all needs self including brief change and hygiene, distant sBA. She ambulated to sink, complete hand washing with occaisonal contact sink with fWW in front as needed for stand endurance . Pt safely walked back to chair with pivot useing FWW and proper hand placement. Pt ambulates with improved posture and decrease neck tension and activity tolernace using FWW at this time. Pt was seated in chair with all needs in reach, placed chair alarm on for safety. DIscussed progress intx with nurse when left room. Gait Assessment Gait Gait Assistance Required: Standby Assistance,Contact Guard Assist Distance (Feet) 200 Able to Maintain Weight Bearing Status Yes During Gait Assistive Devices Assistive Device None,Gait Belt,Front Wheeled Walker Orthotic/Prosthetic Devices or Brace: No Gait Deviations General Gait Pattern Antalgic,Decreased Stride Length,Decreased Feet Clearance,Flexed Trunk,Narrow Based Gait Factors Limiting Gait Function Factors Limiting Gait Function Decreased Activity Tolerance, Decreased Strength,Difficulty Following Directions,Limited Range of Motion,Poor Balance, Poor Safety Awareness Comments Gait Comments see mobililty comments PT-Balance Assessment Sitting Balance and Reactions Static Sitting Balance Ability Good Dynamic Sitting Balance Ability Fair Standing Balance and Reactions Static Standing Balance Ability Fair Dynamic Standing Balance Ability Fair Device Used fww and no AD M5 PT-IP Objective Assessments Start: 02/27/20 12:38 Freq: NEEDED Status: Active Protocol: Document 03/04/20 10:27 DE (Rec: 03/04/20 11:13 DE [id number]) Orientation Orientation/Cognition Level of Alertness Alert Orientation Name,Age,Birthday,Month,Date, Year,Day of Week,Place, Situation Language Function Ability No Deficits Noted Safety Awareness Understands Safety Issues Memory Description No Deficits Noted Gross Range of Motion Upper Extremity ROM Assessment Within Functional Limits Lower Extremity ROM Assessment Within Functional Limits Strength Upper Extremity Strength Assessment Within Functional Limits Lower Extremity Strength Assessment Bilaterally Impaired Hip 4-/5 Coordination Assessment Gross Coordination Gross Coordination WNL Sensation Assessment Sensation Gross Sensation Left UE Impaired,Left LE Impaired Light Touch Intact Sensation Description Numbness,Tingling M6 PT-IP Treatment Start: 02/27/20 12:38 Freq: NEEDED Status: Active Protocol: Document 03/04/20 13:40 SP (Rec: 03/04/20 16:11 SP [id number]) Physical Therapy Treatment Education Education Provided Precautions,Weight Bearing Status,Safety M7 PT-IP Assessment and Plan Start: 02/27/20 12:38 Freq: NEEDED Status: Active Protocol: Document 03/04/20 13:40 SP (Rec: 03/04/20 16:11 SP [id number]) PT Summary Assessment and Plan Potential Rehabilitation Potential Fair Status of Condition at Evaluation Evolving Summary Impairments Pain,ROM,Strength,Balance, Coordination,Sensation,Tone, Cognition,Bed Mobility, Transfers,Gait,Activity Tolerance Assessment Summary Pt requires sBA at this time during all mobiltiy, noted wt shift deviation but no LOB. Pt continues to improve her amb. Pt amb ~80 ft with FWW SBA and CGA and ~120 ft with CGA and no AD, tend to lean to R with decrease R trunk rotation . Pt did not demonstrate any LOB. However, she had mild labored breathing during amb with required approx 6 stand rest breaks. Depending on level of assist that pt can plan for, PT recommends home with assist and HH vs SNF. Pt will benefit from continued rehab to improve her strength and activity tolerance. Goals Bed Mobility Goal Independent Transfer Goal Independent Gait Goal Independent Gait Distance 100 Days to Meet Goals 5 Frequency of Treatment Frequency Of Treatment Twice a Day Treatment Plan Physical Therapy Treatment Plan Bed Mobility Training,Transfer Training,Gait Training, Therapeutic Exercise,Balance Retraining,Post Op Education, Discharge Planning,Hot or Cold Pack,Neuromuscular Re-ed, Coordination Retraining,Manual Therapy Other Recommendations and Next Treatment transfers, Bed mob, gait Focus Recommendations To Nursing Amount of Assist Needed Standby Assistance Discharge Recommendations PT Discharge Recommendations Home with Assistance,Home Health Equipment Needed for Home Before Might be able to borrow nephew Discharge 's fWW upon DC. Transportation Needs at Discharge Private Vehicle
--- NOTE | 2020-03-04 15:37 | PC.NURSE ---
Patient 1p assist to br, voiding and some loose stool. Denies pain all shift. No sob, Ra. ambulates w/ physical therapy, up to recliner for meals. Really hopes to dc home. Uneventful shift.
[2020-03-04 16:00] VITALS: BP 159/75; PULSE 68; RESP 20; TEMP 36.1; O2SAT 99
[2020-03-04] MEDS: INSULIN ASPART 100 UNIT/ML INSULN PEN 8 UNIT SUBCUT (18:06)
[2020-03-04 20:00] VITALS: BP 154/94; PULSE 75; RESP 20; TEMP 35.9; O2SAT 99
[2020-03-04] MEDS: SERTRALINE 50 MG TABLET 25 MG PO (21:18)
[2020-03-04 23:35] VITALS: BP 165/74; PULSE 68; RESP 18; TEMP 36.3; O2SAT 98
[2020-03-05 03:27] VITALS: BP 100/69; PULSE 71; RESP 18; TEMP 36.2; O2SAT 94
[2020-03-05] MEDS: LEVOTHYROXINE 25 MCG TABLET PO (05:32)
[2020-03-05 05:34] LABS: Add Manual Diff / Slide Review NO; Basophils Absolute Auto 0 /uL (0-100); Basophils Percent Auto 0.3 % (0-2); Eosinophils Absolute Auto 100 /uL (0-450); Eosinophils Percent Auto 0.8 % (2-4); Hematocrit 32.4 % (36-46); Hemoglobin 10.7 g/dL (12.0-16.0); Lymphocytes Absolute Auto 1600 /uL (1100-4500); Mean Corpuscular HGB Conc 33.1 % (30-36); Mean Corpuscular Hemoglobin 28.9 PG (26-34); Mean Corpuscular Volume 87.3 fL (80-100); Monocytes Absolute Auto 600 /uL (0-900); Monocytes Percent Auto 6.7 % (3-14); Neutrophils Absolute Auto 7100 /uL (1500-7000); Neutrophils Percent Auto 75.2 % (50-75); Platelet Count 242 X10^3/uL (150-400); Red Blood Cell Count 3.71 X10^6/uL (4.0-5.2); Red Cell Distribution Width 14.3 % (11.6-14.8); White Blood Cell Count 9.5 X10^3/uL (4.5-11.0)
[2020-03-05 05:43] LABS: BUN Creatinine Ratio 35.9 (6-22); Blood Urea Nitrogen 75 mg/dL (7-17); Calcium 7.8 mg/dL (8.4-10.2); Carbon Dioxide 23 mmol/L (22-32); Chloride 106 mmol/L (98-107); Estimated Glomerular Filt Rate 23.3 mL/min (>60); Glucose 131 mg/dL (80-110); HEMOLYSIS < 15 (0-50); Potassium 4.4 mmol/L (3.4-5.1); Sodium 131 mmol/L (137-145)
[2020-03-05 05:51] LABS: NT-proBNP (BNP-Adult 18+) 1010 pg/mL (<125)
--- NOTE | 2020-03-05 08:19 | P.DS_ITS ---
History of Present Illness History of Present Illness Date Patient Seen: 03/05/20 Time Patient Seen: 08:19 Chief complaint: INPT Narrative: Patient has been having chronic neck pain and worsening cervical radiculopathy. Patient failed multiple conservative management with worsening pain weakness and numbness in her upper extremity. Patient has been having difficulty performing activity of daily living. After discussing risks benefits of treatment options, patient elected proceed with surgery. Discharge Providers Provider Date of admission: 02/26/20 10:37 Discharge Date: 03/05/20 Primary care physician: MIESHA Michelle Consults: 02/26/20 15:43 Consult to Internal Medicine Routine Comment: Consulting Provider: Bridger Ledesma Reason for consultation: DM, Hypothyrod, Poorly controlled HTN Has provider been notified: Yes Consult to Respiratory Therapy Evaluate & Treat Comment: Physician Instructions: Evaluate and treat 02/26/20 17:59 Consult to Occupational Therapy Evaluate & Treat Comment: Physician Instructions: Evaluate and treat Consult to Physical Therapy Evaluate & Treat Comment: Physician Instructions: Evaluate and Treat 02/27/20 18:38 Consult to Dietitian, Adult Routine Comment: Reason For Exam: DM II, obesity 02/28/20 12:51 Consult to Pastoral Services Routine Comment: depression, socially isolated 02/28/20 13:34 Consult to Physical Therapy Evaluate & Treat Comment: speach and swallow consult Physician Instructions: Evaluate and Treat 02/28/20 15:37 Consult to Speech Therapy Evaluate & Treat Comment: Physician Instructions: Evaluate and treat 03/01/20 06:12 Consult to Dietitian, Adult Routine Comment: Reason For Exam: NPO x 2 days due to post-op dysphagia, DM II 03/01/20 13:37 Consult to Physician Routine Comment: Consulting Provider: Teresa Saldivar Reason for consultation: MEDICAL CONSULT Has provider been notified: Yes Discharge provider: Chio Zuleta PA-C Summary Hospital Course Discharge Diagnosis: s/p ACDF Thyroid disease Hypertension Hyperlipidemia Gallbladder disease Diabetes mellitus CKD stage 4 Breast cancer Hospital Course: Heather was admitted for C4-[address] Ngo. Hospital course was remarkable for significant difficulty swallowing, and elevated Cr. PCP followed patient closely throughout stay. Her odynphagia and dysphagia, possibly secondary to intubation versus surgical complication, risk for aspiration. She failed swallow evaluation with speech therapy on 02/29/20 and 03/01/20 swallow evaluations, passed swallow on 03/01/2028, has been advancing diet since then. Currently on Mechanical soft diet with thin liquids. No straws. She was started on steroids to reduce swelling and ordered spinal CT which was WNL. Steroids were stopped during the weekend due to elevated BS. The steroids were also making her very irritable and altering her mood. She does not need further steroids at this time. Her Baseline Cr 1.7, during this admission 1.97 --> 2.33, GFR 20.5 --> 2.03 --> 2.30, GFR 20.8 with rising creatinine possibly due to fluids during NPO status. Patient underwent diuresis over the weekend. At time of discharge patient was swallowing well, mobilizing with PT, and medically cleared by PCP. Will need to continue to monitor BP and avoid nephrotoxic agents. Status at Discharge Functional status at discharge: uses cane/walker Exam Vital Signs (past 8 hours): - 03/05/20 03:27 Temperature 97.1 F L Pulse Rate 71 Respiratory Rate 18 Blood Pressure 100/69 Pulse Oximetry 94 Oxygen Delivery Method Room Air Oxygen Flow Rate 0 Narrative Exam Narrative: Patient lying in bed no acute distress. She is alert oriented x3. Calves are soft, compressible, nontender bilaterally. Sensation intact to light touch except for left hand. Coverstitch Elastic Attacher strength less on left. Radial pulses are symmetrical. No complaints of pain today. She has not eaten breakfast yet this morning. No reports of difficulty swallowing. Objective Labs Result Diagrams: 03/05/20 05:10 03/05/20 05:10 Labs: Laboratory Results - last 24 hr 03/04/20 03/05/20 03/05/20 05:08 05:10 05:10 WBC 9.5 RBC 3.71 L Hgb 10.7 L Hct 32.4 L MCV 87.3 MCH 28.9 MCHC 33.1 RDW 14.3 Plt Count 242 Neut % (Auto) 75.2 H Lymph % (Auto) 17.0 L [place] % (Auto) 6.7 Eos % (Auto) 0.8 L Baso % (Auto) 0.3 Neut # (Auto) 7100 H Lymph # (Auto) 1600 [place] # (Auto) 600 Eos # (Auto) 100 Baso # (Auto) 0 Sodium Potassium Chloride Carbon Dioxide BUN Creatinine Estimated GFR BUN/Creatinine Ratio Glucose Calcium NT-Pro-B Natriuret Pep 1700 H 1010 H 03/05/20 05:10 WBC RBC Hgb Hct MCV MCH MCHC RDW Plt Count Neut % (Auto) Lymph % (Auto) [place] % (Auto) Eos % (Auto) Baso % (Auto) Neut # (Auto) Lymph # (Auto) [place] # (Auto) Eos # (Auto) Baso # (Auto) Sodium 131 L Potassium 4.4 Chloride 106 Carbon Dioxide 23 BUN 75 H Creatinine 2.09 H Estimated GFR 23.3 L BUN/Creatinine Ratio 35.9 H Glucose 131 H Calcium 7.8 L NT-Pro-B Natriuret Pep Discharge Plan Discharge Plan Patient Disposition: SNF Transfer to: [facility] Under care of provider: at facility Consult as needed: Dental, Hearing, Mental health, Podiatry and Vision Discharge orders & Medications Prescriptions: New acetaminophen 325 mg Tablet 650 mg PO Q6HR PRN (Reason: Pain, Mild (1-3)) Qty: 60 RF: 0 docusate sodium [DOK] 100 mg Capsule 100 mg PO BID Qty: 40 RF: 0 levothyroxine [Synthroid] 25 mcg Tablet 25 mcg PO 0600 Qty: 20 RF: 0 sertraline [Zoloft] 50 mg Tablet 25 mg PO BEDTIME Qty: 20 RF: 0 amlodipine [Norvasc] 5 mg Tablet 10 mg PO DAILY Qty: 30 RF: 0 metoprolol succinate 25 mg Tablet Extended Release 24 Hr 25 mg PO DAILY Qty: 30 RF: 0 rosuvastatin 10 mg tablet 10 mg PO DAILY Qty: 20 RF: 0 Continued Lantus Solostar U-100 Insulin 100 unit/mL (3 mL) insulin pen See Rx Instructions .ROUTE .COMPLEX RF: 0 insulin aspart U-100 [Novolog Flexpen U-100 Insulin] 100 unit/mL (3 mL) insulin pen 6 - 12 unit SUBCUT BID RF: 0 Discontinued levothyroxine [Synthroid] 75 MCG tablet 50 mcg PO QAM Qty: 0 RF: 0 Follow up/Referrals: Teresa Saldivar MD [Physician] - Abhishek Ngo MD [Physician] - Viktoria Moore ARNP [Primary Care Provider] - Discharge Health Status Multidrug resistant organism: No MDRO Precautions: [place] Diet/Activity/Treatments Liquid consistency: Normal/Thin Food texture: Soft Diet comment: Mechanical soft, thin liquids, no straws Activity: No excessive bending, lifting, or twisting. Skin/Wound/Dressing Care Report to your healthcare provider any signs of infection, such as:: chills, fever and increased pain Dressing: Have dressing on until appointment Special Rehabilitation Services Reason for rehabilitation: Post-operative therapy Rehab type: Physical therapy and Occupational therapy Visit Report/Discharge Packet Instructions: DI for Prescription Opioid Use, DI for Anterior Cervical Discectomy and Fusion Stand Alone Forms: Surgery Discharge Discharge Data Primary Care Provider: Viktoria Moore VTE Deep Vein Thrombosis/Pulmonary Embolism Present on Admission: No
--- NOTE | 2020-03-05 08:30 | PC.NURSE ---
Day shift: Refused SCD's. Pt instructed to perform foot waves as tolerated to prevent DVT's in lieu of the SCD's. Call light in reach. Pt also instructed/reminded to sit upright and to take her time and follow the swallowing precautions she has been instructed on. Pt agrees to not get OOB w/o help from staff. Bed alarm is on. Pt has not been impulsive.
[2020-03-05 09:00] VITALS: BP 142/64; PULSE 63; RESP 15; TEMP 36.4; O2SAT 97
[2020-03-05] MEDS: POTASSIUM CHLORIDE 20 MEQ/15 ML UDC PO (09:03)
[2020-03-05] MEDS: DOCUSATE 100 MG CAPSULE PO (09:07)
[2020-03-05] MEDS: METOPROLOL ER 25 MG TABLET PO (09:07)
[2020-03-05] MEDS: AMLODIPINE 5 MG TABLET 10 MG PO (09:07)
[2020-03-05] MEDS: INSULIN ASPART 100 UNIT/ML INSULN PEN SUBCUT ×2 (09:08→14:13)
[2020-03-05] MEDS: SODIUM CHLORIDE 0.9% FLUSH 10 ML IV (09:09)
--- NOTE | 2020-03-05 10:02 | CM.DPC ---
Addendum entered by Chapis Woody R.N. 03/05/20 10:18: Agustina at [facility] called back, they do not take the [facility] based out of [place]. [facility] does. Will continue to work on discharge. Already have DC summary complete, and signed med sheets. Original is in packet. Addendum entered by Chapis Woody R.N. 03/05/20 10:12: Called [facility] at: [phone], and left a message regarding attempting to get a new authorization. Original Note: DCP Cont: Patient has discharge orders for today. Updated Shelley at [facility], and let her know that patient is being discharged. Shelley stated, I'm going to have to get another authorization, they voided the last one. Had let Shelley know yesterday that patient would most likely be discharged today. Shelley stated, I probably won't know until this afternoon. Already have med sheets signed. Went ahead and called another facility, [facility], and spoke to Carol in admissions. Gave her an update on the patient. She requested to go ahead and fax over referral, including P.T. notes, and she could put in an urgent request to [facility]. Went ahead and faxed over H&P, P.T, O.T. and speech notes from last few days, and discharge summary. P: Will follow up with Phyllis Leigh, and [facility]. Chapis Woody RN/Customs Brokerage Agent
[2020-03-05 10:23] VITALS: PULSE 63
--- NOTE | 2020-03-05 11:11 | CM.DPC ---
DCP Cont: Carol at [facility] confirmed acceptance, and stated that she should have authorizaton soon. Shelley at [facility] also called, and stated, one would have to revoke their request from [facility], since two facilities are requesting authorization. Spoke to patient, [facility] would be ok. Left Shelley at [facility] a message asking her to revoke authorization. Let Carol know. Patient also needs a rapid COVID. Left a message with Dr. Moore to call back, and Katarzynamargaret will also attempt to get in touch with Dr. Moore. P: Plan now if for [facility]. Have already faxed signed med list, PASSR, and DC summary to [facility] [place]. Chapis Woody RN/Game Engineer
--- NOTE | 2020-03-05 11:22 | OT.IP.TRT ---
Current Diagnoses Other spondylosis with radiculopathy, cervical region (02/26/20) Spinal stenosis, cervical region (02/26/20) Surgery Performed Operation Date: 02/26/20 12:15 Actual Procedures p C4-5,C5-6,C6-7 ACDF w/anterior instrumentation - Abhishek Ngo MD Occupational Therapy Treatment Note M2 OT-IP Current Condition Start: 02/28/20 16:12 Freq: Status: Active Protocol: Document 02/28/20 16:13 CGR (Rec: 02/28/20 16:38 CGR [email or web address]) Occupational Therapy Current Condition Current Condition Evaluation Date 02/28/20 Treatment Diagnosis C4-7 ACDF Diagnosis Onset Date 02/26/20 Post Operative Precautions Cervical Spine Precautions Soft Collar for Comfort,Soft Collar at all Times,No Heavy Lifting,Log Roll M3 OT- IP Subjective and Pain Start: 02/28/20 16:12 Freq: Status: Active Protocol: Document 03/05/20 11:14 [facility] (Rec: 03/05/20 11:22 [facility] [id number]) OT- Subjective Occupational Therapy Visit Type Type Treatment Note Visit Start Time 09:29 Visit Stop Time 10:10 Total Visit Minutes 41 Occupational Therapy Visit Comments Patient Comments Pt wanting to shower. Patient/Caregiver Goals Pt now indecisive of going home versus skilled rehab. OT Pain Assessment Pain When Pain Assessed At Rest Pain Present Pain Present Denied Pain M4 OT- IP ADL's Start: 02/28/20 16:12 Freq: Status: Active Protocol: Document 03/05/20 11:14 [facility] (Rec: 03/05/20 11:22 [facility] [id number]) OT [id number] Comments OT Self-Feeding Comments Pt states able to eat her pancakes with no issues. OT ADL-Grooming General Evaluation Grooming Ability Standby Assistance Comments OT Grooming Comments standing at sink, vc to keep the FWW in front of her OT ADL-Oral Care General Eval Oral Care Ability Independent OT ADL-Dressing General Eval Lower Body Dressing Ability Moderate Assistance,Maximum Assistance Areas Needing Assistance Socks Comments OT Dressing Comments Assist to take off right sock and assist to nilsa socks over her feet after the shower as pt was getting tired. OT ADL-Toileting General Evaluation Toileting Ability Independent OT ADL-Bathing Bathing Type Bathing Type Shower General Evaluation Bathing Ability Minimal Assistance Areas Needing Assistance Retrieving/Setting Up Items, Wash/Dry Lower Extremities Comments OT Bathing Comments Assist to wash and dry her feet. CGA while standing to do pericare needs and heavy use of grab bars to assist with balance. Pt able to sit to assist to wash her legs. M5 OT- IP IADL's Start: 02/28/20 16:12 Freq: Status: Active Protocol: Document 02/28/20 16:13 CGR (Rec: 02/28/20 16:38 CGR [email or web address]) OT-Instrumental Activities of Daily Living Deficits IADL Deficits Identified Deficits Home Safety Awareness Awareness of Need for Assistance at Home Decreased Awareness Ability to Problem Solve Emergency Unable to Problem Solve Situations Medication Management Medication Management Comments Concerns for medication management at this time Money Management Money Management Comments Concerns for money management at this time. Meal Preparation Meal Preparation Comments Concerns for ability to provide meals. 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 Driving Driving Concerns Identified Regarding Safety M6 OT- IP Functional Cognition Start: 02/28/20 16:12 Freq: Status: Active Protocol: Document 03/05/20 11:14 [facility] (Rec: 03/05/20 11:22 [facility] [id number]) Cognitive Factors Limiting Selfcare Function Cognitive Comments Cognitive Assessment Comments Pt appears to be close to baseline for cognitive needs. M7 OT- IP Mobility and Balance Start: 02/28/20 16:12 Freq: Status: Active Protocol: Document 03/05/20 11:14 [facility] (Rec: 03/05/20 11:22 [facility] [id number]) OT- Bed Mobility Assessment Supine to Sit Supine to Sit Assist Standby Assistance OT-Transfer Assessment Sit to and From Stand Sit to and from Stand Standby Assistance Transfers Transfer Ability Standby Assistance,Contact Guard Assistance Technique Transfer Destination Bed,Shower Stall,Toilet Devices Transfer Assistive Devices Gait Belt,Front Wheeled Walker Comments Mobility Comments CGA while stepping over the threshold of the shower for balance. Otherwise pt is SBA with FWW. OT- Balance Assessment Sitting Balance and Reactions Static Sitting Balance Ability Normal Dynamic Sitting Balance Ability Good M9 OT- IP Assessment and Plan Start: 02/28/20 16:12 Freq: Status: Active Protocol: Document 03/05/20 11:14 [facility] (Rec: 03/05/20 11:22 [facility] [id number]) OT Summary Assessment and Plan Potential Rehabilitation Potential Good Summary OT Impairments Pain,Functional Cognition, Functional Mobility,Dressing, Bathing,Toilet Transfers, Shower Transfers,Activity Tolerance Progress Towards Goals Progressing Toward Goals Assessment Summary Pt now not sure of whether to go home or to skilled rehab. Pt did agreed would benefit from skilled rehab to help improve her overall endurance, activity tolerance and balance needs prior to going home. Pt would benefit form short rehab stay versus home with assist with home health. Goals Dressing Goal Independent Toileting Goal Independent Bathing Goal Independent Toilet Transfer Goal Independent Shower Transfer Goal Independent Days to Meet Goals 41 Frequency of Treatment Frequency Of Treatment Once a Day Treatment Plan OT Treatment Plan ADL Training,Functional Cognition Training,Functional Mobility,Patient/Family Education,Discharge Planning Discharge Recommendations OT Discharge Recommendations SNF Rehab versus home with assist and HH Home Equipment Needs Tub bench, FWW, HHSP, LB dressing equipment Transportation Needs at Discharge Wheelchair/Cabulance
--- NOTE | 2020-03-05 11:51 | PT.IPTN ---
Documentation reviewed by Elizabeth Causey PTA Current Diagnoses Other spondylosis with radiculopathy, cervical region (02/26/20) Spinal stenosis, cervical region (02/26/20) Surgery Performed Operation Date: 02/26/20 12:15 Actual Procedures p C4-5,C5-6,C6-7 ACDF w/anterior instrumentation - Abhishek Ngo MD Physical Therapy Treatment Note M2 PT-IP Current Condition Start: 02/27/20 12:38 Freq: NEEDED Status: Active Protocol: Document 03/04/20 10:27 [facility] (Rec: 03/04/20 11:13 [facility] [id number]) Physical Therapy Current Condition Current Condition Evaluation Date 03/04/20 Treatment Diagnosis C4-7 ACDF; Difficulty with walking Onset Date 02/26/20 Precautions Cervical Spine Precautions Soft Collar for Comfort,No Heavy Lifting,Log Roll M3 PT-IP Subjective Start: 02/27/20 12:38 Freq: NEEDED Status: Active Protocol: Document 03/05/20 11:39 (Rec: 03/05/20 12:43 [email or web address]) Subjective Physical Therapy Visit Type Type Treatment Note Visit Start Time 11:39 Visit Stop Time 11:51 Total Visit Minutes 12 Notes SPTA Ahna tx under direct supervision of Thalia BRICEÑO. Pt states doing much better today Number of LABELING ASSOCIATE Visits 1 Physical Therapy Visit Comments Patient Comments Pt agreeable to do PT. M4 PT-IP Mobility and Gait Start: 02/27/20 12:38 Freq: NEEDED Status: Active Protocol: Document 03/05/20 11:39 (Rec: 03/05/20 12:43 [email or web address]) PT-Bed Mobility Assessment Rolling Type of Rolling Log Rolling,Roll to Left Level of Assist Standby Assistance Supine to Sit Supine to Sit Standby Assistance,1 Person Assistance Scooting Scooting to Edge of Bed Standby Assistance PT-Transfer Assessment Sit to and From Stand Sit to and from Stand Standby Assistance,Use of Upper Extremities Equipment Transfer Assistive Device Gait Belt,Front Wheeled Walker Orthotic/Prosthetic Devices or Brace: No Transfers Transfer Destination Chair Transfer Technique Stand Step Pivot w/ FWW Transfer Ability Level of Assist Standby Assistance,1 Person Assistance,Use of Upper Extremities Comments Mobility Comments Pt found in bed upon arrival. SBA log roll to L w/ use of L side bed rail. SBA scooting to EOB. From EOB pt able to bring both feet into fig 4 position for a couple sec to adjust socks. Sit to stand SBA w/ FWW. Pt wanted to check hair before amb and abrupty/ quickly moved FWW toward sink demonstrating impulsive behavior that is unsafe. Amb ~ 200ft down hallway w/ FWW and SBA. Pt demonstrated a step through gait pattern w/ a decreased stride length. Pt cued to keep body within walker for safety. Pt performed stand step pivot w/ FWW and SBA to chair in room after amb. Gait Assessment Gait Gait Assistance Required: Standby Assistance,1 Person Assist Distance (Feet) 200 Able to Maintain Weight Bearing Status Yes During Gait Assistive Devices Assistive Device Gait Belt,Front Wheeled Walker Orthotic/Prosthetic Devices or Brace: No Gait Deviations General Gait Pattern Antalgic,Decreased Stride Length,Decreased Feet Clearance,Flexed Trunk,Narrow Based Gait Factors Limiting Gait Function Factors Limiting Gait Function Decreased Activity Tolerance, Decreased Strength,Difficulty Following Directions,Limited Range of Motion,Poor Balance, Poor Safety Awareness Comments Gait Comments See mobility section. PT-Balance Assessment Sitting Balance and Reactions Static Sitting Balance Ability Good Dynamic Sitting Balance Ability Fair Standing Balance and Reactions Static Standing Balance Ability Fair Dynamic Standing Balance Ability Fair Device Used fww and no AD M5 PT-IP Objective Assessments Start: 02/27/20 12:38 Freq: NEEDED Status: Active Protocol: Document 03/04/20 10:27 [facility] (Rec: 03/04/20 11:13 DE [id number]) Orientation Orientation/Cognition Level of Alertness Alert Orientation Name,Age,Birthday,Month,Date, Year,Day of Week,Place, Situation Language Function Ability No Deficits Noted Safety Awareness Understands Safety Issues Memory Description No Deficits Noted Gross Range of Motion Upper Extremity ROM Assessment Within Functional Limits Lower Extremity ROM Assessment Within Functional Limits Strength Upper Extremity Strength Assessment Within Functional Limits Lower Extremity Strength Assessment Bilaterally Impaired Hip 4-/5 Coordination Assessment Gross Coordination Gross Coordination WNL Sensation Assessment Sensation Gross Sensation Left UE Impaired,Left LE Impaired Light Touch Intact Sensation Description Numbness,Tingling M6 PT-IP Treatment Start: 02/27/20 12:38 Freq: NEEDED Status: Active Protocol: Document 03/04/20 13:40 SP (Rec: 03/04/20 16:11 SP [id number]) Physical Therapy Treatment Education Education Provided Precautions,Weight Bearing Status,Safety M7 PT-IP Assessment and Plan Start: 02/27/20 12:38 Freq: NEEDED Status: Active Protocol: Document 03/05/20 11:39 (Rec: 03/05/20 12:43 [id number]) PT Summary Assessment and Plan Potential Rehabilitation Potential Fair Status of Condition at Evaluation Evolving Summary Impairments Pain,ROM,Strength,Balance, Coordination,Sensation,Tone, Cognition,Bed Mobility, Transfers,Gait,Activity Tolerance Assessment Summary Pt requires SBA for all mobility, gait and transfers. Demonstrates imrpoved foot clearance, but slightly decreased foot stride. Pt demonstrates slight impulsive behavior that could be unsafe. Goals Bed Mobility Goal Independent Transfer Goal Independent Gait Goal Independent Gait Distance 100 Days to Meet Goals 5 Frequency of Treatment Frequency Of Treatment Twice a Day Treatment Plan Physical Therapy Treatment Plan Bed Mobility Training,Transfer Training,Gait Training, Therapeutic Exercise,Balance Retraining,Post Op Education, Discharge Planning,Hot or Cold Pack,Neuromuscular Re-ed, Coordination Retraining,Manual Therapy Other Recommendations and Next Treatment Gait, transfers, bed mobility Focus Recommendations To Nursing Amount of Assist Needed Standby Assistance Discharge Recommendations PT Discharge Recommendations Home,Home with Assistance Equipment Needed for Home Before Might be able to borrow nephew Discharge 's fWW upon DC. Transportation Needs at Discharge Private Vehicle
[2020-03-05 11:54] VITALS: BP 136/67; PULSE 64; RESP 17; TEMP 35.7; O2SAT 100
--- NOTE | 2020-03-05 12:35 | CM.DPC ---
Addendum entered by Chapis Woody R.N. 03/05/20 13:56: Dr. Moore came by and signed face to face. Let him know that original plan was for skilled, but at this time, may most likely not be authorized by her insurance secondary to improvement with mobility. This is pending decision from [facility] medical review. Carol will call them again at approximately 1400, to see if they have an answer as of yet. Babs from P.T. is also updated. Went ahead and placed order for FWW, but want to ensure that she will not be eligable for skilled, and will do home training. Will update P.T. as soon as there is an answer. Original Note: DCP Cont: Spoke to Carol at [facility], in admissions. Stated that she had just gotten off of the phone with [employer], and stated, they may not approve skilled secondary to her showing signs of improvement with P.T. She mentioned that it was going to the medical board to see if it can be approved, and should know the outcome today. Met with patient. Updated her on situation. Mentioned paying privately as well. Patient stated, I'd just rather go home, I have an apartment with no stairs. She indicated that she does have some family/neighbors, that can check in on her. Went ahead and called Dr. Moore's office, let medical receptionist assistant know that this bilingual patient support caseworker would fax over a face to face, for if not approved, home health would be the next option. Asked to fax back face to face to care management with Dr. Moore's signature. P: Plan is for either discharge to [facility] if approved by medical board, or home with home health. Chapis Woody RN/Auditor
[2020-03-05 14:11] LABS: COVID19 -Nasal RAPID Negative (Negative)
[2020-03-05] MEDS: INSULIN ASPART 100 UNIT/ML INSULN PEN 8 UNIT SUBCUT (14:13)
--- NOTE | 2020-03-05 14:34 | CM.DPC ---
Addendum entered by Chapis Woody R.N. 03/05/20 15:13: Dr. Moore called and stated that he would be over here between [phone]. Updated Yosarrian, nurse, and pm nurse. Let her know that the plan is home health, [facility], which has been ordered. Patient will need a taxi, and nurse stated that she can call [employer] for patient, and patient confirmed that she has credit card. Face to face, orders, progress notes, H&P have all been faxed to [facility]. Patient is aware of all disciplines that have been ordered. Original Note: DCP Cont: Patient was denied by [employer] unless a peer to peer could be initiated. Will go ahead and pursue home health. Contacted Qamar at [facility], and he stated that they do take [employer] Medicare Advantage. Stated that they can try to see patient tomorrow. 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 Called and left a message with Dr. Moore that patient is to go home today and will need prescriptions and a new discharge summary. P: Plan is for patient to discharge home with [facility]. Chapis Woody RN/Game Bird Farmer
[2020-03-05 15:40] VITALS: BP 141/98; PULSE 70; RESP 16; TEMP 36.3; O2SAT 99
--- NOTE | 2020-03-05 15:42 | OT.IPNOTE ---
Attempted to issued pt FWW as she does not have one at home. 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 Pt states will call her friend to come and assist her into the house.
--- NOTE | 2020-03-05 16:55 | P.DS_ITS ---
History of Present Illness History of Present Illness Date Patient Seen: 03/05/20 Time Patient Seen: 16:56 Date of Onset of Symptoms: 02/26/20 Chief complaint: INPT Narrative: Please see discharge summary by orthopedist and admission history and physical Discharge Providers Provider Date of admission: 02/26/20 10:37 Discharge Date: 03/05/20 Primary care physician: MIESHA Michelle Consults: 02/26/20 15:43 Consult to Internal Medicine Routine Comment: Consulting Provider: Bridger Ledesma Reason for consultation: DM, Hypothyrod, Poorly controlled HTN Has provider been notified: Yes Consult to Respiratory Therapy Evaluate & Treat Comment: Physician Instructions: Evaluate and treat 02/26/20 17:59 Consult to Occupational Therapy Evaluate & Treat Comment: Physician Instructions: Evaluate and treat Consult to Physical Therapy Evaluate & Treat Comment: Physician Instructions: Evaluate and Treat 02/27/20 18:38 Consult to Dietitian, Adult Routine Comment: Reason For Exam: DM II, obesity 02/28/20 12:51 Consult to Pastoral Services Routine Comment: depression, socially isolated 02/28/20 13:34 Consult to Physical Therapy Evaluate & Treat Comment: speach and swallow consult Physician Instructions: Evaluate and Treat 02/28/20 15:37 Consult to Speech Therapy Evaluate & Treat Comment: Physician Instructions: Evaluate and treat 03/01/20 06:12 Consult to Dietitian, Adult Routine Comment: Reason For Exam: NPO x 2 days due to post-op dysphagia, DM II 03/01/20 13:37 Consult to Physician Routine Comment: Consulting Provider: Teresa Saldivar Reason for consultation: MEDICAL CONSULT Has provider been notified: Yes 03/05/20 12:53 Consult to Home Health Routine Comment: Reason For Exam: FWW for home use 03/05/20 14:18 Consult to Home Health Routine Comment: Reason For Exam: Home Health nursing, speech, 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 Please see orthopedics notes. Patient had surgery and had no further issue. Recovered well from their perspective Hypertension. Patient was admitted and during surgery had developed this significantly elevated blood pressure. Initially was given her usual medicines back with lisinopril Norvasc which apparently she has not been taking. Control was poor. On day 1 she was placed on an increase in enalapril from her baseline and hydrochlorothiazide. She can not she continued to not have good control and had been increased to 50 of hydrochlorothiazide Hytrin 3 mg at night. Seemed to have better control. Side effects to her medication. Patient was having difficulty taking her medicine and having less labile blood pressure and labetalol was started. No other significant change. She seemed to tolerate although this. She was having difficulty swallowing and had been started on Lasix the next morning which would been the Wednesday. At this point she was discontinued on all but her usual home medicine and she proceeded to diurese well. Blood pressure was in better control and the last 2 days she was doing well. No changes at this point. She will be discharged home on her amlodipine and metoprolol which seems to be working well for. Her O2 LASHAE-inhibitor was discontinued and seems to be stable. Dysphagia. It was noted on the that she had failed her swallowing study. She would be made NPO which made medication treatment difficult. She had been started on steroids by and over the course of the next several days she began to improve. On day of discharge she was taking adequate nutrition p.o. as per the speech therapist. She had passed her swallowing study and it appeared as if she was continuing to make improvement. She will be followed as an outpatient. Type 2 diabetes. Patient overall had adjustments made in her therapy but overall had been doing well. Diabetic neuropathy. Patient had increase in her creatinine by that we can period was unclear the injury could have been multiple issues and she was starting to retain fluid. She had been diuresed and kidney function was returning to normal on discharge with followed as an outpatient. Hypothyroidism overall stable no change continued on levothyroxine. Hyperlipidemia. Was continued on her usual meds. Depression. Overall she was stable she was continued on her sertraline and will be followed. Obesity risk for poor healing uncontrolled diabetes and longer hospital stay clearly appeared to be true nutritional counseling was done. Anemia of chronic disease. Has been stable without significant issue and treatment for usual conditions have been done no other change. Status at Discharge Cognitive/behavioral status at discharge: oriented Functional status at discharge: uses cane/walker Overall status at discharge: patient is progressing back to baseline Exam Vital Signs (past 8 hours): - 03/05/20 09:00 03/05/20 10:23 03/05/20 11:54 Temperature 97.5 F L 96.3 F L Pulse Rate 63 63 64 Respiratory Rate 15 17 Blood Pressure 142/64 H 136/67 Pulse Oximetry 97 100 03/05/20 15:40 Temperature 97.4 F L Pulse Rate 70 Respiratory Rate 16 Blood Pressure Pulse Oximetry 99 Oxygen Delivery Method Room Air Oxygen Flow Rate 0 Narrative Exam Narrative: Alert smiling female no acute distress fatigued in appearance. HEENT exam is unremarkable. Neck is supple not moving around a lot she does have a bandage on the left side. Lungs are clear. Heart regular rate and rhythm. Abdomen is soft positive bowel sounds nontender extremities without significant cyanosis clubbing edema. Neurologic exam appears to be intact. Psychologically mildly subdued but otherwise appropriate Objective Labs Result Diagrams: 03/05/20 05:10 03/05/20 05:10 Labs: Laboratory Results - last 24 hr 03/05/20 03/05/20 03/05/20 05:10 05:10 05:10 WBC 9.5 RBC 3.71 L Hgb 10.7 L Hct 32.4 L MCV 87.3 MCH 28.9 MCHC 33.1 RDW 14.3 Plt Count 242 Neut % (Auto) 75.2 H Lymph % (Auto) 17.0 L Cabell % (Auto) 6.7 Eos % (Auto) 0.8 L Baso % (Auto) 0.3 Neut # (Auto) 7100 H Lymph # (Auto) 1600 [place] # (Auto) 600 Eos # (Auto) 100 Baso # (Auto) 0 Sodium 131 L Potassium 4.4 Chloride 106 Carbon Dioxide 23 BUN 75 H Creatinine 2.09 H Estimated GFR 23.3 L BUN/Creatinine Ratio 35.9 H Glucose 131 H Calcium 7.8 L NT-Pro-B Natriuret Pep 1010 H COVID-19 PCR 03/05/20 11:50 WBC RBC Hgb Hct MCV MCH MCHC RDW Plt Count Neut % (Auto) Lymph % (Auto) Cabell % (Auto) Eos % (Auto) Baso % (Auto) Neut # (Auto) Lymph # (Auto) Cabell # (Auto) Eos # (Auto) Baso # (Auto) Sodium Potassium Chloride Carbon Dioxide BUN Creatinine Estimated GFR BUN/Creatinine Ratio Glucose Calcium NT-Pro-B Natriuret Pep COVID-19 PCR Negative Discharge Assessment & Plan Assessment and Plan Assessment: See assessment and plan Plan of Treatment: Discharge. Discharge Plan Discharge Plan Patient Disposition: Home Discharge orders & Medications Prescriptions: New acetaminophen 325 mg Tablet 650 mg PO Q6HR PRN (Reason: Pain, Mild (1-3)) Qty: 60 RF: 0 docusate sodium [DOK] 100 mg Capsule 100 mg PO BID Qty: 40 RF: 0 levothyroxine [Synthroid] 25 mcg Tablet 25 mcg PO 0600 Qty: 20 RF: 0 sertraline [Zoloft] 50 mg Tablet 25 mg PO BEDTIME Qty: 20 RF: 0 amlodipine [Norvasc] 5 mg Tablet 10 mg PO DAILY Qty: 30 RF: 0 metoprolol succinate 25 mg Tablet Extended Release 24 Hr 25 mg PO DAILY Qty: 30 RF: 0 rosuvastatin 10 mg tablet 10 mg PO DAILY Qty: 20 RF: 0 Continued Lantus Solostar U-100 Insulin 100 unit/mL (3 mL) insulin pen See Rx Instructions .ROUTE .COMPLEX RF: 0 insulin aspart U-100 [Novolog Flexpen U-100 Insulin] 100 unit/mL (3 mL) insulin pen 6 - 12 unit SUBCUT BID RF: 0 Discontinued levothyroxine [Synthroid] 75 MCG tablet 50 mcg PO QAM Qty: 0 RF: 0 Follow up/Referrals: Teresa Saldivar MD [Physician] - 1 Week (paitent to call for appointment) Abhishek Ngo MD [Physician] - 1 Week (call for appointment) Viktoria Moore ARNP [Primary Care Provider] - Discharge Health Status Multidrug resistant organism: No MDRO Diet/Activity/Treatments Diet comment: Mechanical soft, thin liquids, no straws Activity: No excessive bending, lifting, or twisting. Skin/Wound/Dressing Care Report to your healthcare provider any signs of infection, such as:: chills, fever and increased pain Dressing: Have dressing on until appointment Visit Report/Discharge Packet Instructions: DI for Prescription Opioid Use, DI for Anterior Cervical Discecto my and Fusion Stand Alone Forms: Surgery Discharge Discharge Data Primary Care Provider: Viktoria Moore Quality VTE Deep Vein Thrombosis/Pulmonary Embolism Present on Admission: No
--- NOTE | 2020-03-05 18:38 | PC.NURSE ---
Evening Shift/Discharge Note- Patient discharged home. Discharge instructions and education reviewed with patient and signed. IV line removed and bandage applied. Patient dressed self and packed up all personal belongings. Called taxi for pickup. Patient left via wheelchair to taxi with all personal belongings at 1810.
--- NOTE | 2020-03-06 13:17 | PC.NURSE ---
Late Entry for 03/01/2020, time 11:59- Patient is alert and oriented but forgetful. BP this am 198/100s. Oral medication given after Speech Therapist Mellissa whitehead evaluate patients swallow. She is able to swallow apple sauce and peaches. ANABEL Oh RN up to put in a midline to patients l.upper arm, flushing hard, positional. Patient given her lebatolol iv and iv hydralizine as bp still high at 169/90s. Patient tolerated iv blood pressure medication. She was working on her bills sitting up in the chair. She stated that she had to use the bathroom. This RN said that she would be right back in and patient got up on her own and pulled out her mid line iv, patient was in the bathroom slumped back on the toilet, barely awake, rapid response called. Patient was coherent and did not have a complete syncopal episode. Patient had a hard stool in the toilet, which was the size of a marble. Patient was alert, pale in the face, and blood pressure 127/54, p69 after this incident. Prior her pulse did go down into the 40s. EKG obtained, NSR per RT. Called and she ordered cbc, cmp, mag, and phos...New midline placed in r.upper. Patient asked to use the bathroom again, and this RN told her no, she was unsteady on her feet and needed to use the bed del cid.
== END 2020-03-05 18:10 | disposition home health service (06) | DRG 472 ==
PROVIDERS: Anesthesiology; Family Medicine; Physician Assistant Surgical; Student in an Organized Health Care Education/Training Program; Admitting Provider Orthopaedic Surgery Orthopaedic Surgery of the Spine; PCP Internal Medicine; Referring Provider Orthopaedic Surgery Orthopaedic Surgery of the Spine; Visit Provider Family Medicine
PROC: 0RG20A0 Fusion of 2 or more Cervical Vertebral Joints with Interbody Fusion Device, Anterior Approach, Anterior Column, Open Approach (ICD-10-PCS; principal; 2020-02-26 12:15)
DX: M48.02 Spinal stenosis, cervical region (principal); N18.4 Chronic kidney disease, stage 4 (severe); N17.9 Acute kidney failure, unspecified; I12.9 Hypertensive chronic kidney disease with stage 1 through stage 4 chronic kidney disease, or unspecified chronic kidney disease; R13.19 Other dysphagia; E87.70 Fluid overload, unspecified; E11.21 Type 2 diabetes mellitus with diabetic nephropathy; E11.22 Type 2 diabetes mellitus with diabetic chronic kidney disease; D63.1 Anemia in chronic kidney disease; M47.22 Other spondylosis with radiculopathy, cervical region; F32.9 Major depressive disorder, single episode, unspecified; E78.5 Hyperlipidemia, unspecified; E03.9 Hypothyroidism, unspecified; E66.9 Obesity, unspecified; Z68.31 Body mass index [BMI] 31.0-31.9, adult; Z85.3 Personal history of malignant neoplasm of breast; Z91.14 Patient's other noncompliance with medication regimen; Z11.59 Encounter for screening for other viral diseases
CPT/HCPCS: 36415; 36592; 72040; 72125; 76000; 80048; 80053; 82565; 82962; 83735; 83880; 84100; 84443; 84520; 85014; 85018; 85025; 86850; 86900; 86901; 87635; 92526; 92610; 93005; 93010; 94762; 97110; 97116; 97129; 97162; 97164; 97167; 97530; 97535; 99232; 99233; C1776; J0330; J0360; J1100; J1170; J1940; J2250; J2405; J2704; J3010

== ENCOUNTER → 2020-03-11 09:45 | Outpatient (CLI) | payer OTHER, SELFPAY ==
[2020-02-26 18:40] VITALS: BMI 31.8
[2020-03-11 12:13] LABS: Hematocrit 29.6 % (36-46); Hemoglobin 9.9 g/dL (12.0-16.0)
[2020-03-11 12:26] LABS: BUN Creatinine Ratio 16.8 (6-22); Blood Urea Nitrogen 33 mg/dL (7-17); Carbon Dioxide 22 mmol/L (22-32); Chloride 108 mmol/L (98-107); Estimated Glomerular Filt Rate 25.1 mL/min (>60); Glucose 169 mg/dL (80-110); HEMOLYSIS < 15 (0-50); Potassium 3.6 mmol/L (3.4-5.1); Sodium 136 mmol/L (137-145)
[2020-03-11 17:32] LABS: Creatinine Urine Random 134.5 mg/dL
[2020-03-11 18:05] LABS: Protein (Total) Urine Random 1619 mg/dL (0-12); Protein Creatinine Ratio Urine 12.03 GRAM/24H
[2020-03-12 09:10] LABS: Parathyroid Hormone Int 146 pg/mL (15-65)
== END ==
PROVIDERS: PCP Internal Medicine; Referring Provider Student in an Organized Health Care Education/Training Program; Visit Provider Student in an Organized Health Care Education/Training Program
DX: N05.9 Unspecified nephritic syndrome with unspecified morphologic changes (principal); D64.9 Anemia, unspecified; N25.81 Secondary hyperparathyroidism of renal origin; R80.1 Persistent proteinuria, unspecified
CPT/HCPCS: 36415; 80048; 82570; 83970; 84156; 85014; 85018

== ENCOUNTER → 2020-03-25 10:40 | Outpatient (CLI) | payer OTHER, SELFPAY ==
[2020-02-26 18:40] VITALS: BMI 31.8
[2020-03-25 12:09] LABS: Appearance Urine UA CLOUDY; Bilirubin Urine UA NEGATIVE (NEGATIVE); Color Urine UA YELLOW; Glucose Urine UA 1+ g/dL (Negative); Ketones Urine UA NEGATIVE (NEGATIVE); Leukocyte Esterase Urine UA TRACE (NEGATIVE); Nitrite Urine UA NEGATIVE (Negative); Occult Blood Urine UA 1+ (Negative); Protein Urine UA 3+ (Negative); Specific Gravity Urine UA 1.025 (1.000-1.035); Urobilinogen Urine UA 0.2 E.U./dL (0.2)
[2020-03-25 12:11] LABS: pH Urine UA 5.5 (4.5-8.0)
[2020-03-25 12:16] LABS: Hematocrit 29.8 % (36-46)
[2020-03-25 12:51] LABS: HEMOLYSIS 17 (0-50); Iron 54 ug/dL (37-170)
[2020-03-25 12:54] LABS: BUN Creatinine Ratio 16.9 (6-22); Blood Urea Nitrogen 28 mg/dL (7-17); Calcium 8.9 mg/dL (8.4-10.2); Carbon Dioxide 20 mmol/L (22-32); Chloride 111 mmol/L (98-107); Estimated Glomerular Filt Rate 30.4 mL/min (>60); Glucose 129 mg/dL (80-110); HEMOLYSIS < 15 (0-50); Potassium 4.6 mmol/L (3.4-5.1); Sodium 137 mmol/L (137-145)
[2020-03-25 13:04] LABS: Percent Iron Saturation 22 % (15-50); Total Iron Binding Capacity 251 ug/dL (265-497); Transferrin 214 mg/dL (206-381)
[2020-03-25 13:14] LABS: Bacteria Urine Many (>30); Culture Indicated Urine Specimen Cultured; RBC Urine 5-10/HPF (0-5/HPF); Squamous Epithelial Cell Urine 1-5 /HPF (0-5/HPF); WBC Urine >100/HPF (0-5/HPF)
[2020-03-25 13:30] LABS: Ferritin 82 ng/mL (11-264)
[2020-03-25 16:25] LABS: Creatinine Urine Random 105.7 mg/dL
[2020-03-25 16:29] LABS: Protein (Total) Urine Random 1462 mg/dL (0-12); Protein Creatinine Ratio Urine 13.83 GRAM/24H
== END ==
PROVIDERS: Referring Provider Student in an Organized Health Care Education/Training Program; Visit Provider Student in an Organized Health Care Education/Training Program
DX: N05.9 Unspecified nephritic syndrome with unspecified morphologic changes (principal); D50.0 Iron deficiency anemia secondary to blood loss (chronic); D64.9 Anemia, unspecified; N30.00 Acute cystitis without hematuria; R80.9 Proteinuria, unspecified
CPT/HCPCS: 36415; 80048; 81003; 81015; 82570; 82728; 83540; 83550; 84156; 85014; 85018; 87077; 87086; 87186

== ENCOUNTER → 2020-05-01 14:12 | Outpatient (CLI) | payer OTHER, SELFPAY ==
[2020-02-26 18:40] VITALS: BMI 31.8
[2020-05-01 14:34] LABS: Add Manual Diff / Slide Review NO; Basophils Absolute Auto 100 /uL (0-100); Basophils Percent Auto 0.7 % (0-2); Eosinophils Absolute Auto 100 /uL (0-450); Eosinophils Percent Auto 1.7 % (2-4); Hematocrit 32.9 % (36-46); Hemoglobin 10.6 g/dL (12.0-16.0); Lymphocytes Absolute Auto 1300 /uL (1100-4500); Lymphocytes Percent Auto 18.9 % (25-40); Mean Corpuscular HGB Conc 32.3 % (30-36); Mean Corpuscular Hemoglobin 28.5 PG (26-34); Mean Corpuscular Volume 88.2 fL (80-100); Monocytes Absolute Auto 400 /uL (0-900); Monocytes Percent Auto 5.5 % (3-14); Neutrophils Absolute Auto 5200 /uL (1500-7000); Neutrophils Percent Auto 73.2 % (50-75); Platelet Count 254 X10^3/uL (150-400); Red Blood Cell Count 3.72 X10^6/uL (4.0-5.2); Red Cell Distribution Width 15.5 % (11.6-14.8); White Blood Cell Count 7.1 X10^3/uL (4.5-11.0)
[2020-05-01 14:47] LABS: Alanine Aminotransferase 14 IU/L (<35); Albumin 3.6 g/dL (3.5-5.0); Albumin Globulin Ratio 1.2 (1.0-2.8); Alkaline Phosphatase 95 U/L (38-126); Aspartate Aminotransferase 20 IU/L (14-36); BUN Creatinine Ratio 15.9 (6-22); Bilirubin Total 0.2 mg/dL (0.2-1.3); Blood Urea Nitrogen 27 mg/dL (7-17); Calcium 8.9 mg/dL (8.4-10.2); Carbon Dioxide 25 mmol/L (22-32); Chloride 111 mmol/L (98-107); Estimated Glomerular Filt Rate 29.5 mL/min (>60); Globulin 3.1 g/dL (1.7-4.1); Glucose 88 mg/dL (80-110); HEMOLYSIS < 15 (0-50); Potassium 3.7 mmol/L (3.4-5.1); Sodium 138 mmol/L (137-145); Total Protein 6.7 g/dL (6.3-8.2)
[2020-05-01 15:13] LABS: Hematocrit 32.7 % (36-46); Hemoglobin 10.7 g/dL (12.0-16.0)
[2020-05-01 15:34] LABS: HEMOLYSIS < 15 (0-50); Iron 47 ug/dL (37-170)
[2020-05-01 15:41] LABS: Creatinine Urine Random 91.2 mg/dL
[2020-05-01 15:44] LABS: Percent Iron Saturation 18 % (15-50); Total Iron Binding Capacity 264 ug/dL (265-497); Transferrin 247 mg/dL (206-381)
[2020-05-01 16:21] LABS: Protein (Total) Urine Random 1278 mg/dL (0-12); Protein Creatinine Ratio Urine 14.01 GRAM/24H
[2020-05-01 18:15] LABS: Ferritin 39 ng/mL (11-264)
[2020-05-02 07:10] LABS: Parathyroid Hormone Int 90 pg/mL (15-65)
== END ==
PROVIDERS: Internal Medicine Hematology & Oncology; Referring Provider Student in an Organized Health Care Education/Training Program; Visit Provider Student in an Organized Health Care Education/Training Program
DX: D50.0 Iron deficiency anemia secondary to blood loss (chronic) (principal); D64.9 Anemia, unspecified; N25.81 Secondary hyperparathyroidism of renal origin; R80.9 Proteinuria, unspecified; C50.912 Malignant neoplasm of unspecified site of left female breast
CPT/HCPCS: 36415; 80053; 82570; 82728; 83540; 83550; 83970; 84156; 85014; 85018; 85025

== ENCOUNTER → 2020-05-23 17:10 | Outpatient (CLI) | payer OTHER, SELFPAY ==
[2020-02-26 18:40] VITALS: BMI 31.8
--- NOTE | 2020-05-23 17:12 | DI.MG.S_ITS ---
BILATERAL DIGITAL SCREENING MAMMOGRAM 3D/2D WITH CAD: 05/23/2020 CLINICAL: Routine screening. Personal history of left breast cancer. Family history of breast cancer. Comparison is made to exams dated: 05/01/2019 mammogram, 04/30/2018 mammogram, and 04/27/2017 mammogram - [facility]. There are scattered fibroglandular elements in both breasts. Current study was also evaluated with a Computer Aided Detection (CAD) system. There are benign calcifications in both breasts. There also are benign post operative findings in the left breast. No significant masses, calcifications, or other findings are seen in either breast. There has been no significant interval change. IMPRESSION: BENIGN There is no mammographic evidence of malignancy. A 1 year screening mammogram is recommended. This exam was interpreted at Station ID: [id number]. NOTE: For mammograms, a report in lay terms will be sent to the patient. Approximately 15% of breast malignancies will not be visualized mammographically. In the management of a palpable breast mass, a negative mammogram must not discourage biopsy of a clinically suspicious lesion. Electronically Signed By: Bhupinder yee/gigi:05/23/2020 21:53:08 copy to: CHANTE ASHLEY letter sent: Normal Exam ACR BI-RADS Category 2: Benign Finding(s) [id number]
== END ==
PROVIDERS: PCP Internal Medicine; Referring Provider Internal Medicine; Visit Provider Internal Medicine
DX: Z12.31 Encounter for screening mammogram for malignant neoplasm of breast (principal)
CPT/HCPCS: 77063; 77067

== ENCOUNTER → 2020-05-24 10:32 | Outpatient (CLI) | payer OTHER, SELFPAY ==
[2020-02-26 18:40] VITALS: BMI 31.8
[2020-05-24 11:58] LABS: Alanine Aminotransferase 12 IU/L (<35); Albumin 3.4 g/dL (3.5-5.0); Albumin Globulin Ratio 1.2 (1.0-2.8); Alkaline Phosphatase 75 U/L (38-126); Aspartate Aminotransferase 17 IU/L (14-36); BUN Creatinine Ratio 16.6 (6-22); Bilirubin Total 0.2 mg/dL (0.2-1.3); Blood Urea Nitrogen 35 mg/dL (7-17); Calcium 8.5 mg/dL (8.4-10.2); Carbon Dioxide 20 mmol/L (22-32); Chloride 112 mmol/L (98-107); Globulin 2.8 g/dL (1.7-4.1); Glucose 141 mg/dL (80-110); HDL Cholesterol 38 mg/dL (40-60); HEMOLYSIS < 15 (0-50); Hemoglobin A1C% w Est Avg Glu 6.6 % (4.0-6.0); Sodium 137 mmol/L (137-145); Total Protein 6.2 g/dL (6.3-8.2)
[2020-05-24 12:13] LABS: Cholesterol 564 mg/dL (140-199); Triglycerides 671 mg/dL (35-150)
[2020-05-24 12:21] LABS: Add Manual Diff / Slide Review NO; Basophils Absolute Auto 0 /uL (0-100); Basophils Percent Auto 0.7 % (0-2); Eosinophils Absolute Auto 200 /uL (0-450); Eosinophils Percent Auto 2.6 % (2-4); Hematocrit 32.4 % (36-46); Hemoglobin 10.6 g/dL (12.0-16.0); Lymphocytes Absolute Auto 1400 /uL (1100-4500); Lymphocytes Percent Auto 23.1 % (25-40); Mean Corpuscular HGB Conc 32.7 % (30-36); Mean Corpuscular Hemoglobin 28.6 PG (26-34); Mean Corpuscular Volume 87.3 fL (80-100); Monocytes Absolute Auto 300 /uL (0-900); Monocytes Percent Auto 5.5 % (3-14); Neutrophils Absolute Auto 4200 /uL (1500-7000); Neutrophils Percent Auto 68.1 % (50-75); Platelet Count 224 X10^3/uL (150-400); Red Blood Cell Count 3.71 X10^6/uL (4.0-5.2); White Blood Cell Count 6.2 X10^3/uL (4.5-11.0)
[2020-05-24 12:35] LABS: TSH w/ Reflex to FT4 5.78 uIU/mL (0.47-4.68)
[2020-05-24 13:03] LABS: Free T4, Direct Thyroxine 0.88 ng/dL (0.78-2.19)
[2020-05-24 14:58] LABS: Creatinine Urine Random 77.7 mg/dL
[2020-05-24 16:12] LABS: Microalbumi Creatinin Ratio Ur 14324.3 ug/mg CR (<30)
== END ==
PROVIDERS: PCP Internal Medicine; Referring Provider Internal Medicine; Visit Provider Internal Medicine
DX: N18.30 Chronic kidney disease, stage 3 unspecified (principal); E11.29 Type 2 diabetes mellitus with other diabetic kidney complication; E78.5 Hyperlipidemia, unspecified; E03.9 Hypothyroidism, unspecified; D64.9 Anemia, unspecified
CPT/HCPCS: 36415; 80053; 80061; 82043; 82570; 83036; 84439; 84443; 85025

== ENCOUNTER → 2020-07-05 11:20 | Outpatient (CLI) | payer OTHER, SELFPAY ==
[2020-02-26 18:40] VITALS: BMI 31.8
[2020-07-05 12:46] LABS: BUN Creatinine Ratio 21.2 (6-22); Blood Urea Nitrogen 40 mg/dL (7-17); Calcium 8.7 mg/dL (8.4-10.2); Carbon Dioxide 20 mmol/L (22-32); Chloride 110 mmol/L (98-107); Estimated Glomerular Filt Rate 26.1 mL/min (>60); Glucose 218 mg/dL (80-110); HEMOLYSIS < 15 (0-50); Potassium 4.4 mmol/L (3.4-5.1); Sodium 136 mmol/L (137-145)
[2020-07-05 17:39] LABS: Creatinine Urine Random 77.1 mg/dL
[2020-07-05 18:23] LABS: Protein (Total) Urine Random 939 mg/dL (0-12); Protein Creatinine Ratio Urine 12.17 GRAM/24H
== END ==
PROVIDERS: PCP Internal Medicine; Referring Provider Student in an Organized Health Care Education/Training Program; Visit Provider Student in an Organized Health Care Education/Training Program
DX: N05.9 Unspecified nephritic syndrome with unspecified morphologic changes (principal); R80.9 Proteinuria, unspecified
CPT/HCPCS: 36415; 80048; 82570; 84156

== ENCOUNTER → 2020-08-29 14:05 | Outpatient (CLI) | payer OTHER, SELFPAY ==
[2020-02-26 18:40] VITALS: BMI 31.8
[2020-08-29 15:50] LABS: Creatinine Urine Random 82.9 mg/dL
[2020-08-29 16:33] LABS: Protein (Total) Urine Random 1404 mg/dL (0-12); Protein Creatinine Ratio Urine 16.93 GRAM/24H
[2020-08-29 16:44] LABS: Hematocrit 33.2 % (36-46); Hemoglobin 10.9 g/dL (12.0-16.0)
[2020-08-29 16:49] LABS: BUN Creatinine Ratio 16.7 (6-22); Blood Urea Nitrogen 34 mg/dL (7-17); Calcium 8.8 mg/dL (8.4-10.2); Carbon Dioxide 20 mmol/L (22-32); Chloride 110 mmol/L (98-107); Glucose 224 mg/dL (80-110); HEMOLYSIS < 15 (0-50); Potassium 4.2 mmol/L (3.4-5.1); Sodium 138 mmol/L (137-145)
[2020-08-30 07:39] LABS: Parathyroid Hormone Int 156 pg/mL (15-65)
== END ==
PROVIDERS: PCP Internal Medicine; Referring Provider Student in an Organized Health Care Education/Training Program; Visit Provider Student in an Organized Health Care Education/Training Program
DX: N05.9 Unspecified nephritic syndrome with unspecified morphologic changes (principal); D64.9 Anemia, unspecified; N25.81 Secondary hyperparathyroidism of renal origin; R80.9 Proteinuria, unspecified
CPT/HCPCS: 36415; 80048; 82570; 83970; 84156; 85014; 85018

== ENCOUNTER → 2020-09-04 12:32 | Outpatient (CLI) | payer OTHER, SELFPAY ==
[2020-02-26 18:40] VITALS: BMI 31.8
--- NOTE | 2020-09-04 12:33 | DI.MRI.S_ITS ---
PROCEDURE: MR HEAD/BRAIN WO CON INDICATIONS: Other amnesia TECHNIQUE: Non-contrast axial T1 spin echo, axial T2 fast spin echo, sagittal and axial FLAIR, coronal T2 fast spin echo, axial gradient echo, axial diffusion and ADC through the brain. COMPARISON: [facility], MR, MR HEAD/BRAIN WO CON, 11/13/2019, 14:06. [facility], CT, CT HEAD/BRAIN WO CON, 05/11/2019, 6:08. [facility], MR, MR STROKE PROTOCOL, 10/06/2018, 22:06. FINDINGS: Image quality: Diagnostic, with note made of motion artifact. CSF spaces: Ventricles appear symmetric in size and shape. Basal cisterns are patent. No extra-axial fluid collections. Brain: There is a small focus of subacute infarction seen involving the periventricular white matter on the right, as on series 15, image 64. No intracranial mass effects. A mild amount of remote hemorrhage can be seen involving the left periventricular white matter, as on series 14, image 11. There is cerebral volume loss for age. There are periventricular and deep white matter chronic small vessel ischemic changes. Brainstem appears normal. There is a remote infarct involving the deep white matter of the right frontal lobe. Scattered lacunar infarcts can be seen on both sides. Normal intravascular flow voids are present. Skull and face: Calvarial bone marrow is normal in signal. Orbits are normal. Sinuses: Sinuses and mastoids are clear. Bilateral kristin bullosa can be seen. IMPRESSION: Small focus of subacute infarction seen involving the deep white matter of the right frontal lobe. Brain parenchymal volume loss and chronic small vessel ischemic changes can be seen. Scattered bilateral remote infarctions are seen. Dictated by: Amadou Lowe M.D. on 09/04/2020 at 12:27 Approved by: Amadou Lowe M.D. on 09/04/2020 at 12:30
== END ==
PROVIDERS: PCP Internal Medicine; Referring Provider Internal Medicine; Visit Provider Internal Medicine
DX: R41.3 Other amnesia (principal)
CPT/HCPCS: 70551

== ENCOUNTER → 2020-09-20 13:11 | Outpatient (CLI) | payer OTHER, SELFPAY ==
[2020-02-26 18:40] VITALS: BMI 31.8
[2020-09-20 13:44] LABS: Hematocrit 33.9 % (36-46); Hemoglobin 11.1 g/dL (12.0-16.0)
[2020-09-20 14:00] LABS: Blood Urea Nitrogen 47 mg/dL (7-17); Calcium 8.5 mg/dL (8.4-10.2); Carbon Dioxide 18 mmol/L (22-32); Chloride 109 mmol/L (98-107); Estimated Glomerular Filt Rate 20.3 mL/min (>60); Glucose 177 mg/dL (80-110); HEMOLYSIS 26 (0-50); Potassium 4.7 mmol/L (3.4-5.1); Sodium 135 mmol/L (137-145)
[2020-09-20 14:07] LABS: NT-proBNP (BNP-Adult 18+) 836 pg/mL (<125)
[2020-09-20 15:30] LABS: Creatinine Urine Random 65.5 mg/dL
[2020-09-20 16:00] LABS: Protein (Total) Urine Random 714 mg/dL (0-12)
[2020-09-21 07:47] LABS: Parathyroid Hormone Int 200 pg/mL (15-65)
== END ==
PROVIDERS: Student in an Organized Health Care Education/Training Program; PCP Internal Medicine; Referring Provider Internal Medicine; Visit Provider Internal Medicine
DX: N05.9 Unspecified nephritic syndrome with unspecified morphologic changes (principal); I50.32 Chronic diastolic (congestive) heart failure; D64.9 Anemia, unspecified; N25.81 Secondary hyperparathyroidism of renal origin; R80.9 Proteinuria, unspecified
CPT/HCPCS: 36415; 80048; 82570; 83880; 83970; 84156; 85014; 85018

== ENCOUNTER 2020-10-03 14:22 | Inpatient (IN) | payer OTHER, SELFPAY ==
[2020-02-26 18:40] VITALS: BMI 31.8
[2020-10-03] VITALS (54 sets, daily range): BP systolic 143–217; BP diastolic 45–89; PULSE 57–85; RESP 15–31; TEMP 36.2–36.5; O2SAT 91–100; BMI 30.9; BMI 28.3
--- NOTE | 2020-10-03 14:47 | DI.CT.S_ITS ---
PROCEDURE: CT HEAD/BRAIN WO CON INDICATIONS: Fall and confusion TECHNIQUE: Noncontrast 4.5 mm thick angled axial sections acquired from the foramen magnum to the vertex, with coronal and sagittal reformats. For radiation dose reduction, the following was used: automated exposure control, adjustment of mA and/or kV according to patient size. COMPARISON: [facility], CT, CT HEAD/BRAIN WO CON, 05/11/2019, 6:08. [facility], CT, CT HEAD/BRAIN WO CON, 08/13/2018, 14:35. FINDINGS: Image quality: Excellent. CSF spaces: Basal cisterns are patent. No extra-axial fluid collections. The ventricles are symmetric in size and shape. Brain: No intracranial bleeds or masses. There is cerebral volume loss for age, with resultant ventricular and sulcal prominence. There are periventricular and deep white matter chronic small vessel ischemic changes. There is intracranial internal carotid artery atherosclerosis. Skull and face: Calvarium and visualized facial bones appear intact, without suspicious lesions. Sinuses: Visualized sinuses and mastoids are clear. IMPRESSION: No trauma found. Dictated by: Kushal Brooks M.D. on 10/03/2020 at 14:12 Approved by: Kushal Brooks M.D. on 10/03/2020 at 14:13
[2020-10-03] MEDS: SODIUM CHLORIDE 0.9% 1,000 ML 1000 ML IV (15:01)
[2020-10-03 15:13] LABS: Add Manual Diff / Slide Review NO; Basophils Absolute Auto 0 /uL (0-100); Basophils Percent Auto 0.6 % (0-2); Eosinophils Absolute Auto 100 /uL (0-450); Eosinophils Percent Auto 1.3 % (2-4); Hemoglobin 11.2 g/dL (12.0-16.0); Lymphocytes Absolute Auto 1500 /uL (1100-4500); Lymphocytes Percent Auto 19.4 % (25-40); Mean Corpuscular HGB Conc 32.9 % (30-36); Mean Corpuscular Hemoglobin 29.5 PG (26-34); Mean Corpuscular Volume 89.7 fL (80-100); Monocytes Absolute Auto 500 /uL (0-900); Monocytes Percent Auto 6.8 % (3-14); Neutrophils Absolute Auto 5500 /uL (1500-7000); Neutrophils Percent Auto 71.9 % (50-75); Platelet Count 243 X10^3/uL (150-400); Red Blood Cell Count 3.79 X10^6/uL (4.0-5.2); White Blood Cell Count 7.6 X10^3/uL (4.5-11.0)
[2020-10-03 15:23] LABS: Alanine Aminotransferase 33 IU/L (<35); Albumin 3.8 g/dL (3.5-5.0); Albumin Globulin Ratio 1.3 (1.0-2.8); Alkaline Phosphatase 95 U/L (38-126); Aspartate Aminotransferase 47 IU/L (14-36); BUN Creatinine Ratio 17.1 (6-22); Bilirubin Total 0.3 mg/dL (0.2-1.3); Blood Urea Nitrogen 46 mg/dL (7-17); Calcium 9.7 mg/dL (8.4-10.2); Carbon Dioxide 19 mmol/L (22-32); Chloride 111 mmol/L (98-107); Estimated Glomerular Filt Rate 17.3 mL/min (>60); Ethanol (ETOH) < 10 mg/dL; Glucose 70 mg/dL (80-110); HEMOLYSIS < 15 (0-50); Lipase 267 U/L (23-300); Potassium 4.4 mmol/L (3.4-5.1); Sodium 140 mmol/L (137-145); Total Protein 6.8 g/dL (6.3-8.2)
[2020-10-03 15:41] LABS: Creatine Kinase 218 U/L (30-135)
[2020-10-03 15:54] LABS: Troponin I < 0.012 ng/mL (0.01-0.034)
[2020-10-03 15:57] LABS: CKMB % Relative Index 0.6 % (1.5-5.0)
--- NOTE | 2020-10-03 15:59 | ED_ITS ---
HPI - Fall General Chief Complaint: Fall Stated Complaint: weakness and diarrhea Time Seen by Provider: 10/03/20 14:35 Source: patient and EMS Mode of arrival: EMS Limitations: no limitations History of Present Illness HPI Narrative: Patient is a 75-year-old female was brought in by EMS for evaluation of approximately 1 month of diarrhea and also weakness and speech difficulties and some confusion. Patient states that she has had loose stools for the past month. There has been no recent antibiotics. No recent travel. She has tried anti diarrheal medicines without any improvement. Has not talk with her primary doctor about these symptoms. The past couple days she reports she has felt very weak. She states that her friends have told her that on occasion over the past couple days she has had episodes where she was talking am not making sense and also potentially slurring some of her words. She does state that there have been periods of time where she felt like she has been somewhat confused about what is going on. She does admit that she has not been eating very well recently. She reports that she is taking all of her medications as directed. Related Data Home Medications Medication Instructions Recorded Confirmed Lantus Solostar U-100 Insulin See Rx Instructions .ROUTE .COMPLEX 06/22/19 02/26/20 insulin aspart U-100 [Novolog 6 - 12 unit SUBCUT BID 06/22/19 02/26/20 Flexpen U-100 Insulin] Previous Rx's Medication Instructions Recorded acetaminophen 650 mg PO Q6HR PRN #60 tab 03/05/20 amlodipine [Norvasc] 10 mg PO DAILY #30 tab 03/05/20 docusate sodium [DOK] 100 mg PO BID #40 cap 03/05/20 levothyroxine [Synthroid] 25 mcg PO 0600 #20 tab 03/05/20 metoprolol succinate 25 mg PO DAILY #30 tab 03/05/20 rosuvastatin 10 mg PO DAILY #20 tab 03/05/20 sertraline [Zoloft] 25 mg PO BEDTIME #20 tab 03/05/20 Allergies Allergy/AdvReac Type Severity Reaction Status Date / Time adhesive tape [ADHESIVE TAPE] Allergy Severe RASH Verified 02/26/20 11:28 PAPER/SILK TAPE egg AdvReac Severe Diarrhea Verified 02/26/20 14:51 milk [MILK] AdvReac Severe DIARRHEA Verified 02/26/20 11:28 Penicillins [PENICILLINS] AdvReac Mild UNSURE, Verified 02/26/20 11:28 SHAKINESS, FEEL WEIRD Review of Systems Constitutional Constitutional: Reports fatigue, Denies fever(s), Denies headache(s), Reports lethargy and Reports poor appetite Eyes Eyes: Denies change in vision ENT Ears, Nose, Mouth, and Throat: Denies change in voice, Denies dizziness, Denies dry mouth and Denies headache(s) Cardiovascular Cardiovascular: Denies chest pain and Denies dyspnea Respiratory Respiratory: Denies dyspnea Gastrointestinal Gastrointestinal: Denies abdominal pain, Reports diarrhea, Denies nausea and Denies vomiting Genitourinary Genitourinary: Denies dysuria Genitourinary: Denies dysuria Musculoskeletal Musculoskeletal: Denies arthralgias and Denies myalgias Integumentary/Breasts Skin/Breast: Denies rash Neurologic Neurologic: Reports abnormal speech, Reports behavioral changes, Reports confusion, Denies dizziness and Denies headache(s) Psychiatric Psychiatric: Reports behavioral changes and Reports confusion Endocrine Endocrine: Reports fatigue Hematologic/Lymphatic On Anticoagulants: No Allergic/Immunologic Allergic/Immunologic: Reports system reviewed and no additional complaints, except as documented Patient History Medical History Breast cancer, left Chronic kidney disease (CKD), stage III (moderate) Diabetes mellitus Surgical History (Updated 02/19/20 @ 13:20 by Livier So RN) History of hysterectomy History of partial mastectomy of left breast Hx of cholecystectomy Hx of eye surgery Hx of lumbosacral spine surgery Social History household members: none Smoking Status: Never smoker alcohol intake: current Smoking Status: Never smoker alcohol intake frequency: holidays/special occasions only Substance Use Type: does not use Exam Initial Vital Signs Initial Vital Signs: Vital Signs Blood Pressure 205/84 H 10/03/20 14:27 Const General: cooperative, comfortable, well developed and No acute distress Limitations: mental status not altered [facility] Head: normal to inspection and normocephalic Eyes General: appearance normal, both eyes and all related structures Resp Effort & Inspection: normal respiratory effort Auscultation: clear to auscultation bilaterally Cardio Rate: regular rate Rhythm: regular rhythm GI Inspection: non-distended Palpation: soft and No tender Skin Lesions: no lesions Rashes: no rashes Neuro General: patient alert, patient awake and patient oriented x3 Cognition: normal cognition Speech: abnormal speech (Is slow to answer questions and is slurring some words slightly) Extrem General: normal to inspection and capillary refill normal Psych Appearance: grossly normal and well kempt Scores GCS Susy coma scale eye opening: Spontaneous Susy coma scale verbal response: Orientated Susy coma scale motor response: Obey commands Susy coma scale total score: 15 Course Orders Ordered: ED Orders 10/03/20 14:36 EKG-12 Lead Stat 10/03/20 14:45 Complete Blood Count AUTO DIFF Stat Comprehensive Metabolic Panel Stat Ethanol (ETOH) Stat Ketones (Beta-Hydroxybutyrate) Stat Lipase Stat Troponin & CK Cardiac Panel Stat 10/03/20 14:47 CT head/brain wo con Stat 10/03/20 16:15 Urinalysis and Microscopic Stat Urine Drug Screen, Rapid Stat Discontinued Medications Aspirin (Aspirin 81 Mg Chew Tab) 324 mg PO NOW ONE Stop: 10/03/20 17:18 Last Admin: 10/03/20 17:21 Dose: 324 mg Documented by: KORIN Dextrose (Dextrose 50 % In Water 25 Gm/50 Ml Syringe) 25 gm IV NOW ONE Stop: 10/03/20 16:01 Last Admin: 10/03/20 16:08 Dose: 25 gm Documented by: KORIN Sodium Chloride (Normal Saline 0.9%) 1,000 mls @ 1,000 mls/hr IV BOLUS ONE Stop: 10/03/20 15:45 Last Infusion: 10/03/20 17:22 Dose: 0 mls/hr Documented by: Admin: 10/03/20 15:01 Dose: 1,000 mls/hr Documented by: KORIN Labetalol HCl (Labetalol 20 Mg/4 Ml Syringe) 10 mg IV NOW ONE Stop: 10/03/20 16:03 Last Admin: 10/03/20 16:08 Dose: 10 mg Documented by: KORIN Vital Signs Vital signs: Vital Signs - 8 hr 10/03/20 14:27 10/03/20 14:28 10/03/20 14:30 Temperature Pulse Rate 59 L 60 Respiratory Rate 16 18 Blood Pressure 205/84 H Pulse Oximetry 98 10/03/20 14:31 10/03/20 14:50 10/03/20 15:00 Temperature 97.7 F Pulse Rate 61 57 L 62 Respiratory Rate 18 24 22 Blood Pressure 205/84 H Pulse Oximetry 100 100 10/03/20 15:05 10/03/20 15:07 10/03/20 15:10 Temperature Pulse Rate 60 60 64 Respiratory Rate 31 H 19 19 Blood Pressure 213/88 H Pulse Oximetry 99 99 97 10/03/20 15:15 10/03/20 15:20 10/03/20 15:25 Temperature Pulse Rate 65 65 73 Respiratory Rate 30 H 21 16 Blood Pressure Pulse Oximetry 98 96 91 10/03/20 15:30 10/03/20 15:35 10/03/20 15:40 Temperature Pulse Rate 75 76 75 Respiratory Rate 17 17 30 H Blood Pressure 217/88 H Pulse Oximetry 94 94 99 10/03/20 15:45 10/03/20 15:50 10/03/20 15:55 Temperature Pulse Rate 76 80 82 Respiratory Rate 21 18 20 Blood Pressure Pulse Oximetry 97 93 97 10/03/20 16:00 10/03/20 16:05 10/03/20 16:08 Temperature Pulse Rate 82 83 72 Respiratory Rate 24 20 Blood Pressure 208/89 H 208/89 H Pulse Oximetry 93 96 10/03/20 16:10 10/03/20 16:23 10/03/20 16:25 Temperature Pulse Rate 85 81 Respiratory Rate Blood Pressure Pulse Oximetry 97 98 97 10/03/20 16:30 10/03/20 16:31 10/03/20 16:35 Temperature Pulse Rate 77 79 Respiratory Rate 27 H 20 Blood Pressure 143/68 H 199/81 H Pulse Oximetry 98 94 10/03/20 16:40 10/03/20 16:45 10/03/20 16:50 Temperature Pulse Rate 79 80 81 Respiratory Rate 22 17 18 Blood Pressure 170/74 H Pulse Oximetry 97 95 94 10/03/20 16:55 10/03/20 16:58 10/03/20 17:00 Temperature Pulse Rate 79 79 78 Respiratory Rate 28 H 18 Blood Pressure 177/79 H 189/86 H Pulse Oximetry 98 96 10/03/20 17:05 10/03/20 17:10 10/03/20 17:15 Temperature Pulse Rate 80 79 81 Respiratory Rate 20 18 24 Blood Pressure Pulse Oximetry 93 94 95 MDM - Fall Lab Data Attestation: I reviewed the patient's lab results. Result diagrams: 10/03/20 14:45 10/03/20 14:45 Labs: Lab Results 10/03/20 10/03/20 10/03/20 Range/Units 14:45 14:45 14:45 WBC 7.6 (4.5-11.0) X10^3/uL RBC 3.79 L (4.0-5.2) X10^6/uL Hgb 11.2 L (12.0-16.0) g/dL Hct 34.0 L (36-46) % MCV 89.7 (80-100) fL MCH 29.5 (26-34) PG MCHC 32.9 (30-36) % RDW 14.0 (11.6-14.8) % Plt Count 243 (150-400) X10^3/uL Neut % (Auto) 71.9 (50-75) % Lymph % (Auto) 19.4 L (25-40) % [place] % (Auto) 6.8 (3-14) % Eos % (Auto) 1.3 L (2-4) % Baso % (Auto) 0.6 (0-2) % Neut # (Auto) 5500 (6149-3584) /uL Lymph # (Auto) 1500 (5968-1135) /uL [place] # (Auto) 500 (0-900) /uL Eos # (Auto) 100 (0-450) /uL Baso # (Auto) 0 (0-100) /uL Sodium 140 (137-145) mmol/L Potassium 4.4 (3.4-5.1) mmol/L Chloride 111 H (98-107) mmol/L Carbon Dioxide 19 L (22-32) mmol/L BUN 46 H (7-17) mg/dL Creatinine 2.69 H (0.52-1.04) mg/dL Estimated GFR 17.3 L (>60) mL/min BUN/Creatinine Ratio 17.1 (6-22) Glucose 70 L (80-110) mg/dL Calcium 9.7 (8.4-10.2) mg/dL Total Bilirubin 0.3 (0.2-1.3) mg/dL AST 47 H (14-36) IU/L ALT 33 (<35) IU/L Alkaline Phosphatase 95 (38-126) U/L Total Creatine Kinase 218 H (30-135) U/L CK-MB (CK-2) 1.40 (<2.37) ng/mL CK-MB (CK-2) Rel Index 0.6 L (1.5-5.0) % Troponin I < 0.012 (0.01-0.034) ng/mL Total Protein 6.8 (6.3-8.2) g/dL Albumin 3.8 (3.5-5.0) g/dL Globulin 3.0 (1.7-4.1) g/dL Albumin/Globulin Ratio 1.3 (1.0-2.8) Lipase 267 (23-300) U/L Urine Color Urine Appearance Urine pH (4.5-8.0) Ur Specific [place] (1.000-1.035) Urine Protein (Negative) Urine Glucose (UA) (Negative) g/dL Urine Ketones (NEGATIVE) Urine Occult Blood (Negative) Urine Nitrate (Negative) Urine Bilirubin (NEGATIVE) Urine Urobilinogen (0.2) E.U./dL Ur Leukocyte Esterase (NEGATIVE) Urine RBC (0-5/HPF) Urine WBC (0-5/HPF) Ur Squamous Epith Cells (0-5/HPF) Ur Transition Epith Cell (0-5/HPF) Urine Bacteria (None) Hyaline Casts (None) Granular Casts (None) Ur Culture Indicated? U Opiates 300ng/mL cut (Negative) Ur Oxycodone Screen (Negative) Urine Methadone Screen (Negative) Ur Barbiturates Screen (Negative) U Tricyclic Antidepress (Negative) Ur Phencyclidine Scrn (Negative) Ur Amphetamines Screen (Negative) U Methamphetamines Scrn (Negative) Ur MDMA Scrn (Ecstasy) (Negative) U Benzodiazepines Scrn (Negative) Urine Cocaine Screen (Negative) U Marijuana (THC) Screen (Negative) Ethyl Alcohol < 10 ( - 10) mg/dL 10/03/20 10/03/20 Range/Units 16:15 16:15 WBC (4.5-11.0) X10^3/uL RBC (4.0-5.2) X10^6/uL Hgb (12.0-16.0) g/dL Hct (36-46) % MCV (80-100) fL MCH (26-34) PG MCHC (30-36) % RDW (11.6-14.8) % Plt Count (150-400) X10^3/uL Neut % (Auto) (50-75) % Lymph % (Auto) (25-40) % [place] % (Auto) (3-14) % Eos % (Auto) (2-4) % Baso % (Auto) (0-2) % Neut # (Auto) (4716-3398) /uL Lymph # (Auto) (0649-2576) /uL [place] # (Auto) (0-900) /uL Eos # (Auto) (0-450) /uL Baso # (Auto) (0-100) /uL Sodium (137-145) mmol/L Potassium (3.4-5.1) mmol/L Chloride (98-107) mmol/L Carbon Dioxide (22-32) mmol/L BUN (7-17) mg/dL Creatinine (0.52-1.04) mg/dL Estimated GFR (>60) mL/min BUN/Creatinine Ratio (6-22) Glucose (80-110) mg/dL Calcium (8.4-10.2) mg/dL Total Bilirubin (0.2-1.3) mg/dL AST (14-36) IU/L ALT (<35) IU/L Alkaline Phosphatase (38-126) U/L Total Creatine Kinase (30-135) U/L CK-MB (CK-2) (<2.37) ng/mL CK-MB (CK-2) Rel Index (1.5-5.0) % Troponin I (0.01-0.034) ng/mL Total Protein (6.3-8.2) g/dL Albumin (3.5-5.0) g/dL Globulin (1.7-4.1) g/dL Albumin/Globulin Ratio (1.0-2.8) Lipase (23-300) U/L Urine Color Yellow Urine Appearance Clear Urine pH 6.0 (4.5-8.0) Ur Specific [place] 1.025 (1.000-1.035) Urine Protein 3+ H (Negative) Urine Glucose (UA) Trace H (Negative) g/dL Urine Ketones Negative (NEGATIVE) Urine Occult Blood 1+ H (Negative) Urine Nitrate Negative (Negative) Urine Bilirubin Negative (NEGATIVE) Urine Urobilinogen 0.2 (0.2) E.U./dL Ur Leukocyte Esterase Negative (NEGATIVE) Urine RBC 0-1/hpf (0-5/HPF) Urine WBC 1-5/hpf (0-5/HPF) Ur Squamous Epith Cells 1-5 /hpf (0-5/HPF) Ur Transition Epith Cell 1-5/hpf (0-5/HPF) Urine Bacteria None seen (None) Hyaline Casts 5-10/lpf (None) Granular Casts 1-5/lpf (None) Ur Culture Indicated? Cult not indicated U Opiates 300ng/mL cut Negative (Negative) Ur Oxycodone Screen Negative (Negative) Urine Methadone Screen Negative (Negative) Ur Barbiturates Screen Negative (Negative) U Tricyclic Antidepress Negative (Negative) Ur Phencyclidine Scrn Negative (Negative) Ur Amphetamines Screen Negative (Negative) U Methamphetamines Scrn Negative (Negative) Ur MDMA Scrn (Ecstasy) Negative (Negative) U Benzodiazepines Scrn Negative (Negative) Urine Cocaine Screen Negative (Negative) U Marijuana (THC) Screen Negative (Negative) Ethyl Alcohol ( - 10) mg/dL Point of Care Testing Glucose POC [address] scan - head: Radiologist's Impression: [address] [id number] Scan ReportSigned Patient: Heather Ribera LMR#: [id number]: 8Acct:[id number]/Sex: 75 / FDate of Service: 10/03/20Loc: EDAccession Number: [id number] Procedure: CT head/brain wo con Ordering Provider: Erasmo Gibson D.O. PROCEDURE: CT HEAD/BRAIN WO CON INDICATIONS: Fall and confusion TECHNIQUE: Noncontrast 4.5 mm thick angled axial sections acquired from the foramen magnum to the vertex, with coronal and sagittal reformats. For radiation dose reduction, the following was used: automated exposure control, adjustment of mA and/or kV according to patient size. COMPARISON: [facility], CT, CT HEAD/BRAIN WO CON, 05/11/2019, 6:08. [facility], CT, CT HEAD/BRAIN WO CON, 08/13/2018, 14:35. FINDINGS: Image quality: Excellent. CSF spaces: Basal cisterns are patent. No extra-axial fluid collections. The ventricles are symmetric in size and shape. Brain: No intracranial bleeds or masses. There is cerebral volume loss for age, with resultant ventricular and sulcal prominence. There are periventricular and deep white matter chronic small vessel ischemic changes. There is intracranial internal carotid artery atherosclerosis. Skull and face: Calvarium and visualized facial bones appear intact, without suspicious lesions. Sinuses: Visualized sinuses and mastoids are clear. IMPRESSION: No trauma found. Dictated by: Kushal Brooks M.D. on 10/03/2020 at 14:12 Approved by: Kushal Brooks M.D. on 10/03/2020 at 14:13 ECG Data Attestation: I personally reviewed and interpreted this ECG as follows: Prior ECG tracings: not available for review Interpretation: Sinus bradycardia Ventricular rate of 57 Normal axis Normal QRS Normal QTC No ST T wave changes MDM Narrative Medical decision making narrative: Has had diarrhea for approximately 1 month. She does have no obvious risk factors for C diff. She was unable to provide is any sample here in the ER. She is afebrile. Does not have any focal neurologic deficits except that she does seem to be very slow to answer questions and is slightly slurring her words. She admits that it is taking her some time to answer questions. She also reports that for the past couple days she is not been able to write. She states that she has tried to write a check but has difficulty with doing so and what she puts down on papers just lines. She did arrive but the blood sugar of 70. She was given D50 and she stated that this did improve the ?fogginess ?that she had in her head there was potentially some concern that she has been relatively hypoglycemic given her decreased p.o. intake over the past couple days. Head CT is unremarkable. I do feel patient needs admitted for further evaluation treatment him for concerns of potential TIA/CVA. She is not a candidate for tPA given the length of time that she has had symptoms. I did discuss the need for admission with the patient. She expressed understanding agreement. Discussed the case with Dr. Parks with Internal Medicine who will admit for further evaluation treatment. Discharge Plan Departure Patient Disposition: Admitted As Inpatient Clinical Impression: Brain TIA, Hypertension, Hypoglycemia Admit Date/Time: 10/03/20 17:18 Admit Provider: Mario Parks
[2020-10-03] MEDS: DEXTROSE 50 % IN WATER 25 GM/50 ML SYRINGE IV (16:08)
[2020-10-03] MEDS: LABETALOL 20 MG/4 ML SYRINGE 10 MG IV (16:08)
[2020-10-03 16:41] LABS: Bacteria Urine None Seen
[2020-10-03 16:46] LABS: Appearance Urine UA CLEAR; Bilirubin Urine UA NEGATIVE (NEGATIVE); Color Urine UA YELLOW; Glucose Urine UA TRACE g/dL (Negative); Ketones Urine UA NEGATIVE (NEGATIVE); Leukocyte Esterase Urine UA NEGATIVE (NEGATIVE); Nitrite Urine UA NEGATIVE (Negative); Occult Blood Urine UA 1+ (Negative); Protein Urine UA 3+ (Negative); Specific Gravity Urine UA 1.025 (1.000-1.035); Urobilinogen Urine UA 0.2 E.U./dL (0.2)
[2020-10-03 16:51] LABS: UR Morphine/Opiate cutoff 300 Negative (Negative); Ur Creatinine Normal (Normal); Ur Specific Gravity Normal (Normal); Urine Amphetamines Negative (Negative); Urine Barbiturates Negative (Negative); Urine Benzodiazepines Negative (Negative); Urine Cocaine Negative (Negative); Urine MDMA Negative (Negative); Urine Methadone Negative (Negative); Urine Methamphetamines Negative (Negative); Urine Oxycodone Negative (Negative); Urine Phencyclidine Negative (Negative); Urine Tetrahydrocannabinol Negative (Negative); Urine Tricyclic Antidepressant Negative (Negative); Urine pH Normal (Normal)
[2020-10-03 17:12] LABS: Granular Casts Urine 1-5/LPF; Hyaline Casts Urine 5-10/LPF; RBC Urine 0-1/HPF (0-5/HPF); Squamous Epithelial Cell Urine 1-5 /HPF (0-5/HPF); Transitional Epi Cells Urine 1-5/HPF (0-5/HPF); WBC Urine 1-5/HPF (0-5/HPF)
[2020-10-03 17:13] LABS: Culture Indicated Urine Cult Not Indicated
[2020-10-03] MEDS: ASPIRIN 81 MG CHEW TAB 324 MG PO (17:21)
[2020-10-03 18:45] LABS: COVID19 - ADMIT (NP swab/PCR) Negative (Negative)
--- NOTE | 2020-10-03 19:23 | DI.MRI.S_ITS ---
PROCEDURE: MR STROKE Pre- and post-contrast brain MRI, non-contrast brain MR angiogram, pre- and postcontrast neck MR angiogram INDICATIONS: Neurological deficit TECHNIQUE: Brain: Noncontrast axial T1 spin echo, axial T2 fast spin echo, sagittal and axial FLAIR, coronal T2 fast spin echo, axial gradient echo, axial diffusion and ADC through the brain. After the administration of contrast, axial 3D VIBE of the cranial vasculature and brain. Brain MRA: Non-contrast 3-D time of flight MR angiogram, with multiple kyszoaq-tkpkgorfr-pvjluzsbyz (MIP) reformats performed. Neck MRA: Axial and sagittal TruFISP through the neck. Coronal dynamic MR angiogram during administration of contrast in the arterial and venous phases, with 3-dimenstional fpzilhd-dhqqmujqv-nmwpmtejoc (MIP) reformats constructed from subtraction images. COMPARISON: [facility], MR, MR HEAD/BRAIN WO CON, 09/04/2020, 12:43. [facility], CT, CT HEAD/BRAIN WO CON, 10/03/2020, 14:54. FINDINGS: Image quality: Excellent. BRAIN: CSF spaces: Ventricles are normal in size and shape. Basal cisterns are patent. No extra-axial fluid collections. Brain: No intracranial bleeds or mass effects. There is moderate diffuse cerebral volume loss. Moderate degree of patchy high FLAIR signal within the periventricular and subcortical white matter, consistent with small vessel ischemic disease. Small chronic bilateral basal ganglia and becerra radiata infarcts are present, as before. Yates-white matter interface is normal. Diffusion weighted images demonstrate and a 10 mm focus of elevated signal intensity within the left mid becerra radiata, which demonstrates moderate FLAIR signal elevation, indicating a subacute infarct. Brainstem appears normal. Normal intravascular flow voids are present. No abnormal intracranial enhancement. Skull and face: Calvarial marrow signal is normal. Orbits appear normal. Sinuses: Sinuses and mastoids are clear. BRAIN MR ANGIOGRAM: Anterior circulation: Intracranial internal carotid arteries are normal in size and enhancement. The flow within the paired anterior cerebral arteries is normal and symmetric. Mild multifocal stenosis within the bilateral middle cerebral arteries. The flow within the middle cerebral arteries is otherwise normal and symmetric. The anterior communicating artery is seen. No occlusions, or aneurysms. Posterior circulation: The visualized portions of the vertebral arteries demonstrate normal caliber, and join to form a normal appearing basilar artery. Mild multifocal bilateral posterior cerebral artery stenosis. Moderate to high-grade stenosis within the P2 segment of the left posterior cerebral artery. The flow within the posterior cerebral arteries is otherwise normal and symmetric. No occlusions, or aneurysms. NECK MR ANGIOGRAM: [employer] T2 imaging of the neck is grossly unremarkable. Thoracic aortic arch is widely patent. There is variant branching anatomy, with a common origin of the innominate and left common carotid arteries, which is patent. The innominate and right subclavian arteries are patent. Right vertebral artery is patent. Right common and external carotid artery is patent. Mild, roughly 20% stenosis of the proximal right internal carotid artery. Mild multifocal stenosis within the mid/upper cervical right internal carotid artery. Left common, internal, and external carotid arteries are patent. Left subclavian and vertebral arteries are patent. IMPRESSION: BRAIN MRI: 1. Small subacute infarct within the left becerra radiata. 2. Volume loss and small vessel ischemic disease. 3. Chronic bilateral basal ganglia and becerra radiata infarcts. BRAIN MR ANGIOGRAM: 1. Mild multifocal stenosis within the anterior and posterior circulation. NECK MR ANGIOGRAM: 1. Mild right internal carotid artery stenosis. No significant left internal carotid artery stenosis. 2. Patent bilateral vertebral arteries. Dictated by: Alize Devine M.D. on 10/04/2020 at 11:15 Approved by: Alize Devine M.D. on 10/04/2020 at 11:20
--- NOTE | 2020-10-03 19:26 | DI.ECHO.S_ITS ---
[place] +---------+ [facility] +---------+ : : [address] [place] [place] : : : : [id number] : : : : Phone: [phone]+ Echocardiogram Report + + :Name: MARIANGEL SZYMANSKI Study Date: 10/04/2020 Height: 63 in : :[facility] ReadingLocation: Weight: 159 lb : : Gender: Female BSA: 1.8 m2 : :: 1945 Age: 75 yrs BP: 173/70 mmHg: :Reason For Study: NEUROLOGICAL DEFICIT : :Ordering Physician: VU, : :EDIL Performed By: Saeed Newton : :Referring: EDIL WOMACK : + + Interpretation Summary Left ventricular systolic function appears normal with an estimated ejection fraction of 60 to 65% without any focal wall motion abnormality and appears slightly less dynamic compared to the previous study but is otherwise unchanged. Left ventricular size and wall thickness are normal. Diastolic function cannot be accurately assessed. The right ventricle appears normal in size and systolic function and is unchanged from the previous study. Right ventricular systolic pressure cannot be estimated but CVP is likely around 3 mmHg. Both atria are normal in size and grossly unchanged from the previous study. There is no significant valvular disease. Procedure: A two-dimensional transthoracic echocardiogram with color flow and Doppler was performed. The study quality was technically adequate. Comparison is made with the echocardiogram of 10/07/2018. The patient was in sinus rhythm with heart rates between 56-61 bpm during the exam. Left Ventricle: The left ventricle appears normal in size, wall thickness, and systolic function without any focal wall motion abnormalities. The ejection fraction is estimated to be 60-65%. This is slightly less dynamic compared to the previous study. Diastolic function could not be accurately assessed due to unobtainable data. Right Ventricle: The right ventricle is normal in size and function. This is unchanged compared to the previous study. Atria: Both atria are normal in size. This is unchanged compared to the previous study. There is no Doppler evidence for an interatrial shunt. Mitral Valve: There is mild to moderate mitral annular calcification. There is trace mitral regurgitation. Aortic Valve: The aortic valve is normal in structure and function. The aortic valve is trileaflet. The aortic valve opens well. No aortic regurgitation is present. Tricuspid Valve: The tricuspid valve is normal in structure and function. There is a trace or physiologic amount of tricuspid regurgitation. Pulmonary artery pressures cannot be estimated because of the lack of a measurable TR jet velocity but the IVC suggests a CVP of around 3 mmHg. Pulmonic Valve: The pulmonic valve is not well seen, but is grossly normal. There is no pulmonic valvular regurgitation. There is no significant valvular heart disease. Great Vessels: The aortic root is normal size. The dimensions of the ascending aorta are normal. The IVC is of normal diameter and collapses greater than 50% with a sniff. This suggests a low right atrial pressure of 3 mm Hg. Pericardium/ Pleura There is no pericardial effusion. There is no pleural effusion. MMode/2D Measurements & Calculations LVIDd: 4.9 cm LVOT diam: 1.9 cm LVIDs: 3.2 cm Ao root diam: 2.8 cm FS: 35.7 % asc Aorta Diam: 2.9 cm IVSd: 0.91 cm LVPWd: 0.81 cm LV guerrero. diameter/BSA (cm/m^2): 2.8 LV sys. diameter/BSA (cm/m^2): 1.8 LA A2 area: 18.1 cm2 RA area: 13.9 cm2 LA A4 area: 16.0 cm2 LA length (vol): 4.9 cm LA vol: 50.5 ml LA vol index: 28.8 ml/m2 RVD1 (basal): 3.1 cm Doppler Measurements & Calculations Ao V2 max: 134.0 cm/sec LVOT Max Tyler: 129.7 cm/sec Ao V2 mean: 90.7 cm/sec LV V1 max P.7 mmHg Ao max P.2 mmHg LV V1 VTI: 31.3 cm Ao mean P.6 mmHg MATT(I,D): 3.0 cm2 Ao V2 VTI: 29.5 cm MATT(V,D): 2.7 cm2 sev ratio: 1.1 MATT indexed to BSA (cm^2/m^2): 1.7 MV E max tyler: 92.3 cm/sec PA V2 max: 97.5 cm/sec MV A max tyler: 96.5 cm/sec PA V2 mean: 77.0 cm/sec MV E/A: 0.96 PA mean P.6 mmHg Med Peak E' Tyler: 8.0 cm/sec PA pr(Accel): 48.9 mmHg E/E' med: 11.5 Lat Peak E' Tyler: 6.4 cm/sec E/E' lat: 14.4 E/e' average: 13.0 MV dec time: 0.24 sec SV(LVOT): 87.3 ml Reading Physician:03:37 PM
[2020-10-03 20:07] LABS: Prothrombin Time 11.3 SECONDS (10.1-12.7)
[2020-10-03 20:15] LABS: Hemoglobin A1C% w Est Avg Glu 6.4 % (4.0-6.0)
[2020-10-03 20:16] LABS: PTT Partial Thromboplastin Tim 35 SECONDS (26.4-36.2)
[2020-10-03] MEDS: LACTATED RINGERS 1,000 ML 100 ML IV (20:55)
[2020-10-03] MEDS: SERTRALINE 50 MG TABLET 25 MG PO (21:32)
[2020-10-03] MEDS: ATORVASTATIN 20 MG TABLET 80 MG PO (21:33)
--- NOTE | 2020-10-03 21:46 | PC.NURSE ---
Addendum entered by Joan David R.N. 10/03/20 21:52: Per PU[employer]ING [employer]ATION ENGINEER, continue to check [facility] blood sugars. Original Note: Admission note: Patient arrived on floor @ 1850 in wheelchair accompanied by ED RN. Transferred to inpatient bed with 2 person assist, [address] PA [address]WW [address] [facility]. Hx of multiple recent falls with widespread bruising noted in body image. Patient reports 1 month of diarrhea and taking loperamide OTC for treatment. NIH:0, AxOx3, can make needs known but demonstrates word finding difficulty. Patient endorses word finding difficulty and feeling off. Denies chest pain, SOB, nausea/vomiting, BP elevated and was given medication in ED per JUL. At baseline was using sliding scale insulin and long acting, discontinued by PU[employer]ING STATION ENGINEER. Tele: NSR. Fall risk and call light education given, acknowledged teaching. High fall risk d/t weakness and recent falls, bed alarm on, call light in reach and uses appropriately.
--- NOTE | 2020-10-03 23:46 | PC.NURSE ---
Addendum entered by Mary Ann Moralez R.N. 10/04/20 06:27: States pain in left flank area worsening (believes pain is related to recent fall) and rates severity as 4/10; medicated with Morphine as per MD pain med order. Original Note: patient is alert and oriented except stated date was 10/07/2011. Do note slight slurring of words but previous RN states this is not a change from admission. NIH is 2. Breath sounds CTA with RA sat of 98%. HRR and last telemetry reading was SR. Denies nausea. BT present and abdomen is soft; reports diarrhea stools yesterday but none since admission. Denies dysuria, frequency or urgency with urination. Able to move self in bed. Up to BSC with 1 assist + walker due to weakness. Complains of 2/10 discomfort in left flank but states it is tolerable. Bilateral calf SCD's applied. Fall risk score is high due to recent falls and bed alarm is activated.
[2020-10-04] VITALS (13 sets, daily range): BP systolic 146–182; BP diastolic 61–91; PULSE 55–66; RESP 14–20; TEMP 35.7–36.7; O2SAT 98–100
--- NOTE | 2020-10-04 00:39 | P.HP_ITS ---
History of Present Illness History of Present Illness Date Patient Seen: 10/03/20 Time Patient Seen: 19:30 Chief complaint: weakness and diarrhea Narrative: Patient is a 75-year-old female Heather Ribera who presented to the ED via EMS for evaluation of approximately 1 month weakness and speech difficulties, some confusion. Patient states that she has had loose stools for the past week and has been taking antidiarrhea medication. There has been no recent antibiotics. No recent travel. She has tried anti diarrheal medicines without any improvement. Has not talk with her primary doctor about these symptoms. The past couple days she reports she has felt very weak. Patient states that her friends have reported multiple episodes over the past week I was not making sense and slurring some words. Word-finding difficulties the patient states has been going on for some time along with difficulty writing. She does state that there have been periods of time where she felt like she has been somewhat confused about what is going on. She does admit that she has not been eating very well recently, and that she often misses her mouth while eating (brining her utensil to her mouth). Patient's stated that approximately 3 days ago she fell face 1st in her home she is unaware of the cause. She states that she does not fall regularly and that this is a new change. She reports that she is taking all of her medications as directed. Patient states she has been on Lantus and meal insulin for the past 5 years but recently she feels as if she is getting too much insulin and has had several instances of low blood sugars. Patient denies chest pain, shortness of breath, diaphoresis, nausea, vomiting, fever, chills, urinary symptoms, changes in vision, balance problems, numbness, tingling, weakness. Upon admit patient's blood pressure was mildly elevated at 178/45, I did observe difficulty with word finding but no slurred speech, NIH was 0, patient did present with ROBBIE :chloride 111, BUN 46, HC03 19, and a creatinine of 2.69, which is elevated from previous hospitalizations. Patient's glucose was originally 70 on presentation, she was treated with Dextrose. Patient states that she has been taking Lantus and meal insulin for the past 5 years, patient's A1c upon admit 6.4% concerned that her insulin regimen is too aggressive and likely is contributing to her hypoglycemia and contributing factor to her falls as well as neurological deficits. GFR 17.3 which is down from previous hospitalization which have been in the low 20s for 2020. Total creatine kinase to 18, CK-MB 0.6, lipase was within normal limits, urinalysis was negative, head CT demonstrated no trauma, patient's EKG demonstrated sinus Dimitry with a ventricular rate of [address] or T-wave changes. Sofa score: 2. Admitted for neurological deficits rule out TIA, hypoglycemia, and ROBBIE. Patient History Medical History (Updated 10/04/20 @ 01:33 by YOLANDE Zheng-AMY) Breast cancer, left Chronic kidney disease (CKD), stage III (moderate) Diabetes mellitus Hyperlipidemia associated with type 2 diabetes mellitus Hypothyroidism Surgical History History of hysterectomy History of partial mastectomy of left breast Hx of cholecystectomy Hx of eye surgery Hx of lumbosacral spine surgery Family & Social History Family History (Updated 10/04/20 @ 01:35 by JUDI Zheng) Mother No significant medical problems Father Unknown family medical history Social History: household members Patient lives alone Prior Living Arrangements Apartment/Condo Safety & Behavioral: Feels Safe in Current Yes Environment Been Physically Hurt or No Threatened By a Person Suicidal Ideation Description None Suicide Plan Description No Plan Tobacco & Substance use: Smoking Status Never smoker alcohol intake current alcohol intake frequency holiday/special occasion Substance Use Type does not use Meds Home Medications and Allergies Home Medications Medication Instructions Recorded Confirmed Type Lantus Solostar U-100 Insulin See Rx Instructions .ROUTE .COMPLEX 06/22/19 10/03/20 History insulin aspart U-100 [Novolog 6 - 12 unit SUBCUT BID 06/22/19 10/03/20 History Flexpen U-100 Insulin] acetaminophen 650 mg PO Q6HR PRN #60 tab 03/05/20 10/03/20 Rx amlodipine [Norvasc] 10 mg PO DAILY #30 tab 03/05/20 10/03/20 Rx levothyroxine [Synthroid] 25 mcg PO 0600 #20 tab 03/05/20 10/03/20 Rx sertraline [Zoloft] 25 mg PO BEDTIME #20 tab 03/05/20 10/03/20 Rx aspirin 81 mg PO DAILY 10/03/20 10/03/20 History furosemide 20 mg PO DAILY 10/03/20 10/03/20 History metoprolol succinate 50 mg PO DAILY 10/03/20 10/03/20 History rosuvastatin 40 mg PO BEDTIME 10/03/20 10/03/20 History Allergies Allergy/AdvReac Type Severity Reaction Status Date / Time adhesive tape [ADHESIVE TAPE] Allergy Severe RASH Verified 02/26/20 11:28 PAPER/SILK TAPE egg AdvReac Severe Diarrhea Verified 02/26/20 14:51 milk [MILK] AdvReac Severe DIARRHEA Verified 02/26/20 11:28 Penicillins [PENICILLINS] AdvReac Mild UNSURE, Verified 02/26/20 11:28 SHAKINESS, FEEL WEIRD Review of Systems Review of Systems ROS: Yes All systems reviewed with the patient and are negative except as otherwise documented Constitutional Constitutional: Reports weakness Neurologic Neurologic: Reports weakness Exam Vital Signs (past 8 hours): - 10/03/20 16:40 10/03/20 16:45 10/03/20 16:50 Temperature Pulse Rate 79 80 81 Respiratory Rate 22 17 18 Blood Pressure 170/74 H Pulse Oximetry 97 95 94 10/03/20 16:55 10/03/20 16:58 10/03/20 17:00 Temperature Pulse Rate 79 79 78 Respiratory Rate 28 H 18 Blood Pressure 177/79 H 189/86 H Pulse Oximetry 98 96 10/03/20 17:05 10/03/20 17:10 10/03/20 17:15 Temperature Pulse Rate 80 79 81 Respiratory Rate 20 18 24 Blood Pressure Pulse Oximetry 93 94 95 10/03/20 17:20 10/03/20 17:25 10/03/20 17:30 Temperature Pulse Rate 81 83 79 Respiratory Rate 18 24 20 Blood Pressure 191/83 H Pulse Oximetry 93 97 94 10/03/20 17:35 10/03/20 17:40 10/03/20 17:45 Temperature Pulse Rate 79 77 76 Respiratory Rate 19 20 23 Blood Pressure Pulse Oximetry 94 96 97 10/03/20 17:50 10/03/20 17:55 10/03/20 18:00 Temperature Pulse Rate 75 78 77 Respiratory Rate 18 18 18 Blood Pressure 179/79 H Pulse Oximetry 94 94 94 10/03/20 18:05 10/03/20 18:10 10/03/20 18:15 Temperature Pulse Rate 75 76 74 Respiratory Rate 16 18 17 Blood Pressure Pulse Oximetry 95 94 93 10/03/20 18:20 10/03/20 18:25 10/03/20 18:30 Temperature Pulse Rate 78 77 75 Respiratory Rate 17 15 16 Blood Pressure 171/76 H Pulse Oximetry 94 94 94 10/03/20 18:35 10/03/20 18:50 10/03/20 23:40 Temperature 97.3 F L 97.2 F L Pulse Rate 78 62 65 Respiratory Rate 20 20 16 Blood Pressure 178/45 H 155/68 H Pulse Oximetry 95 100 98 Oxygen Delivery Method Room Air Oxygen Flow Rate 0 Narrative Exam Narrative: General: Patient is a well-developed, well-nourished female in no distress at this time. HEENT: Normocephalic, atraumatic, extraocular muscles intact, oral pharynx is clear and mucous membranes are moist. Neck is supple and symmetric, trachea is midline, no adenopathy, no thyroid enlargement, nontender, no masses palpated. Negative for JVD Chest: Normal AP diameter and contour without kyphoscoliosis, no nasal flaring, retractions, or tachypneic labored Lungs: Auscultation of all lung conroy are clear without adventitious sounds, wheezes, rhonchi, or rales. Cardio: S1 & S2 with regular rate and rhythm without murmur, rubs, or gallops, no carotid bruit, no cardiac pulsations present. Abdomen: Soft nontender, negative for organomegaly, or masses. Bowel sounds are present in all 4 quadrants without guarding or rebound, no CVA tenderness. Musculoskeletal: Muscle strength and tone are equal within normal limits, no deformity, crepitus, effusions, cyanosis, clubbing or edema present. Full range of motion intact radial and pedal pulses are normal. Skin: Warm dry and intact without rashes, ulcerations or petechiae. Neuro: Alert and orientated x3, strength is +5/5 in all extremities, sensation to touch intact, no gross deficits noted of cranial nerves. Psych: Patient has a well-kept appearance, appropriate affect, mental status attitude thought context and judgment are appropriate for age. Objective Labs Result Diagrams: 10/03/20 14:45 10/03/20 14:45 Labs: Laboratory Results - last 24 hr 10/03/20 10/03/20 10/03/20 14:45 14:45 14:45 WBC 7.6 RBC 3.79 L Hgb 11.2 L Hct 34.0 L MCV 89.7 MCH 29.5 MCHC 32.9 RDW 14.0 Plt Count 243 Neut % (Auto) 71.9 Lymph % (Auto) 19.4 L Moore % (Auto) 6.8 Eos % (Auto) 1.3 L Baso % (Auto) 0.6 Neut # (Auto) 5500 Lymph # (Auto) 1500 Moore # (Auto) 500 Eos # (Auto) 100 Baso # (Auto) 0 PT INR APTT Sodium 140 Potassium 4.4 Chloride 111 H Carbon Dioxide 19 L BUN 46 H Creatinine 2.69 H Estimated GFR 17.3 L BUN/Creatinine Ratio 17.1 Glucose 70 L Hemoglobin A1c Calcium 9.7 Magnesium Total Bilirubin 0.3 AST 47 H ALT 33 Alkaline Phosphatase 95 Total Creatine Kinase 218 H CK-MB (CK-2) 1.40 CK-MB (CK-2) Rel Index 0.6 L Troponin I < 0.012 Total Protein 6.8 Albumin 3.8 Globulin 3.0 Albumin/Globulin Ratio 1.3 Lipase 267 Urine Color Urine Appearance Urine pH Ur Specific [place] Urine Protein Urine Glucose (UA) Urine Ketones Urine Occult Blood Urine Nitrate Urine Bilirubin Urine Urobilinogen Ur Leukocyte Esterase Urine RBC Urine WBC Ur Squamous Epith Cells Ur Transition Epith Cell Urine Bacteria Hyaline Casts Granular Casts Ur Culture Indicated? U Opiates 300ng/mL cut Ur Oxycodone Screen Urine Methadone Screen Ur Barbiturates Screen U Tricyclic Antidepress Ur Phencyclidine Scrn Ur Amphetamines Screen U Methamphetamines Scrn Ur MDMA Scrn (Ecstasy) U Benzodiazepines Scrn Urine Cocaine Screen U Marijuana (THC) Screen Ethyl Alcohol < 10 SARS-CoV-2 (PCR) 10/03/20 10/03/20 10/03/20 16:15 16:15 17:45 WBC RBC Hgb Hct MCV MCH MCHC RDW Plt Count Neut % (Auto) Lymph % (Auto) Moore % (Auto) Eos % (Auto) Baso % (Auto) Neut # (Auto) Lymph # (Auto) Moore # (Auto) Eos # (Auto) Baso # (Auto) PT INR APTT Sodium Potassium Chloride Carbon Dioxide BUN Creatinine Estimated GFR BUN/Creatinine Ratio Glucose Hemoglobin A1c Calcium Magnesium Total Bilirubin AST ALT Alkaline Phosphatase Total Creatine Kinase CK-MB (CK-2) CK-MB (CK-2) Rel Index Troponin I Total Protein Albumin Globulin Albumin/Globulin Ratio Lipase Urine Color Yellow Urine Appearance Clear Urine pH 6.0 Ur Specific [place] 1.025 Urine Protein 3+ H Urine Glucose (UA) Trace H Urine Ketones Negative Urine Occult Blood 1+ H Urine Nitrate Negative Urine Bilirubin Negative Urine Urobilinogen 0.2 Ur Leukocyte Esterase Negative Urine RBC 0-1/hpf Urine WBC 1-5/hpf Ur Squamous Epith Cells 1-5 /hpf Ur Transition Epith Cell 1-5/hpf Urine Bacteria None seen Hyaline Casts 5-10/lpf Granular Casts 1-5/lpf Ur Culture Indicated? Cult not indicated U Opiates 300ng/mL cut Negative Ur Oxycodone Screen Negative Urine Methadone Screen Negative Ur Barbiturates Screen Negative U Tricyclic Antidepress Negative Ur Phencyclidine Scrn Negative Ur Amphetamines Screen Negative U Methamphetamines Scrn Negative Ur MDMA Scrn (Ecstasy) Negative U Benzodiazepines Scrn Negative Urine Cocaine Screen Negative U Marijuana (THC) Screen Negative Ethyl Alcohol SARS-CoV-2 (PCR) Negative 10/03/20 10/03/20 10/03/20 19:53 19:53 19:53 WBC RBC Hgb Hct MCV MCH MCHC RDW Plt Count Neut % (Auto) Lymph % (Auto) Moore % (Auto) Eos % (Auto) Baso % (Auto) Neut # (Auto) Lymph # (Auto) Moore # (Auto) Eos # (Auto) Baso # (Auto) PT 11.3 INR 1.0 APTT 35 Sodium Potassium Chloride Carbon Dioxide BUN Creatinine Estimated GFR BUN/Creatinine Ratio Glucose Hemoglobin A1c 6.4 H Calcium Magnesium Total Bilirubin AST ALT Alkaline Phosphatase Total Creatine Kinase CK-MB (CK-2) CK-MB (CK-2) Rel Index Troponin I Total Protein Albumin Globulin Albumin/Globulin Ratio Lipase Urine Color Urine Appearance Urine pH Ur Specific [place] Urine Protein Urine Glucose (UA) Urine Ketones Urine Occult Blood Urine Nitrate Urine Bilirubin Urine Urobilinogen Ur Leukocyte Esterase Urine RBC Urine WBC Ur Squamous Epith Cells Ur Transition Epith Cell Urine Bacteria Hyaline Casts Granular Casts Ur Culture Indicated? U Opiates 300ng/mL cut Ur Oxycodone Screen Urine Methadone Screen Ur Barbiturates Screen U Tricyclic Antidepress Ur Phencyclidine Scrn Ur Amphetamines Screen U Methamphetamines Scrn Ur MDMA Scrn (Ecstasy) U Benzodiazepines Scrn Urine Cocaine Screen U Marijuana (THC) Screen Ethyl Alcohol SARS-CoV-2 (PCR) 10/03/20 19:53 WBC RBC Hgb Hct MCV MCH MCHC RDW Plt Count Neut % (Auto) Lymph % (Auto) Moore % (Auto) Eos % (Auto) Baso % (Auto) Neut # (Auto) Lymph # (Auto) Moore # (Auto) Eos # (Auto) Baso # (Auto) PT INR APTT Sodium Potassium Chloride Carbon Dioxide BUN Creatinine Estimated GFR BUN/Creatinine Ratio Glucose Hemoglobin A1c Calcium Magnesium 2.0 Total Bilirubin AST ALT Alkaline Phosphatase Total Creatine Kinase CK-MB (CK-2) CK-MB (CK-2) Rel Index Troponin I Total Protein Albumin Globulin Albumin/Globulin Ratio Lipase Urine Color Urine Appearance Urine pH Ur Specific [place] Urine Protein Urine Glucose (UA) Urine Ketones Urine Occult Blood Urine Nitrate Urine Bilirubin Urine Urobilinogen Ur Leukocyte Esterase Urine RBC Urine WBC Ur Squamous Epith Cells Ur Transition Epith Cell Urine Bacteria Hyaline Casts Granular Casts Ur Culture Indicated? U Opiates 300ng/mL cut Ur Oxycodone Screen Urine Methadone Screen Ur Barbiturates Screen U Tricyclic Antidepress Ur Phencyclidine Scrn Ur Amphetamines Screen U Methamphetamines Scrn Ur MDMA Scrn (Ecstasy) U Benzodiazepines Scrn Urine Cocaine Screen U Marijuana (THC) Screen Ethyl Alcohol SARS-CoV-2 (PCR) Assessment & Plan Assessment & Plan narrative: Patient is a 75-year-old female who was admitted for observation for neurological deficits rule out TIA, ROBBIE, and hypoglycemia. The patient is at much higher risk for medical surgical complications because of her history of insulin-dependent diabetes, chronic kidney disease stage 4 with diabetic nephropathy, hypertension, hyperlipidemia, depression, and anemia. Patient's obesity and anemia are likely to impact patient's oxygenation and impair healing. 1. Neurological deficit, rule out TIA, acute, not present on admission (word finding, slurred words, falls, confusion -differential diagnosis TIA, stroke symptoms lasting greater than 24 hours, ischemic stroke, intracranial hemorrhage, subdural hematoma, epidural hematoma, seizure, brain tumor, migraine, vertigo, hypoglycemia, [place] syndrome, multiple sclerosis, aortic dissection I suspect patient has had been having multiple TIAs over the past year, also it appears she may be on far too much insulin for her diabetes and that coupled with TIA is she is also having hypoglycemic events which is contributing to her falls and her CKD. As patient is an older adult with severe comorbidities with possible cognitive and functional disabilities the recommended A1c goal is greater than 8.5%. Vital signs q.4 hours, neuro checks q.Shift, notify provider for temp greater than 38 C, , heart rate >100 -treat systolic blood pressure>220 or diastolic blood pressure> 120 -activity bed rest until initial physical therapy assessment is performed, then mobilize RHYS as guided by Physical therapy, strict fall precautions. -supplemental O2 to maintain> 94%, check capillary blood glucose ACHS. -Diet NPO until swallow evaluation is done, then Carb Control if cleared -fluids:LR@100cc/Hr -Medications: Aspirin 325 mg p.o. q.day within 48 hours, Plavix 75 mg daily, atorvastatin 80 mg -labs CBC with platelets, PT/PTT/INR, CMP, TSH, troponins, glucose, hemoglobin A1c,Lipid panel -stroke MR/echo ordered for tomorrow 2. ROBBIE , acute, present on admission, in the setting of acute hypoglycemia (70), present on admission,and chronic kidney disease stage IV with Diabetic Nephropthy, acute on chronic, deteriorating, present on admission. creatinine 2019 baseline 1.7, GFR 20.5 -as evidence by creatinine 2.69 increase from 08/2020 2.35 , GFR 17.3,(08/2020- 20.3) BUN 46, HC03 19, chloride 111. -LR @100cc/hr-IVF -continue to monitor renal function -avoid nephrotoxic agents -holding patient's insulins will continue blood sugar checks ACHS 3. Insulin-dependent type 2 diabetes, acute on chronic, present on admission with hypoglycemia, uncontrolled -patient's A1c 6.4 upon admit-patient likely experiencing repeated hypoglycemic events. Current guidelines recommend older adults with severe comorbidities and/or cognitive and functional disabilities are to have a goal A1c of 8.5. To avoid hypoglycemia and related complications. -holding patient's insulins will continue blood sugar checks ACHS 4. Hypothyroidism, acquired, chronic, control unknown -TSH with reflex ordered and will Continue home levothyroxine. 5. Hyperlipidemia due to type 2 diabetes, chronic, not present on admission, control unknown -lipid panel ordered -holding patient's rosuvastatin-providing atorvastatin 80 mg as part of TIA stroke protocol. 6. Depression, chronic, not present on admission -patient denies depression or anxiety symptoms as well is suicidal ideation -Continue patients Sertraline 25 mg daily 7. Obesity, acute on chronic as evidence by a BMI of 28.3 BMI 31.9 -2019 I suspect patient's weight loss is also a contributing factor to her lowering blood sugars on the same doses of insulin. -Risk for adverse outcomes including poor healing, uncontrolled diabetes, longer hospital stay, etc. -consideration will be given to dietary counseling 8. Anemia, mild, acute on chronic, related to CKD, present on admission-stable -as evidence by a HGB 11.2, HCT 34%. H&H stable since hospitalization 08/2020, platelets WNL Plan: Treating underling conditions. Code status: DNR Surrogate decision maker: sister Pippa [place] COVID PCR: Negative COVID 19 vaccination: Completed 1 month ago VTE/DVT prophylaxis: Patient placed on Plavix 75 mg per stroke protocol and SCDs Scores GCS Susy coma scale eye opening: Spontaneous Susy coma scale verbal response: Orientated Susy coma scale motor response: Obey commands [place] coma scale total score: 15 NIHSS Level of Conciousness: Alert, keenly responsive Ask month/age: Answers both questions correctly. Open/close eyes, close hand: Performs both tasks correctly Best gaze horizontal: Normal Visual conroy: No visual loss Facial palsy: Normal symetrical movement Left arm drift: No drift for full 10 sec Right arm drift: No drift for full 10 sec Left leg drift: No drift for full 5 sec Right leg drift: No drift for full 5 sec Limb ataxia: Absent Sensory on face/arms/legs: Normal, no sensory loss Best language: No aphasia, normal Dysarthria: Normal Extinction or inattention: No abnormality Total NIH Stroke scale score: 0 SOFA PaO2/FIO2: >=400 mmHg Platelets: >= 150 Bilirubin: < 1.2 mg/dL Hypotension: MAP >= 70 mmHg [place] Coma Scale: 15 Renal: Creatinine 2.0-3.4 mg/dL SOFA Score: 2 Wells' Criteria for PE Clinical signs and symptoms of DVT: No PE is #1 Dx or equally likely: No Heart rate > 100: No Immobilization at least 3 days or surg in previous 4 weeks: No History of PE or DVT: No Hemoptysis: No Malignancy w/Treatment within 6 months or palliative: No Wells' PE Score total: 0
[2020-10-04 02:06] LABS: Ketones (Beta-Hydroxybutyrate) 0.84 mmol/L (<0.27)
[2020-10-04] MEDS: LEVOTHYROXINE 25 MCG TABLET PO (05:32)
[2020-10-04 05:48] LABS: Add Manual Diff / Slide Review NO; Basophils Absolute Auto 100 /uL (0-100); Basophils Percent Auto 1.1 % (0-2); Eosinophils Absolute Auto 200 /uL (0-450); Eosinophils Percent Auto 2.5 % (2-4); Hematocrit 32.2 % (36-46); Hemoglobin 10.7 g/dL (12.0-16.0); Lymphocytes Absolute Auto 1700 /uL (1100-4500); Lymphocytes Percent Auto 23.9 % (25-40); Mean Corpuscular HGB Conc 33.2 % (30-36); Mean Corpuscular Hemoglobin 29.8 PG (26-34); Mean Corpuscular Volume 89.6 fL (80-100); Monocytes Absolute Auto 600 /uL (0-900); Monocytes Percent Auto 7.6 % (3-14); Neutrophils Absolute Auto 4700 /uL (1500-7000); Neutrophils Percent Auto 64.9 % (50-75); Platelet Count 209 X10^3/uL (150-400); Red Blood Cell Count 3.59 X10^6/uL (4.0-5.2); Red Cell Distribution Width 13.9 % (11.6-14.8); White Blood Cell Count 7.3 X10^3/uL (4.5-11.0)
[2020-10-04 06:12] LABS: Alanine Aminotransferase 26 IU/L (<35); Albumin 3.2 g/dL (3.5-5.0); Albumin Globulin Ratio 1.2 (1.0-2.8); Alkaline Phosphatase 80 U/L (38-126); Aspartate Aminotransferase 27 IU/L (14-36); BUN Creatinine Ratio 18.2 (6-22); Bilirubin Total 0.1 mg/dL (0.2-1.3); Blood Urea Nitrogen 42 mg/dL (7-17); Calcium 8.6 mg/dL (8.4-10.2); Carbon Dioxide 19 mmol/L (22-32); Chloride 113 mmol/L (98-107); Cholesterol 222 mg/dL (140-199); Estimated Glomerular Filt Rate 20.7 mL/min (>60); Globulin 2.7 g/dL (1.7-4.1); Glucose 120 mg/dL (80-110); HDL Cholesterol 41 mg/dL (40-60); HEMOLYSIS 18 (0-50); LDL Cholesterol Calculated 133 mg/dL (<100); Sodium 139 mmol/L (137-145); Total Protein 5.9 g/dL (6.3-8.2); Triglycerides 241 mg/dL (35-150)
[2020-10-04 06:19] LABS: NT-proBNP (BNP-Adult 18+) 885 pg/mL (<125)
[2020-10-04] MEDS: MORPHINE 2 MG/ML INJ IV (06:23)
[2020-10-04] MEDS: LACTATED RINGERS 1,000 ML 100 ML IV (06:23)
[2020-10-04] MEDS: ASPIRIN EC 325 MG TABLET PO (09:28)
[2020-10-04] MEDS: AMLODIPINE 5 MG TABLET 10 MG PO (09:28)
[2020-10-04] MEDS: CLOPIDOGREL 75 MG TABLET PO (09:28)
[2020-10-04] MEDS: METOPROLOL ER 25 MG TABLET PO (09:29)
[2020-10-04] MEDS: FUROSEMIDE 20 MG TABLET PO (09:29)
[2020-10-04] MEDS: METOPROLOL ER 50 MG TABLET PO (09:30)
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
--- NOTE | 2020-10-04 10:31 | ST.IPSLE ---
Visit Care Team Role Provider Type Sheree Richardson MD Primary Care Provider Physician Specialty: Internal Medicine Address: [address] [place] [address], [id number] Email: [email or web address] Erasmo Gibson DO Emergency Provider Physician Referring Provider Specialty: Emergency Medicine Address: [address] [place] [address], [facility] Email: [email or web address] MD Admit Provider Physician Attending Provider Specialty: Internal Medicine Address: [address] [place] [address], [id number] Email: [email or web address] Medical History (Last Updated 10/04/20 @ 01:33 by Therese Figueroa [facility]) Breast cancer, left (Medical) Chronic kidney disease (CKD), stage III (moderate) (Medical) Diabetes mellitus (Medical) Hyperlipidemia associated with type 2 diabetes mellitus (Medical) Hypothyroidism (Medical) Speech-Language Pathology Speech/Language Eval [employer] Adult Cognitive Linguistic Eval Start: 10/04/20 10:02 Freq: Status: Active Protocol: Document 10/04/20 10:04 RADHAK (Rec: 10/04/20 10:30 [email or web address] [id number]) Adult Cognitive Linguistic Evaluation Session Time Visit Start Time 09:00 Visit Stop Time 09:40 Total Visit Minutes 40 Referral Reason for Referral confusion; slurred speech Setting Assessment Location Acute Care Visit Type Note Type Initial evaluation Next Note Type Next Note Type Re-Evaluation Patient Information Identification Type Name,ID Card Medical History PER H&P: Patient is a 75-year -old female was brought in by EMS for evaluation of approximately 1 month of diarrhea and also weakness and speech difficulties and some confusion. Patient states that she has had loose stools for the past month. There has been no recent antibiotics. No recent travel. She has tried anti diarrheal medicines without any improvement. Has not talk with her primary doctor about these symptoms. The past couple days she reports she has felt very weak . She states that her friends have told her that on occasion over the past couple days she has had episodes where she was talking am not making sense and also potentially slurring some of her words. She does state that there have been periods of time where she felt like she has been somewhat confused about what is going on. She does admit that she has not been eating very well recently . She reports that she is taking all of her medications as directed. Education Level H.S. Subjective Patient Report Pt reported that she has been feeling confused lately. She reported that she has fallen at home several times within the last year. She described her speech and delayed when she tried to say something. Assessment Oral Motor Examination Completed Yes Results OME indicated slowed diadochokinetic movements. ROM and strength WFL; however speed and accuracy observed to be reduced. Informal Assessment Receptive Language Normal Yes Pragmatic Language Normal No: Seemed confused with some memory loss Pragmatic Language Impairment(s) Flat affect Speech Normal No: dysarthric Speech Impairment(s) Imprecise articulation,Slow speech rate Cognition Normal No Cognitive Impairment(s) Orientation,Short-term memory, Long-term memory,Thought organization Formal Assessment Standardized Test/Screener Type [facility] Mental Status ([facility]) Administration Complete Results Pt scored 15/30 on the SLUMS indicating moderate-severe cognitive Deficits, Pt was able to state the day, year, her date and age as well as compute 4/5 mental math problems. She could not recall 5 words presented earlier or recall 2/4 details of a short story read to her. Her clock face drawing demonstrated difficulty with number placement and inability to put in the time correctly. In conversation, she was confused with little memory of how/why she got to the hospital. Findings/Results Language Function Within functional limits Cognitive Function Moderately-severely impaired Cognitive Communication Deficits Self-awareness of Cognitive- Situational awareness ( Communication Deficits recognition of problem in context;in real time) Impact on Functioning Activity Limits/Particip.Rest. Mild: Interpersonal Interactions Mod: General Tasks and Demands Household Tasks Safety Risks Mod: Being Left Alone at Home Reacting to Emergency Managing Medication Traveling Alone in Community Prognosis Prognosis Fair Based on Cognitive status Comment Pt lives alone Plan of Care Speech-Language Treatment Yes Frequency 1-2x/day Duration as inpt Patient/Caregiver Education Described results of evaluation,Patient expressed understanding of evaluation, Patient expressed agreement with goals and treatment plans ,Patient requires further education/training Short Term Goals Pt education and demonstration of OM exercised to increase strength and accuracy will be provided. Pt will perform exercises daily. Strategies for memory support will be provided to pt to reduce confusion. Discharge Recommendations care home facility,Home with Home Health
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
--- NOTE | 2020-10-04 14:24 | P.PN_ITS ---
Subjective Subjective Date Patient Seen: 10/04/20 Interval history: Patient is 75-year-old female with insulin-requiring diabetes, chronic kidney disease, hypertension, hyperlipidemia, hypothyroidism admitted due to 1 month history of weakness, speech difficulties and confusion. Patient has been neurologically stable since admission. Awaiting PT, OT and ST evaluations. MRI showed subacute CVA Exam Vital Signs (past 8 hours): - 10/04/20 07:00 10/04/20 09:29 10/04/20 09:30 Temperature 96.2 F L Pulse Rate 57 L 60 60 Respiratory Rate 14 Blood Pressure 174/64 H 174/64 H Pulse Oximetry 98 10/04/20 11:00 10/04/20 14:12 Temperature 96.8 F L Pulse Rate 62 Respiratory Rate 18 Blood Pressure 173/70 H Pulse Oximetry 99 100 Oxygen Delivery Method Room Air Oxygen Flow Rate 0 Objective Labs Result Diagrams: 10/04/20 05:24 10/04/20 05:24 Labs: Laboratory Results - last 24 hr 10/03/20 10/03/20 10/03/20 14:45 14:45 14:45 WBC 7.6 RBC 3.79 L Hgb 11.2 L Hct 34.0 L MCV 89.7 MCH 29.5 MCHC 32.9 RDW 14.0 Plt Count 243 Neut % (Auto) 71.9 Lymph % (Auto) 19.4 L [place] % (Auto) 6.8 Eos % (Auto) 1.3 L Baso % (Auto) 0.6 Neut # (Auto) 5500 Lymph # (Auto) 1500 [place] # (Auto) 500 Eos # (Auto) 100 Baso # (Auto) 0 PT INR APTT Sodium 140 Potassium 4.4 Chloride 111 H Carbon Dioxide 19 L BUN 46 H Creatinine 2.69 H Estimated GFR 17.3 L BUN/Creatinine Ratio 17.1 Glucose 70 L Hemoglobin A1c Calcium 9.7 Magnesium Total Bilirubin 0.3 AST 47 H ALT 33 Alkaline Phosphatase 95 Total Creatine Kinase 218 H CK-MB (CK-2) 1.40 CK-MB (CK-2) Rel Index 0.6 L Troponin I < 0.012 NT-Pro-B Natriuret Pep Total Protein 6.8 Albumin 3.8 Globulin 3.0 Albumin/Globulin Ratio 1.3 Triglycerides Cholesterol LDL Cholesterol, Calc HDL Cholesterol Lipase 267 Urine Color Urine Appearance Urine pH Ur Specific [place] Urine Protein Urine Glucose (UA) Urine Ketones Urine Occult Blood Urine Nitrate Urine Bilirubin Urine Urobilinogen Ur Leukocyte Esterase Urine RBC Urine WBC Ur Squamous Epith Cells Ur Transition Epith Cell Urine Bacteria Hyaline Casts Granular Casts Ur Culture Indicated? U Opiates 300ng/mL cut Ur Oxycodone Screen Urine Methadone Screen Ur Barbiturates Screen U Tricyclic Antidepress Ur Phencyclidine Scrn Ur Amphetamines Screen U Methamphetamines Scrn Ur MDMA Scrn (Ecstasy) U Benzodiazepines Scrn Urine Cocaine Screen U Marijuana (THC) Screen Ethyl Alcohol < 10 Ketones SARS-CoV-2 (PCR) 10/03/20 10/03/20 10/03/20 14:45 16:15 16:15 WBC RBC Hgb Hct MCV MCH MCHC RDW Plt Count Neut % (Auto) Lymph % (Auto) [place] % (Auto) Eos % (Auto) Baso % (Auto) Neut # (Auto) Lymph # (Auto) [place] # (Auto) Eos # (Auto) Baso # (Auto) PT INR APTT Sodium Potassium Chloride Carbon Dioxide BUN Creatinine Estimated GFR BUN/Creatinine Ratio Glucose Hemoglobin A1c Calcium Magnesium Total Bilirubin AST ALT Alkaline Phosphatase Total Creatine Kinase CK-MB (CK-2) CK-MB (CK-2) Rel Index Troponin I NT-Pro-B Natriuret Pep Total Protein Albumin Globulin Albumin/Globulin Ratio Triglycerides Cholesterol LDL Cholesterol, Calc HDL Cholesterol Lipase Urine Color Yellow Urine Appearance Clear Urine pH 6.0 Ur Specific [place] 1.025 Urine Protein 3+ H Urine Glucose (UA) Trace H Urine Ketones Negative Urine Occult Blood 1+ H Urine Nitrate Negative Urine Bilirubin Negative Urine Urobilinogen 0.2 Ur Leukocyte Esterase Negative Urine RBC 0-1/hpf Urine WBC 1-5/hpf Ur Squamous Epith Cells 1-5 /hpf Ur Transition Epith Cell 1-5/hpf Urine Bacteria None seen Hyaline Casts 5-10/lpf Granular Casts 1-5/lpf Ur Culture Indicated? Cult not indicated U Opiates 300ng/mL cut Negative Ur Oxycodone Screen Negative Urine Methadone Screen Negative Ur Barbiturates Screen Negative U Tricyclic Antidepress Negative Ur Phencyclidine Scrn Negative Ur Amphetamines Screen Negative U Methamphetamines Scrn Negative Ur MDMA Scrn (Ecstasy) Negative U Benzodiazepines Scrn Negative Urine Cocaine Screen Negative U Marijuana (THC) Screen Negative Ethyl Alcohol Ketones 0.84 H SARS-CoV-2 (PCR) 10/03/20 10/03/20 10/03/20 17:45 19:53 19:53 WBC RBC Hgb Hct MCV MCH MCHC RDW Plt Count Neut % (Auto) Lymph % (Auto) [place] % (Auto) Eos % (Auto) Baso % (Auto) Neut # (Auto) Lymph # (Auto) [place] # (Auto) Eos # (Auto) Baso # (Auto) PT INR APTT 35 Sodium Potassium Chloride Carbon Dioxide BUN Creatinine Estimated GFR BUN/Creatinine Ratio Glucose Hemoglobin A1c 6.4 H Calcium Magnesium Total Bilirubin AST ALT Alkaline Phosphatase Total Creatine Kinase CK-MB (CK-2) CK-MB (CK-2) Rel Index Troponin I NT-Pro-B Natriuret Pep Total Protein Albumin Globulin Albumin/Globulin Ratio Triglycerides Cholesterol LDL Cholesterol, Calc HDL Cholesterol Lipase Urine Color Urine Appearance Urine pH Ur Specific [place] Urine Protein Urine Glucose (UA) Urine Ketones Urine Occult Blood Urine Nitrate Urine Bilirubin Urine Urobilinogen Ur Leukocyte Esterase Urine RBC Urine WBC Ur Squamous Epith Cells Ur Transition Epith Cell Urine Bacteria Hyaline Casts Granular Casts Ur Culture Indicated? U Opiates 300ng/mL cut Ur Oxycodone Screen Urine Methadone Screen Ur Barbiturates Screen U Tricyclic Antidepress Ur Phencyclidine Scrn Ur Amphetamines Screen U Methamphetamines Scrn Ur MDMA Scrn (Ecstasy) U Benzodiazepines Scrn Urine Cocaine Screen U Marijuana (THC) Screen Ethyl Alcohol Ketones SARS-CoV-2 (PCR) Negative 10/03/20 10/03/20 10/04/20 19:53 19:53 05:24 WBC 7.3 RBC 3.59 L Hgb 10.7 L Hct 32.2 L MCV 89.6 MCH 29.8 MCHC 33.2 RDW 13.9 Plt Count 209 Neut % (Auto) 64.9 Lymph % (Auto) 23.9 L [place] % (Auto) 7.6 Eos % (Auto) 2.5 Baso % (Auto) 1.1 Neut # (Auto) 4700 Lymph # (Auto) 1700 [place] # (Auto) 600 Eos # (Auto) 200 Baso # (Auto) 100 PT 11.3 INR 1.0 APTT Sodium Potassium Chloride Carbon Dioxide BUN Creatinine Estimated GFR BUN/Creatinine Ratio Glucose Hemoglobin A1c Calcium Magnesium 2.0 Total Bilirubin AST ALT Alkaline Phosphatase Total Creatine Kinase CK-MB (CK-2) CK-MB (CK-2) Rel Index Troponin I NT-Pro-B Natriuret Pep Total Protein Albumin Globulin Albumin/Globulin Ratio Triglycerides Cholesterol LDL Cholesterol, Calc HDL Cholesterol Lipase Urine Color Urine Appearance Urine pH Ur Specific [place] Urine Protein Urine Glucose (UA) Urine Ketones Urine Occult Blood Urine Nitrate Urine Bilirubin Urine Urobilinogen Ur Leukocyte Esterase Urine RBC Urine WBC Ur Squamous Epith Cells Ur Transition Epith Cell Urine Bacteria Hyaline Casts Granular Casts Ur Culture Indicated? U Opiates 300ng/mL cut Ur Oxycodone Screen Urine Methadone Screen Ur Barbiturates Screen U Tricyclic Antidepress Ur Phencyclidine Scrn Ur Amphetamines Screen U Methamphetamines Scrn Ur MDMA Scrn (Ecstasy) U Benzodiazepines Scrn Urine Cocaine Screen U Marijuana (THC) Screen Ethyl Alcohol Ketones SARS-CoV-2 (PCR) 10/04/20 05:24 WBC RBC Hgb Hct MCV MCH MCHC RDW Plt Count Neut % (Auto) Lymph % (Auto) [place] % (Auto) Eos % (Auto) Baso % (Auto) Neut # (Auto) Lymph # (Auto) [place] # (Auto) Eos # (Auto) Baso # (Auto) PT INR APTT Sodium 139 Potassium 4.0 Chloride 113 H Carbon Dioxide 19 L BUN 42 H Creatinine 2.31 H Estimated GFR 20.7 L BUN/Creatinine Ratio 18.2 Glucose 120 H Hemoglobin A1c Calcium 8.6 Magnesium Total Bilirubin 0.1 L AST 27 ALT 26 Alkaline Phosphatase 80 Total Creatine Kinase CK-MB (CK-2) CK-MB (CK-2) Rel Index Troponin I NT-Pro-B Natriuret Pep 885 H Total Protein 5.9 L Albumin 3.2 L Globulin 2.7 Albumin/Globulin Ratio 1.2 Triglycerides 241 H Cholesterol 222 H LDL Cholesterol, Calc 133 H HDL Cholesterol 41 Lipase Urine Color Urine Appearance Urine pH Ur Specific [place] Urine Protein Urine Glucose (UA) Urine Ketones Urine Occult Blood Urine Nitrate Urine Bilirubin Urine Urobilinogen Ur Leukocyte Esterase Urine RBC Urine WBC Ur Squamous Epith Cells Ur Transition Epith Cell Urine Bacteria Hyaline Casts Granular Casts Ur Culture Indicated? U Opiates 300ng/mL cut Ur Oxycodone Screen Urine Methadone Screen Ur Barbiturates Screen U Tricyclic Antidepress Ur Phencyclidine Scrn Ur Amphetamines Screen U Methamphetamines Scrn Ur MDMA Scrn (Ecstasy) U Benzodiazepines Scrn Urine Cocaine Screen U Marijuana (THC) Screen Ethyl Alcohol Ketones SARS-CoV-2 (PCR) PFSH Medical History (Updated 10/04/20 @ 01:33 by YOLANDE Zheng-) Breast cancer, left Chronic kidney disease (CKD), stage III (moderate) Diabetes mellitus Hyperlipidemia associated with type 2 diabetes mellitus Hypothyroidism Surgical History History of hysterectomy History of partial mastectomy of left breast Hx of cholecystectomy Hx of eye surgery Hx of lumbosacral spine surgery Family History (Updated 10/04/20 @ 01:35 by YOLANDE Zheng-) Mother No significant medical problems Father Unknown family medical history Social History household members: none Smoking Status: Never smoker alcohol intake: current Assessment & Plan Assessment & Plan narrative: 1. Subacute and chronic bilateral hemispheric strokes, most likely ischemic due to multi focal stenosis -presented with 1 month history weakness and balance problems, speech difficulty and confusion -no history of AFib, EKG sinus rhythm -MRI: Small subacute infarct within left becerra radiata, volume loss, small vessel ischemic change, chronic bilateral basal ganglia and becerra radiata infarcts -MR: Mild multi focal stenosis within anterior and posterior circulation, mild right ICA stenosis, no left ICA stenosis, patent vertebral arteries -echo: Pending -PT/OT/ST consult, recommending residential rehab -LDL 133 on high-intensity statin -added clopidogrel 75 mg q.d. to aspirin 81 mg q.d. 2. Chronic hypertension -blood pressure is running moderately elevated usually in 170s which is likely her baseline control -patient on amlodipine 10 mg q.d., furosemide 20 mg q.d. and metoprolol succinate 50 mg q.d. which are continued -added losartan 25 mg q.d. in light of significant diabetic proteinuria and chronic kidney disease -monitor serum potassium weekly initially, I do not see any history of hyperkalemia going back to 2016 2. Type 2 diabetes, on insulin management, with hypoglycemia on admit -glucose 70 on admit, hemoglobin A1c 6.4, likely over controlled with her age and comorbidities, diagnosed with diabetes 5 years ago -patient would likely benefit from higher A1c goal, insulin remains best option for managing diabetes in light of her chronic kidney disease -has 3+ proteinuria -Lantus 10 units HS (was on 18-20 units q.d. at home), NovoLog low-dose sliding scale a.c. HS 3. Acute kidney injury, resolved, with chronic kidney disease stage IV -on admission creatinine 2.69 indicative of mild ROBBIE, baseline creatinine values seem to fluctuate between 1.7 and 2.35, usually closer to 2 -creatinine 2.31, GFR 17 with IV hydration -discontinued IV fluids 4. Hypothyroidism, chronic -check TSH, continue home levothyroxine 5. Hyperlipidemia due to type 2 diabetes, chronic, not present on admission, control unknown -LDL 133 on high-dose statin therapy, on rosuvastatin 40 mg at home -providing atorvastatin 80 mg per hospital formulary substitution -add Zetia 10 mg q.d. 6. Depression, chronic, controlled -patient denies depression or anxiety symptoms or suicidal ideation -Continue patient's Sertraline 25 mg daily 7. Obesity, acute on chronic as evidence by a BMI of 28.3 BMI 31.9 -2019 I suspect patient's weight loss is also a contributing factor to her lowering blood sugars on the same doses of insulin. -Risk for adverse outcomes including poor healing, uncontrolled diabetes, longer hospital stay, etc. -consideration will be given to dietary counseling 8. Anemia, mild, acute on chronic, related to CKD, present on admission-stable -as evidence by a HGB 11.2, HCT 34%. H&H stable since hospitalization 08/2020, platelets WNL Plan: Treating underling conditions. DISP: [facility] rehab, likely discharge 10/06
--- NOTE | 2020-10-04 14:53 | CM.IDA ---
Initial DCP Assessment Note Pt is a 75 yo female, resident of [facility] in [place], brought in by EMS for evaluation of 1 month of diarrhea, weakness and speech difficulties and some confusion, MRI shows subacute CVA. therapies recommending SNF PCP: Sheree Richardson Payer: [facility] Reviewed chart, patient has been assessed by PT/OT/CLINICAL RESEARCH TECHNICIAN today and all recommending SNF upon DC Met w/patient this afternoon, introduced RESEARCH WORKER KITCHEN role. Patient alert and oriented, states she lives at [facility], does not have cgs but does rely on her sister Pippa for assist w/shopping, errands, and senior mechanical designer. See therapy notes for details on baseline function. Patient states she does not have HH at this time and has not been to rehab in the past. review of prior admission notes show DCP team attempted SNF after patient's hospitalization in March 2020, [facility] had denied at that time and patient returned home w/ [facility]. Discussed supports and patient says her dtr Rashid, in [place], is her DPOA; later tells this RESEARCH WORKER KITCHEN that she would like her sister Pippa to be her primary contact and to check in w/patient before discussing care w/dtr Rashid. Discussed recommendation for SNF, patient requests [facility]. [facility] is not contracted w/ [facility]. Patient states [facility] SNFs are next choice. Attempted [facility] (not contracted) Phyllis Leigh, did not hear back, then discussed referral w/ Carol at [facility], faxed clinical and Carol now starting auth process through [facility]. DCP team will need to be in contact w/ Dex in admissions over the w/e, Carol chief innovation officer as needed. PASRR completed. BRENNA Yap Discharge Planning/Care Management CM Discharge Assessment Start: 10/04/20 12:24 Freq: Status: Active Protocol: Document 10/04/20 14:43 PHILIP (Rec: 10/04/20 14:52 PHILIP [id number]) Discharge Planning Assessment Assigned Ground Support Equipment Assembler BRENNA Orta DPSHREE/Assigned Designee Name Rashid Steiner, dtr/DPSHREE ( [place]) Contact Information [phone] Advance Directives? Yes Advance Directives on File Yes History Provided By Patient Prior Living Arrangements Apartment/Condo Household Members none Type of transporation used prior to Relies on Others admit Willing to Return to Facility? Yes Independent with ADL's No: Mod I per PT note Is patient alert and oriented? Yes: At baseline, yes. CVA= SLUMS 15/30 Needs Assistance With Meal Prep,Home Chores / Shopping Patient/Family Preference [facility] Facility Barriers to Discharge Yes Comment CVA, lives home alone Discharge Plan [facility] Facility Transportation Arrangement Likely w/c transport Referrals Initiated [facility] Additional Comment Will need authorization from [facility] MCR Has Agency SNF been contacted Yes Whiteboard Updated in Patient Room with Yes name and ext. # of Ground Support Equipment Assembler
--- NOTE | 2020-10-04 15:36 | PC.NURSE ---
Pt A&OX2, POST PARTUM NURSE evaluating cognition today. MRI and echo completed. MD at bedside discussing POC, and result of MRI showing subacute infarct.Pt agreeable to POC and plant to get rehabillitation at SNF. Continuous monitoring.
[2020-10-04 16:39] LABS: TSH w/ Reflex to FT4 0.91 uIU/mL (0.47-4.68)
[2020-10-04] MEDS: INSULIN LISPRO 100 UNIT/ML 3ML VIAL SUBCUT ×2 (17:10→20:47)
[2020-10-04] MEDS: ATORVASTATIN 20 MG TABLET 80 MG PO (20:48)
[2020-10-04] MEDS: INSULIN GLARGINE 100 UNIT/ML 3ML PEN 10 UNIT SUBCUT (20:48)
[2020-10-04] MEDS: SERTRALINE 50 MG TABLET 25 MG PO (20:48)
--- NOTE | 2020-10-04 21:15 | PC.NURSE ---
Shift note: Patient is AxOx3, improved from day shift assessment but does have increased speech difficulties and temporary confusion when woken up from sleep. Continues to endorse word finding difficulties. Can make needs known and uses call light appropriately, does not attempt to exit bed without help. NIH: 1 for ataxia in right arm. Patient drifts to right side in bed but does not completely fall over. Notified MEMBERSHIP ADVISOR of HR of 55, held metoprolol at bedtime. Sliding scale and long acting insulin restarted at dinner time, patient tolerating well. Tele: SB and NSR. High fall risk d/t recent falls and weakness, bed alarm on and functioning, call light in reach.
[2020-10-05] VITALS (8 sets, daily range): BP systolic 128–147; BP diastolic 63–66; PULSE 53–57; RESP 14–18; TEMP 36.5–36.6; O2SAT 95–99
[2020-10-05] MEDS: LEVOTHYROXINE 25 MCG TABLET PO (06:04)
[2020-10-05 07:57] LABS: Add Manual Diff / Slide Review NO; Basophils Absolute Auto 100 /uL (0-100); Basophils Percent Auto 0.9 % (0-2); Eosinophils Absolute Auto 200 /uL (0-450); Eosinophils Percent Auto 2.8 % (2-4); Hematocrit 31.8 % (36-46); Hemoglobin 10.7 g/dL (12.0-16.0); Lymphocytes Absolute Auto 1200 /uL (1100-4500); Mean Corpuscular HGB Conc 33.7 % (30-36); Mean Corpuscular Hemoglobin 30.1 PG (26-34); Mean Corpuscular Volume 89.3 fL (80-100); Monocytes Absolute Auto 500 /uL (0-900); Monocytes Percent Auto 7.9 % (3-14); Neutrophils Absolute Auto 3900 /uL (1500-7000); Neutrophils Percent Auto 67.4 % (50-75); Platelet Count 197 X10^3/uL (150-400); Red Blood Cell Count 3.56 X10^6/uL (4.0-5.2); Red Cell Distribution Width 13.9 % (11.6-14.8); White Blood Cell Count 5.8 X10^3/uL (4.5-11.0)
[2020-10-05 08:16] LABS: Alanine Aminotransferase 21 IU/L (<35); Albumin Globulin Ratio 1.2 (1.0-2.8); Alkaline Phosphatase 75 U/L (38-126); Aspartate Aminotransferase 20 IU/L (14-36); BUN Creatinine Ratio 18.1 (6-22); Bilirubin Total 0.2 mg/dL (0.2-1.3); Blood Urea Nitrogen 42 mg/dL (7-17); Calcium 8.9 mg/dL (8.4-10.2); Carbon Dioxide 21 mmol/L (22-32); Chloride 111 mmol/L (98-107); Estimated Glomerular Filt Rate 20.6 mL/min (>60); Globulin 2.6 g/dL (1.7-4.1); Glucose 127 mg/dL (80-110); HEMOLYSIS < 15 (0-50); Sodium 137 mmol/L (137-145); Total Protein 5.6 g/dL (6.3-8.2)
[2020-10-05] MEDS: AMLODIPINE 5 MG TABLET 10 MG PO (08:35)
[2020-10-05] MEDS: EZETIMIBE 10 MG TABLET PO (08:35)
[2020-10-05] MEDS: CLOPIDOGREL 75 MG TABLET PO (08:35)
[2020-10-05] MEDS: FUROSEMIDE 20 MG TABLET PO (08:35)
[2020-10-05] MEDS: LOSARTAN 25 MG TABLET PO (08:40)
[2020-10-05] MEDS: ASPIRIN EC 81 MG TABLET PO (08:55)
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
--- NOTE | 2020-10-05 10:07 | PT.IPTN ---
Current Diagnoses Cerebral infarction, unspecified (10/03/20) Physical Therapy Treatment Note M2 PT-IP Current Condition Start: 10/04/20 13:03 Freq: NEEDED Status: Active Protocol: Document 10/04/20 11:58 AB (Rec: 10/04/20 13:14 AB [id number]) Physical Therapy Current Condition Current Condition Evaluation Date 10/04/20 Treatment Diagnosis TIA; generalized weakness; difficulaty in walking Onset Date 10/03/20 Precautions Other Precautions falls M3 PT-IP Subjective Start: 10/04/20 13:03 Freq: NEEDED Status: Active Protocol: Document 10/05/20 09:43 CLB (Rec: 10/05/20 11:00 CLB [id number]) Subjective Physical Therapy Visit Type Type Treatment Note Visit Start Time 09:43 Visit Stop Time 10:07 Total Visit Minutes 24 Number of CORPORATE BOND TRADER Visits 1 Physical Therapy Visit Comments Patient Comments agreed to do PT Therapy Pain Assessment Pain Present Pain Present Denied Pain M4 PT-IP Mobility and Gait Start: 10/04/20 13:03 Freq: NEEDED Status: Active Protocol: Document 10/05/20 09:43 CLB (Rec: 10/05/20 11:00 CLB [id number]) PT-Transfer Assessment Sit to and From Stand Sit to and from Stand Contact Guard Assistance,1 Person Assistance,Use of Upper Extremities Equipment Transfer Assistive Device Gait Belt,Front Wheeled Walker Orthotic/Prosthetic Devices or Brace: No Comments Mobility Comments Pt stood from chair CGA and ambulated in room Min A w/FWW, pt ambulates with slow shuffled steps and lateral lean to right side. Pt returned to supervising producer front of chair for standing balance. Pt then ambulated again in room then stood in front of mirror for visual postural correction . Pt returned to chair performing seated ther ex. Left pt in reclined chair with alarm on and all needs within reach. Gait Assessment Gait Gait Assistance Required: Minimum Assistance,1 Person Assist Distance (Feet) 40 Able to Maintain Weight Bearing Status Yes During Gait Assistive Devices Assistive Device Gait Belt,Front Wheeled Walker Orthotic/Prosthetic Devices or Brace: No Gait Deviations General Gait Pattern Decreased Stride Length, Decreased Feet Clearance, Lateral Trunk Lean Factors Limiting Gait Function Factors Limiting Gait Function Decreased Activity Tolerance, Decreased Strength,Poor Balance,Poor Safety Awareness PT-Balance Assessment Sitting Balance and Reactions Static Sitting Balance Ability Good Dynamic Sitting Balance Ability Good Standing Balance and Reactions Static Standing Balance Ability Fair Dynamic Standing Balance Ability Fair Device Used FWW M5 PT-IP Objective Assessments Start: 10/04/20 13:03 Freq: NEEDED Status: Active Protocol: Document 10/04/20 11:58 AB (Rec: 10/04/20 13:14 AB [id number]) Orientation Orientation/Cognition Level of Alertness Alert Orientation Name Language Function Ability No Deficits Noted Safety Awareness Decreased Safety Awareness Gross Range of Motion Lower Extremity ROM Assessment Within Functional Limits Strength Lower Extremity Strength Assessment Bilaterally Impaired Hip 3+/5 Knee 3+/5 Muscle Tone Muscle Tone WNL Yes M6 PT-IP Treatment Start: 10/04/20 13:03 Freq: NEEDED Status: Active Protocol: Document 10/05/20 09:43 CLB (Rec: 10/05/20 11:00 CLB [id number]) Physical Therapy Treatment Exercises Exercises Seated Knee Flexion/Extension Other Treatments Other Treatment Performed seated/standing marches, balance NBS EO/EC, WBS EO/EC. M7 PT-IP Assessment and Plan Start: 10/04/20 13:03 Freq: NEEDED Status: Active Protocol: Document 10/05/20 09:43 CLB (Rec: 10/05/20 11:00 CLB [id number]) PT Summary Assessment and Plan Potential Rehabilitation Potential Good Status of Condition at Evaluation Evolving Summary Impairments Pain,ROM,Strength,Balance, Coordination,Sensation,Tone, Cognition,Bed Mobility, Transfers,Gait,Activity Tolerance Assessment Summary Pt requiring CGA for sit<> Stand and Min A for gait with FWW, pt has lateral right lean and feels like she will fall to left with upright posture. Pt will require SNF rehab to improve strength to increase activity tolerance for safe d/ c home as pt lives alone. Goals Bed Mobility Goal Independent Transfer Goal Standby Assistance,Front Wheeled Walker Gait Goal Standby Assistance,Front Wheel Walker Gait Distance 100 Other Goals improve ambulation using SPC 150 ft SBA Days to Meet Goals 10 Frequency of Treatment Frequency Of Treatment Once a Day Treatment Plan Physical Therapy Treatment Plan Bed Mobility Training,Transfer Training,Gait Training, Therapeutic Exercise,Balance Retraining,Discharge Planning, Hot or Cold Pack,Neuromuscular Re-ed,Coordination Retraining Precautions Other Precautions falls Recommendations To Nursing Amount of Assist Needed 1 Person Assist Discharge Recommendations PT Discharge Recommendations SNF Rehab Equipment Needed for Home Before FWW if not safe with SPC and Discharge if pt goes home Transportation Needs at Discharge Wheelchair/Cabulance
[2020-10-05] MEDS: INSULIN LISPRO 100 UNIT/ML 3ML VIAL SUBCUT (12:14)
--- NOTE | 2020-10-05 12:48 | P.DS_ITS ---
History of Present Illness History of Present Illness Chief complaint: weakness and diarrhea Narrative: Per Therese Figueroa on 10/03: Patient is a 75-year-old female Heather Ribera who presented to the ED via EMS f or evaluation of approximately 1 month weakness and speech difficulties, some confusion. Patient states that she has had loose stools for the past week and has been taking antidiarrhea medication. There has been no recent antibiotics. No recent travel. She has tried anti diarrheal medicines without any improvement. Has not talk with her primary doctor about these symptoms. The past couple days she reports she has felt very weak. Patient states that her friends have reported multiple episodes over the past week I was not making sense and slurring some words. Word-finding difficulties the patient states has been going on for some time along with difficulty writing. She does state that there have been periods of time where she felt like she has been somewhat confused about what is going on. She does admit that she has not been eating very well recently, and that she often misses her mouth while eating (brining her utensil to her mouth). Patient's stated that approximately 3 days ago she fell face 1st in her home she is unaware of the cause. She states that she does not fall regularly and that this is a new change. She reports that she is taking all of her medications as directed. Patient states she has been on Lantus and meal insulin for the past 5 years but recently she feels as if she is getting too much insulin and has had several instances of low blood sugars. Patient denies chest pain, shortness of breath, diaphoresis, nausea, vomiting, fever, chills, urinary symptoms, changes in vision, balance problems, numbness, tingling, weakness. Upon admit patient's blood pressure was mildly elevated at 178/45, I did observe difficulty with word finding but no slurred speech, NIH was 0, patient did present with ROBBIE :chloride 111, BUN 46, HC03 19, and a creatinine of 2.69, which is elevated from previous hospitalizations. Patient's glucose was originally 70 on presentation, she was treated with Dextrose. Patient states that she has been taking Lantus and meal insulin for the past 5 years, patient's A1c upon admit 6.4% concerned that her insulin regimen is too aggressive and likely is contributing to her hypoglycemia and contributing factor to her falls as well as neurological deficits. GFR 17.3 which is down from previous hospitalization which have been in the low 20s for 202. Total creatine kinase to 18, CK-MB 0.6, lipase was within normal limits, urinalysis was negative, head CT demonstrated no trauma, patient's EKG demonstrated sinus Dimitry with a ventricular rate of [address] or T-wave changes. Sofa score: 2. Admitted for neurological deficits rule out TIA, hypoglycemia, and ROBBIE. Discharge Providers Provider Date of admission: 10/03/20 17:18 Discharge Date: 10/05/20 Primary care physician: Sheree Richardson MD Consults: 10/03/20 19:26 Consult to Occupational Therapy Evaluate & Treat Comment: Neurological deficit Physician Instructions: Evaluate and treat Consult to Physical Therapy Evaluate & Treat Comment: Neurological deficit Physician Instructions: Evaluate and Treat Consult to Speech Therapy Evaluate & Treat Comment: Neurological deficit Physician Instructions: Evaluate and treat Discharge provider: Marco Zafar MD Summary Hospital Course Discharge Diagnosis: 1. Subactue and chronic bilateral strokes, subacute within left mid becerra radiata 2. 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 Mild multifocal stenosis in anterior and posterior circulation, mild right ICA stenosis 4. Hypertension 5. Type 2 diabetes with proteinuria, on insulin 6. ROBBIE on CKD stage 4 7. Hypothyroidism 8. Hyperlipidemia 9. Depression chronic 10. Obesity, BMI 28.9 11. Anemia, mild Hospital Course: Ms. Ribera came in with subacute symptoms of difficulty with word finding, imbalance, slurred speech. She had been having these symptoms for over a month. She had an MRI on 09/04/20 as an outpatient with subacute R frontal stroke. Here she was found to have a subacute left mid becerra radiata stroke. She was found to have moderate to severe stenosis of the P2 segment of the left TESTER SOUND. She had mild multifocal stenosis in the anterior and posterior circulation, and mild 20% stenosis in the right ICA. She had no evidence of atrial fibrillation on EKG, or ECHO, and no thrombus noted. She is recommended to be on dual antiplatelet therapy with aspirin and plavix for 90 days which would be through 01/03/21. After this she can be on single therapy with either aspirin or plavix. She should continue on high dose statin. She needs good blood sugar and blood pressure control. She has CKD stage 4 with proteinuria from diabetes. She was started on losartan here, and should have creatinine and potassium closely monitored. She is discharge to SNF for PT/OT and speech therapy. Code DNR: Discharge time: 35 minutes Status at Discharge Cognitive/behavioral status at discharge: oriented Functional status at discharge: uses cane/walker Overall status at discharge: patient is progressing back to baseline Time Spent with Patient Time spent: Less than 30 minutes Exam Vital Signs (past 8 hours): - 10/05/20 05:00 10/05/20 08:00 10/05/20 08:40 Temperature 97.8 F Pulse Rate 54 L 57 L Respiratory Rate 14 Blood Pressure 147/66 H 143/66 H Pulse Oximetry 99 95 10/05/20 08:57 Temperature 97.8 F Pulse Rate 56 L Respiratory Rate 18 Blood Pressure 143/66 H Pulse Oximetry 99 Oxygen Delivery Method Room Air Oxygen Flow Rate 0 Narrative Exam Narrative: General: no acute distress HEENT: mucous membranes moist, trachea midline, negative JVD Lungs: lungs clear bilaterally without, wheezes, rhonchi, or rales. Cardio: regular rate and rhythm without murmur, rubs, or gallops Abdomen: Soft nontender, no organomegaly, normal bowel sounds Musculoskeletal: Muscle strength and tone are equal within normal limits Skin: Warm dry and intact without rashes Neuro: AAOx3, strength is +5/5 in all extremities, sensation to touch intact, no gross deficits noted of cranial nerves. slight word finding difficulty and mildly slurred speech Psych: pleasant, cooperative Objective Labs Result Diagrams: 10/05/20 07:32 10/05/20 07:32 Labs: Laboratory Results - last 24 hr 10/03/20 10/05/20 10/05/20 14:45 07:32 07:32 WBC 5.8 RBC 3.56 L Hgb 10.7 L Hct 31.8 L MCV 89.3 MCH 30.1 MCHC 33.7 RDW 13.9 Plt Count 197 Neut % (Auto) 67.4 Lymph % (Auto) 21.0 L Hendry % (Auto) 7.9 Eos % (Auto) 2.8 Baso % (Auto) 0.9 Neut # (Auto) 3900 Lymph # (Auto) 1200 Hendry # (Auto) 500 Eos # (Auto) 200 Baso # (Auto) 100 Sodium 137 Potassium 4.0 Chloride 111 H Carbon Dioxide 21 L BUN 42 H Creatinine 2.32 H Estimated GFR 20.6 L BUN/Creatinine Ratio 18.1 Glucose 127 H Calcium 8.9 Total Bilirubin 0.2 AST 20 ALT 21 Alkaline Phosphatase 75 Total Protein 5.6 L Albumin 3.0 L Globulin 2.6 Albumin/Globulin Ratio 1.2 TSH 0.91 [facility] Medical History (Updated 10/04/20 @ 01:33 by Therese Figueroa CARDIAC CATH LAB RADIOLOGY TECHNOLOGIST-) Breast cancer, left Chronic kidney disease (CKD), stage III (moderate) Diabetes mellitus Hyperlipidemia associated with type 2 diabetes mellitus Hypothyroidism Surgical History History of hysterectomy History of partial mastectomy of left breast Hx of cholecystectomy Hx of eye surgery Hx of lumbosacral spine surgery Family History (Updated 10/04/20 @ 01:35 by YOLANDE Zheng-AMY) Mother No significant medical problems Father Unknown family medical history Social History household members: none Smoking Status: Never smoker alcohol intake: current Discharge Plan Discharge Plan Patient Disposition: SNF Provider Discharge Comment: Ms. Ribera came in with imbalance, difficulty with speech, slightly slurred speech. She was found to have a subacute stroke. She has been having symptoms for over a month. She has stenosis of her P2 segment of posterior cerebral artery. For this she should be on 90 days of both aspirin and plavix. After this she can go back to only plavix daily. She needs continued good blood pressure and diabetes control. She is discharged to SNF for physical therapy. She has chronic kidney disease and was started on losartan here. She will need to have her kidney function and potassium levels checked again on 10/08. Discharge orders & Medications Prescriptions: New metoprolol succinate 50 mg Tablet Extended Release 24 Hr 50 mg PO BEDTIME Qty: 30 RF: 0 aspirin 81 mg Tablet,Delayed Release (Dr/Ec) 81 mg PO DAILY Qty: 90 RF: 0 atorvastatin [Lipitor] 20 mg Tablet 80 mg PO BEDTIME Qty: 30 RF: 0 clopidogrel 75 mg Tablet 75 mg PO DAILY Qty: 90 RF: 0 losartan 25 mg Tablet 25 mg PO DAILY Qty: 30 RF: 0 Continued acetaminophen 325 mg Tablet 650 mg PO Q6HR PRN (Reason: Pain, Mild (1-3)) Qty: 60 RF: 0 levothyroxine [Synthroid] 25 mcg Tablet 25 mcg PO 0600 Qty: 20 RF: 0 sertraline [Zoloft] 50 mg Tablet 25 mg PO BEDTIME Qty: 20 RF: 0 amlodipine [Norvasc] 5 mg Tablet 10 mg PO DAILY Qty: 30 RF: 0 Lantus Solostar U-100 Insulin 100 unit/mL (3 mL) insulin pen See Rx Instructions .ROUTE .COMPLEX RF: 0 insulin aspart U-100 [Novolog Flexpen U-100 Insulin] 100 unit/mL (3 mL) insulin pen 6 - 12 unit SUBCUT BID RF: 0 furosemide 20 mg tablet 20 mg PO DAILY RF: 0 Discontinued metoprolol succinate 50 mg tablet extended release 24 hr 50 mg PO DAILY RF: 0 aspirin 81 mg Tablet 81 mg PO DAILY RF: 0 rosuvastatin 40 mg tablet 40 mg PO BEDTIME RF: 0 Follow up/Referrals: Sheree Richardson MD [Primary Care Provider] - Diet/Activity/Treatments Diet: Carb-consistent/Diabetic, Low-sodium and Low-cholesterol [facility] Rehab type: Physical therapy, Occupational therapy and Speech therapy Discharge Data Primary Care Provider: Sheree Richardson
[2020-10-05 15:06] LABS: COVID19 - ADMIT (NP swab/PCR) Negative (Negative)
--- NOTE | 2020-10-05 15:39 | PC.NURSE ---
Pt without neurochanges this shift. VSS, afebrile, on RA. Calls appropriately for assistance. Good po intake, denies pain. MD at bedside clearing patient for discharge this a.m. Lindsey PATRICK informed RN of discharge today this afternoon to [facility] in [facility]. Pt report called, packet given to sister who transported patient with all of her belongings at 1525 this afternoon.
--- NOTE | 2020-10-05 15:44 | CM.DPC ---
DCP/continued: Reviewed chart. Per provider patient is medically stable for d/c to SNF. BARREL BRANDER received call from [facility] with admit at [facility], she reports that they can accept today. BARREL BRANDER obtained signed orders, PASRR, current COVID result and d/c summary. All information faxed to [facility]. [facility] reports that [facility] unable to secure transportation this afternoon. Therefore, BARREL BRANDER met with patient and received permission to call her sister/Pippa for transport. Pippa agreeable to transfer and reports that she will be at [facility] around 3:OOpm. RN updated and given number to call report. P: D/C to [facility] today. Patient provided with copy of JAY. Patient aware and agreeable of d/c plan. [facility] reports that authorization for SNF obtained from [facility]. BRENNA Quevedo
== END 2020-10-05 15:30 | DRG 65 ==
LOC: ED 17:18 → AC 17:19
PROVIDERS: Internal Medicine; Nurse Practitioner Family; Admitting Provider Internal Medicine; Emergency Provider Emergency Medicine; PCP Internal Medicine; Referring Provider Emergency Medicine; Visit Provider Internal Medicine
DX: I63.532 Cerebral infarction due to unspecified occlusion or stenosis of left posterior cerebral artery (principal); N17.9 Acute kidney failure, unspecified; N18.4 Chronic kidney disease, stage 4 (severe); R53.1 Weakness; R47.89 Other speech disturbances; R27.0 Ataxia, unspecified; R47.81 Slurred speech; R29.702 NIHSS score 2; E11.22 Type 2 diabetes mellitus with diabetic chronic kidney disease; I12.9 Hypertensive chronic kidney disease with stage 1 through stage 4 chronic kidney disease, or unspecified chronic kidney disease; Z79.4 Long term (current) use of insulin; E11.649 Type 2 diabetes mellitus with hypoglycemia without coma; E78.5 Hyperlipidemia, unspecified; F63.9 Impulse disorder, unspecified; E66.9 Obesity, unspecified; E03.9 Hypothyroidism, unspecified; D63.1 Anemia in chronic kidney disease; Z68.28 Body mass index [BMI] 28.0-28.9, adult; Z20.822 Contact with and (suspected) exposure to COVID-19; R80.9 Proteinuria, unspecified
CPT/HCPCS: 36415; 70450; 70548; 70553; 80053; 80061; 80305; 80320; 81001; 82009; 82550; 82553; 82962; 83036; 83690; 83735; 83880; 84443; 84484; 85025; 85610; 85730; 87635; 92523; 93005; 93306; 96361; 96374; 97162; 97167; 97530; 97535; 99285; 99406; C9803; J1815; J2270

== ENCOUNTER → 2020-11-29 16:13 | Outpatient (CLI) | payer OTHER, SELFPAY ==
[2020-10-03 18:51] VITALS: BMI 28.3
[2020-11-29 17:57] LABS: Add Manual Diff / Slide Review NO; Basophils Absolute Auto 100 /uL (0-100); Eosinophils Absolute Auto 200 /uL (0-450); Eosinophils Percent Auto 2.9 % (2-4); Hematocrit 31.2 % (36-46); Hemoglobin 10.4 g/dL (12.0-16.0); Lymphocytes Absolute Auto 1100 /uL (1100-4500); Mean Corpuscular HGB Conc 33.3 % (30-36); Mean Corpuscular Hemoglobin 30.3 PG (26-34); Monocytes Absolute Auto 400 /uL (0-900); Monocytes Percent Auto 5.9 % (3-14); Neutrophils Absolute Auto 4300 /uL (1500-7000); Neutrophils Percent Auto 72.2 % (50-75); Platelet Count 208 X10^3/uL (150-400); Red Blood Cell Count 3.43 X10^6/uL (4.0-5.2)
[2020-11-29 18:38] LABS: Alanine Aminotransferase 20 IU/L (<35); Albumin 3.3 g/dL (3.5-5.0); Albumin Globulin Ratio 1.2 (1.0-2.8); Alkaline Phosphatase 77 U/L (38-126); Aspartate Aminotransferase 26 IU/L (14-36); BUN Creatinine Ratio 21.5 (6-22); Bilirubin Total 0.3 mg/dL (0.2-1.3); Blood Urea Nitrogen 51 mg/dL (7-17); Calcium 8.8 mg/dL (8.4-10.2); Carbon Dioxide 23 mmol/L (22-32); Chloride 110 mmol/L (98-107); Estimated Glomerular Filt Rate 20.1 mL/min (>60); Globulin 2.8 g/dL (1.7-4.1); Glucose 133 mg/dL (80-110); HEMOLYSIS 17 (0-50); Potassium 5.1 mmol/L (3.4-5.1); Sodium 139 mmol/L (137-145); Total Protein 6.1 g/dL (6.3-8.2)
[2020-11-30 11:21] LABS: Calcium 8.6 mg/dL (8.7-10.3); Parathyroid Hormone, Intact 160 pg/mL (15-65)
== END ==
PROVIDERS: PCP Family Medicine; Referring Provider Family Medicine; Visit Provider Family Medicine
DX: E03.9 Hypothyroidism, unspecified (principal); E11.69 Type 2 diabetes mellitus with other specified complication; E78.5 Hyperlipidemia, unspecified; G45.9 Transient cerebral ischemic attack, unspecified; I10 Essential (primary) hypertension; N18.30 Chronic kidney disease, stage 3 unspecified
CPT/HCPCS: 36415; 80053; 82310; 83970; 85025

== ENCOUNTER → 2021-01-31 11:09 | Outpatient (CLI) | payer OTHER, SELFPAY ==
[2020-10-03 18:51] VITALS: BMI 28.3
[2021-01-31 12:07] LABS: Hematocrit 30.1 % (36-46); Hemoglobin 10.2 g/dL (12.0-16.0)
[2021-01-31 12:19] LABS: BUN Creatinine Ratio 22.3 (6-22); Blood Urea Nitrogen 45 mg/dL (7-17); Calcium 8.8 mg/dL (8.4-10.2); Carbon Dioxide 19 mmol/L (22-32); Chloride 111 mmol/L (98-107); Estimated Glomerular Filt Rate 24.1 mL/min (>60); Glucose 107 mg/dL (80-110); HEMOLYSIS < 15 (0-50); Potassium 4.3 mmol/L (3.4-5.1); Sodium 139 mmol/L (137-145)
[2021-01-31 12:28] LABS: NT-proBNP (BNP-Adult 18+) 1120 pg/mL (<125)
[2021-02-01 10:25] LABS: Parathyroid Hormone Int 103 pg/mL (15-65)
== END ==
PROVIDERS: PCP Family Medicine; Referring Provider Student in an Organized Health Care Education/Training Program; Visit Provider Student in an Organized Health Care Education/Training Program
DX: N05.9 Unspecified nephritic syndrome with unspecified morphologic changes (principal); I50.32 Chronic diastolic (congestive) heart failure; R80.9 Proteinuria, unspecified; D64.9 Anemia, unspecified; N25.81 Secondary hyperparathyroidism of renal origin
CPT/HCPCS: 36415; 80048; 82570; 83880; 83970; 84156; 85014; 85018

== ENCOUNTER 2021-03-07 16:17 | Observation (INO) | payer OTHER, SELFPAY ==
[2020-10-03 18:51] VITALS: BMI 28.3
[2021-03-07] VITALS (20 sets, daily range): BP systolic 184–238; BP diastolic 82–104; PULSE 62–87; RESP 15–32; TEMP 36.2; O2SAT 96–100; BMI 30.1
--- NOTE | 2021-03-07 16:52 | ED.FALL ---
HPI - Fall General Chief Complaint: Fall Stated Complaint: Fall 3 days ago with increased weakness Time Seen by Provider: 03/07/21 16:45 Source: EMS Mode of arrival: EMS History of Present Illness HPI Narrative: Patient is a 75-year-old female. Is an insulin-dependent diabetic. Also hypertensive who approximately 3 days ago had what sounds like a mechanical fall. She states that she missed sitting back on a chair. She did not hit her head. There was no loss of consciousness. She is not on blood thinners. She stated that she was with a friend at the time. The friend could not pick her up off the floor. She states that she sat on the floor for an extended period of time. It was not until sometime later when other individuals came over to help her up. She was able to get into bed and has been lying in bed since that time. Family members called EMS earlier today. The patient has minimal specific complaints other than generalized weakness. Denies chest pain. No shortness of breath. No headache. Does have lower extremity tenderness. No nausea vomiting. Has not taken her medications for the past 3 days. Related Data Home Medications Medication Instructions Recorded Confirmed insulin aspart U-100 100 unit/mL 6 - 12 unit SUBCUT BID 06/22/19 03/07/21 (3 mL) subcutaneous pen (Novolog Flexpen U-100 Insulin aspart) insulin glargine 100 unit/mL (3 See Rx Instructions .ROUTE .COMPLEX 06/22/19 03/07/21 mL) subcutaneous pen (Lantus Solostar U-100 Insulin) furosemide 20 mg tablet 20 mg PO DAILY 10/03/20 03/07/21 Previous Rx's Medication Instructions Recorded acetaminophen 325 mg tablet 650 mg PO Q6HR PRN #60 tab 03/05/20 amlodipine 5 mg tablet (Norvasc) 10 mg PO DAILY #30 tab 03/05/20 levothyroxine 25 mcg tablet 25 mcg PO 0600 #20 tab 03/05/20 (Synthroid) sertraline 50 mg tablet (Zoloft) 25 mg PO BEDTIME #20 tab 03/05/20 aspirin 81 mg tablet,delayed 81 mg PO DAILY #90 tab 10/05/20 release atorvastatin 20 mg tablet (Lipitor) 80 mg PO BEDTIME #30 tab 10/05/20 clopidogrel 75 mg tablet 75 mg PO DAILY #90 tab 10/05/20 losartan 25 mg tablet 25 mg PO DAILY #30 tab 10/05/20 metoprolol succinate 50 mg 50 mg PO BEDTIME #30 tab 10/05/20 tablet,extended release 24 hr Allergies Allergy/AdvReac Type Severity Reaction Status Date / Time adhesive tape [ADHESIVE TAPE] Allergy Severe RASH Verified 03/07/21 16:27 PAPER/SILK TAPE egg AdvReac Severe Diarrhea Verified 03/07/21 16:27 milk [MILK] AdvReac Severe DIARRHEA Verified 03/07/21 16:27 Penicillins [PENICILLINS] AdvReac Mild UNSURE, Verified 03/07/21 16:27 SHAKINESS, FEEL WEIRD Review of Systems Constitutional Constitutional: Reports fatigue, Denies fever(s), Denies headache(s), Reports lethargy, Reports malaise, Reports poor appetite and Reports weakness Eyes Eyes: Reports system reviewed and no additional complaints, except as documented ENT Ears, Nose, Mouth, and Throat: Reports system reviewed and no additional complaints, except as documented and Denies headache(s) Cardiovascular Cardiovascular: Reports system reviewed and no additional complaints, except as documented Respiratory Respiratory: Reports system reviewed and no additional complaints, except as documented Gastrointestinal Gastrointestinal: Reports system reviewed and no additional complaints, except as documented Genitourinary Genitourinary: Reports system reviewed and no additional complaints, except as documented Musculoskeletal Musculoskeletal: Reports system reviewed and no additional complaints, except as documented Integumentary/Breasts Skin/Breast: Reports system reviewed and no additional complaints, except as documented Neurologic Neurologic: Reports system reviewed and no additional complaints, except as documented, Denies headache(s) and Reports weakness Psychiatric Psychiatric: Reports system reviewed and no additional complaints, except as documented Endocrine Endocrine: Reports fatigue Hematologic/Lymphatic On Anticoagulants: No Allergic/Immunologic Allergic/Immunologic: Reports system reviewed and no additional complaints, except as documented Patient History Medical History Breast cancer, left Chronic kidney disease (CKD), stage III (moderate) Diabetes mellitus Hyperlipidemia associated with type 2 diabetes mellitus Hypothyroidism Surgical History History of hysterectomy History of partial mastectomy of left breast Hx of cholecystectomy Hx of eye surgery Hx of lumbosacral spine surgery Family History (Updated 06/04/21 @ 01:35 by Therese Figueroa [facility]) Mother No significant medical problems Father Unknown family medical history Social History household members: none Smoking Status: Never smoker alcohol intake: current Smoking Status: Never smoker alcohol intake frequency: holidays/special occasions only Substance Use Type: does not use Exam Initial Vital Signs Initial Vital Signs: Vital Signs Temperature 97.2 F L 03/07/21 16:24 Pulse Rate 65 03/07/21 16:24 Respiratory Rate 16 03/07/21 16:24 Blood Pressure 218/92 H 03/07/21 16:24 Pulse Oximetry 100 03/07/21 16:24 Const General: No acute distress and frail appearing Limitations: mental status not altered HENMT Head: normal to inspection and normocephalic Eyes General: appearance normal, both eyes and all related structures Neck Neck: normal visual inspection Chest Chest: No crepitus and No tenderness Resp Effort & Inspection: normal respiratory effort Auscultation: clear to auscultation bilaterally Cardio Rate: regular rate Rhythm: regular rhythm GI Inspection: non-distended Palpation: soft, No firm and No tender General: No CVA tenderness Back/Spine/Pelvis Back: normal to inspection and No CVA tenderness Cervical Spine: No cervical muscular tenderness and No cervical spinal tenderness Thoracic/Lumbar Spine: No paraspinal tenderness, No thoracic spinal tenderness and No lumbar spinal tenderness Skin General: no rashes or lesions noted Other: Pale in color Neuro General: patient alert and patient awake Cognition: normal cognition Speech: speech normal Sensory Exam: no sensory deficits noted Extrem General: capillary refill normal and No edema Other: Pelvis is stable, she did have tenderness to palpation along her calf muscles and thigh muscles but she can flex and extend at the ankles and knees an internally rotate at the hips and also flex and extend at the hips without any discomfort. Upper extremities unremarkable. Psych Appearance: grossly normal and disheveled Scores GCS [place] coma scale eye opening: Spontaneous [place] coma scale verbal response: Orientated Susy coma scale motor response: Obey commands Susy coma scale total score: 15 Course Orders Ordered: ED Orders 03/07/21 16:27 Complete Blood Count AUTO DIFF Stat Comprehensive Metabolic Panel Stat Ketones (Beta-Hydroxybutyrate) Stat Lipase Stat Magnesium Stat Partial Thromboplastin Time Stat Phosphorous Stat Prothrombin Time INR Stat Thyroid Stimulating Hormone Stat Troponin & CK Cardiac Panel Stat Type and Screen Stat 03/07/21 19:29 Troponin I Stat 03/07/21 19:50 COVID19 - ADMIT (LABORATORY CHEMIST swab/PCR) Stat Sodium Chloride (Normal Saline 0.9%) 1,000 mls @ 125 mls/hr IV CONT DEBBIE Last Admin: 03/07/21 19:10 Dose: 125 mls/hr Documented by: GRAYSON Discontinued Medications Amlodipine Besylate (Amlodipine 5 Mg Tablet) 10 mg PO NOW ONE Stop: 03/07/21 17:57 Last Admin: 03/07/21 18:03 Dose: 10 mg Documented by: NIEVES Sodium Chloride (Normal Saline 0.9%) 1,000 mls @ 1,000 mls/hr IV BOLUS ONE Stop: 03/07/21 17:51 Last Infusion: 03/07/21 19:02 Dose: 0 mls/hr Documented by: Admin: 03/07/21 17:14 Dose: 1,000 mls/hr Documented by: NIEVES Metoprolol Succinate (Metoprolol Er 50 Mg Tablet) 50 mg PO NOW ONE Stop: 03/07/21 18:48 Last Admin: 03/07/21 18:58 Dose: 50 mg Documented by: GRAYSON Vital Signs Vital signs: Vital Signs - 8 hr 03/07/21 16:24 03/07/21 17:09 03/07/21 17:10 Temperature 97.2 F L Pulse Rate 65 68 68 Respiratory Rate 16 Blood Pressure 218/92 H 226/93 H Pulse Oximetry 100 98 99 03/07/21 17:30 03/07/21 17:59 03/07/21 18:00 Temperature Pulse Rate 69 78 72 Respiratory Rate Blood Pressure 235/96 H Pulse Oximetry 98 98 98 03/07/21 18:30 03/07/21 18:58 03/07/21 19:00 Temperature Pulse Rate 78 87 76 Respiratory Rate 16 25 H Blood Pressure 238/89 H 204/84 H Pulse Oximetry 98 99 03/07/21 19:21 Temperature Pulse Rate 72 Respiratory Rate 24 Blood Pressure 204/84 H Pulse Oximetry 99 MDM - Fall Lab Data Attestation: I reviewed the patient's lab results. Result diagrams: 03/07/21 16:27 03/07/21 16:27 Labs: Lab Results 03/07/21 03/07/21 03/07/21 Range/Units 16:27 16:27 16:27 WBC 6.6 (4.5-11.0) X10^3/uL RBC 3.63 L (4.0-5.2) X10^6/uL Hgb 10.9 L (12.0-16.0) g/dL Hct 32.4 L (36-46) % MCV 89.3 (80-100) fL MCH 30.1 (26-34) PG MCHC 33.7 (30-36) % RDW 13.5 (11.6-14.8) % Plt Count 212 (150-400) X10^3/uL Neut % (Auto) 72.8 (50-75) % Lymph % (Auto) 17.1 L (25-40) % [place] % (Auto) 7.6 (3-14) % Eos % (Auto) 1.7 L (2-4) % Baso % (Auto) 0.8 (0-2) % Neut # (Auto) 4800 (6524-6034) /uL Lymph # (Auto) 1100 (6797-4278) /uL [place] # (Auto) 500 (0-900) /uL Eos # (Auto) 100 (0-450) /uL Baso # (Auto) 0 (0-100) /uL PT 10.7 (10.1-12.7) SECONDS INR 1.0 (0.9-1.3) APTT 35 (26.4-36.2) SECONDS Sodium 138 (137-145) mmol/L Potassium 4.0 (3.4-5.1) mmol/L Chloride 109 H (98-107) mmol/L Carbon Dioxide 17 L (22-32) mmol/L BUN 44 H (7-17) mg/dL Creatinine 2.28 H (0.52-1.04) mg/dL Estimated GFR 21.0 L (>60) mL/min BUN/Creatinine Ratio 19.3 (6-22) Glucose 109 (80-110) mg/dL Calcium 9.1 (8.4-10.2) mg/dL Phosphorus 4.7 H (2.8-4.1) mg/dL Magnesium 2.1 (1.6-2.3) mg/dL Total Bilirubin 0.4 (0.2-1.3) mg/dL AST 49 H (14-36) IU/L ALT 24 (<35) IU/L Alkaline Phosphatase 82 (38-126) U/L Total Creatine Kinase 896 H (30-135) U/L CK-MB (CK-2) 9.59 H (<2.37) ng/mL CK-MB (CK-2) Rel Index 1.1 L (1.5-5.0) % Troponin I 0.068 H (0.01-0.034) ng/mL Total Protein 6.1 L (6.3-8.2) g/dL Albumin 3.6 (3.5-5.0) g/dL Globulin 2.5 (1.7-4.1) g/dL Albumin/Globulin Ratio 1.4 (1.0-2.8) Lipase 341 H (23-300) U/L TSH (0.47-4.68) uIU/mL Ketones 2.31 H (<0.27) mmol/L Blood Type Antibody Screen 03/07/21 03/07/21 Range/Units 16:27 16:27 WBC (4.5-11.0) X10^3/uL RBC (4.0-5.2) X10^6/uL Hgb (12.0-16.0) g/dL Hct (36-46) % MCV (80-100) fL MCH (26-34) PG MCHC (30-36) % RDW (11.6-14.8) % Plt Count (150-400) X10^3/uL Neut % (Auto) (50-75) % Lymph % (Auto) (25-40) % [place] % (Auto) (3-14) % Eos % (Auto) (2-4) % Baso % (Auto) (0-2) % Neut # (Auto) (7393-5274) /uL Lymph # (Auto) (8336-1140) /uL [place] # (Auto) (0-900) /uL Eos # (Auto) (0-450) /uL Baso # (Auto) (0-100) /uL PT (10.1-12.7) SECONDS INR (0.9-1.3) APTT (26.4-36.2) SECONDS Sodium (137-145) mmol/L Potassium (3.4-5.1) mmol/L Chloride (98-107) mmol/L Carbon Dioxide (22-32) mmol/L BUN (7-17) mg/dL Creatinine (0.52-1.04) mg/dL Estimated GFR (>60) mL/min BUN/Creatinine Ratio (6-22) Glucose (80-110) mg/dL Calcium (8.4-10.2) mg/dL Phosphorus (2.8-4.1) mg/dL Magnesium (1.6-2.3) mg/dL Total Bilirubin (0.2-1.3) mg/dL AST (14-36) IU/L ALT (<35) IU/L Alkaline Phosphatase (38-126) U/L Total Creatine Kinase (30-135) U/L CK-MB (CK-2) (<2.37) ng/mL CK-MB (CK-2) Rel Index (1.5-5.0) % Troponin I (0.01-0.034) ng/mL Total Protein (6.3-8.2) g/dL Albumin (3.5-5.0) g/dL Globulin (1.7-4.1) g/dL Albumin/Globulin Ratio (1.0-2.8) Lipase (23-300) U/L TSH 2.60 (0.47-4.68) uIU/mL Ketones (<0.27) mmol/L Blood Type AB Positive Antibody Screen Negative Point of Care Testing Glucose POC 131 ECG Data Attestation: I personally reviewed and interpreted this ECG as follows: Prior ECG tracings: not available for review Interpretation: Sinus rhythm Ventricular rate is 63 Normal axis Normal QRS Normal QTC Sinus arrhythmia No ST T wave changes Discharge Plan Departure Patient Disposition: Admitted as Observation Clinical Impression: Hypertensive urgency, Fatigue
[2021-03-07 17:06] LABS: Add Manual Diff / Slide Review NO; Basophils Absolute Auto 0 /uL (0-100); Basophils Percent Auto 0.8 % (0-2); Eosinophils Absolute Auto 100 /uL (0-450); Eosinophils Percent Auto 1.7 % (2-4); Hematocrit 32.4 % (36-46); Hemoglobin 10.9 g/dL (12.0-16.0); Lymphocytes Absolute Auto 1100 /uL (1100-4500); Lymphocytes Percent Auto 17.1 % (25-40); Mean Corpuscular HGB Conc 33.7 % (30-36); Mean Corpuscular Hemoglobin 30.1 PG (26-34); Mean Corpuscular Volume 89.3 fL (80-100); Monocytes Absolute Auto 500 /uL (0-900); Monocytes Percent Auto 7.6 % (3-14); Neutrophils Absolute Auto 4800 /uL (1500-7000); Neutrophils Percent Auto 72.8 % (50-75); Platelet Count 212 X10^3/uL (150-400); Red Blood Cell Count 3.63 X10^6/uL (4.0-5.2); Red Cell Distribution Width 13.5 % (11.6-14.8); White Blood Cell Count 6.6 X10^3/uL (4.5-11.0)
[2021-03-07 17:08] LABS: Prothrombin Time 10.7 SECONDS (10.1-12.7)
[2021-03-07 17:10] LABS: PTT Partial Thromboplastin Tim 35 SECONDS (26.4-36.2)
[2021-03-07 17:13] LABS: HEMOLYSIS < 15 (0-50)
[2021-03-07] MEDS: SODIUM CHLORIDE 0.9% 1,000 ML 1000 ML IV (17:14)
[2021-03-07 17:18] LABS: Alanine Aminotransferase 24 IU/L (<35); Albumin 3.6 g/dL (3.5-5.0); Albumin Globulin Ratio 1.4 (1.0-2.8); Alkaline Phosphatase 82 U/L (38-126); Aspartate Aminotransferase 49 IU/L (14-36); BUN Creatinine Ratio 19.3 (6-22); Bilirubin Total 0.4 mg/dL (0.2-1.3); Blood Urea Nitrogen 44 mg/dL (7-17); Calcium 9.1 mg/dL (8.4-10.2); Carbon Dioxide 17 mmol/L (22-32); Chloride 109 mmol/L (98-107); Creatine Kinase 896 U/L (30-135); Globulin 2.5 g/dL (1.7-4.1); Glucose 109 mg/dL (80-110); Lipase 341 U/L (23-300); Magnesium 2.1 mg/dL (1.6-2.3); Phosphorous 4.7 mg/dL (2.8-4.1); Sodium 138 mmol/L (137-145); Total Protein 6.1 g/dL (6.3-8.2)
[2021-03-07 17:24] LABS: Ketones (Beta-Hydroxybutyrate) 2.31 mmol/L (<0.27)
[2021-03-07 17:29] LABS: Troponin I 0.068 ng/mL (0.01-0.034)
[2021-03-07 17:36] LABS: CKMB % Relative Index 1.1 % (1.5-5.0); Creatine Kinase MB 9.59 ng/mL (<2.37)
[2021-03-07] MEDS: AMLODIPINE 5 MG TABLET 10 MG PO (18:03)
[2021-03-07] MEDS: METOPROLOL ER 50 MG TABLET PO (18:58)
[2021-03-07] MEDS: SODIUM CHLORIDE 0.9% 1,000 ML 125 ML IV (19:10)
[2021-03-07 20:08] LABS: Troponin I 0.056 ng/mL (0.01-0.034)
[2021-03-07 20:55] LABS: COVID19 - ADMIT (NP swab/PCR) Negative (Negative)
--- NOTE | 2021-03-07 23:00 | P.HP_ITS ---
History of Present Illness History of Present Illness Date Patient Seen: 03/07/21 Time Patient Seen: 23:00 Chief complaint: Fall 3 days ago with increased weakness Narrative: Ms. Ribera is a 75W with PMH DM, CKD stage 3-4, CVA, hypothyroid, HL who presents after a fall 3 days ago. She states that she usually has some trouble walking, and has been using a walker more frequently. She noticed about three days ago that she felt weak, both her feet felt quite weak. She fell to the floor with no LOC and no head strike. She was on the floor for some time, possibly an hour, possibly longer. Apparently she was helped to bed by friends and has been in bed for the subsequent couple days. She lives alone. Family called EMS today. She has not taken her medications since the fall. She otherwise has no complaints. She has not noticed new focal weakness. No fevers/chills. No nausea/vomiting, or diarrhea. No chest pain or shortness of breath. She does have lower leg pain. In the ED workup was done, vitals notable for blood pressure 210s/90s. Labs notable for WBC 6.6, hgb 10.9, K 4.0, BUN 44, creatinine 2.28, mag 2.1, phos 4.7, ck 896, trop 0.068->0.056. She was ordered IV fluids and oral blood pressure medication and admitted for further treatment. Patient History Medical History Breast cancer, left Chronic kidney disease (CKD), stage III (moderate) Diabetes mellitus Hyperlipidemia associated with type 2 diabetes mellitus Hypothyroidism Surgical History History of hysterectomy History of partial mastectomy of left breast Hx of cholecystectomy Hx of eye surgery Hx of lumbosacral spine surgery Family & Social History Family History Mother No significant medical problems Father Unknown family medical history Social History: household members none Safety & Behavioral: Feels Safe in Current Yes Environment Been Physically Hurt or No Threatened By a Person Tobacco & Substance use: Smoking Status Never smoker alcohol intake current alcohol intake frequency holiday/special occasion Substance Use Type does not use Meds Home Medications and Allergies Home Medications Medication Instructions Recorded Confirmed Type insulin aspart U-100 100 unit/mL 6 - 12 unit SUBCUT BID 06/22/19 03/07/21 Histo ry (3 mL) subcutaneous pen (Novolog Flexpen U-100 Insulin aspart) insulin glargine 100 unit/mL (3 See Rx Instructions .ROUTE .COMPLEX 06/22/19 03/07/21 History mL) subcutaneous pen (Lantus Solostar U-100 Insulin) acetaminophen 325 mg tablet 650 mg PO Q6HR PRN #60 tab 03/05/20 11/28/20 Rx amlodipine 5 mg tablet (Norvasc) 10 mg PO DAILY #30 tab 03/05/20 03/07/21 Rx levothyroxine 25 mcg tablet 25 mcg PO 0600 #20 tab 03/05/20 03/07/21 Rx (Synthroid) sertraline 50 mg tablet (Zoloft) 25 mg PO BEDTIME #20 tab 03/05/20 03/07/21 Rx furosemide 20 mg tablet 20 mg PO DAILY 10/03/20 03/07/21 History aspirin 81 mg tablet,delayed 81 mg PO DAILY #90 tab 10/05/20 03/07/21 Rx release atorvastatin 20 mg tablet (Lipitor) 80 mg PO BEDTIME #30 tab 10/05/20 03/07/21 Rx clopidogrel 75 mg tablet 75 mg PO DAILY #90 tab 10/05/20 03/07/21 Rx losartan 25 mg tablet 25 mg PO DAILY #30 tab 10/05/20 03/07/21 Rx metoprolol succinate 50 mg 50 mg PO BEDTIME #30 tab 10/05/20 03/07/21 Rx tablet,extended release 24 hr Allergies Allergy/AdvReac Type Severity Reaction Status Date / Time adhesive tape [ADHESIVE TAPE] Allergy Severe RASH Verified 03/07/21 16:27 PAPER/SILK TAPE egg AdvReac Severe Diarrhea Verified 03/07/21 16:27 milk [MILK] AdvReac Severe DIARRHEA Verified 03/07/21 16:27 Penicillins [PENICILLINS] AdvReac Mild UNSURE, Verified 03/07/21 16:27 SHAKINESS, FEEL WEIRD Review of Systems Review of Systems Narrative: 14 systems reviewed and negative aside from what is noted in HPI Exam Vital Signs (past 8 hours): - 03/07/21 20:00 03/07/21 20:30 03/07/21 20:49 Pulse Rate 62 64 66 Respiratory Rate 28 H 17 20 Blood Pressure 213/82 H Pulse Oximetry 99 97 99 03/07/21 21:00 03/07/21 21:30 03/07/21 22:00 Pulse Rate 73 63 71 Respiratory Rate 16 32 H 16 Blood Pressure Pulse Oximetry 96 99 97 03/07/21 22:30 03/07/21 23:00 03/07/21 23:30 Pulse Rate 71 69 73 Respiratory Rate 15 19 20 Blood Pressure Pulse Oximetry 97 98 98 03/08/21 00:00 03/08/21 00:20 03/08/21 00:30 Pulse Rate 75 78 72 Respiratory Rate 17 15 18 Blood Pressure 184/104 H Pulse Oximetry 95 97 95 03/08/21 01:00 03/08/21 01:16 03/08/21 01:30 Pulse Rate 77 69 73 Respiratory Rate 21 12 Blood Pressure 173/108 H Pulse Oximetry 97 98 95 03/08/21 02:00 03/08/21 02:30 03/08/21 03:00 Pulse Rate 76 71 66 Respiratory Rate 15 13 13 Blood Pressure 179/74 H 179/77 H 202/79 H Pulse Oximetry 95 97 97 03/08/21 03:09 03/08/21 03:30 Pulse Rate 66 67 Respiratory Rate 13 14 Blood Pressure 202/79 H 193/80 H Pulse Oximetry 95 96 Oxygen Delivery Method Room Air Narrative Exam Narrative: GEN: no acute distress HEENT: PERRL, moist mucous membranes NECK: trachea midline, no JVD CV: regular rate and rhythm, no murmurs PULM: clear bilaterally, no wheezes, rhonchi, rales ABD: soft, nontender, nondistended, no organomegaly, normal bowel sounds EXT: warm and well perfused, quite significant tenderness to palpation bilaterally lower extremities in calves, shins, thighs NEURO: awake, alert, oriented, moving all extremities with no focal deficit SKIN: no rashes noted Objective Labs Result Diagrams: 03/07/21 16:27 03/07/21 16:27 Labs: Laboratory Results - last 24 hr 03/07/21 03/07/21 03/07/21 16:27 16:27 16:27 WBC 6.6 RBC 3.63 L Hgb 10.9 L Hct 32.4 L MCV 89.3 MCH 30.1 MCHC 33.7 RDW 13.5 Plt Count 212 Neut % (Auto) 72.8 Lymph % (Auto) 17.1 L [place] % (Auto) 7.6 Eos % (Auto) 1.7 L Baso % (Auto) 0.8 Neut # (Auto) 4800 Lymph # (Auto) 1100 [place] # (Auto) 500 Eos # (Auto) 100 Baso # (Auto) 0 PT 10.7 INR 1.0 APTT 35 Sodium 138 Potassium 4.0 Chloride 109 H Carbon Dioxide 17 L BUN 44 H Creatinine 2.28 H Estimated GFR 21.0 L BUN/Creatinine Ratio 19.3 Glucose 109 Calcium 9.1 Phosphorus 4.7 H Magnesium 2.1 Total Bilirubin 0.4 AST 49 H ALT 24 Alkaline Phosphatase 82 Total Creatine Kinase 896 H CK-MB (CK-2) 9.59 H CK-MB (CK-2) Rel Index 1.1 L Troponin I 0.068 H Total Protein 6.1 L Albumin 3.6 Globulin 2.5 Albumin/Globulin Ratio 1.4 Lipase 341 H TSH Ketones 2.31 H SARS-CoV-2 (PCR) Blood Type Antibody Screen 03/07/21 03/07/21 03/07/21 16:27 16:27 19:29 WBC RBC Hgb Hct MCV MCH MCHC RDW Plt Count Neut % (Auto) Lymph % (Auto) [place] % (Auto) Eos % (Auto) Baso % (Auto) Neut # (Auto) Lymph # (Auto) [place] # (Auto) Eos # (Auto) Baso # (Auto) PT INR APTT Sodium Potassium Chloride Carbon Dioxide BUN Creatinine Estimated GFR BUN/Creatinine Ratio Glucose Calcium Phosphorus Magnesium Total Bilirubin AST ALT Alkaline Phosphatase Total Creatine Kinase CK-MB (CK-2) CK-MB (CK-2) Rel Index Troponin I 0.056 H Total Protein Albumin Globulin Albumin/Globulin Ratio Lipase TSH 2.60 Ketones SARS-CoV-2 (PCR) Blood Type AB Positive Antibody Screen Negative 03/07/21 19:48 WBC RBC Hgb Hct MCV MCH MCHC RDW Plt Count Neut % (Auto) Lymph % (Auto) [place] % (Auto) Eos % (Auto) Baso % (Auto) Neut # (Auto) Lymph # (Auto) [place] # (Auto) Eos # (Auto) Baso # (Auto) PT INR APTT Sodium Potassium Chloride Carbon Dioxide BUN Creatinine Estimated GFR BUN/Creatinine Ratio Glucose Calcium Phosphorus Magnesium Total Bilirubin AST ALT Alkaline Phosphatase Total Creatine Kinase CK-MB (CK-2) CK-MB (CK-2) Rel Index Troponin I Total Protein Albumin Globulin Albumin/Globulin Ratio Lipase TSH Ketones SARS-CoV-2 (PCR) Negative Blood Type Antibody Screen Assessment & Plan Assessment & Plan narrative: Ms. Ribera is a 75W with PMH CVA, DM, HTN, HL who presents with lower leg weakness found to have significant bilateral leg tenderness. 1. 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 CKD stage 4 -chronic, creatinine near baseline -avoid nephrotoxins 3. HTN -likely elevated in setting of not taking medications for days -reorder home medications -switch metoprolol to coreg for better BP control 4. history of CVA -continue aspirin, plavix for now -hold statin 5. Type 2 DM on insulin -continue insulin sliding scale for now 6. Depression -continue zoloft CODE: DNR Proxy: Pippa England, sister I have utilized all available immediate resources to obtain, update, or review the patient's current medications. Time Spent With Patient Critical Care time: I spent a total of [] minutes of critical care time on this patient's care today; this time is exclusive of procedural time. Quality MIPS - Admit I confirm the patient?s Advance Care Plan is present, Code status is documented, Surrogate decision maker is in patient?s record [If Yes, STOP here]: Yes
[2021-03-08] VITALS (26 sets, daily range): BP systolic 155–226; BP diastolic 54–111; PULSE 58–78; RESP 9–23; TEMP 36–36.7; O2SAT 94–100; BMI 30.1
[2021-03-08] MEDS: SODIUM CHLORIDE 0.9% 1,000 ML 125 ML IV (04:37)
[2021-03-08 04:54] LABS: Add Manual Diff / Slide Review NO; Basophils Absolute Auto 0 /uL (0-100); Basophils Percent Auto 0.6 % (0-2); Eosinophils Absolute Auto 100 /uL (0-450); Eosinophils Percent Auto 2.2 % (2-4); Hematocrit 27.9 % (36-46); Hemoglobin 9.3 g/dL (12.0-16.0); Lymphocytes Absolute Auto 1300 /uL (1100-4500); Lymphocytes Percent Auto 21.6 % (25-40); Mean Corpuscular HGB Conc 33.3 % (30-36); Mean Corpuscular Hemoglobin 29.7 PG (26-34); Mean Corpuscular Volume 89.3 fL (80-100); Monocytes Absolute Auto 500 /uL (0-900); Monocytes Percent Auto 7.8 % (3-14); Neutrophils Absolute Auto 4000 /uL (1500-7000); Neutrophils Percent Auto 67.8 % (50-75); Platelet Count 178 X10^3/uL (150-400); Red Blood Cell Count 3.12 X10^6/uL (4.0-5.2); Red Cell Distribution Width 13.3 % (11.6-14.8); White Blood Cell Count 5.9 X10^3/uL (4.5-11.0)
[2021-03-08 05:04] LABS: BUN Creatinine Ratio 20.1 (6-22); Blood Urea Nitrogen 40 mg/dL (7-17); Calcium 8.3 mg/dL (8.4-10.2); Carbon Dioxide 15 mmol/L (22-32); Chloride 115 mmol/L (98-107); Creatine Kinase 688 U/L (30-135); Estimated Glomerular Filt Rate 24.6 mL/min (>60); Glucose 88 mg/dL (80-110); HEMOLYSIS < 15 (0-50); Potassium 3.6 mmol/L (3.4-5.1); Sodium 139 mmol/L (137-145)
[2021-03-08 05:16] LABS: Troponin I 0.043 ng/mL (0.01-0.034)
--- NOTE | 2021-03-08 05:43 | PC.NURSE ---
I phoned Dr Zafar, hospitalist, to update him to pt condition, including inability to obtain urine sample due to incontinence, and IV infiltration that I was not able to restart after 2 attempts. We discussed whether to place duenas or in and out cath for urine sample, and whether IV access if required. Pt has indicated that she does not wish any more venipunctures and would not want a duenas. Dr Zafar stated that no urinalysis is needed and IV can stay out for now.
[2021-03-08] MEDS: LEVOTHYROXINE 25 MCG TABLET PO (06:51)
--- NOTE | 2021-03-08 07:23 | P.PN_ITS ---
Subjective Subjective Date Patient Seen: 03/08/21 Interval history: She continues to have quite significant leg weakness. She had been lying on the ground and then in bed for a couple of days. Her legs are quite tender. The hemoglobin has dropped from 10.9 down to 9.3. White blood count is 5.9. The creatinine has improved to 1.99. The potassium is 3.6. The CK has dropped from above 900 down to 688. The troponin has dropped to 0.043 from 0.068. The lipase is 341 and ketones are 2.31. The sed rate is only 45. That would seem to be inconsistent with an atypical PMR causing bilateral leg pain. Exam Vital Signs (past 8 hours): - 03/07/21 23:30 03/08/21 00:00 03/08/21 00:20 Pulse Rate 73 75 78 Respiratory Rate 20 17 15 Blood Pressure 184/104 H Pulse Oximetry 98 95 97 03/08/21 00:30 03/08/21 01:00 03/08/21 01:16 Pulse Rate 72 77 69 Respiratory Rate 18 21 Blood Pressure Pulse Oximetry 95 97 98 03/08/21 01:30 03/08/21 02:00 03/08/21 02:30 Pulse Rate 73 76 71 Respiratory Rate 12 15 13 Blood Pressure 173/108 H 179/74 H 179/77 H Pulse Oximetry 95 95 97 03/08/21 03:00 03/08/21 03:09 03/08/21 03:30 Pulse Rate 66 66 67 Respiratory Rate 13 13 14 Blood Pressure 202/79 H 202/79 H 193/80 H Pulse Oximetry 97 95 96 03/08/21 04:00 03/08/21 04:30 03/08/21 05:00 Pulse Rate 65 64 63 Respiratory Rate 9 L 23 19 Blood Pressure 199/77 H 167/111 H Pulse Oximetry 96 96 99 03/08/21 05:30 03/08/21 06:00 03/08/21 06:30 Pulse Rate 71 67 69 Respiratory Rate 9 L 11 L 14 Blood Pressure Pulse Oximetry 94 96 95 03/08/21 07:00 Pulse Rate 64 Respiratory Rate 21 Blood Pressure 167/111 H Pulse Oximetry 95 Oxygen Delivery Method Room Air Narrative Exam Narrative: She is alert and oriented and in mild distress. Her legs are tender bilaterally Heart is regular rate and rhythm without murmur Lungs are clear to auscultation bilaterally Abdomen soft, bowel sounds positive, nontender, no organomegaly Extremities have no ankle edema. Objective Labs Result Diagrams: 03/08/21 04:35 03/08/21 04:35 Labs: Laboratory Results - last 24 hr 03/07/21 03/07/21 03/07/21 16:27 16:27 16:27 WBC 6.6 RBC 3.63 L Hgb 10.9 L Hct 32.4 L MCV 89.3 MCH 30.1 MCHC 33.7 RDW 13.5 Plt Count 212 Neut % (Auto) 72.8 Lymph % (Auto) 17.1 L Hitchcock % (Auto) 7.6 Eos % (Auto) 1.7 L Baso % (Auto) 0.8 Neut # (Auto) 4800 Lymph # (Auto) 1100 Hitchcock # (Auto) 500 Eos # (Auto) 100 Baso # (Auto) 0 PT 10.7 INR 1.0 APTT 35 Sodium 138 Potassium 4.0 Chloride 109 H Carbon Dioxide 17 L BUN 44 H Creatinine 2.28 H Estimated GFR 21.0 L BUN/Creatinine Ratio 19.3 Glucose 109 Calcium 9.1 Phosphorus 4.7 H Magnesium 2.1 Total Bilirubin 0.4 AST 49 H ALT 24 Alkaline Phosphatase 82 Total Creatine Kinase 896 H CK-MB (CK-2) 9.59 H CK-MB (CK-2) Rel Index 1.1 L Troponin I 0.068 H Total Protein 6.1 L Albumin 3.6 Globulin 2.5 Albumin/Globulin Ratio 1.4 Lipase 341 H TSH Ketones 2.31 H SARS-CoV-2 (PCR) Blood Type Antibody Screen 03/07/21 03/07/21 03/07/21 16:27 16:27 19:29 WBC RBC Hgb Hct MCV MCH MCHC RDW Plt Count Neut % (Auto) Lymph % (Auto) Hitchcock % (Auto) Eos % (Auto) Baso % (Auto) Neut # (Auto) Lymph # (Auto) Hitchcock # (Auto) Eos # (Auto) Baso # (Auto) PT INR APTT Sodium Potassium Chloride Carbon Dioxide BUN Creatinine Estimated GFR BUN/Creatinine Ratio Glucose Calcium Phosphorus Magnesium Total Bilirubin AST ALT Alkaline Phosphatase Total Creatine Kinase CK-MB (CK-2) CK-MB (CK-2) Rel Index Troponin I 0.056 H Total Protein Albumin Globulin Albumin/Globulin Ratio Lipase TSH 2.60 Ketones SARS-CoV-2 (PCR) Blood Type AB Positive Antibody Screen Negative 03/07/21 03/08/21 03/08/21 19:48 04:35 04:35 WBC 5.9 RBC 3.12 L Hgb 9.3 L Hct 27.9 L MCV 89.3 MCH 29.7 MCHC 33.3 RDW 13.3 Plt Count 178 Neut % (Auto) 67.8 Lymph % (Auto) 21.6 L Hitchcock % (Auto) 7.8 Eos % (Auto) 2.2 Baso % (Auto) 0.6 Neut # (Auto) 4000 Lymph # (Auto) 1300 Hitchcock # (Auto) 500 Eos # (Auto) 100 Baso # (Auto) 0 PT INR APTT Sodium 139 Potassium 3.6 Chloride 115 H Carbon Dioxide 15 L BUN 40 H Creatinine 1.99 H Estimated GFR 24.6 L BUN/Creatinine Ratio 20.1 Glucose 88 Calcium 8.3 L Phosphorus Magnesium Total Bilirubin AST ALT Alkaline Phosphatase Total Creatine Kinase CK-MB (CK-2) CK-MB (CK-2) Rel Index Troponin I Total Protein Albumin Globulin Albumin/Globulin Ratio Lipase TSH Ketones SARS-CoV-2 (PCR) Negative Blood Type Antibody Screen 03/08/21 03/08/21 04:35 04:35 WBC RBC Hgb Hct MCV MCH MCHC RDW Plt Count Neut % (Auto) Lymph % (Auto) Hitchcock % (Auto) Eos % (Auto) Baso % (Auto) Neut # (Auto) Lymph # (Auto) Hitchcock # (Auto) Eos # (Auto) Baso # (Auto) PT INR APTT Sodium Potassium Chloride Carbon Dioxide BUN Creatinine Estimated GFR BUN/Creatinine Ratio Glucose Calcium Phosphorus Magnesium Total Bilirubin AST ALT Alkaline Phosphatase Total Creatine Kinase 688 H CK-MB (CK-2) CK-MB (CK-2) Rel Index Troponin I 0.043 H Total Protein Albumin Globulin Albumin/Globulin Ratio Lipase TSH Ketones SARS-CoV-2 (PCR) Blood Type Antibody Screen [facility] Medical History Breast cancer, left Chronic kidney disease (CKD), stage III (moderate) Diabetes mellitus Hyperlipidemia associated with type 2 diabetes mellitus Hypothyroidism Surgical History History of hysterectomy History of partial mastectomy of left breast Hx of cholecystectomy Hx of eye surgery Hx of lumbosacral spine surgery Family History Mother No significant medical problems Father Unknown family medical history Social History household members: none Smoking Status: Never smoker alcohol intake: current Assessment & Plan Assessment & Plan narrative: Ms. Ribera is a 75W with PMH CVA, DM, HTN, HL who presents with lower leg weakness found to have significant bilateral leg tenderness. 1. 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 Doubt atypical proximal bilateral lower extremity PMR with only mildly elevated sed rate of 45. -other etiology include neuropathy secondary to diabetes, less likely is cva with no focal deficit, and unlikely to be spinal process as not having trauma or back symptoms -stop statin -continue IVF -trend CK -mildly elevated troponin and mildly elevated lipase. -PT/OT ordered, to begin when leg pain improves 2. CKD stage 4 -chronic, creatinine near baseline -avoid nephrotoxins -probable cause of the mildly elevated troponin. 3. HTN -likely elevated in setting of not taking medications for days -resumed home medications -switch metoprolol to coreg for better BP control 4. history of CVA -continue aspirin, plavix for now -hold statin 5. Type 2 DM on insulin -continue insulin sliding scale for now 6. Depression -continue zoloft 7. Anemia -hemoglobin dropped to 9.3 on day 2, follow. CODE: DNR Proxy: Pippa England, sister Time Spent With Patient Critical Care time: I spent a total of [] minutes of critical care time on this patient's care today; this time is exclusive of procedural time.
[2021-03-08 08:07] LABS: Erythrocyte Sedimentation Rate 45 MM/HR (0-20)
[2021-03-08] MEDS: carvediloL 3.125 MG TABLET 6.25 MG PO ×2 (08:39→20:12)
[2021-03-08] MEDS: AMLODIPINE 5 MG TABLET 10 MG PO (08:44)
[2021-03-08] MEDS: LOSARTAN 25 MG TABLET PO (08:45)
[2021-03-08] MEDS: ASPIRIN EC 81 MG TABLET PO (08:45)
[2021-03-08] MEDS: CLOPIDOGREL 75 MG TABLET PO (08:45)
[2021-03-08] MEDS: ENOXAPARIN 30 MG/0.3 ML SYRINGE SUBCUT (09:56)
--- NOTE | 2021-03-08 10:24 | OT.IPNOTE ---
Per hospitalist, pt in too much pain today and therefore hold on OT eval today.
--- NOTE | 2021-03-08 10:36 | PT-IP ANOTE ---
per Doctor during rounds: hold PT eval at this time. will f/u.
[2021-03-08] MEDS: INSULIN LISPRO 100 UNIT/ML 3ML VIAL SUBCUT ×2 (12:06→16:58)
--- NOTE | 2021-03-08 14:08 | PT-IP ANOTE ---
pt continues to be on hold for PT today. per doctor during rounds, pt still has a lot of pain and PT on hold for the whole day today.
--- NOTE | 2021-03-08 15:29 | PC.NURSE ---
Verified with Dr Estrella for IV to remain out and to discontinue IV fluids that were on the MAR.
[2021-03-08] MEDS: SERTRALINE 50 MG TABLET 25 MG PO (20:14)
[2021-03-09] VITALS (10 sets, daily range): BP systolic 135–170; BP diastolic 47–60; PULSE 53–60; RESP 14–18; TEMP 36.1–36.6; O2SAT 95–100
[2021-03-09 01:07] LABS: Creatine Kinase 424 U/L (30-135)
[2021-03-09] MEDS: LEVOTHYROXINE 25 MCG TABLET PO (05:05)
[2021-03-09 05:47] LABS: Add Manual Diff / Slide Review NO; Basophils Absolute Auto 0 /uL (0-100); Basophils Percent Auto 0.8 % (0-2); Eosinophils Absolute Auto 100 /uL (0-450); Eosinophils Percent Auto 3.1 % (2-4); Hematocrit 28.7 % (36-46); Hemoglobin 9.6 g/dL (12.0-16.0); Lymphocytes Absolute Auto 800 /uL (1100-4500); Lymphocytes Percent Auto 19.1 % (25-40); Mean Corpuscular HGB Conc 33.4 % (30-36); Mean Corpuscular Hemoglobin 29.5 PG (26-34); Mean Corpuscular Volume 88.5 fL (80-100); Monocytes Absolute Auto 400 /uL (0-900); Monocytes Percent Auto 8.5 % (3-14); Neutrophils Absolute Auto 2800 /uL (1500-7000); Neutrophils Percent Auto 68.5 % (50-75); Platelet Count 161 X10^3/uL (150-400); Red Blood Cell Count 3.24 X10^6/uL (4.0-5.2); Red Cell Distribution Width 13.3 % (11.6-14.8); White Blood Cell Count 4.1 X10^3/uL (4.5-11.0)
[2021-03-09 05:57] LABS: Alanine Aminotransferase 21 IU/L (<35); Albumin Globulin Ratio 1.3 (1.0-2.8); Alkaline Phosphatase 60 U/L (38-126); Aspartate Aminotransferase 32 IU/L (14-36); BUN Creatinine Ratio 19.1 (6-22); Bilirubin Total 0.2 mg/dL (0.2-1.3); Blood Urea Nitrogen 37 mg/dL (7-17); Calcium 8.7 mg/dL (8.4-10.2); Carbon Dioxide 17 mmol/L (22-32); Chloride 115 mmol/L (98-107); Estimated Glomerular Filt Rate 25.3 mL/min (>60); Globulin 2.3 g/dL (1.7-4.1); Glucose 131 mg/dL (80-110); HEMOLYSIS < 15 (0-50); Potassium 3.6 mmol/L (3.4-5.1); Sodium 140 mmol/L (137-145); Total Protein 5.3 g/dL (6.3-8.2)
[2021-03-09] MEDS: AMLODIPINE 5 MG TABLET 10 MG PO (08:12)
[2021-03-09] MEDS: carvediloL 3.125 MG TABLET 6.25 MG PO ×2 (08:12→21:09)
[2021-03-09] MEDS: LOSARTAN 25 MG TABLET PO (08:12)
[2021-03-09] MEDS: ENOXAPARIN 30 MG/0.3 ML SYRINGE SUBCUT (08:13)
[2021-03-09] MEDS: CLOPIDOGREL 75 MG TABLET PO (08:13)
[2021-03-09] MEDS: ASPIRIN EC 81 MG TABLET PO (08:13)
--- NOTE | 2021-03-09 11:20 | CM.DANOTE ---
Addendum entered by Chapis Woody R.N. 03/09/21 14:41: Agustina at [facility] stated that they can accept. Just faxed over P.T. note from today. She can start the authorization process in the morning. The other option for patient is to go home with home health, but she does not have family to assist her. Original Note: DCP: Case received, EMR reviewed and met with patient. Introduced self and role. Was able to obtain information from patient regarding her baseline activity status prior to hospitalization, as well as her current living situation. DCP assessment completed with information currently available. Patient is a 75 year old female who admitted yesterday morning to the care of the hospitalist team. PCP: Dr. Justin. Payer: confirmed: [employer]. Patient came to the hospital via ambulance secondary to her having increased weakness. She had sustained a recent at fall, where she went to sit down and missed a chair. Friends assisted her up, and when she went to bed, she was having difficulty getting up, so EMS was called. Patient is here for weakness. She has history of CVA, and CKD stage 4. Patient had also missed some doses of her medications. Met with patient in her room. She is alert and oriented, flat effect. Confirmed that she resides in [place], in an apartment alone. She does have a sister named Pippa who also lives in [place]. She does not drive, andrelies on neighbors for groceries. She uses a FWW at home. Patient indicated, I don't think I can walk. She has not yet worked with P.T. Asked her that if she is weak and can't walk, if she could consider retirement. She does have [employer], and patient is aware that only certain facilities can accept. Patient indicated, she has been to [facility] before for her stroke. P: DCP to continue to follow. Left Agustina at [facility] a message, and Carol at [facility] since they both accept [employer] Medicare. Will fax over referrals. Will also see how patient does with P.T. Chapis Woody RN/Film And Video Editor Discharge Planning/Care Management CM Discharge Assessment Start: 03/09/21 11:17 Freq: Status: Active Protocol: Document 03/09/21 11:17 (Rec: 03/09/21 11:20 [id number]) Discharge Planning Assessment Assigned Labor Relations Teacher Chapis Woody RN/Film And Video Editor Advance Directives? Yes Advance Directives on File Yes History Provided By Patient,Medical Record Prior Living Arrangements House Household Members none Type of transporation used prior to Relies on Others admit Independent with ADL's Yes Is patient alert and oriented? Yes Needs Assistance With Home Chores / Shopping DME Already Rented / Owned FWW / Walker Patient/Family Preference Detention Facility Barriers to Discharge Yes Comment Lives alone, fall risk Discharge Plan Detention Facility Transportation Arrangement Likely w/c transport Referrals Initiated Detention Additional Comment Will need authorization from [facility]. She has not yet worked with P.T, or O.T. will need notes for facility to start the auth. Whiteboard Updated in Patient Room with Yes name and ext. # of Labor Relations Teacher Review Status In Process Next Review Type Continued Stay Review
--- NOTE | 2021-03-09 11:39 | PT.IIE ---
Medical History (Last Reviewed 03/08/21 @ 04:00 by Marco Zafar MD) Breast cancer, left Chronic kidney disease (CKD), stage III (moderate) Diabetes mellitus Hyperlipidemia associated with type 2 diabetes mellitus Hypothyroidism Physical Therapy Inpatient Evaluation/Re-Eval M1 PT/OT-IP Prior Functional Status Start: 03/09/21 09:23 Freq: NEEDED Status: Active Protocol: Document 03/09/21 11:39 AW (Rec: 03/09/21 13:15 AW [id number]) Medical Review Prior Functional Status Medical History Reviewed Yes Communication Pt is able to make needs known . Mobility and Gait Pt states she is modified independent with use of FWW in her apartment and outside of the house for very short distances. She has a manual wheelchair she can use when she feels particularly weak. Activities of Daily Living and IADL's Pt states she manages ADL's without assist. She has a neighbor and a sister who have helped her with dishes, laundry, and grocery shopping when needed. Pt does not drive . Social History Household Members none Living Arrangements Apartment/Condo Number of Stairs To Enter/Railing? Pt lives in a first floor apartment. No stairs to enter. Home Environment Standard Height Toilet,Tub/ Shower Home Equipment Front Wheel Walker,Straight Cane,Manual Wheelchair,Shower Seat with Backrest,Safety Leader, Grab Bars In Shower Additional Social History Comment Pt lives alone at [facility] apartments in [place]. She has a supportive sister and helpful neighbors who assist with some housekeeping and shopping when needed. M2 PT-IP Current Condition Start: 03/09/21 09:23 Freq: NEEDED Status: Active Protocol: Document 03/09/21 11:39 AW (Rec: 03/09/21 13:15 AW [id number]) Physical Therapy Current Condition Current Condition Evaluation Date 03/09/21 Treatment Diagnosis GLF, weakness, impaired mobility and gait Onset Date 03/07/21 M3 PT-IP Subjective Start: 03/09/21 09:23 Freq: NEEDED Status: Active Protocol: Document 03/09/21 11:39 AW (Rec: 03/09/21 13:15 AW [id number]) Subjective Physical Therapy Visit Type Type Initial Evaluation Visit Start Time 11:05 Visit Stop Time 11:39 Total Visit Minutes 34 Number of BOOKING PRIZER Visits 0 Physical Therapy Visit Comments Patient Comments Last time I tried to stand up , I couldn't really do it. Therapy Pain Assessment Pain When Pain Assessed During Mobility Pain Present Pain Present Denied Pain M4 PT-IP Mobility and Gait Start: 03/09/21 09:23 Freq: NEEDED Status: Active Protocol: Document 03/09/21 11:39 AW (Rec: 03/09/21 13:15 AW [id number]) PT-Bed Mobility Assessment Supine to Sit Supine to Sit Minimal Assistance Scooting Scooting to Edge of Bed Minimal Assistance PT-Transfer Assessment Sit to and From Stand Sit to and from Stand Moderate Assistance,1 Person Assistance,Use of Upper Extremities Equipment Transfer Assistive Device Gait Belt,Front Wheeled Walker Orthotic/Prosthetic Devices or Brace: No Transfers Transfer Destination Chair,Bedside Commode Transfer Technique Stand Step Pivot Transfer Ability Level of Assist Moderate Assistance,1 Person Assistance,Use of Upper Extremities Comments Mobility Comments Pt was lying in bed as PT arrived. BP 135/47 HR 57.She agreed to get up to the commode, completing supine to sit min A x 1 and needing min assist to maintain seated balance. She required assist to scoot toward EOB. Mod A x 1 for sit to stand and pt had significant posterior lean requiring constant assist and cues for weight shifting. She was able to transfer to BSC set up on her right side mod A x 1 for balance and to maneuver the walker. When finished on the commode, she stood mod A x 1 and was able to pull up her briefs as PT provided significant balance assist. She stepped ~2 feet to transfer to chair set up on her right side mod A x 1. Pt was positioned with call light and tray table in reach. Informed nursing of pt's mobility needs and left pt with TELLER. Gait Assessment Gait Gait Assistance Required: Moderate Assistance,Total Assistance Distance (Feet) 2 Assistive Devices Assistive Device Gait Belt,Front Wheeled Walker Comments Gait Comments Steps taken during transfer only. See mobility comments Stair Climbing Assessment Comments Stair Climbing Comments Not assessed. No stairs at home. PT-Balance Assessment Sitting Balance and Reactions Static Sitting Balance Ability Fair Dynamic Sitting Balance Ability Poor Standing Balance and Reactions Static Standing Balance Ability Poor Dynamic Standing Balance Ability Poor Device Used FWW M5 PT-IP Objective Assessments Start: 03/09/21 09:23 Freq: NEEDED Status: Active Protocol: Document 03/09/21 11:39 AW (Rec: 03/09/21 13:15 AW [id number]) Orientation Orientation/Cognition Level of Alertness Alert Orientation Name,Place,Situation Language Function Ability No Deficits Noted Safety Awareness Understands Safety Issues Gross Range of Motion Lower Extremity ROM Assessment Within Functional Limits Strength Lower Extremity Strength Assessment Bilaterally Impaired Hip 3+/5 Knee 4-/5 Ankle 4-/5 Sensation Assessment Sensation Gross Sensation WNL M6 PT-IP Treatment Start: 03/09/21 09:23 Freq: NEEDED Status: Active Protocol: Document 03/09/21 11:39 AW (Rec: 03/09/21 13:15 AW [id number]) Physical Therapy Treatment Education Education Provided Safety Other Treatments Other Treatment Performed Educated pt on PT plan of care , safe use of FWW, and current need for mobility assist. M7 PT-IP Assessment and Plan Start: 03/09/21 09:23 Freq: NEEDED Status: Active Protocol: Document 03/09/21 11:39 AW (Rec: 03/09/21 13:15 AW [id number]) PT Summary Assessment and Plan Potential Rehabilitation Potential Fair Status of Condition at Evaluation Evolving Summary Impairments Strength,Balance,Bed Mobility, Transfers,Gait,Activity Tolerance Assessment Summary Heather is a 75 yo woman seen for PT evaluation with admitting diagnosis of recent fall and generalized weakness. She reports modified independent mobility at baseline using FWW and occasionally a manual wheelchair. She is requiring mod assist for transfers on assessment and her decreased functional capacity is affecting her mobility independence. Pt will need 24/ 7 mobility assist at discharge and may require SNF rehab to improve strength and mobility. Will continue to assess. Goals Bed Mobility Goal Standby Assistance Transfer Goal Standby Assistance,Front Wheeled Walker Gait Goal Standby Assistance,Front Wheel Walker Gait Distance 100 Other Goals LTG: improve transfers and ambulation to modified independent with FWW Days to Meet Goals 8 Frequency of Treatment Frequency Of Treatment Once a Day Treatment Plan Physical Therapy Treatment Plan Bed Mobility Training,Transfer Training,Gait Training, Therapeutic Exercise,Balance Retraining,Discharge Planning, Hot or Cold Pack Other Recommendations and Next Treatment mobility as tolerated; ther ex Focus for LE strength Precautions Other Precautions falls Recommendations To Nursing Amount of Assist Needed 1 Person Assist Discharge Recommendations PT Discharge Recommendations Home with 24/7 Assist Available,Home Health,Home vs SNF Transportation Needs at Discharge Private Vehicle,Wheelchair/ Cabulance
[2021-03-09] MEDS: INSULIN LISPRO 100 UNIT/ML 3ML VIAL SUBCUT ×2 (11:44→17:14)
--- NOTE | 2021-03-09 18:02 | PM.PN.1 ---
Subjective Subjective Date Patient Seen: 03/09/21 Interval history: 75 year old female with stage IV CKD, insulin-requiring diabetes, hypertension, hypothyroidism, hyperlipidemia, history of chronic CVA on MRI presenting with pain and weakness in lower extremities. She had been on the ground and then in bed for a couple of days. As previously noted lower legs are quite tender on exam but without swelling or visible abnormality. She continues to complain weakness and pain in the lower extremities. The pain is more in her calves. Exam Vital Signs (past 8 hours): - 03/09/21 11:30 03/09/21 15:53 03/09/21 17:17 Temperature 97.0 F L 97.4 F L Pulse Rate 57 L 60 Respiratory Rate 14 16 Blood Pressure 135/47 L 144/55 H Pulse Oximetry 98 100 100 Oxygen Delivery Method Room Air Oxygen Flow Rate 0 Narrative Exam Narrative: General: Alert, sitting in chair and in no acute distress Extremities: No edema Neurological: Affect and speech normal, she seems to have fairly good strength symmetrically in proximal and distal lower extremities, DTRs 2+ in the knees, no ankle clonus Objective Labs Result Diagrams: 03/09/21 05:15 03/09/21 05:15 Labs: Laboratory Results - last 24 hr 03/09/21 03/09/21 03/09/21 00:30 05:15 05:15 WBC 4.1 L RBC 3.24 L Hgb 9.6 L Hct 28.7 L MCV 88.5 MCH 29.5 MCHC 33.4 RDW 13.3 Plt Count 161 Neut % (Auto) 68.5 Lymph % (Auto) 19.1 L Door % (Auto) 8.5 Eos % (Auto) 3.1 Baso % (Auto) 0.8 Neut # (Auto) 2800 Lymph # (Auto) 800 L Door # (Auto) 400 Eos # (Auto) 100 Baso # (Auto) 0 Sodium 140 Potassium 3.6 Chloride 115 H Carbon Dioxide 17 L BUN 37 H Creatinine 1.94 H Estimated GFR 25.3 L BUN/Creatinine Ratio 19.1 Glucose 131 H Calcium 8.7 Total Bilirubin 0.2 AST 32 ALT 21 Alkaline Phosphatase 60 Total Creatine Kinase 424 H D Total Protein 5.3 L Albumin 3.0 L Globulin 2.3 Albumin/Globulin Ratio 1.3 [facility] Medical History Breast cancer, left Chronic kidney disease (CKD), stage III (moderate) Diabetes mellitus Hyperlipidemia associated with type 2 diabetes mellitus Hypothyroidism Surgical History History of hysterectomy History of partial mastectomy of left breast Hx of cholecystectomy Hx of eye surgery Hx of lumbosacral spine surgery Family History Mother No significant medical problems Father Unknown family medical history Social History household members: none Smoking Status: Never smoker alcohol intake: current Assessment & Plan Assessment & Plan narrative: Ms. Ribera is a 75W with PMH CVA, DM, HTN, HL who presents with subjective lower leg weakness and pain, found to have significant bilateral leg tenderness. 1. 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 Also doubt Guillain-[place] with intact reflexes. -other etiology include neuropathy secondary to diabetes, less likely is cva with no focal deficit, and unlikely to be spinal process with relatively normal exam -stopped statin -hydrated, Hep-Lock IV -mildly elevated troponin and mildly elevated lipase not clinically significant -continue PT/OT, per last note patient is moderate 1 person assist new line -consider half-way rehab -check head CT 2. CKD stage 4 -chronic, creatinine near baseline -avoid nephrotoxins -probable cause of the mildly elevated troponin. 3. HTN -likely elevated in setting of not taking medications for days -resumed home medications -switch metoprolol to coreg for better BP control 4. history of multi focal bilateral chronic CVA -continue aspirin, plavix for now -no history of AFib -hold statin 5. Type 2 DM on insulin -previous A1c 6.4, previous admission we felt patient was on too much insulin with periods of hypoglycemia, especially with advanced renal failure -decrease Lantus to 10 units at bedtime -continue insulin sliding scale for now 6. Depression -continue zoloft 7. Anemia secondary to CKD, chronic -stable though somewhat lower than previous Code status: DNR Time Spent With Patient Critical Care time: I spent a total of [] minutes of critical care time on this patient's care today; this time is exclusive of procedural time. Quality VTE Deep Vein Thrombosis/Pulmonary Embolism Present on Admission: No
--- NOTE | 2021-03-09 18:23 | DI.CT.S_ITS ---
PROCEDURE: CT HEAD/BRAIN WO CON INDICATIONS: r/o acute CVA TECHNIQUE: Noncontrast 4.5 mm thick angled axial sections acquired from the foramen magnum to the vertex, with coronal and sagittal reformats. For radiation dose reduction, the following was used: automated exposure control, adjustment of mA and/or kV according to patient size. COMPARISON: [facility], CT, CT HEAD/BRAIN WO CON, 10/03/2020, 14:54. FINDINGS: Image quality: Excellent. CSF spaces: Basal cisterns are patent. No extra-axial fluid collections. There is [id number] cerebral volume loss, with resultant ventricular and sulcal prominence. Brain: No intracranial hemorrhage, mass, or mass effect. There are subcortical, periventricular and deep white matter hypodensities consistent with moderate chronic small vessel ischemic changes. There are bilateral foci of encephalomalacia redemonstrated within the becerra radiata and basal ganglia as well as the left caudate head consistent with sequelae of prior lacunar infarcts. There is intracranial internal carotid artery atherosclerosis. Skull and face: Calvarium and visualized facial bones appear intact, without suspicious lesions. Sinuses: Visualized sinuses and mastoids are clear. IMPRESSION: 1. No definite acute intracranial abnormality. 2. Sequelae of bilateral lacunar infarcts redemonstrated. 3. Moderate chronic white matter small vessel ischemic changes and mild to moderate cerebral volume loss. If clinical concern persists for an acute infarct, recommend further evaluation with MRI. Dictated by: Cleveland Mayer M.D. on 03/09/2021 at 19:10 Approved by: Cleveland Mayer M.D. on 03/09/2021 at 19:13
[2021-03-09] MEDS: SODIUM CHLORIDE 0.9% FLUSH 10 ML IV (21:09)
[2021-03-09] MEDS: SERTRALINE 50 MG TABLET 25 MG PO (21:09)
[2021-03-10] VITALS (17 sets, daily range): BP systolic 81–209; BP diastolic 44–76; PULSE 39–64; RESP 16–18; TEMP 36.5–36.7; O2SAT 93–99
[2021-03-10] MEDS: LEVOTHYROXINE 25 MCG TABLET PO (05:54)
[2021-03-10] MEDS: ASPIRIN EC 81 MG TABLET PO (08:03)
[2021-03-10] MEDS: carvediloL 3.125 MG TABLET 6.25 MG PO (08:03)
[2021-03-10] MEDS: CLOPIDOGREL 75 MG TABLET PO (08:03)
[2021-03-10] MEDS: AMLODIPINE 5 MG TABLET 10 MG PO (08:03)
[2021-03-10] MEDS: ENOXAPARIN 30 MG/0.3 ML SYRINGE SUBCUT (08:03)
[2021-03-10] MEDS: LOSARTAN 25 MG TABLET PO (08:04)
--- NOTE | 2021-03-10 09:40 | OT.IP.EVAL ---
Past Medical History (Last Reviewed 03/08/21 @ 04:00 by Marco Zafar MD) Breast cancer, left Chronic kidney disease (CKD), stage III (moderate) Diabetes mellitus History of hysterectomy History of partial mastectomy of left breast Hx of cholecystectomy Hx of eye surgery Hx of lumbosacral spine surgery Hyperlipidemia associated with type 2 diabetes mellitus Hypothyroidism Surgical History (Last Reviewed 03/08/21 @ 04:00 by Marco Zafar MD) History of hysterectomy History of partial mastectomy of left breast Hx of cholecystectomy Hx of eye surgery Hx of lumbosacral spine surgery Occupational Therapy Inpatient Evaluation/Re-Eval M1 PT/OT-IP Prior Functional Status Start: 03/09/21 09:23 Freq: NEEDED Status: Active Protocol: Document 03/10/21 09:48 [facility] (Rec: 03/10/21 10:09 [facility] [id number]) Medical Review Prior Functional Status Medical History Reviewed Yes Communication Pt is able to make needs known . Mobility and Gait Pt states she is modified independent with use of 4WW in her apartment and outside of the house for very short distances. She has a manual wheelchair she can use when she feels particularly weak. Activities of Daily Living and IADL's Pt states she manages ADL's without assist. She has a neighbor and a sister who have helped her with dishes, laundry, and grocery shopping when needed. Pt does not drive . Pt states that she is able to do simple meal prep in her kitchen while standing and use of 4ww to move her plate if needed. Social History Household Members none Living Arrangements Apartment/Condo Number of Stairs To Enter/Railing? Pt lives in a first floor apartment. No stairs to enter. Home Environment Standard Height Toilet,Tub/ Shower Home Equipment Four Wheel Walker,Straight Cane,Manual Wheelchair,Shower Seat with Backrest,Mold Mechanic, Grab Bars In Shower Additional Social History Comment Pt lives alone at [facility] apartments in [place]. She has a supportive sister and helpful neighbors who assist with some housekeeping and shopping when needed. M2 OT-IP Current Condition Start: 03/10/21 09:48 Freq: Status: Active Protocol: Document 03/10/21 09:48 [facility] (Rec: 03/10/21 10:09 [facility] [id number]) Occupational Therapy Current Condition Current Condition Evaluation Date 03/10/21 Treatment Diagnosis Weakness, GLF Diagnosis Onset Date 03/08/21 M3 OT- IP Subjective and Pain Start: 03/10/21 09:48 Freq: Status: Active Protocol: Document 03/10/21 09:48 [facility] (Rec: 03/10/21 10:09 [facility] [id number]) OT- Subjective Occupational Therapy Visit Type Type Initial Evaluation Visit Start Time 09:00 Visit Stop Time 09:40 Occupational Therapy Visit Comments Patient Comments Pt willing to get up and states needing to use the bathroom. Patient/Caregiver Goals TO go to skilled rehab before going home. OT Pain Assessment Pain When Pain Assessed At Rest Pain Present Pain Present Denied Pain M4 OT- IP ADL's Start: 03/10/21 09:48 Freq: Status: Active Protocol: Document 03/10/21 09:48 [facility] (Rec: 03/10/21 10:09 [facility] [id number]) OT TUG-[id number]-Tknxcfd General Evaluation Self-Feeding Ability Standby Assistance Comments OT Self-Feeding Comments Cue to swallow as holding liquids in her mouth and to take smaller sips. Pt would benefit from IRONER HAND eval. OT ADL-Grooming Comments OT Grooming Comments Pt refusing to do at this time . OT ADL-Oral Care Comments Oral Care Comments NOt performed. OT ADL-Dressing General Eval Lower Body Dressing Ability Maximum Assistance Comments OT Dressing Comments Assist to nilsa/doff socks and assist to get brief over her feet and assist to help pull up over her hips at this time. OT ADL-Toileting General Evaluation Toileting Ability Moderate Assistance Areas Needing Assistance Manage Clothing Comments OT Toileting Comments Assist for balance while standing as pt tends to lean into posterior tilt and on her heels. Assist for brief management needs. Pt able to wipe with assist for balance in squat position up from the toilet. OT ADL-Bathing Comments OT Bathing Comments Not performed. M5 OT- IP IADL's Start: 03/10/21 09:48 Freq: Status: Active Protocol: Document 03/10/21 09:48 [facility] (Rec: 03/10/21 10:09 [facility] [id number]) OT-Instrumental Activities of Daily Living Home Safety Awareness Ability to Problem Solve Emergency Unable to Problem Solve Situations Home Safety Comments Pt needing cues to identify 911 to call for help if needed . Pt slow to respond to questions. At this time if pt having to go home with benefit from 23/11 assist for all needs. M6 OT- IP Functional Cognition Start: 03/10/21 09:48 Freq: Status: Active Protocol: Document 03/10/21 09:48 [facility] (Rec: 03/10/21 10:09 [facility] [id number]) Cognitive Factors Limiting Selfcare Function Cognitive Ability Level of Alertness Alert Patient Orientation Name,Place,Situation Attention Span Ability Capable of Focused Attention, Unable to Sustain Attention Ability to Follow Commands Able to Follow One Step Commands with Increased Time, Able to Follow One Step Commands with Repetition Memory Description Short Term Impaired,Working Impaired Problem Solving Ability Unable to Identify Errors, Needs Assist to Identify Solutions Cognitive Comments Cognitive Assessment Comments Pt slow to process and needing cues to swallow in the liquid in her mouth as she was holding. Pt slow to initiate movement and answer home safety questions. Pt however does realize that she is not at baseline and would benefit from rehab prior to going home . OT- Vision and Hearing OT- Hearing Assessment OT- Hearing Assessment WFL OT- Vision Assessment Visual Acuity Glasses All The Time M7 OT- IP Mobility and Balance Start: 03/10/21 09:48 Freq: Status: Active Protocol: Document 03/10/21 09:48 [facility] (Rec: 03/10/21 10:09 [facility] [id number]) OT- Bed Mobility Assessment Rolling Type of Rolling Roll to Left Level of Assistance Moderate Assistance,1 Person Assistance,Head of Bed Elevated,Bedrails Supine to Sit Supine to Sit Assist Moderate Assistance,1 Person Assistance,Head of Bed Elevated,Bedrails Sit to Supine Sit to Supine Assist Moderate Assistance,1 Person Assistance Scooting Scooting to Edge of Bed Moderate Assistance,1 Person Assistance OT-Transfer Assessment Sit to and From Stand Sit to and from Stand Moderate Assistance,1 Person Assistance Transfers Transfer Ability Moderate Assistance,1 Person Assistance Technique Transfer Destination Bed,Bedside Commode Transfer Technique Stand Step Pivot Devices Transfer Assistive Devices Gait Belt,Front Wheeled Walker Comments Mobility Comments Pt MODA to help get her trunk upright. Pt states has an adjustable bed and usually gets up with the HOB up. Pt does not have a bed rail and needing heavy use of bed rail now in addition to therapist help to get out of bed. Pt very slow to initiate her movements. MODA with FWW to transfer , assist for FW safety and balance. OT- Gait Assessment Comments Gait Ability Comments Transfer only. OT- Balance Assessment Sitting Balance and Reactions Static Sitting Balance Ability Good Dynamic Sitting Balance Ability Fair Standing Balance and Reactions Static Standing Balance Ability Poor Dynamic Standing Balance Ability Poor Comments Other Balance Tests/Deviations/Treatment Pt feet tend to slide out in : front of her and needing cues to get her feet behind her before standing. Pt also tends to posteriorly lean. M8 OT- IP Objective Assessments Start: 03/10/21 09:48 Freq: Status: Active Protocol: Document 03/10/21 09:48 [facility] (Rec: 03/10/21 10:09 [facility] [id number]) OT Gross Range of Motion Upper Extremity Range of Motion Assessment Left Impaired OT Strength Upper Extremity Strength Assessment Bilaterally Impaired OT-Muscle Tone Assessment Muscle Tone WNL Yes M9 OT- IP Assessment and Plan Start: 03/10/21 09:48 Freq: Status: Active Protocol: Document 03/10/21 09:48 [facility] (Rec: 03/10/21 10:09 [facility] [id number]) OT Summary Assessment and Plan Potential Rehabilitation Potential Fair Analytic Complexity at Evaluation Moderate Summary OT Impairments Range of Motion,Strength, Balance,Functional Cognition, Functional Mobility,Self- Feeding,Grooming,Dressing, Toileting,Bathing,Toilet Transfers,Shower Transfers, Activity Tolerance Progress Towards Goals Slow Progress due to Medical Issues,Slow Progress due to Activity Tolerance,Slow Progress due to Cognition Assessment Summary Pt MOD complexity here due to weakness and now not able to care fore herself and prior was MOD I with basic ADL needs . Pt would benefit from skilled rehab prior to going home. Noted pt having trouble to initiate her movement and tends to hold liquids in her mouth. Pt would benefit from IRONER HAND eval. Goals Self-Feeding Goal Independent Grooming Goal Independent Dressing Goal Independent Toileting Goal Independent Bathing Goal Independent Toilet Transfer Goal Independent Shower Transfer Goal Independent Days to Meet Goals 15 Frequency of Treatment Frequency Of Treatment Once a Day Treatment Plan OT Treatment Plan ADL Training,Functional Cognition Training,Functional Mobility,Patient/Family Education,Discharge Planning Other Treatment Recommendations and Next Stand at sink for grooming Treatment Focus needs. Discharge Recommendations OT Discharge Recommendations SNF Rehab Transportation Needs at Discharge Wheelchair/Cabulance
--- NOTE | 2021-03-10 10:37 | CM.DPC ---
DCP Ongoing SNF planning: Per MD, pt remains below baseline but stable and could benefit from SNF at d/c unless improves with PT/OT. Per OT this morning, pt could still benefit from SNF prior to safe return home alone. SW spoke to admissions at [facility] who confirms she has initiated [employer] auth for SNF but not determination received yet. Plan: SW to follow closely for [employer] review to determine if they will auth SNF prior to safe return home. BRENNA Shook
--- NOTE | 2021-03-10 10:50 | PT.IPTN ---
Physical Therapy Treatment Note M2 PT-IP Current Condition Start: 03/09/21 09:23 Freq: NEEDED Status: Active Protocol: Document 03/09/21 11:39 [facility] (Rec: 03/09/21 13:15 [facility] [id number]) Physical Therapy Current Condition Current Condition Evaluation Date 03/09/21 Treatment Diagnosis GLF, weakness, impaired mobility and gait Onset Date 03/07/21 M3 PT-IP Subjective Start: 03/09/21 09:23 Freq: NEEDED Status: Active Protocol: Document 03/10/21 10:30 [facility] (Rec: 03/10/21 11:00 [facility] [id number]) Subjective Physical Therapy Visit Type Type Treatment Note Visit Start Time 10:30 Visit Stop Time 10:50 Total Visit Minutes 20 Number of MARKET DIRECTOR Visits 1 Physical Therapy Visit Comments Patient Comments Pt agreeable to working w/ therapy. M4 PT-IP Mobility and Gait Start: 03/09/21 09:23 Freq: NEEDED Status: Active Protocol: Document 03/10/21 10:30 [facility] (Rec: 03/10/21 11:00 [facility] [id number]) PT-Bed Mobility Assessment Supine to Sit Supine to Sit Minimal Assistance Scooting Scooting to Edge of Bed Minimal Assistance PT-Transfer Assessment Sit to and From Stand Sit to and from Stand Minimal Assistance,1 Person Assistance,Use of Upper Extremities Equipment Transfer Assistive Device Gait Belt,Front Wheeled Walker Orthotic/Prosthetic Devices or Brace: No Transfers Transfer Destination Chair,Bedside Commode Transfer Technique Pt ambulated w/ FWW Transfer Ability Level of Assist Minimal Assistance,1 Person Assistance,Use of Upper Extremities Comments Mobility Comments Pt in bed upon arrival from therapy and agreeable to transfer to chair. Pt completed 1x5 ankle pumps and SLR. Min A for sup<>sit w/ HOB elevated and Min A for scooting to EOB w/ bed rails. Pt required Min A and cues for sit<>stand w/ FWW. She then performed 15 seconds weightshifting followed by 10 ft ambulation w/ FWW and Min A during which she expressed high level of fatigue. Pt had decreased stride length and foot clearance. Pt transferred to chair Min A and cues w/ FWW. Pt left in chair w/ all needs in reach. Gait Assessment Gait Gait Assistance Required: Minimum Assistance,1 Person Assist Distance (Feet) 10 Assistive Devices Assistive Device Gait Belt,Front Wheeled Walker Gait Deviations General Gait Pattern Decreased Stride Length, Decreased Feet Clearance Factors Limiting Gait Function Factors Limiting Gait Function Decreased Activity Tolerance, Decreased Strength,Poor Balance,Poor Safety Awareness Comments Gait Comments Please refer to mobilty section for details. Only able to tolerate ~10 ft w/ FWW Min A, quick to fatigue. Stair Climbing Assessment Comments Stair Climbing Comments Not assessed. No stairs at home. PT-Balance Assessment Sitting Balance and Reactions Static Sitting Balance Ability Fair Dynamic Sitting Balance Ability Fair Standing Balance and Reactions Static Standing Balance Ability Fair Dynamic Standing Balance Ability Fair Device Used FWW M5 PT-IP Objective Assessments Start: 03/09/21 09:23 Freq: NEEDED Status: Active Protocol: Document 03/09/21 11:39 [facility] (Rec: 03/09/21 13:15 [facility] [id number]) Orientation Orientation/Cognition Level of Alertness Alert Orientation Name,Place,Situation Language Function Ability No Deficits Noted Safety Awareness Understands Safety Issues Gross Range of Motion Lower Extremity ROM Assessment Within Functional Limits Strength Lower Extremity Strength Assessment Bilaterally Impaired Hip 3+/5 Knee 4-/5 Ankle 4-/5 Sensation Assessment Sensation Gross Sensation WNL M6 PT-IP Treatment Start: 03/09/21 09:23 Freq: NEEDED Status: Active Protocol: Document 03/10/21 10:30 [facility] (Rec: 03/10/21 11:00 [facility] [id number]) Physical Therapy Treatment Exercises Exercises Ankle Pumps,Straight Leg Raises Education Education Provided Safety Other Treatments Other Treatment Performed Educated pt on PT plan of care , safe use of FWW, and current need for mobility assist. M7 PT-IP Assessment and Plan Start: 03/09/21 09:23 Freq: NEEDED Status: Active Protocol: Document 03/10/21 10:30 [facility] (Rec: 03/10/21 11:00 [facility] [id number]) PT Summary Assessment and Plan Potential Rehabilitation Potential Fair Status of Condition at Evaluation Evolving Summary Impairments Strength,Balance,Bed Mobility, Transfers,Gait,Activity Tolerance Assessment Summary Pt showed some improvements w/ mobility today, but is still requiring Min A and cues for bed mobility, transfers, and ambulation w/ FWW. She was only able to tolerate 10 ft ambulation w/ FWW and became very fatigued following. Pt is very weak and quick to fatigue and will require SNF to improve strength and functional independence. Goals Bed Mobility Goal Standby Assistance Transfer Goal Standby Assistance,Front Wheeled Walker Gait Goal Standby Assistance,Front Wheel Walker Gait Distance 100 Other Goals LTG: improve transfers and ambulation to modified independent with FWW Days to Meet Goals 8 Frequency of Treatment Frequency Of Treatment Once a Day Treatment Plan Physical Therapy Treatment Plan Bed Mobility Training,Transfer Training,Gait Training, Therapeutic Exercise,Balance Retraining,Discharge Planning, Hot or Cold Pack Other Recommendations and Next Treatment mobility as tolerated; ther ex Focus for LE strength Precautions Other Precautions falls Recommendations To Nursing Amount of Assist Needed 1 Person Assist Discharge Recommendations PT Discharge Recommendations Home with 23/11 Assist Available,Home Health,SNF Rehab Transportation Needs at Discharge Private Vehicle,Wheelchair/ Cabulance
[2021-03-10] MEDS: INSULIN LISPRO 100 UNIT/ML 3ML VIAL SUBCUT ×3 (12:13→21:52)
--- NOTE | 2021-03-10 12:32 | ST.IPCSEOM ---
Visit Care Team Role Provider Type Iván Justin MD Primary Care Provider Physician Specialty: Family Practice Address: [address] [place] [address], [address] Email: [email or web address] Erasmo Gibson DO Emergency Provider Physician Referring Provider Specialty: Emergency Medicine Address: [address] [place] [address], [address] Email: [email or web address] Marco Zafar MD Admit Provider Physician Attending Provider Specialty: Hospitalist Address: [address] [place] [address], [address] Fax: Email: [email or web address] Past Medical History (Last Reviewed 03/08/21 @ 04:00 by Marco Zafar MD) Breast cancer, left (Medical) Chronic kidney disease (CKD), stage III (moderate) (Medical) Diabetes mellitus (Medical) History of hysterectomy (Medical) History of partial mastectomy of left breast (Medical) Hx of cholecystectomy (Medical) Hx of eye surgery (Medical) Left eye, young child Hx of lumbosacral spine surgery (Medical) Pt unsure if fusion Hyperlipidemia associated with type 2 diabetes mellitus (Medical) Hypothyroidism (Medical) 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 Setting Assessment Location Acute Care Visit Type Note Type Initial evaluation Next Note Type Next Note Type Treatment Note Patient Information Identification Type Name,Wristband History 75 year old female with stage IV CKD, insulin-requiring diabetes, hypertension, hypothyroidism, hyperlipidemia , history of chronic CVA on MRI presenting with pain and weakness in lower extremities. She had been on the ground and then in bed for a couple of days. She has not taken her medications since the fall. Subjective Observations Heather was seated upright in a chair watching TV when clinician arrived. Heather was awake, alert, and cooperative for all assessment activities . Reported by Patient Other Symptoms Other Comment Per nursing, OT noticed Heather holding liquid in her mouth for long periods of time . Current Diet Regular,Thin liquids Baseline Feeding Method Independent in self-feeding Results Heather reported she will cough when she takes large bites/sips, and sometimes needs to remember to swallow when she has food in her mouth , but does not experience difficulty eating or drinking other than that. Objective Assessment Mental Status Alert,Responsive,Cooperative Oral Integrity WFL Dentition Within normal limits Lip Function Within normal limits Observation of Lips at Rest Symmetrical Pucker Within normal limits Alternating Pucker/Lip Retraction Within normal limits Tongue Function Mild impairment Observations of Tongue at Rest Within normal limits Tongue Protrusion Within normal limits Tongue Retraction Within normal limits Tongue Lateralization Reduced strength Jaw Function Within normal limits Observations of Jaw at Rest Within normal limits Jaw Opening Within normal limits Jaw Closing Within normal limits Hard/Soft Palate Function Within normal limits Observations of Hard/Soft Palate Within normal limits Comment Completed oral mechanism exam with Heather. Heather presented with symmetrical features at rest and in motion . She exhibited reduced tongue strength, though this may be due to residual deficits from previous stroke and does not appear to impact her speech or swallowing. Heather demonstrated ROM WNL with some difficulty transitioning between pucker and smile. Noted difficulty with smile/ pucker is more likely due to attention than coordination and sequencing movements improved with verbal prompts from clinician. Food and Liquid Trials Position During Assessment Upright (90 degrees),In chair Liquids Trialed Thin Administration Type Cup single sip,Straw,Self- feeding Oral Impairment Within functional limits Oral Phase Comments Heather demonstrated a prolonged holding pattern when taking sips of water, though once swallow was initiated, Heather had no oral residue and reported no difficulty with chewing foods. Heather added that she will get distracted when eating/ drinking and forget to swallow, resulting in the holding of food/liquid in her mouth. Heather does swallow spontaneously following holding pattern. Pharyngeal Impairment Within normal limits Pharyngeal Phase Comments Hyolaryngeal elevation and excursion palpated on dry swallow and swallow with water through straw cup and was WNL . Heather demonstrated no overt signs or symptoms of aspiration across trials. Fatigue/Endurance Endurance WNL Comment Limited trials completed, though Heather indicated no concerns with endurance. Strategies Attempted Other Response/Comments Discussed use of sign to help Heather remember to take small bites/sips and swallow after taking a drink. Heather indicated she does not read signs and would not benefit from that strategy. Discussed use of 1:1 feeding assistance for verbal reminders to take small bites and swallow after taking a drink. Heather indicated she is not interested in this option. Discussed minimizing distractions in environment (e .g., turning off TV, closing door to room) when eating/ drinking to help bring attention to eating. Heather indicated she likes to know what is going on around her. [place] Swallow Protocol No Results Heather presents with a prolonged holding pattern when eating/drinking, which may be habitual or due to inattention when eating/ drinking. No overt signs/ symptoms of aspiration noted and structures and function of oral mechanism appear WNL for the purposes of speech and swallowing. Findings Swallowing Function Within functional limits Severity of Swallow Impairment Within normal limits Contributing Factors to Swallow Reduced alertness or attention Impairment Prognosis Fair Based on Cognitive status,Age, Comorbidities,Duration of symptoms/severity Comment Heather presents with no overt signs/symptoms of aspiration and no impairments in swallow function. She exhibits a prolonged holding pattern when eating, which may be habitual or due to inattention and/or reduced sensation when eating/ drinking. Recommend a follow- up session to discuss possible strategies for remembering to take small sips/bites and swallow after taking a bite/ drink. Impact on Safety and Functioning No limitations Recommendations Instrumental Assessment No Swallowing Treatment Yes Recommended Solids Regular Recommended Liquids Thin Safety Precautions/Swallowing Remain upright (90 degrees) Recommendations during all oral intake,Upright position at least 30 minutes after meals,Small bites and sips when eating,Slow rate; swallow between bites Medication Recommendations As Tolerated Education Patient/Caregiver Education Described results of evaluation,Patient expressed understanding of evaluation, Patient expressed agreement with goals & treatment plans, Patient expressed understanding of feeding recommendations,Patient requires further education/ training Goals Long-term Goals 1. Heather will safely tolerate least restrictive diet to meet her nutrition and hydration needs.
--- NOTE | 2021-03-10 14:35 | PC.NURSE ---
bradycardic episode approx 1348 this RN notified by ICU nurse that pt's studio model was showing the pt to have a HR of 38-39. This RN went to check pt whom was sitting up in recliner for lunch. Pt stated she wasn't feeling well. BP taken and was 81/44. Pt then stated she was going to be sick. emesis bag provided and pt had 100cc emesis. stated felt better after emesis but was feeling a little light headed. BP rechecked and was 209/76 with HR 50; verified by studio model. Call to RT for stat EKG. Primary RN called to room by this RN and pt transferred back to bed with 3 staff assist. This RN then notified of all of above. at bedside to see/assess pt approx [id number] after reviewing EKG strips from pt's studio model. Pt was incontinent of large loose stool. states is feeling better.
--- NOTE | 2021-03-10 15:39 | PC.NURSE ---
Pt resting in bed-appears calm and comfortable. Pt states she is feeling much better. Denies pain, nausea, shortness of breath, chest pain, or dizziness. Pt agrees to call for assistance.
--- NOTE | 2021-03-10 18:04 | PM.PN.1 ---
Subjective Subjective Date Patient Seen: 03/10/21 Interval history: 75 year old female with stage IV CKD, insulin-requiring diabetes, hypertension, hypothyroidism, hyperlipidemia, history of chronic CVA on MRI presenting with pain and weakness in lower extremities.? She had been on the ground and then in bed for a couple of days.? As previously noted lower legs are quite tender on exam but without swelling or visible abnormality. Noted moderate CK elevation and high-intensity statin discontinued with concern for statin myopathy. Patient had acute bradycardic event today were heart rate dropped to 38 on tele, BP of 81/49, followed by a acute hypertension and symptoms of nausea, vomiting and stool incontinence. EKG normal but rhythm strip suggestive of possible second-degree type 2 Mobitz block. Patient had been taken off her metoprolol and started on carvedilol low dose on this admission to try and improve BP control Exam Vital Signs (past 8 hours): - 03/10/21 13:50 03/10/21 13:57 03/10/21 14:05 Temperature Pulse Rate 39 L 50 L 53 L Respiratory Rate 16 16 16 Blood Pressure 81/44 L 209/76 H 167/54 H Pulse Oximetry 98 03/10/21 14:38 03/10/21 15:51 Temperature 97.7 F Pulse Rate 54 L 64 Respiratory Rate 16 16 Blood Pressure 116/57 L 163/55 H Pulse Oximetry 99 94 Oxygen Delivery Method Room Air Oxygen Flow Rate 0 Narrative Exam Narrative: General: Alert, sitting in chair and in no acute distress Extremities:? No edema Neurological:? Affect and speech normal, she seems to have fairly good strength symmetrically in proximal and distal lower extremities, DTRs 2+ in the knees, no ankle clonus Objective Labs Result Diagrams: 03/09/21 05:15 03/09/21 05:15 [facility] Medical History Breast cancer, left Chronic kidney disease (CKD), stage III (moderate) Diabetes mellitus Hyperlipidemia associated with type 2 diabetes mellitus Hypothyroidism Surgical History History of hysterectomy History of partial mastectomy of left breast Hx of cholecystectomy Hx of eye surgery Hx of lumbosacral spine surgery Family History Mother No significant medical problems Father Unknown family medical history Social History household members: none Smoking Status: Never smoker alcohol intake: current Assessment & Plan Assessment & Plan narrative: Ms. Ribera is a 75W with PMH CVA, DM, HTN, HL who presents with subjective lower leg weakness and pain, found to have significant bilateral leg tenderness. 1. 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 -head CT no acute findings -stopped atorvastatin 80 mg q.d., consider restart atorvastatin at 20 mg q.d. -hydrated, Hep-Lock IV -mildly elevated troponin and mildly elevated lipase not clinically significant -continue PT/OT, per last note patient is moderate 1 person assist new line -[facility] 2. CKD stage 4 -chronic, creatinine near baseline -avoid nephrotoxins -probable cause of the mildly elevated troponin. 3. Hypertension -BP generally moderately elevated -on carvedilol, patient became acutely bradycardic with heart rate in 30's and hypotensive with possible second-degree Mobitz 2 block on rhythm strip -discontinued carvedilol, probably should avoid beta-quincy therapy -continue amlodipine 10 mg q.d., losartan 25 mg q.d. and furosemide 20 mg q.d. -consider increasing losartan to 50 mg q.d. since patient has had no issues with hyperkalemia associated with CKD -continue telemetry 4. history of multi focal bilateral chronic CVA -continue aspirin, plavix for now -no history of AFib -consider restart statin therapy at moderate dose, e.g. atorvastatin 20 mg q.d., when discharge 5. Type 2 DM on insulin -previous A1c 6.4, -previous admission we felt patient was on too much insulin with periods of hypoglycemia, especially with advanced renal failure -decreased Lantus to 10 units at bedtime with glucose running in acceptable range -continue insulin sliding scale for now 6. Depression -continue zoloft 7. Anemia secondary to CKD, chronic -stable though somewhat lower than previous Code status: DNR Disposition: SNF Time Spent With Patient Critical Care time: I spent a total of [] minutes of critical care time on this patient's care today; this time is exclusive of procedural time. Quality VTE Deep Vein Thrombosis/Pulmonary Embolism Present on Admission: No
[2021-03-10] MEDS: SERTRALINE 50 MG TABLET 25 MG PO (21:07)
[2021-03-11] VITALS (9 sets, daily range): BP systolic 166–183; BP diastolic 57–69; PULSE 58–66; RESP 14–18; TEMP 36.3–36.9; O2SAT 97–98
[2021-03-11] MEDS: LEVOTHYROXINE 25 MCG TABLET PO (05:45)
[2021-03-11] MEDS: INSULIN LISPRO 100 UNIT/ML 3ML VIAL SUBCUT ×4 (08:56→21:24)
[2021-03-11] MEDS: AMLODIPINE 5 MG TABLET 10 MG PO (08:58)
[2021-03-11] MEDS: CLOPIDOGREL 75 MG TABLET PO (08:58)
[2021-03-11] MEDS: LOSARTAN 25 MG TABLET 50 MG PO (08:58)
[2021-03-11] MEDS: ENOXAPARIN 30 MG/0.3 ML SYRINGE SUBCUT (08:59)
[2021-03-11] MEDS: ASPIRIN EC 81 MG TABLET PO (08:59)
--- NOTE | 2021-03-11 10:52 | PT.IPTN ---
Physical Therapy Treatment Note M2 PT-IP Current Condition Start: 03/09/21 09:23 Freq: NEEDED Status: Active Protocol: Document 03/09/21 11:39 AW (Rec: 03/09/21 13:15 AW [id number]) Physical Therapy Current Condition Current Condition Evaluation Date 03/09/21 Treatment Diagnosis GLF, weakness, impaired mobility and gait Onset Date 03/07/21 M3 PT-IP Subjective Start: 03/09/21 09:23 Freq: NEEDED Status: Active Protocol: Document 03/11/21 10:28 KS (Rec: 03/11/21 11:13 KS [id number]) Subjective Physical Therapy Visit Type Type Treatment Note Visit Start Time 10:28 Visit Stop Time 10:52 Total Visit Minutes 24 Number of SCIENTIFIC 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 M4 PT-IP Mobility and Gait Start: 03/09/21 09:23 Freq: NEEDED Status: Active Protocol: Document 03/11/21 10:28 KS (Rec: 03/11/21 11:13 KS [id number]) PT-Bed Mobility Assessment Supine to Sit Supine to Sit Minimal Assistance Sit to Supine Sit to Supine Minimal Assistance Scooting Scooting to Edge of Bed Minimal Assistance PT-Transfer Assessment Sit to and From Stand Sit to and from Stand Minimal Assistance,1 Person Assistance,Use of Upper Extremities Equipment Transfer Assistive Device Gait Belt,Front Wheeled Walker Transfers Transfer Destination Bed Transfer Technique Pt ambulated w/ FWW Transfer Ability Level of Assist Minimal Assistance,1 Person Assistance,Use of Upper Extremities Comments Mobility Comments Pt in bed upon arrival from therapy and [facility]. Min A for sup<>sit w/ HOB elevated, Min A for scooting and sit<>stand w/ FWW. Once standing, pt able to maintain standing balance CGA for 2 min and ambulated 8 ft w/ FWW Min A. Pt then returned to bed, was able to complete bridge for brief change and scooting up in bed CGA. Instructed pt in ankle pumps, quad sets, and glute sets to promote LE strengthening. Pt left in bed w/ alarm on and all needs in reach. Gait Assessment Gait Gait Assistance Required: Minimum Assistance,1 Person Assist Distance (Feet) 8 Assistive Devices Assistive Device Gait Belt,Front Wheeled Walker Gait Deviations General Gait Pattern Decreased Stride Length, Decreased Feet Clearance Factors Limiting Gait Function Factors Limiting Gait Function Decreased Activity Tolerance, Decreased Strength,Poor Balance,Poor Safety Awareness Comments Gait Comments Please refer to mobilty section for details. Only able to tolerate ~8 ft w/ FWW Min A, quick to fatigue. PT-Balance Assessment Sitting Balance and Reactions Static Sitting Balance Ability Fair Dynamic Sitting Balance Ability Fair Standing Balance and Reactions Static Standing Balance Ability Fair Dynamic Standing Balance Ability Fair Device Used FWW M5 PT-IP Objective Assessments Start: 03/09/21 09:23 Freq: NEEDED Status: Active Protocol: Document 03/09/21 11:39 AW (Rec: 03/09/21 13:15 AW [id number]) Orientation Orientation/Cognition Level of Alertness Alert Orientation Name,Place,Situation Language Function Ability No Deficits Noted Safety Awareness Understands Safety Issues Gross Range of Motion Lower Extremity ROM Assessment Within Functional Limits Strength Lower Extremity Strength Assessment Bilaterally Impaired Hip 3+/5 Knee 4-/5 Ankle 4-/5 Sensation Assessment Sensation Gross Sensation WNL M6 PT-IP Treatment Start: 03/09/21 09:23 Freq: NEEDED Status: Active Protocol: Document 03/11/21 10:28 KS (Rec: 03/11/21 11:13 KS [id number]) Physical Therapy Treatment Exercises Exercises Ankle Pumps,Gluteal Sets,Quad Sets Education Education Provided Safety M7 PT-IP Assessment and Plan Start: 03/09/21 09:23 Freq: NEEDED Status: Active Protocol: Document 03/11/21 10:28 KS (Rec: 03/11/21 11:13 KS [id number]) PT Summary Assessment and Plan Potential Rehabilitation Potential Fair Status of Condition at Evaluation Evolving Summary Impairments Strength,Balance,Bed Mobility, Transfers,Gait,Activity Tolerance Assessment Summary Pt continues to require Min A for most mobility, occasionally CGA w/ cues. Pt able to ambulate ~8 ft and maintain standing balance ~2 min w/ FWW Min A today. Tolerated LE exercises well. Pt continues to be limited by weakness and low tlerance for activity and will require SNF to improve. Goals Bed Mobility Goal Standby Assistance Transfer Goal Standby Assistance,Front Wheeled Walker Gait Goal Standby Assistance,Front Wheel Walker Gait Distance 100 Other Goals LTG: improve transfers and ambulation to modified independent with FWW Days to Meet Goals 8 Frequency of Treatment Frequency Of Treatment Once a Day Treatment Plan Physical Therapy Treatment Plan Bed Mobility Training,Transfer Training,Gait Training, Therapeutic Exercise,Balance Retraining,Discharge Planning, Hot or Cold Pack Other Recommendations and Next Treatment mobility as tolerated; ther ex Focus for LE strength Precautions Other Precautions falls Recommendations To Nursing Amount of Assist Needed 1 Person Assist Discharge Recommendations PT Discharge Recommendations Home with 24/ Assist Available,Home Health,SNF Rehab Transportation Needs at Discharge Private Vehicle,Wheelchair/ Cabulance
--- NOTE | 2021-03-11 12:03 | ST.IPDYTX ---
Visit Care Team Role Provider Type Iván Justin MD Primary Care Provider Physician Specialty: Family Practice Address: [address] [place] [address], [address] Email: [email or web address] Erasmo Gibson DO Emergency Provider Physician Referring Provider Specialty: Emergency Medicine Address: [address] [place] [address], [address] Email: [email or web address] Marco Zaafr MD Admit Provider Physician Attending Provider Specialty: Hospitalist Address: [address] [place] [address], [address] Fax: Email: [email or web address] INTERNSHIP Dysphagia Treatment GRADUATE INTERNSHIP Dysphagia Treatment Start: 03/11/21 11:58 Freq: Status: Active Protocol: Document 03/11/21 11:58 SYDNEE (Rec: 03/11/21 12:03 ZS [id number]) Dysphagia Treatment Session Time Visit Start Time 09:20 Visit Stop Time 09:35 Total Visit Minutes 15 Setting Assessment Location Acute Care Visit Type Note Type Treatment Note Patient Information Identification Type Name,ID Wristband Subjective Observations Heather was seated upright in her bed watching TV when clinician arrived. Treatment Liquids Trialed Thin Administration Type Cup Single Sip,Self-Feeding Oral Strategies Upright at 90 degrees Treatment Activities Discussed use of strategies to remember to take small bites/ sips when eating/drinking. Assessment Patient Response to Treatment Excellent Rehab Potential Excellent Assessment of Improvement Heather indicated she cut up her malagasy toast into small, bite-sized pieces before she started eating this morning and remembered to take small sips and bites with no problems. She indicated she has not been coughing when eating or drinking at all. Observed as Heather drank water from an open cup. No prolonged holding of bolus in mouth noted and no overt signs /symptoms of aspiration observed. Diet Recommendations Recommendations Continue Current Diet Liquids Order Thin Diet Order Regular Medication Recommendations As Tolerated Aspiration Precautions Recommended Precautions Upright at 90 Degrees,Small Bites/Sips Treatment Plan Therapy Recommendations Discontinue speech therapy as Heather is using strategies independently and is no longer experiencing difficulty with swallowing or demonstrating prolonged holding of bolus in oral cavity prior to swallowing.
--- NOTE | 2021-03-11 12:06 | PM.PN.1 ---
Subjective Subjective Date Patient Seen: 03/11/21 Time Patient Seen: 08:00 Interval history: She has had no further episodes of symptomatic bradycardia, hypotension, nausea, vomiting, or diarrhea. Per nursing she quickly recovered yesterday. She continues to feel weaker than her baseline. Exam Vital Signs (past 8 hours): - 03/11/21 07:37 03/11/21 08:51 03/11/21 08:58 Temperature 98.4 F Pulse Rate 61 Respiratory Rate 14 Blood Pressure 181/60 H 181/60 H Pulse Oximetry 97 97 03/11/21 11:49 Temperature 98.2 F Pulse Rate 59 L Respiratory Rate 16 Blood Pressure 183/57 H Pulse Oximetry 97 Oxygen Delivery Method Room Air Oxygen Flow Rate 0 Narrative Exam Narrative: General: Alert, sitting in chair and in no acute distress Extremities:? No edema Neurological:? Affect and speech normal, she seems to have fairly good strength symmetrically in proximal and distal lower extremities, DTRs 2+ in the knees, no ankle clonus Objective Labs Result Diagrams: 03/09/21 05:15 03/09/21 05:15 [facility] Medical History Breast cancer, left Chronic kidney disease (CKD), stage III (moderate) Diabetes mellitus Hyperlipidemia associated with type 2 diabetes mellitus Hypothyroidism Surgical History History of hysterectomy History of partial mastectomy of left breast Hx of cholecystectomy Hx of eye surgery Hx of lumbosacral spine surgery Family History Mother No significant medical problems Father Unknown family medical history Social History household members: none Smoking Status: Never smoker alcohol intake: current Assessment & Plan Assessment & Plan narrative: Ms. Ribera is a 75W with PMH CVA, DM, HTN, HL who presents with subjective lower leg weakness and pain, found to have significant bilateral leg tenderness. 1. Weakness, acute on chronic, with known chronic multi focal CVA -possibly statin myopathy, patient on high intensity statin, has elevated CK, 896 on admit, trending down to 424 with stopping atorvastatin and hydration -patient was admitted in October of this year with complaints weakness and loss of balance and found to have subacute and chronic bilateral hemispheric CVA on brain MRI -has subjective weakness and also noted to have tenderness in the calves -etiology include neuropathy secondary to diabetes, less likely is cva with no focal deficit, and unlikely to be spinal process with relatively normal exam -doubt Guillain-[place] with intact reflexes. -head CT no acute findings -stopped atorvastatin 80 mg q.d., consider restart atorvastatin at 20 mg q.d. -hydrated, Hep-Lock IV -mildly elevated troponin and mildly elevated lipase not clinically significant -continue PT/OT -care home rehab 2. CKD stage 4 -chronic, creatinine near baseline -avoid nephrotoxins -probable cause of the mildly elevated troponin. 3. Hypertension -BP generally moderately elevated -on carvedilol, patient became acutely bradycardic with heart rate in 30's and hypotensive which quickly resolved possibly vasovagal episode -discontinued carvedilol, probably should avoid beta-quincy therapy -continue amlodipine 10 mg q.d. furosemide 20 mg q.d., increased losartan to 50mg daily -dc telemetry 4. history of multi focal bilateral chronic CVA -continue aspirin, plavix for now -no history of AFib -consider restart statin therapy at moderate dose, e.g. atorvastatin 20 mg q.d., when discharge 5. Type 2 DM on insulin -previous A1c 6.4, -previous admission we felt patient was on too much insulin with periods of hypoglycemia, especially with advanced renal failure -decreased Lantus to 10 units at bedtime with glucose running in acceptable range -continue insulin sliding scale for now 6. Depression -continue zoloft 7. Anemia secondary to CKD, chronic -stable though somewhat lower than previous Time Spent With Patient Critical Care time: I spent a total of [] minutes of critical care time on this patient's care today; this time is exclusive of procedural time. Quality VTE Deep Vein Thrombosis/Pulmonary Embolism Present on Admission: No
--- NOTE | 2021-03-11 12:18 | CM.DPC ---
DCP continued: CELINA spoke with Agustina at [facility] and she can accept patient tomorrow morning at 10am J and B transport is set up. CELINA spoke with the patients nurse and requested getting a Covid Swab done today so patient is ready for DC tomorrow morning. PASSR complete and Human has approved auth for SNF. CM department will follow and assist with smooth DC transition tomorrow morning. updated about DC plan and he stated understanding. Sheree Blas RNdenial management representative
--- NOTE | 2021-03-11 13:13 | OT.IP.TRT ---
Occupational Therapy Treatment Note M2 OT-IP Current Condition Start: 03/10/21 09:48 Freq: Status: Active Protocol: Document 03/10/21 09:48 [facility] (Rec: 03/10/21 10:09 [facility] [id number]) Occupational Therapy Current Condition Current Condition Evaluation Date 03/10/21 Treatment Diagnosis Weakness, GLF Diagnosis Onset Date 03/08/21 M3 OT- IP Subjective and Pain Start: 03/10/21 09:48 Freq: Status: Active Protocol: Document 03/11/21 13:13 [facility] (Rec: 03/11/21 15:32 [facility] [id number]) OT- Subjective Occupational Therapy Visit Type Type Treatment Note Visit Start Time 13:13 Visit Stop Time 13:47 Total Visit Minutes 34 Occupational Therapy Visit Comments Patient Comments Pt wanting to get up to use the bathroom. Patient/Caregiver Goals TO go to rehab prior to going home. OT Pain Assessment Pain When Pain Assessed At Rest Pain Present Pain Present Denied Pain M4 OT- IP ADL's Start: 03/10/21 09:48 Freq: Status: Active Protocol: Document 03/11/21 13:13 [facility] (Rec: 03/11/21 15:32 [facility] [id number]) OT BBA-[id number] General Evaluation Self-Feeding Ability Independent OT ADL-Grooming General Evaluation Grooming Ability Standby Assistance Areas Needing Assistance Retrieving/Set-up of Grooming Items Comments OT Grooming Comments While standing with FWW in front of her. OT ADL-Oral Care General Eval Oral Care Ability Independent OT ADL-Dressing General Eval Lower Body Dressing Ability Moderate Assistance Areas Needing Assistance Underpants/Brief,Socks Comments OT Dressing Comments Pt needing assist for her socks and assist with her balance while seated and bend forwards to get the brief over her feet. OT ADL-Toileting General Evaluation Toileting Ability Minimal Assistance Areas Needing Assistance Manage Clothing Comments OT Toileting Comments CGA for balance while getting her brief over her feet while seated and up over her hips while standing. OT ADL-Bathing Comments OT Bathing Comments Pt states to try tomorrow. M6 OT- IP Functional Cognition Start: 03/10/21 09:48 Freq: Status: Active Protocol: Document 03/11/21 13:13 [facility] (Rec: 03/11/21 15:32 [facility] [id number]) Cognitive Factors Limiting Selfcare Function Cognitive Ability Level of Alertness Alert Patient Orientation Name,Place,Situation Attention Span Ability Capable of Focused Attention, Unable to Sustain Attention Ability to Follow Commands Able to Follow One Step Commands Cognitive Comments Cognitive Assessment Comments Pt doing better today to sequence through mobility and ADl needs and not needing any cues. Pt still has a tendency to hold liquids in her mouth and states prior she does that a home once in awhile. Pt states she did not mention it to the FUND CONTROLLER therapist earlier. At times pt still a little slow to initiate movements but much better today. M7 OT- IP Mobility and Balance Start: 03/10/21 09:48 Freq: Status: Active Protocol: Document 03/11/21 13:13 [facility] (Rec: 03/11/21 15:32 [facility] [id number]) OT- Bed Mobility Assessment Rolling Type of Rolling Roll to Right Level of Assistance Standby Assistance,Head of Bed Elevated,Bedrails Supine to Sit Supine to Sit Assist Contact Guard Assistance,1 Person Assistance,Head of Bed Elevated,Bedrails Scooting Scooting to Edge of Bed Contact Guard Assistance,1 Person Assistance,Bedrails OT-Transfer Assessment Sit to and From Stand Sit to and from Stand Minimal Assistance,1 Person Assistance Transfers Transfer Ability Contact Guard Assistance, Minimal Assistance,1 Person Assistance Technique Transfer Destination Bed,Chair,Toilet Transfer Technique Stand Step Pivot Devices Transfer Assistive Devices Gait Belt,Front Wheeled Walker Comments Mobility Comments Pt needing less assist today and able to initiate her movement faster today. Pt able to walk to the bathroom and then to the sink and then to the recliner today with CGA to JESSICA with FWW. OT- Gait Assessment Comments Gait Ability Comments CGA/JESSICA with FWW OT- Balance Assessment Sitting Balance and Reactions Static Sitting Balance Ability Good Dynamic Sitting Balance Ability Good Standing Balance and Reactions Static Standing Balance Ability Fair Comments Other Balance Tests/Deviations/Treatment Pt much steadier on her feet : today and better awareness of her balance. M8 OT- IP Objective Assessments Start: 03/10/21 09:48 Freq: Status: Active Protocol: Document 03/10/21 09:48 [facility] (Rec: 03/10/21 10:09 [facility] [id number]) OT Gross Range of Motion Upper Extremity Range of Motion Assessment Left Impaired OT Strength Upper Extremity Strength Assessment Bilaterally Impaired OT-Muscle Tone Assessment Muscle Tone WNL Yes M9 OT- IP Assessment and Plan Start: 03/10/21 09:48 Freq: Status: Active Protocol: Document 03/11/21 13:13 [facility] (Rec: 03/11/21 15:32 [facility] [id number]) OT Summary Assessment and Plan Potential Rehabilitation Potential Good Analytic Complexity at Evaluation Moderate Summary OT Impairments Range of Motion,Strength, Balance,Functional Cognition, Functional Mobility,Self- Feeding,Grooming,Dressing, Toileting,Bathing,Toilet Transfers,Shower Transfers, Activity Tolerance Progress Towards Goals Progressing Toward Goals Assessment Summary Pt doing much better today and able to walk into the bathroom with FWW and stand at the sink for grooming and oral care needs with CGA/JESSICA x1. Pt still having difficulty with LB dressing due to decreased dynamic balance. Pt will benefit from skilled rehab prior to going home. Pt is very pleasant, motivated and cooperative. Goals Self-Feeding Goal Independent Grooming Goal Independent Dressing Goal Independent Toileting Goal Independent Toilet Transfer Goal Independent Shower Transfer Goal Independent Days to Meet Goals 14 Frequency of Treatment Frequency Of Treatment Once a Day Treatment Plan OT Treatment Plan ADL Training,Functional Cognition Training,Functional Mobility,Patient/Family Education,Discharge Planning Other Treatment Recommendations and Next shower Treatment Focus Discharge Recommendations OT Discharge Recommendations SNF Rehab Transportation Needs at Discharge Wheelchair/Cabulance
[2021-03-11 16:42] LABS: COVID19 -Nasal RAPID Negative (Negative)
[2021-03-11] MEDS: SERTRALINE 50 MG TABLET 25 MG PO (20:34)
[2021-03-12 04:00] VITALS: BP 184/60; PULSE 67; RESP 16; TEMP 36.4; O2SAT 95
[2021-03-12 06:12] LABS: Blood Urea Nitrogen 46 mg/dL (7-17); Calcium 8.6 mg/dL (8.4-10.2); Carbon Dioxide 18 mmol/L (22-32); Chloride 113 mmol/L (98-107); Estimated Glomerular Filt Rate 26.9 mL/min (>60); Glucose 170 mg/dL (80-110); HEMOLYSIS 18 (0-50); Potassium 3.7 mmol/L (3.4-5.1); Sodium 138 mmol/L (137-145)
[2021-03-12] MEDS: LEVOTHYROXINE 25 MCG TABLET PO (06:24)
--- NOTE | 2021-03-12 08:15 | PM.DS.1 ---
History of Present Illness History of Present Illness Date Patient Seen: 03/12/21 Time Patient Seen: 08:00 Chief complaint: Fall 3 days ago with increased weakness Narrative: Ms. Ribera is a 75W with PMH DM, CKD stage 3-4, CVA, hypothyroid, HL who presents after a fall 3 days ago. She states that she usually has some trouble walking, and has been using a walker more frequently. She noticed about three days ago that she felt weak, both her feet felt quite weak. She fell to the floor with no LOC and no head strike. She was on the floor for some time, possibly an hour, possibly longer. Apparently she was helped to bed by friends and has been in bed for the subsequent couple days. She lives alone. Family called EMS today. She has not taken her medications since the fall. She otherwise has no complaints. She has not noticed new focal weakness. No fevers/chills. No nausea/vomiting, or diarrhea. No chest pain or shortness of breath. She does have lower leg pain. In the ED workup was done, vitals notable for blood pressure 210s/90s. Labs notable for WBC 6.6, hgb 10.9, K 4.0, BUN 44, creatinine 2.28, mag 2.1, phos 4.7, ck 896, trop 0.068->0.056. She was ordered IV fluids and oral blood pressure medication and admitted for further treatment. Discharge Providers Provider Date of admission: 03/08/21 02:24 Discharge Date: 03/12/21 Primary care physician: Iván Justin MD Consults: 03/07/21 22:51 Consult to Occupational Therapy Evaluate & Treat Comment: Physician Instructions: Evaluate and treat Consult to Physical Therapy Evaluate & Treat Comment: Physician Instructions: Evaluate and Treat 03/10/21 10:23 Consult to Speech Therapy Evaluate & Treat Comment: holding liquids in her mouth Physician Instructions: Evaluate and treat Discharge provider: Marco Zafar MD Summary Hospital Course Discharge Diagnosis: 1. Statin myopathy 2. Weakness, acute on chronic 3. Chronic multi-focal CVA 4. ROBBIE on CKD stage 4 5. Hypertension 6. Type 2 DM on insulin 7. Depression 8. Anemia 9. Cardiac demand ischemia Hospital Course: Ms. Ribera is a 75W with PMH CVA, DM, HTN, HL who presents with subjective lower leg weakness and pain, found to have significant bilateral leg tenderness. She had an elevated CK, her objective neurologic exam showed no focal weakness. She had a CT head which showed no acute findings. She had her statin stopped and her CK improved and her pain and weakness slightly improved, though she still remained weak. She did have ROBBIE on CKD stage 4 with initial creatinine of 2.28 improved to 1.84 on discharge. She had a mild elevated troponin, with no chest pain, secondary to her chronic kidney disease. She did have an episode of symptomatic bradycardia, that last only a few minutes, possibly a vasovagal event, but her beta-quincy was stopped in the setting. She was discharged to SNF for further PT/OT. Exam Vital Signs (past 8 hours): - 03/12/21 04:00 Temperature 97.5 F L Pulse Rate 67 Respiratory Rate 16 Blood Pressure 184/60 H Pulse Oximetry 95 Oxygen Delivery Method Room Air Oxygen Flow Rate 0 Narrative Exam Narrative: General: Alert, sitting in chair and in no acute distress Extremities:? No edema Neurological:? Affect and speech normal, she seems to have fairly good strength symmetrically in proximal and distal lower extremities, DTRs 2+ in the knees, no ankle clonus Objective Labs Result Diagrams: 03/09/21 05:15 03/12/21 05:28 Labs: Laboratory Results - last 24 hr 03/11/21 03/12/21 15:45 05:28 Sodium 138 Potassium 3.7 Chloride 113 H Carbon Dioxide 18 L BUN 46 H Creatinine 1.84 H Estimated GFR 26.9 L BUN/Creatinine Ratio 25.0 H Glucose 170 H Calcium 8.6 SARS-CoV-2 (PCR) Negative [facility] Medical History Breast cancer, left Chronic kidney disease (CKD), stage III (moderate) Diabetes mellitus Hyperlipidemia associated with type 2 diabetes mellitus Hypothyroidism Surgical History History of hysterectomy History of partial mastectomy of left breast Hx of cholecystectomy Hx of eye surgery Hx of lumbosacral spine surgery Family History Mother No significant medical problems Father Unknown family medical history Social History household members: none Smoking Status: Never smoker alcohol intake: current Discharge Plan Discharge Plan Patient Disposition: SNF Provider Discharge Comment: Ms. Ribera came in to the hospital with leg weakness and pain. She was found to have a myopathy, secondary her statin use. Her CK was initially high but it improved with stopping her statin. She had high blood pressure here, so had her losartan increased, she should have her potassium rechecked within one week. She had her beta-quincy stopped because she became bradycardic and dizzy, and improved once that medicine was stopped. I certify the postop hospital senior living care is medically necessary on a continuing basis for any conditions for which he/ she received care during this hospitalization.: Yes The receiving facility has agreed to accept transfer and provide medical treatment.: Yes Discharge orders & Medications Prescriptions: New losartan 25 mg Tablet 50 mg PO DAILY Qty: 30 RF: 0 Continued levothyroxine [Synthroid] 25 mcg Tablet 25 mcg PO 0600 Qty: 20 RF: 0 sertraline [Zoloft] 50 mg Tablet 25 mg PO BEDTIME Qty: 20 RF: 0 amlodipine [Norvasc] 5 mg Tablet 10 mg PO DAILY Qty: 30 RF: 0 Lantus Solostar U-100 Insulin 100 unit/mL (3 mL) insulin pen See Rx Instructions .ROUTE .COMPLEX RF: 0 insulin aspart U-100 [Novolog Flexpen U-100 Insulin] 100 unit/mL (3 mL) insulin pen 6 - 12 unit SUBCUT BID RF: 0 furosemide 20 mg tablet 20 mg PO DAILY RF: 0 aspirin 81 mg Tablet,Delayed Release (Dr/Ec) 81 mg PO DAILY Qty: 90 RF: 0 atorvastatin [Lipitor] 20 mg Tablet 80 mg PO BEDTIME Qty: 30 RF: 0 clopidogrel 75 mg Tablet 75 mg PO DAILY Qty: 90 RF: 0 Discontinued metoprolol succinate 50 mg Tablet Extended Release 24 Hr 50 mg PO BEDTIME Qty: 30 RF: 0 losartan 25 mg Tablet 25 mg PO DAILY Qty: 30 RF: 0 Follow up/Referrals: Iván Justin MD [Primary Care Provider] - Diet/Activity/Treatments Diet: Low-sodium Liquid consistency: Normal/Thin Food texture: Regular [facility] Rehab type: Physical therapy and Occupational therapy Discharge Data Primary Care Provider: Iván Justin Attending Provider: Zafar,Marco Quality VTE Deep Vein Thrombosis/Pulmonary Embolism Present on Admission: No MIPS - DC The patient has current or prior documentation of left ventricular ejection fraction (LVEF) less than 40%, or moderate or severely depressed left ventricular systolic function.: No
[2021-03-12 08:33] VITALS: BP 141/73; PULSE 60; RESP 16; TEMP 36.4; O2SAT 98
[2021-03-12] MEDS: INSULIN LISPRO 100 UNIT/ML 3ML VIAL SUBCUT (09:04)
[2021-03-12] MEDS: ENOXAPARIN 30 MG/0.3 ML SYRINGE SUBCUT (09:04)
[2021-03-12] MEDS: CLOPIDOGREL 75 MG TABLET PO (09:05)
[2021-03-12] MEDS: AMLODIPINE 5 MG TABLET 10 MG PO (09:05)
[2021-03-12] MEDS: LOSARTAN 25 MG TABLET 50 MG PO (09:05)
[2021-03-12] MEDS: ASPIRIN EC 81 MG TABLET PO (09:05)
--- NOTE | 2021-03-12 09:31 | PT.IPTN ---
Physical Therapy Treatment Note M2 PT-IP Current Condition Start: 03/09/21 09:23 Freq: NEEDED Status: Discharge Protocol: Document 03/12/21 09:06 SP (Rec: 03/12/21 14:28 SP [id number]) Physical Therapy Current Condition Current Condition Evaluation Date 03/09/21 Treatment Diagnosis GLF, weakness, impaired mobility and gait Onset Date 03/07/21 M3 PT-IP Subjective Start: 03/09/21 09:23 Freq: NEEDED Status: Discharge Protocol: Document 03/12/21 09:06 SP (Rec: 03/12/21 14:28 SP [id number]) Subjective Physical Therapy Visit Type Type Treatment Note Visit Start Time 09:06 Visit Stop Time 09:31 Total Visit Minutes 25 Notes SPTA Lukas attended, provided education as needed to assist PERSONNEL COORDINATOR Shanti, PERSONNEL COORDINATOR provided direct supervision and instruction throughout tx to SPTA when needed. Vitals taken during tx: supine 185/76 HR 88 SaO2 99% on RA seated EOB: 147/60 HR 83 stand: 150 /58 HR 75 post mobility: 117/63 HR 81. Number of PERSONNEL COORDINATOR Visits 3 Physical Therapy Visit Comments Patient Comments Pt agreeable to working w/ therapy. Therapy Pain Assessment Pain Present Pain Present Denied Pain M4 PT-IP Mobility and Gait Start: 03/09/21 09:23 Freq: NEEDED Status: Discharge Protocol: Document 03/12/21 09:06 SP (Rec: 03/12/21 14:28 SP [id number]) PT-Bed Mobility Assessment Supine to Sit Supine to Sit Standby Assistance,Head of Bed Elevated Scooting Scooting to Edge of Bed Standby Assistance PT-Transfer Assessment Sit to and From Stand Sit to and from Stand Contact Guard Assistance, Minimal Assistance,1 Person Assistance,Use of Upper Extremities Equipment Transfer Assistive Device Gait Belt,Front Wheeled Walker Orthotic/Prosthetic Devices or Brace: No Transfers Transfer Destination Chair,Toilet Transfer Technique ambulated using FWW Transfer Ability Level of Assist Contact Guard Assistance,Use of Upper Extremities Comments Mobility Comments Pt elevated supine when arrived, completed sup>sit HOB elevated and scoot to EOB SBA (has adjustable bed at home). Sit>stand CG- min A initially from EOB. CGA once in standing, gait around room approx 30 ft then proceeded into bathroom CGA using FWW, cues for fully SPT back up to toilet and use of grab bar and FWW for slow descent to toilet cG-5%A. Safe sitting on toiet S. Completed self pericare, Sti>stand CGA w/ grab bar and brief mgt self CGA for safety balance, steady . Pt ambulated to sink, cued for FWW facing sink, completed wash hands CGA then walked to chair CGA, cues for upright posture and backing up fully and proper hand placement. Pt was fully back in chair with call light and all needs in reach. Placed chair alarm on for safety, notified nurse recheck chair alarm due to occasional beeps with new batteries, she returned to check. Gait Assessment Gait Gait Assistance Required: Contact Guard Assist,1 Person Assist Distance (Feet) 30 Able to Maintain Weight Bearing Status Yes During Gait Assistive Devices Assistive Device Gait Belt,Front Wheeled Walker Orthotic/Prosthetic Devices or Brace: No Gait Deviations General Gait Pattern Decreased Stride Length, Decreased Feet Clearance, Flexed Trunk Factors Limiting Gait Function Factors Limiting Gait Function Decreased Activity Tolerance, Decreased Strength,Poor Safety Awareness Comments Gait Comments see mobility comments Stair Climbing Assessment Comments Stair Climbing Comments Not assessed. No stairs at home. PT-Balance Assessment Sitting Balance and Reactions Static Sitting Balance Ability Normal Dynamic Sitting Balance Ability Good Standing Balance and Reactions Static Standing Balance Ability Fair Dynamic Standing Balance Ability Fair Device Used FWW M5 PT-IP Objective Assessments Start: 03/09/21 09:23 Freq: NEEDED Status: Discharge Protocol: Document 03/09/21 11:39 AW (Rec: 03/09/21 13:15 AW [id number]) Orientation Orientation/Cognition Level of Alertness Alert Orientation Name,Place,Situation Language Function Ability No Deficits Noted Safety Awareness Understands Safety Issues Gross Range of Motion Lower Extremity ROM Assessment Within Functional Limits Strength Lower Extremity Strength Assessment Bilaterally Impaired Hip 3+/5 Knee 4-/5 Ankle 4-/5 Sensation Assessment Sensation Gross Sensation WNL M6 PT-IP Treatment Start: 03/09/21 09:23 Freq: NEEDED Status: Discharge Protocol: Document 03/12/21 09:06 SP (Rec: 03/12/21 14:28 SP [id number]) Physical Therapy Treatment Education Education Provided Safety Other Treatments Other Treatment Performed Educated pt on safe use of FWW , and current need for mobility assist. M7 PT-IP Assessment and Plan Start: 03/09/21 09:23 Freq: NEEDED Status: Discharge Protocol: Document 03/12/21 09:06 SP (Rec: 03/12/21 14:28 SP [id number]) PT Summary Assessment and Plan Potential Rehabilitation Potential Fair Status of Condition at Evaluation Evolving Summary Impairments Strength,Balance,Bed Mobility, Transfers,Gait,Activity Tolerance Progress Towards Goals Progressing Toward Goals,Slow Progress due to Activity Tolerance Assessment Summary Pt SBA for bed mob, CGA- Min for most mobility use of FWW. Pt able to ambulate ~30 ft w/ FWW. Pt continues to be limited by weakness and low tlerance for activity and will require SNF to improve. Goals Bed Mobility Goal Standby Assistance Transfer Goal Standby Assistance,Front Wheeled Walker Gait Goal Standby Assistance,Front Wheel Walker Gait Distance 100 Other Goals LTG: improve transfers and ambulation to modified independent with FWW Days to Meet Goals 8 Frequency of Treatment Frequency Of Treatment Once a Day Treatment Plan Physical Therapy Treatment Plan Bed Mobility Training,Transfer Training,Gait Training, Therapeutic Exercise,Balance Retraining,Discharge Planning, Hot or Cold Pack Other Recommendations and Next Treatment mobility as tolerated; ther ex Focus for LE strength Precautions Other Precautions falls Recommendations To Nursing Amount of Assist Needed 1 Person Assist Discharge Recommendations PT Discharge Recommendations SNF Rehab Transportation Needs at Discharge Private Vehicle,Wheelchair/ Cabulance
--- NOTE | 2021-03-12 11:10 | PC.NURSE ---
pt denied pain. flat affect. A&Ox3. RA 96%. forgetful. all belongings returned to patient.
--- NOTE | 2021-03-12 12:07 | CM.DPC ---
DCP Cont: Patient is to be going to [facility] today, and confirmed pick up attendant time of 10:00. Had hospitalist sign medication orders, and had Aditi, assistant professor of radiology, fax over to [facility] along with [facility]. White board at main nurses station was already updated. Ro, nurse, is aware of plan. Received a call from Verónica at [facility]. She stated that she received a call secondary to patient being on the ground at her initial fall, as well as patient not wanting to go to the hospital. Did let her know that patient is going over to [facility] today for rehab with the plan of her returning home to [facility] when she is stronger. Verónica was asking for records, and encouraged her to call the medical records department. P: Patient is discharging to [facility] today with pick up attendant at 10:00. Chapis Woody RN/Environmental Planning Engineer
== END 2021-03-12 10:14 ==
LOC: ED 19:44 → AC 03-08 02:25
PROVIDERS: Family Medicine; Admitting Provider Internal Medicine; Emergency Provider Emergency Medicine; PCP Family Medicine; Referring Provider Emergency Medicine; Visit Provider Internal Medicine
DX: R53.1 Weakness (principal); I25.89 Other forms of chronic ischemic heart disease; N17.9 Acute kidney failure, unspecified; I16.0 Hypertensive urgency; R53.83 Other fatigue; N18.4 Chronic kidney disease, stage 4 (severe); M79.662 Pain in left lower leg; M79.661 Pain in right lower leg; W07.XXXA Fall from chair, initial encounter; Y92.009 Unspecified place in unspecified non-institutional (private) residence as the place of occurrence of the external cause; Z86.73 Personal history of transient ischemic attack (TIA), and cerebral infarction without residual deficits; E03.9 Hypothyroidism, unspecified; E78.5 Hyperlipidemia, unspecified; D64.9 Anemia, unspecified; F32.9 Major depressive disorder, single episode, unspecified; E11.9 Type 2 diabetes mellitus without complications; Z79.4 Long term (current) use of insulin; Z20.822 Contact with and (suspected) exposure to COVID-19
CPT/HCPCS: 36415; 70450; 80048; 80053; 82009; 82550; 82553; 82962; 83690; 83735; 84100; 84443; 84484; 85025; 85610; 85651; 85730; 86850; 86900; 86901; 87635; 92526; 92610; 93005; 93010; 94760; 96360; 96361; 97116; 97162; 97166; 97530; 97535; 99284; C9803; G0378; J1650; J1815